=== PATIENT | female | born 1935 | race Caucasian/White ===

== ENCOUNTER 2017-04-30 21:19 | Inpatient (IN) | payer MEDICARE ==
[~2017-04-30] VITALS: Ht 160 cm; Wt 73.5 kg
[~2017-04-30 21:19] MED LIST: ALPR0.254 PO; AMIO200T2 PO; ESCITALOPRAM OX10 MG PO; FENT50AM IJ; FURO10VI IJ; HEPA500022 IJ; INSU100V SQ; IPRA3AMP NEB; LEVO75TA5 PO; MELA3TAB2 PEG; ONDA4DIS IJ; PANT40TA5 PO; POTA20TA82 PO; SIME80TA14 PO; SUCR1TAB PO; metoprolol IV
--- NOTE | 2017-04-30 21:27 | PHYS DOC ---
Past Medical History Past Medical History: Diabetes-Type II, High Cholesterol, Hypertension Past Medical History Perforated Peptic ulcer 03/29/17 Past Surgical History: Hip Replacement, Hysterectomy Additional Past Surgical Histo: Back; bladder suspension Past Surgical History lap w abdominal washout with repair of perforated ulcer and Mahad patch placement 03/29/17 Additional Information: Non smoker Social History Narrative: From [facility] Adult General Chief Complaint Chief Complaint: SHORTNESS OF BREATH HPI HPI Patient is a 81 year old female who presents with shortness of air. Patient presents from [facility] for shortness of air. She was originally seen at [facility] on March 29, 2017 for perforated peptic ulcer (lives in [facility]). She underwent emergent laparoscopy and repair. During that stay she was treated for peritonitis, septic shock, acute kidney injury, non-STEMI and respiratory failure. She was intubated on March 29 and extubate on April 05, 2017. She did develop atrial fibrillation which converted to sinus rhythm spontaneously. She is presently on oral amiodarone. She had a echocardiogram that showed an ejection fraction 55%. She is anti- coagulated. Per the daughter she just finished Meropenem yesterday for aspiration pneumonia. Staff noticed she was diaphoretic and having SOA. She was given Aspirin; nitropaste and IV lasix 80 mg at [facility] prior to arrival here. She is followed by Dr Rita Hebert at [facility]. Review of Systems Review of Systems Unable to answer due to respiratory difficulty Current Medications Current Medications Current Medications Medications (Trade) Dose Ordered Sig/Leia Start Time Stop Time Status Last Admin Dose Admin Meropenem 500 mg/ Sodium Chloride 50 ml @ 100 mls/hr Q8HRS 04/30/17 23:00 04/30/17 22:44 100 MLS/HR Morphine Sulfate 2 mg PRN Q2HR PRN 04/30/17 23:00 05/01/17 22:59 04/30/17 23:09 2 MG Ondansetron HCl (Zofran) 4 mg PRN Q8HRS PRN 04/30/17 23:00 05/01/17 22:59 Sodium Chloride 500 ml @ 500 mls/hr 1X ONCE 04/30/17 23:45 05/01/17 00:44 DC 04/30/17 23:38 500 MLS/HR Sodium Chloride (Normal Saline Flush) 10 ml QSHIFT PRN 04/30/17 21:30 Allergies Allergies Allergies Coded Allergies Type Severity Reaction Last Updated Verified Penicillins Allergy Severe Anaphylaxis 04/30/17 Yes metronidazole Allergy Intermediate 04/30/17 Yes sulfamethoxazole Allergy Intermediate 04/30/17 Yes trimethoprim Allergy Intermediate 04/30/17 Yes adhesive tape Adverse Reaction Severe skin tears 04/14/17 Yes pravastatin Adverse Reaction Intermediate severe muscle cramps 04/14/17 Yes acetaminophen Adverse Reaction Mild nausea 04/14/17 Yes hydrocodone Adverse Reaction Mild nausea 04/14/17 Yes oxycodone Adverse Reaction Mild nausea 04/14/17 Yes tramadol Adverse Reaction Mild nausea 04/14/17 Yes Physical Exam Physical Exam Constitutional: ill appearing; no diaphoresis presently HENT: Normocephalic, atraumatic, bilateral external ears normal, oropharynx moist, no oral exudates, nose normal. Eyes: PERRLA, EOMI, conjunctiva normal, no discharge. Neck: Normal range of motion, no tenderness, supple, no stridor. Cardiovascular:Heart rate regular rhythm, tachycardic, no murmur Lungs & Thorax: Bilateral breath sounds clear to auscultation Abdomen: Bowel sounds normal, soft, no tenderness, no masses, no pulsatile masses. Skin: Warm, dry, no erythema, no rash. Back: No tenderness, no CVA tenderness. Extremities: No tenderness, no cyanosis, no clubbing, ROM intact, no edema. [] Neurologic: Alert and oriented X 2, normal motor function, normal sensory function, no focal deficits noted. Current Patient Data Vital Signs Vital Signs Date Time Temp Pulse Resp B/P (MAP) Pulse Ox O2 Delivery O2 Flow Rate FiO2 05/01/17 00:02 74 20 96/55 (69) 99 BiPAP/CPAP 04/30/17 22:15 98.8 98.8 Lab Values Laboratory Tests Test 04/30/17 21:23 04/30/17 21:35 04/30/17 21:45 Urine Collection Type Unknown Urine Color Yellow Urine Clarity Clear Urine pH 7.0 Urine Specific [place] 1.010 Urine Protein Negative mg/dL (NEG-TRACE) Urine Glucose (UA) Negative mg/dL (NEG) Urine Ketones (Stick) Negative mg/dL (NEG) Urine Blood Moderate (NEG) Urine Nitrite Negative (NEG) Urine Bilirubin Negative (NEG) Urine Urobilinogen Dipstick 0.2 mg/dL (0.2 mg/dL) Urine Leukocyte Esterase Negative (NEG) Urine RBC 11-20 /HPF (0-2) Urine WBC Occ /HPF (0-4) Urine Bacteria 0 /HPF (0-FEW) Urine Hyaline Casts Moderate /HPF Urine Mucus Mod /LPF White Blood Count 15.8 x10^3/uL (4.0-11.0) H Red Blood Count 3.71 x10^6/uL (3.50-5.40) Hemoglobin 10.7 g/dL (12.0-15.5) L Hematocrit 32.9 % (36.0-47.0) L Mean Corpuscular Volume 89 fL (79-100) Mean Corpuscular Hemoglobin 29 pg (25-35) Mean Corpuscular Hemoglobin Concent 33 g/dL (31-37) Red Cell Distribution Width 17.6 % (11.5-14.5) H Platelet Count 347 x10^3/uL (140-400) Neutrophils (%) (Auto) 70 % (31-73) Lymphocytes (%) (Auto) 17 % (24-48) L Monocytes (%) (Auto) 5 % (0-9) Eosinophils (%) (Auto) 8 % (0-3) H Basophils (%) (Auto) 1 % (0-3) Neutrophils # (Auto) 11.0 x10^3uL (1.8-7.7) H Lymphocytes # (Auto) 2.6 x10^3/uL (1.0-4.8) Monocytes # (Auto) 0.7 x10^3/uL (0.0-1.1) Eosinophils # (Auto) 1.3 x10^3/uL (0.0-0.7) H Basophils # (Auto) 0.1 x10^3/uL (0.0-0.2) Prothrombin Time 16.8 SEC (11.7-14.0) H Prothrombin Time INR 1.5 (0.8-1.1) H Sodium Level 133 mmol/L (136-145) L Potassium Level 4.3 mmol/L (3.5-5.1) Chloride Level 93 mmol/L (98-107) L Carbon Dioxide Level 33 mmol/L (21-32) H Anion Gap 7 (6-14) Blood Urea Nitrogen 28 mg/dL (7-20) H Creatinine 1.0 mg/dL (0.6-1.0) Estimated GFR (Cockcroft-Gault) 53.5 Glucose Level 197 mg/dL (70-99) H Lactic Acid Level 2.6 mmol/L (0.4-2.0) H Calcium Level 8.9 mg/dL (8.5-10.1) Magnesium Level 2.1 mg/dL (1.8-2.4) Total Bilirubin 0.4 mg/dL (0.2-1.0) Direct Bilirubin 0.1 mg/dL (0.0-0.2) Aspartate Amino Transferase (AST) 32 U/L (15-37) Alanine Aminotransferase (ALT) 24 U/L (14-59) Alkaline Phosphatase 90 U/L (46-116) Creatine Kinase 44 U/L (26-192) Creatine Kinase MB (Mass) 1.6 ng/mL (0.0-3.6) Creatine Kinase MB Relative Index % (0-4) Troponin I Quantitative 0.019 ng/mL (0.000-0.055) OC-Dsv-F-Type Natriuretic Peptide 89037 pg/mL (0-449) H Total Protein 7.9 g/dL (6.4-8.2) Albumin 2.4 g/dL (3.4-5.0) L Lipase 829 U/L (73-393) H O2 Saturation 98 % (92-99) Arterial Blood pH 7.48 (7.35-7.45) H Arterial Blood pCO2 at Patient Temp 40 mmHg (35-46) Arterial Blood pO2 at Patient Temp 121 mmHg (65-108) H Arterial Blood HCO3 29 mmol/L (21-28) H Arterial Blood Base Excess 5 mmol/L (-3-3) H Oxyhemoglobin 97.0 % Methemoglobin 0.6 % (0.0-1.9) Carbon Monoxide, Quantitative 0.2 % (0.0-1.9) FiO2 100 Laboratory Tests 04/30/17 21:35 Laboratory Tests 04/30/17 21:35 EKG EKG EKG interpreted by myself at 2116 PM: sinus tachycardia rate 109 with prolonged MS interval; BBB; LAD. No STEMI. Radiology/Procedures Radiology/Procedures CXR interpreted by myself at 2200 PM: enlarged cardiac silhouette; no acute infiltrate; no pleural effusion. Course & Med Decision Making Course & Med Decision Making Reviewed her EKG transmitted (done at 2014 PM): Sinus tachycardia; rate 99; nonspecific ST changes. BBB with no ST elevation. Did not meet criteria for STEMI. Discussed with Dr hCo (Cardiology) at 2107 PM who concurred. Met patient upon arrival with repeat EKG confirming no STEMI. She clinically appeared to have CHF. Placed on BIPAP upon arrival (20/8, R 20, fiO2 100%). ABG done at 2145 PM: 7.47/40/120 (titrated oxygen). Spoke w daughter and updated family. At 2229 PM reviewed all of her records from [facility] and lab. Will restart the Meropenem (she has multiple allergies) and admit. lactic acid 2.6; BNP >11,000. Admit ICU; consult Cardiology. Called Dr Escobar (wagon drill operator for [facility] ) at 2245 PM. Patient meets severe sepsis with Lactic >2.2; needs IV fluids > 125 cc/hr per sepsis protocol. At [address] Escobar returned page and updated on patient's status. I spent approximately 30 minutes working and engaged directly in the patient care providing critical care evaluation this includes but not limited to time spent engaged in work directly related to the individual patients care. I spent time at the bedside, reviewing test results, discussing the case with staff, documenting the medical record and time spent with EMS discussing specific treatment issues when the patient presented and during his evaluation. This includes any discussion and updates with family members and/or patient. I have spoken with the patient and/or caregivers. I have explained the patient' s condition, diagnosis and treatment plan based on the information available to me at this time. I have answered the patient's and/or caregiver's questions and addressed any concerns. The patient and/or caregivers have as good an understanding of the patient's diagnosis, condition and treatment plan as can be expected at this point. The patient has been stabilized within the capability of the emergency department. The patient will be transported for further care and management or will be moved to an observation or inpatient service. I have communicated with the staff or medical practitioner taking over this patient's care. Dragon Disclaimer Dragon Disclaimer This electronic medical record was generated, in whole or in part, using a voice recognition dictation system. Departure Departure Impression: Primary Impression: CHF (congestive heart failure) Additional Impressions: Sepsis Respiratory failure Disposition: ADMITTED INPATIENT Condition: CRITICAL Referrals: RITA HEBERT MD (PCP) Problem Qualifiers Primary Impression: CHF (congestive heart failure) Congestive heart failure type: unspecified congestive heart failure type Congestive heart failure chronicity: acute on chronic Qualified Codes: I50.9 - Heart failure, unspecified Additional Impressions: Sepsis Sepsis type: sepsis due to unspecified organism Qualified Codes: A41.9 - Sepsis, unspecified organism Respiratory failure Chronicity: acute on chronic Respiratory failure complication: hypoxia Qualified Codes: J96.21 - Acute and chronic respiratory failure with hypoxia SHAGGY ARMANDO MD Apr 30, 2017 21:27
[2017-04-30] MEDS ORDERED: 0.9 % SODIUM CHLORIDE 10 ML DISP.SYRIN. IV PRN (21:30)
[2017-04-30 21:44] LABS: BASO # 0.1 x10^3/uL (0.0-0.2); BASO % 1 % (0-3); EOS % 8 % (0-3); HEMATOCRIT 32.9 % (36.0-47.0); HEMOGLOBIN 10.7 g/dL (12.0-15.5); LYMPH # 2.6 x10^3/uL (1.0-4.8); LYMPH % 17 % (24-48); MEAN CORPUSCULAR HEMOGLOBIN 29 pg (25-35); MEAN CORPUSCULAR HGB CONC 33 g/dL (31-37); MEAN CORPUSCULAR VOLUME 89 fL (79-100); MONO % 5 % (0-9); NEUT % 70 % (31-73); PLATELET COUNT 347 x10^3/uL (140-400); RED BLOOD COUNT 3.71 x10^6/uL (3.50-5.40); RED CELL DISTRIBUTION WIDTH 17.6 % (11.5-14.5); WHITE BLOOD COUNT 15.8 x10^3/uL (4.0-11.0)
[2017-04-30 21:48] LABS: BASE EXCESS COOX 5 mmol/L (-3-3); CARBON MONOXIDE 0.2 % (0.0-1.9); HCO3 COOX 29 mmol/L (21-28); METHEMOGLOBIN 0.6 % (0.0-1.9); PCO2 COOX 40 mmHg (35-46); PH COOX 7.48 (7.35-7.45); PO2 COOX 121 mmHg (65-108); SAT O2 COOX 98 % (92-99); TOTAL HEMOGLOBIN 11.8 g/dL
[2017-04-30 21:49] LABS: FIO2 COOX 100
[2017-04-30 21:53] LABS: INR 1.5 (0.8-1.1); PROTHROMBIN TIME PATIENT 16.8 SEC (11.7-14.0)
[2017-04-30 21:54] LABS: CALCIUM 8.9 mg/dL (8.5-10.1); GFR 53.5; POTASSIUM 4.3 mmol/L (3.5-5.1)
[2017-04-30 22:00] LABS: ALBUMIN 2.4 g/dL (3.4-5.0); DIRECT BILIRUBIN 0.1 mg/dL (0.0-0.2); MAGNESIUM 2.1 mg/dL (1.8-2.4); TOTAL BILIRUBIN 0.4 mg/dL (0.2-1.0); TOTAL PROTEIN 7.9 g/dL (6.4-8.2)
[2017-04-30 22:09] LABS: CKMB MASS 1.6 ng/mL (0.0-3.6); CREATINE KINASE 44 U/L (26-192)
[2017-04-30 22:20] LABS: BILIRUBIN,URINE NEGATIVE (NEG); GLUCOSE,URINE NEGATIVE (NEG); NITRITE,URINE NEGATIVE (NEG); PROTEIN,URINE NEGATIVE (NEG-TRACE); UROBILINOGEN,URINE 0.2 mg/dL (0.2 mg/dL)
[2017-04-30 22:27] LABS: BACTERIA,URINE 0 /HPF (0-FEW); WBC,URINE OCC /HPF (0-4)
[2017-04-30] MEDS: MEROPENEM 500 MG in IV NORMAL SALINE 50ML 50 ML IV SCH (22:44)
[2017-04-30] MEDS ORDERED: ONDANSETRON PF 4 MG/2 ML VIAL. IV PRN ×2 (23:00)
[2017-04-30] MEDS ORDERED: MORPHINE SULFATE 2 MG/ML DISP.SYRIN. IV PRN (23:00)
[2017-04-30] MEDS ORDERED: IV NORMAL SALINE 1000ML BAG 1,000 ML IV ONE ×2 (23:30)
[2017-04-30] MEDS ORDERED: IV NORMAL SALINE 500ML BAG 500 ML IV ONE (23:45)
[2017-05-01] VITALS (27 sets, daily range): BP systolic 69–123; BP diastolic 42–76
[2017-05-01] MEDS ORDERED: NOREPINEPHRIN PREMIX 250 ML IV PRN (01:45)
[2017-05-01] MEDS: IV NORMAL SALINE 1000ML BAG 1,000 ML IV SCH ×2 (02:00→15:00)
[2017-05-01] MEDS ORDERED: LISI10TA2 PO (04:26)
[2017-05-01] MEDS ORDERED: APIX5TAB PO (04:26)
[2017-05-01] MEDS: MEROPENEM 500 MG in IV NORMAL SALINE 50ML 50 ML IV SCH ×3 (05:15→21:47)
[2017-05-01] MEDS ORDERED: MEROPENEM 500 MG in IV NORMAL SALINE 50ML 50 ML IV SCH (06:00)
[2017-05-01 06:33] LABS: BASO # 0.1 x10^3/uL (0.0-0.2); BASO % 1 % (0-3); EOS % 5 % (0-3); HEMATOCRIT 29.1 % (36.0-47.0); HEMOGLOBIN 9.8 g/dL (12.0-15.5); LYMPH % 23 % (24-48); MEAN CORPUSCULAR HEMOGLOBIN 30 pg (25-35); MEAN CORPUSCULAR HGB CONC 34 g/dL (31-37); MEAN CORPUSCULAR VOLUME 87 fL (79-100); MONO % 8 % (0-9); NEUT % 63 % (31-73); PLATELET COUNT 278 x10^3/uL (140-400); RED BLOOD COUNT 3.33 x10^6/uL (3.50-5.40); RED CELL DISTRIBUTION WIDTH 17.1 % (11.5-14.5); WHITE BLOOD COUNT 8.4 x10^3/uL (4.0-11.0)
[2017-05-01 07:10] LABS: CREATININE 0.9 mg/dL (0.6-1.0); GFR 60.4; POTASSIUM 4.3 mmol/L (3.5-5.1)
--- NOTE | 2017-05-01 08:38 | RAD ---
Examination: Single frontal view of the chest history: History shortness of breath Comparison: None available Findings: Low lung volumes and technique accentuate heart size and pulmonary vascularity. Moderate diffuse bilateral interstitial lung markings and airspace opacities likely moderate congestive changes or diffuse patchy infiltrates. Trace bilateral pleural effusions. Impression: Findings suggestive of moderate congestive changes with probable patchy airspace opacities.
[2017-05-01 08:51] LABS: HCO3 ABG 33 mmol/L (21-28); PCO2 ABG 44 mmHg (35-46); PO2 ABG 133 mmHg (65-108); SAT O2 ABG 99 % (92-99)
[2017-05-01 08:52] LABS: FIO2 ABG 45
--- NOTE | 2017-05-01 11:03 | PDOC ---
Infectious Disease Note Subjective Subjective Dr Hebert asked me to see pt for early sepsis Pt known to us from [facility], transferred for being cold, diaphoretic, sob, hypotensive, leukocytosis, now on meropenem Says feeling better, no n/v/d/ ROS ROS GEN: Denies fevers, chills, sweats HEENT: Denies blurred vision, sore throat CV: Denies chest pain RESP: Denies shortness of air, cough GI: Denies n/v/d NEURO: Denies confusion, dizziness MSK: Denies weakness, joint pain/swelling Vital Sign Vital Signs Vital Signs Date Time Temp Pulse Resp B/P (MAP) Pulse Ox O2 Delivery O2 Flow Rate FiO2 05/01/17 10:00 73 20 81/47 (58) 90 Nasal Cannula 2.0 05/01/17 08:00 98.2 98.2 Physical Exam PHYSICAL EXAM GENERAL: NAD, Alert HEENT: PERRL, OC/OP NECK: Supple, no JVD, no LN LUNGS: Clear HEART: S1S2, no gallop, no murmur ABD: Soft, NT, no organomegaly, no rebound EXT: No edema, no cyanosis PEELER OPERATOR: Alert, oriented x 3, no focal neurologic deficit SKIN: No rash IV: ok Labs Lab Laboratory Tests Test 04/30/17 21:23 04/30/17 21:35 04/30/17 21:45 05/01/17 01:30 Urine Collection Type Unknown Urine Color Yellow Urine Clarity Clear Urine pH 7.0 Urine Specific [place] 1.010 Urine Protein Negative mg/dL (NEG-TRACE) Urine Glucose (UA) Negative mg/dL (NEG) Urine Ketones (Stick) Negative mg/dL (NEG) Urine Blood Moderate (NEG) Urine Nitrite Negative (NEG) Urine Bilirubin Negative (NEG) Urine Urobilinogen Dipstick 0.2 mg/dL (0.2 mg/dL) Urine Leukocyte Esterase Negative (NEG) Urine RBC 11-20 /HPF (0-2) Urine WBC Occ /HPF (0-4) Urine Bacteria 0 /HPF (0-FEW) Urine Hyaline Casts Moderate /HPF Urine Mucus Mod /LPF White Blood Count 15.8 x10^3/uL (4.0-11.0) Red Blood Count 3.71 x10^6/uL (3.50-5.40) Hemoglobin 10.7 g/dL (12.0-15.5) Hematocrit 32.9 % (36.0-47.0) Mean Corpuscular Volume 89 fL (79-100) Mean Corpuscular Hemoglobin 29 pg (25-35) Mean Corpuscular Hemoglobin Concent 33 g/dL (31-37) Red Cell Distribution Width 17.6 % (11.5-14.5) Platelet Count 347 x10^3/uL (140-400) Neutrophils (%) (Auto) 70 % (31-73) Lymphocytes (%) (Auto) 17 % (24-48) Monocytes (%) (Auto) 5 % (0-9) Eosinophils (%) (Auto) 8 % (0-3) Basophils (%) (Auto) 1 % (0-3) Neutrophils # (Auto) 11.0 x10^3uL (1.8-7.7) Lymphocytes # (Auto) 2.6 x10^3/uL (1.0-4.8) Monocytes # (Auto) 0.7 x10^3/uL (0.0-1.1) Eosinophils # (Auto) 1.3 x10^3/uL (0.0-0.7) Basophils # (Auto) 0.1 x10^3/uL (0.0-0.2) Prothrombin Time 16.8 SEC (11.7-14.0) Prothromb Time International Ratio 1.5 (0.8-1.1) Sodium Level 133 mmol/L (136-145) Potassium Level 4.3 mmol/L (3.5-5.1) Chloride Level 93 mmol/L (98-107) Carbon Dioxide Level 33 mmol/L (21-32) Anion Gap 7 (6-14) Blood Urea Nitrogen 28 mg/dL (7-20) Creatinine 1.0 mg/dL (0.6-1.0) Estimated GFR (Cockcroft-Gault) 53.5 Glucose Level 197 mg/dL (70-99) Lactic Acid Level 2.6 mmol/L (0.4-2.0) 1.6 mmol/L (0.4-2.0) Calcium Level 8.9 mg/dL (8.5-10.1) Magnesium Level 2.1 mg/dL (1.8-2.4) Total Bilirubin 0.4 mg/dL (0.2-1.0) Direct Bilirubin 0.1 mg/dL (0.0-0.2) Aspartate Amino Transf (AST/SGOT) 32 U/L (15-37) Alanine Aminotransferase (ALT/SGPT) 24 U/L (14-59) Alkaline Phosphatase 90 U/L (46-116) Creatine Kinase 44 U/L (26-192) Creatine Kinase MB (Mass) 1.6 ng/mL (0.0-3.6) Creatine Kinase MB Relative Index % (0-4) Troponin I Quantitative 0.019 ng/mL (0.000-0.055) UM-Xsi-V-Type Natriuretic Peptide 90119 pg/mL (0-449) Total Protein 7.9 g/dL (6.4-8.2) Albumin 2.4 g/dL (3.4-5.0) Lipase 829 U/L (73-393) O2 Saturation 98 % (92-99) Arterial Blood pH 7.48 (7.35-7.45) Arterial Blood pCO2 at Patient Temp 40 mmHg (35-46) Arterial Blood pO2 at Patient Temp 121 mmHg (65-108) Arterial Blood HCO3 29 mmol/L (21-28) Arterial Blood Base Excess 5 mmol/L (-3-3) Oxyhemoglobin 97.0 % Methemoglobin 0.6 % (0.0-1.9) Carbon Monoxide, Quantitative 0.2 % (0.0-1.9) FiO2 100 Test 05/01/17 05:10 05/01/17 05:19 05/01/17 08:30 Troponin I Quantitative 0.060 ng/mL (0.000-0.055) White Blood Count 8.4 x10^3/uL (4.0-11.0) Red Blood Count 3.33 x10^6/uL (3.50-5.40) Hemoglobin 9.8 g/dL (12.0-15.5) Hematocrit 29.1 % (36.0-47.0) Mean Corpuscular Volume 87 fL (79-100) Mean Corpuscular Hemoglobin 30 pg (25-35) Mean Corpuscular Hemoglobin Concent 34 g/dL (31-37) Red Cell Distribution Width 17.1 % (11.5-14.5) Platelet Count 278 x10^3/uL (140-400) Neutrophils (%) (Auto) 63 % (31-73) Lymphocytes (%) (Auto) 23 % (24-48) Monocytes (%) (Auto) 8 % (0-9) Eosinophils (%) (Auto) 5 % (0-3) Basophils (%) (Auto) 1 % (0-3) Neutrophils # (Auto) 5.2 x10^3uL (1.8-7.7) Lymphocytes # (Auto) 2.0 x10^3/uL (1.0-4.8) Monocytes # (Auto) 0.7 x10^3/uL (0.0-1.1) Eosinophils # (Auto) 0.4 x10^3/uL (0.0-0.7) Basophils # (Auto) 0.1 x10^3/uL (0.0-0.2) Sodium Level 137 mmol/L (136-145) Potassium Level 4.3 mmol/L (3.5-5.1) Chloride Level 97 mmol/L (98-107) Carbon Dioxide Level 34 mmol/L (21-32) Anion Gap 6 (6-14) Blood Urea Nitrogen 25 mg/dL (7-20) Creatinine 0.9 mg/dL (0.6-1.0) Estimated GFR (Cockcroft-Gault) 60.4 Glucose Level 103 mg/dL (70-99) Calcium Level 8.0 mg/dL (8.5-10.1) O2 Saturation 99 % (92-99) Arterial Blood pH 7.50 (7.35-7.45) Arterial Blood pCO2 at Patient Temp 44 mmHg (35-46) Arterial Blood pO2 at Patient Temp 133 mmHg (65-108) Arterial Blood HCO3 33 mmol/L (21-28) Arterial Blood Base Excess 9 mmol/L (-3-3) FiO2 45 Objective Assessment Early sepsis, lactic acidosis, leukocytosis CHF Aspiration cannot be ruled out Perforated ulcer s/p keli patch Troponin leak Plan Plan of Care cont meropenem for now supportive care check cultures d/w HERNANDEZ Hunter MD May 01, 2017 11:03
--- NOTE | 2017-05-01 11:50 | PDOC2 ---
CONSULT Date of Consult Date of Consult DATE: 05/01/17 TIME: 11:50 Reason for Consult Reason for Consult: Congestive heart failure Referring Physician Referring Physician: Dr. Hebert Identification/Chief Complaint Chief Complaint Shortness of breath Problems: Source Source: Chart review, Patient History of Present Illness Reason for Visit: 81-year-old female who recently underwent surgical repair of perforated peptic ulcer at [facility] and transferred to [facility] was found to be diaphoretic and short of breath and hence transferred to [facility] for further management. She denied any chest pain or palpitations. Past Medical History Past Medical History Paroxysmal atrial fibrillation Congestive heart failure Diabetes mellitus type 2 Hypertension Hyperlipidemia Hypothyroidism UTI Aspiration pneumonia Past Surgical History Past Surgical History Recent abdominal washout and laparoscopic repair of perforated peptic ulcer at [facility] Family History Family History not contributory Social History Social History Patient is a nonsmoker and a nondrinker Current Problem List Problem List Problems Medical Problems: (1) CHF (congestive heart failure) Status: Acute (2) Respiratory failure Status: Acute (3) Sepsis Status: Acute Current Medications Current Medications Current Medications Sodium Chloride (Normal Saline Flush) 10 ml QSHIFT PRN IV AFTER MEDS AND BLOOD DRAWS; Start 04/30/17 at 21:30 Meropenem 500 mg/ Sodium Chloride 50 ml @ 100 mls/hr Q8HRS IV Last administered on 05/01/17 05:15; Start 04/30/17 at 23:00 Sodium Chloride 1,000 ml @ 130 mls/hr 1X ONCE IV Last administered on 23:02; Start 04/30/17 at 23:30; Stop 05/01/17 at 07:11; Status DC Ondansetron HCl (Zofran) 4 mg PRN Q6HRS PRN IV NAUSEA/VOMITING Last administered on 04/30/17 23:00; Start 04/30/17 at 23:00; Stop 05/01/17 at 01:00; Status DC Ondansetron HCl (Zofran) 4 mg PRN Q8HRS PRN IV NAUSEA/VOMITING; Start 04/30/17 at 23:00; Stop 05/01/17 at 22:59 Morphine Sulfate 2 mg PRN Q2HR PRN IV SEVERE PAIN Last administered on 23:09; Start 04/30/17 at 23:00; Stop 05/01/17 at 22:59 Meropenem 500 mg/ Sodium Chloride 50 ml @ 100 mls/hr Q8HRS IV ; Start 05/01/17 at 06:00; Status UNV Sodium Chloride 1,000 ml @ 130 mls/hr 1X ONCE IV ; Start 04/30/17 at 23:30; Stop 05/01/17 at 07:11; Status DC Sodium Chloride 500 ml @ 500 mls/hr 1X ONCE IV Last administered on 04/30/17 23:38; Start 04/30/17 at 23:45; Stop 05/01/17 at 00:44; Status DC Norepinephrine Bitartrate 250 ml @ 0 mls/hr CONT PRN IV SEE I/O RECORD; Start 05/01/17 at 01:45 Sodium Chloride 1,000 ml @ 75 mls/hr [id number] IV Last administered on 05/01/17 02:00; Start 05/01/17 at 02:00 Active Scripts Active Reported Eliquis (Apixaban) 5 Mg Tablet 5 Mg PO BID Lisinopril 10 Mg Tablet 1 Tab PO DAILY Ondansetron Hcl 4 Mg/2 Ml Syr (Ondansetron Hcl/Pf) 4 Mg/2 Ml Disp.syrin 4 Mg IJ Q6HRS PRN Fentanyl 100 Mcg/2 Ml Ampul (Fentanyl Citrate/Pf) 50 Mcg/1 Ml Ampul 25 Mcg IJ Q2HR PRN Heparin Sod 5,000 Unit/ 0.5 Ml (Heparin Sodium,Porcine/Pf) 5,000 Unit/0.5 Ml Vial 5,000 Unit IJ Q12HR Pantoprazole Sodium 40 Mg Tablet.dr 1 Tab PO DAILY Sucralfate 1 Gm Tablet 1 Tab PO BID Simethicone 80 Mg Tab.chew 80 Mg PO TID Furosemide 10 Mg/1 Ml Vial 40 Mg IJ BID Duoneb 0.5-3(2.5) Mg/3 Ml (Albuterol/Ipratropium) 3 Ml Ampul.neb 3 Ml NEB BID Potassium Chloride 20 Meq Tablet.er 20 Meq PO TID Escitalopram Oxalate 10 Mg Tablet 1 Tab PO DAILY Alprazolam 0.25 Mg Tablet 1 Tab PO HS Humalog (Insulin Lispro) 100 Unit/1 Ml Vial 100 Unit SQ QIDACHS per [facility] protocol for doses Melatonin 3 Mg Tablet 3 Mg PEG QHS [metoprolol] 5 Mg IV Q6HRS Levothyroxine Sodium 75 Mcg Tablet 1 Tab PO DAILY Amiodarone Hcl 200 Mg Tablet 1 Tab PO BID Allergies Allergies: Coded Allergies: Penicillins (Verified Allergy, Severe, Anaphylaxis, 04/30/17) MERREM [place] metronidazole (Verified Allergy, Intermediate, 04/30/17) sulfamethoxazole (Verified Allergy, Intermediate, 04/30/17) trimethoprim (Verified Allergy, Intermediate, 04/30/17) adhesive tape (Verified Adverse Reaction, Severe, skin tears, 04/14/17) pravastatin (Verified Adverse Reaction, Intermediate, severe muscle cramps , 04/14/17) acetaminophen (Verified Adverse Reaction, Mild, nausea, 04/14/17) hydrocodone (Verified Adverse Reaction, Mild, nausea, 04/14/17) oxycodone (Verified Adverse Reaction, Mild, nausea, 04/14/17) tramadol (Verified Adverse Reaction, Mild, nausea, 04/14/17) ROS PSYCHOLOGICAL ROS: No: Hallucinations Eyes: No Loss of vision HEENT: No: Epistaxis Respiratory: YES: Shortness of breath Cardiovascular: No Chest Pain Gastrointestinal: No Vomiting Genitourinary: No Hematuria Neurological: No Seizures Skin: No Rash Physical Exam General: No acute distress HEENT: Atraumatic Lungs: Other (scattered crepitations bilaterally) Heart: Other (tachycardic and regular) Abdomen: Soft Extremities: No edema Psych/Mental Status: Mood NL Vitals VITALS Vital Signs Date Time Temp Pulse Resp B/P (MAP) Pulse Ox O2 Delivery O2 Flow Rate FiO2 05/01/17 11:00 78 20 93/56 (68) 96 Nasal Cannula 2.0 05/01/17 08:00 98.2 98.2 Labs Labs Laboratory Tests Test 04/30/17 21:23 04/30/17 21:35 04/30/17 21:45 05/01/17 01:30 Urine Collection Type Unknown Urine Color Yellow Urine Clarity Clear Urine pH 7.0 Urine Specific Leonard 1.010 Urine Protein Negative mg/dL (NEG-TRACE) Urine Glucose (UA) Negative mg/dL (NEG) Urine Ketones (Stick) Negative mg/dL (NEG) Urine Blood Moderate (NEG) Urine Nitrite Negative (NEG) Urine Bilirubin Negative (NEG) Urine Urobilinogen Dipstick 0.2 mg/dL (0.2 mg/dL) Urine Leukocyte Esterase Negative (NEG) Urine RBC 11-20 /HPF (0-2) Urine WBC Occ /HPF (0-4) Urine Bacteria 0 /HPF (0-FEW) Urine Hyaline Casts Moderate /HPF Urine Mucus Mod /LPF White Blood Count 15.8 x10^3/uL (4.0-11.0) Red Blood Count 3.71 x10^6/uL (3.50-5.40) Hemoglobin 10.7 g/dL (12.0-15.5) Hematocrit 32.9 % (36.0-47.0) Mean Corpuscular Volume 89 fL (79-100) Mean Corpuscular Hemoglobin 29 pg (25-35) Mean Corpuscular Hemoglobin Concent 33 g/dL (31-37) Red Cell Distribution Width 17.6 % (11.5-14.5) Platelet Count 347 x10^3/uL (140-400) Neutrophils (%) (Auto) 70 % (31-73) Lymphocytes (%) (Auto) 17 % (24-48) Monocytes (%) (Auto) 5 % (0-9) Eosinophils (%) (Auto) 8 % (0-3) Basophils (%) (Auto) 1 % (0-3) Neutrophils # (Auto) 11.0 x10^3uL (1.8-7.7) Lymphocytes # (Auto) 2.6 x10^3/uL (1.0-4.8) Monocytes # (Auto) 0.7 x10^3/uL (0.0-1.1) Eosinophils # (Auto) 1.3 x10^3/uL (0.0-0.7) Basophils # (Auto) 0.1 x10^3/uL (0.0-0.2) Prothrombin Time 16.8 SEC (11.7-14.0) Prothromb Time International Ratio 1.5 (0.8-1.1) Sodium Level 133 mmol/L (136-145) Potassium Level 4.3 mmol/L (3.5-5.1) Chloride Level 93 mmol/L (98-107) Carbon Dioxide Level 33 mmol/L (21-32) Anion Gap 7 (6-14) Blood Urea Nitrogen 28 mg/dL (7-20) Creatinine 1.0 mg/dL (0.6-1.0) Estimated GFR (Cockcroft-Gault) 53.5 Glucose Level 197 mg/dL (70-99) Lactic Acid Level 2.6 mmol/L (0.4-2.0) 1.6 mmol/L (0.4-2.0) Calcium Level 8.9 mg/dL (8.5-10.1) Magnesium Level 2.1 mg/dL (1.8-2.4) Total Bilirubin 0.4 mg/dL (0.2-1.0) Direct Bilirubin 0.1 mg/dL (0.0-0.2) Aspartate Amino Transf (AST/SGOT) 32 U/L (15-37) Alanine Aminotransferase (ALT/SGPT) 24 U/L (14-59) Alkaline Phosphatase 90 U/L (46-116) Creatine Kinase 44 U/L (26-192) Creatine Kinase MB (Mass) 1.6 ng/mL (0.0-3.6) Creatine Kinase MB Relative Index % (0-4) Troponin I Quantitative 0.019 ng/mL (0.000-0.055) GM-Blk-L-Type Natriuretic Peptide 39443 pg/mL (0-449) Total Protein 7.9 g/dL (6.4-8.2) Albumin 2.4 g/dL (3.4-5.0) Lipase 829 U/L (73-393) O2 Saturation 98 % (92-99) Arterial Blood pH 7.48 (7.35-7.45) Arterial Blood pCO2 at Patient Temp 40 mmHg (35-46) Arterial Blood pO2 at Patient Temp 121 mmHg (65-108) Arterial Blood HCO3 29 mmol/L (21-28) Arterial Blood Base Excess 5 mmol/L (-3-3) Oxyhemoglobin 97.0 % Methemoglobin 0.6 % (0.0-1.9) Carbon Monoxide, Quantitative 0.2 % (0.0-1.9) FiO2 100 Test 05/01/17 05:10 05/01/17 05:19 05/01/17 08:30 Troponin I Quantitative 0.060 ng/mL (0.000-0.055) White Blood Count 8.4 x10^3/uL (4.0-11.0) Red Blood Count 3.33 x10^6/uL (3.50-5.40) Hemoglobin 9.8 g/dL (12.0-15.5) Hematocrit 29.1 % (36.0-47.0) Mean Corpuscular Volume 87 fL (79-100) Mean Corpuscular Hemoglobin 30 pg (25-35) Mean Corpuscular Hemoglobin Concent 34 g/dL (31-37) Red Cell Distribution Width 17.1 % (11.5-14.5) Platelet Count 278 x10^3/uL (140-400) Neutrophils (%) (Auto) 63 % (31-73) Lymphocytes (%) (Auto) 23 % (24-48) Monocytes (%) (Auto) 8 % (0-9) Eosinophils (%) (Auto) 5 % (0-3) Basophils (%) (Auto) 1 % (0-3) Neutrophils # (Auto) 5.2 x10^3uL (1.8-7.7) Lymphocytes # (Auto) 2.0 x10^3/uL (1.0-4.8) Monocytes # (Auto) 0.7 x10^3/uL (0.0-1.1) Eosinophils # (Auto) 0.4 x10^3/uL (0.0-0.7) Basophils # (Auto) 0.1 x10^3/uL (0.0-0.2) Sodium Level 137 mmol/L (136-145) Potassium Level 4.3 mmol/L (3.5-5.1) Chloride Level 97 mmol/L (98-107) Carbon Dioxide Level 34 mmol/L (21-32) Anion Gap 6 (6-14) Blood Urea Nitrogen 25 mg/dL (7-20) Creatinine 0.9 mg/dL (0.6-1.0) Estimated GFR (Cockcroft-Gault) 60.4 Glucose Level 103 mg/dL (70-99) Calcium Level 8.0 mg/dL (8.5-10.1) O2 Saturation 99 % (92-99) Arterial Blood pH 7.50 (7.35-7.45) Arterial Blood pCO2 at Patient Temp 44 mmHg (35-46) Arterial Blood pO2 at Patient Temp 133 mmHg (65-108) Arterial Blood HCO3 33 mmol/L (21-28) Arterial Blood Base Excess 9 mmol/L (-3-3) FiO2 45 Laboratory Tests Test 04/30/17 21:23 04/30/17 21:35 04/30/17 21:45 05/01/17 01:30 Urine Collection Type Unknown Urine Color Yellow Urine Clarity Clear Urine pH 7.0 Urine Specific Leonard 1.010 Urine Protein Negative mg/dL (NEG-TRACE) Urine Glucose (UA) Negative mg/dL (NEG) Urine Ketones (Stick) Negative mg/dL (NEG) Urine Blood Moderate (NEG) Urine Nitrite Negative (NEG) Urine Bilirubin Negative (NEG) Urine Urobilinogen Dipstick 0.2 mg/dL (0.2 mg/dL) Urine Leukocyte Esterase Negative (NEG) Urine RBC 11-20 /HPF (0-2) Urine WBC Occ /HPF (0-4) Urine Bacteria 0 /HPF (0-FEW) Urine Hyaline Casts Moderate /HPF Urine Mucus Mod /LPF White Blood Count 15.8 x10^3/uL (4.0-11.0) Red Blood Count 3.71 x10^6/uL (3.50-5.40) Hemoglobin 10.7 g/dL (12.0-15.5) Hematocrit 32.9 % (36.0-47.0) Mean Corpuscular Volume 89 fL (79-100) Mean Corpuscular Hemoglobin 29 pg (25-35) Mean Corpuscular Hemoglobin Concent 33 g/dL (31-37) Red Cell Distribution Width 17.6 % (11.5-14.5) Platelet Count 347 x10^3/uL (140-400) Neutrophils (%) (Auto) 70 % (31-73) Lymphocytes (%) (Auto) 17 % (24-48) Monocytes (%) (Auto) 5 % (0-9) Eosinophils (%) (Auto) 8 % (0-3) Basophils (%) (Auto) 1 % (0-3) Neutrophils # (Auto) 11.0 x10^3uL (1.8-7.7) Lymphocytes # (Auto) 2.6 x10^3/uL (1.0-4.8) Monocytes # (Auto) 0.7 x10^3/uL (0.0-1.1) Eosinophils # (Auto) 1.3 x10^3/uL (0.0-0.7) Basophils # (Auto) 0.1 x10^3/uL (0.0-0.2) Prothrombin Time 16.8 SEC (11.7-14.0) Prothromb Time International Ratio 1.5 (0.8-1.1) Sodium Level 133 mmol/L (136-145) Potassium Level 4.3 mmol/L (3.5-5.1) Chloride Level 93 mmol/L (98-107) Carbon Dioxide Level 33 mmol/L (21-32) Anion Gap 7 (6-14) Blood Urea Nitrogen 28 mg/dL (7-20) Creatinine 1.0 mg/dL (0.6-1.0) Estimated GFR (Cockcroft-Gault) 53.5 Glucose Level 197 mg/dL (70-99) Lactic Acid Level 2.6 mmol/L (0.4-2.0) 1.6 mmol/L (0.4-2.0) Calcium Level 8.9 mg/dL (8.5-10.1) Magnesium Level 2.1 mg/dL (1.8-2.4) Total Bilirubin 0.4 mg/dL (0.2-1.0) Direct Bilirubin 0.1 mg/dL (0.0-0.2) Aspartate Amino Transf (AST/SGOT) 32 U/L (15-37) Alanine Aminotransferase (ALT/SGPT) 24 U/L (14-59) Alkaline Phosphatase 90 U/L (46-116) Creatine Kinase 44 U/L (26-192) Creatine Kinase MB (Mass) 1.6 ng/mL (0.0-3.6) Creatine Kinase MB Relative Index % (0-4) Troponin I Quantitative 0.019 ng/mL (0.000-0.055) RE-Zza-Z-Type Natriuretic Peptide 54200 pg/mL (0-449) Total Protein 7.9 g/dL (6.4-8.2) Albumin 2.4 g/dL (3.4-5.0) Lipase 829 U/L (73-393) O2 Saturation 98 % (92-99) Arterial Blood pH 7.48 (7.35-7.45) Arterial Blood pCO2 at Patient Temp 40 mmHg (35-46) Arterial Blood pO2 at Patient Temp 121 mmHg (65-108) Arterial Blood HCO3 29 mmol/L (21-28) Arterial Blood Base Excess 5 mmol/L (-3-3) Oxyhemoglobin 97.0 % Methemoglobin 0.6 % (0.0-1.9) Carbon Monoxide, Quantitative 0.2 % (0.0-1.9) FiO2 100 Test 05/01/17 05:10 05/01/17 05:19 05/01/17 08:30 Troponin I Quantitative 0.060 ng/mL (0.000-0.055) White Blood Count 8.4 x10^3/uL (4.0-11.0) Red Blood Count 3.33 x10^6/uL (3.50-5.40) Hemoglobin 9.8 g/dL (12.0-15.5) Hematocrit 29.1 % (36.0-47.0) Mean Corpuscular Volume 87 fL (79-100) Mean Corpuscular Hemoglobin 30 pg (25-35) Mean Corpuscular Hemoglobin Concent 34 g/dL (31-37) Red Cell Distribution Width 17.1 % (11.5-14.5) Platelet Count 278 x10^3/uL (140-400) Neutrophils (%) (Auto) 63 % (31-73) Lymphocytes (%) (Auto) 23 % (24-48) Monocytes (%) (Auto) 8 % (0-9) Eosinophils (%) (Auto) 5 % (0-3) Basophils (%) (Auto) 1 % (0-3) Neutrophils # (Auto) 5.2 x10^3uL (1.8-7.7) Lymphocytes # (Auto) 2.0 x10^3/uL (1.0-4.8) Monocytes # (Auto) 0.7 x10^3/uL (0.0-1.1) Eosinophils # (Auto) 0.4 x10^3/uL (0.0-0.7) Basophils # (Auto) 0.1 x10^3/uL (0.0-0.2) Sodium Level 137 mmol/L (136-145) Potassium Level 4.3 mmol/L (3.5-5.1) Chloride Level 97 mmol/L (98-107) Carbon Dioxide Level 34 mmol/L (21-32) Anion Gap 6 (6-14) Blood Urea Nitrogen 25 mg/dL (7-20) Creatinine 0.9 mg/dL (0.6-1.0) Estimated GFR (Cockcroft-Gault) 60.4 Glucose Level 103 mg/dL (70-99) Calcium Level 8.0 mg/dL (8.5-10.1) O2 Saturation 99 % (92-99) Arterial Blood pH 7.50 (7.35-7.45) Arterial Blood pCO2 at Patient Temp 44 mmHg (35-46) Arterial Blood pO2 at Patient Temp 133 mmHg (65-108) Arterial Blood HCO3 33 mmol/L (21-28) Arterial Blood Base Excess 9 mmol/L (-3-3) FiO2 45 Assessment/Plan Assessment/Plan 1. Congestive heart failure most probably due to combined acute on chronic diastolic and systolic heart failure but cannot rule out aspiration pneumonia as a cause. Recent 2-D echo at [facility] showed normal LV systolic function but echocardiogram obtained at [facility] on 04/10/2017 showed LVEF 35-40%. Continue diuresis with Lasix. 2. Slightly elevated troponin level. Patient was diagnosed with non-STEMI at [facility] recently, most of the type II. EKG showed sinus rhythm with left bundle branch block. 2-D echo at [facility] showed inferior wall motion abnormality along with diminished left ventricle function. We will consider Lexiscan nuclear stress test to rule out ischemia once active issues resolve. 3. Paroxysmal atrial fibrillation: Presently in sinus rhythm. Continue current medications including amiodarone and Eliquis. 4. Sepsis: Treat per ID team 5. Diabetes mellitus type 2: Treated per IM 6. Hypothyroidism: On levo thyroxine Thank you for your consultation MARY KAY CALDERON MD May 01, 2017 11:50
--- NOTE | 2017-05-01 12:12 | PDOC ---
Provider Note Provider Note Patient seen. History and Physical dictated. See dictation# [id number] RITA HUMMEL MD May 01, 2017 12:12
[2017-05-01] MEDS: LISINOPRIL 10 MG TABLET PO SCH (12:15)
[2017-05-01] MEDS ORDERED: fentaNYL PF VIAL 100 MCG/2 ML VIAL IV PRN (12:15)
[2017-05-01] MEDS: INSULIN ASPART 300 UNITS/3 ML INSULN.PEN SQ SCH ×2 (12:24→16:30)
[2017-05-01] MEDS: APIXABAN 5 MG TABLET. PO SCH ×2 (12:29→21:46)
[2017-05-01] MEDS: CITALOPRAM 20 MG TABLET. PO SCH (12:29)
[2017-05-01] MEDS: PANTOPRAZOLE 40 MG TABLET.DR. PO SCH (12:29)
[2017-05-01] MEDS: AMIODARONE HCL 200 MG TABLET. PO SCH ×2 (12:31→21:46)
--- NOTE | 2017-05-01 14:38 | HP ---
ADMIT DATE: 05/01/2017 HISTORY OF PRESENT ILLNESS: This 81-year-old female, who was recently transferred to [facility] from [facility] after she was treated for perforated peptic ulcer with abdominal washout and laparoscopic repair of the peptic ulcer with Mahad patch placement, had some nausea and vomiting along with being cold, diaphoretic, short of breath, and was noted to have leukocytosis. The patient also was noted to have elevated troponin and because of the respiratory failure with possible aspiration pneumonia as well as early sepsis and [id number] myocardial infarction, it was decided to admit the patient for further evaluation and management. SYSTEMS REVIEW: At present time, the patient denies any abdominal pain, nausea, vomiting, dyspnea, or chest pains. She is not a good historian, but she is more appropriate. She denies any cold, cough, congestion, chest pains, or fever. She denies any palpitations. Other systems reviewed and are negative. SYSTEMS REVIEW: As noted in the history of present illness. PAST MEDICAL HISTORY: The patient has history of atrial fibrillation with recurrent cardiac arrhythmia including PSVT as well as tachycardia. She also has congestive heart failure and has been treated with IV Lasix twice daily. She has a history of bilateral pleural effusion and has had thoracentesis. She has been treated for E. coli UTI, diabetes, sepsis, possible pneumonia. As noted earlier, she had perforated peptic ulcer, septic shock, acute respiratory failure, hypertension, dysphagia, hypothyroidism, hyperlipidemia, gastroesophageal reflux disease, recent dental caries, chronic kidney disease stage 3, E. coli UTI, hypotension, [id number] myocardial infarction, and abnormal liver function tests. PAST SURGICAL HISTORY: The patient had a diagnostic laparoscopy with abdominal washout and laparoscopic repair of the peptic ulcer with Mahad patch. FAMILY HISTORY: Reviewed and noncontributory. No information can be obtained from the patient at this time. Medications reviewed. The patient has been started on IV meropenem. She is on Eliquis for anticoagulation. SOCIAL HISTORY: No history of smoking, drug abuse or alcoholism. ALLERGIES: The patient is allergic to ADHESIVE TAPE, LORTAB, PENICILLIN, TRAMADOL, BACTRIM, FLAGYL, PERCOCET, and PRAVASTATIN. PHYSICAL EXAMINATION: GENERAL: The patient is an elderly female who is alert, forgetful, pale, and not in any acute distress. VITAL SIGNS: Temperature maximum 98.3, blood pressure had dropped to 81/47 mmHg and then was started on Levophed and Levophed has now been stopped, pulse 72 per minute, respirations 18 per minute. The patient is on oxygen by nasal cannula 2 liters per minute. EYES: Pupils reacting to light. Conjunctivae pale. Sclerae muddy. THROAT: Mild congestion. SKIN: Warm and dry. Skin is pale. LUNGS: Decreased breath sounds at bases. CARDIOVASCULAR: S1, S2 irregular. ABDOMEN: Soft, nontender, no guarding. Bowel sounds present. EXTREMITIES: No edema noted. CENTRAL NERVOUS SYSTEM: Generalized weakness. The patient is forgetful. LABORATORY DATA: WBC count was 15.8 last night, it is 8.4 today and hemoglobin 10.7 yesterday, 9.8 today. Platelet count 347,000. Sodium 133, potassium 4.3, BUN 28, creatinine 1.0. Glucose 197. BNP was 14,630, albumin 2.4, lipase 829. Today's sodium is 137, potassium 4.3, BUN 25, creatinine 0.9. Lactic acid initially was 2.6, now it has decreased to 1.6. Troponin levels were 0.019 and 0.06. IMPRESSION: 1. Early sepsis, possible aspiration pneumonia, improving. The patient has had history of nausea and vomiting followed by dyspnea. 2. Acute respiratory failure. Continue oxygen by nasal cannula. 3. Acute congestive heart failure, both diastolic and right ventricular. Previous echocardiogram showed ejection fraction of 55-60% and diastolic filling pattern was restricted, right ventricular global systolic function is mildly reduced. The patient was treated for acute congestive heart failure last weekend and she did respond to IV Lasix. Chest x-ray showed some changes, but as per Dr. Myers, the lung specialist, chest x-ray was more suggestive of congestive heart failure than aspiration pneumonia and this was done about a week ago. 4. Hypotension. 5. Recent perforated peptic ulcer with laparoscopic repair of the peptic ulcer and Mahad patch placement. 6. Possible non-ST elevation myocardial infraction. This may be also due to ventricular strain. 7. Severe malnutrition. 8. Chronic kidney disease stage 3 with recent acute kidney injury. 9. Hypotension. 9. Critical illness myopathy. 10. Diabetes mellitus type 2, controlled. 11. Hypothyroidism. 12. Hyperlipidemia. 13. Gastroesophageal reflux disease. 14. Recent cqi-WY-djjgwkorj myocardial infarction. 15. Recent atrial fibrillation with fast ventricular rate. 16. History of hypertension. 17. Diverticulosis. 18. Osteoarthritis. 19. Hearing loss. 20. Preglaucoma of both eyes. PLAN: Continue IV meropenem, discussed with Dr. Krzysztof Espinoza. Consult Infectious disease specialist for infectious disease evaluation and management and for treatment of sepsis. Consult Dr. Cho because of possible bmf-SP-vitiebtmd myocardial infarction. I will consult Dr. Douglass for respiratory failure. The patient was given IV Levophed this morning and now it has been discontinued. Prognosis of this patient is very poor. If she is stable, I have advised the staff to advance the diet to cardiac ADA diet. For details, please refer to the orders. I will hold the IV metoprolol, continue amiodarone. For details, please refer to the orders. RITA HUMMEL MD DR: FAVIOLA/margaret JOB#: [id number] / [id number]
[2017-05-01] MEDS: SIMETHICONE 80 MG TAB.CHEW PO SCH ×2 (15:00→21:46)
[2017-05-01] MEDS: IPRATRPIUM/ALBUTEROL 0.5/2.5MG 3 ML NEBU. NEB SCH ×2 (16:40→19:26)
[2017-05-01] MEDS: SUCRALFATE 1 GM TABLET. PO SCH (17:08)
--- NOTE | 2017-05-01 17:33 | PDOC ---
PULMONARY PROGRESS NOTES Vitals Vital Signs Date Time Temp Pulse Resp B/P (MAP) Pulse Ox O2 Delivery O2 Flow Rate FiO2 05/01/17 17:00 79 29 103/52 (69) 97 Nasal Cannula 3.0 05/01/17 16:00 98.1 98.1 Labs Laboratory Tests Test 04/30/17 21:23 04/30/17 21:35 04/30/17 21:45 05/01/17 01:04 Urine Collection Type Unknown Urine Color Yellow Urine Clarity Clear Urine pH 7.0 Urine Specific [place] 1.010 Urine Protein Negative mg/dL (NEG-TRACE) Urine Glucose (UA) Negative mg/dL (NEG) Urine Ketones (Stick) Negative mg/dL (NEG) Urine Blood Moderate (NEG) Urine Nitrite Negative (NEG) Urine Bilirubin Negative (NEG) Urine Urobilinogen Dipstick 0.2 mg/dL (0.2 mg/dL) Urine Leukocyte Esterase Negative (NEG) Urine RBC 11-20 /HPF (0-2) Urine WBC Occ /HPF (0-4) Urine Bacteria 0 /HPF (0-FEW) Urine Hyaline Casts Moderate /HPF Urine Mucus Mod /LPF White Blood Count 15.8 x10^3/uL (4.0-11.0) Red Blood Count 3.71 x10^6/uL (3.50-5.40) Hemoglobin 10.7 g/dL (12.0-15.5) Hematocrit 32.9 % (36.0-47.0) Mean Corpuscular Volume 89 fL (79-100) Mean Corpuscular Hemoglobin 29 pg (25-35) Mean Corpuscular Hemoglobin Concent 33 g/dL (31-37) Red Cell Distribution Width 17.6 % (11.5-14.5) Platelet Count 347 x10^3/uL (140-400) Neutrophils (%) (Auto) 70 % (31-73) Lymphocytes (%) (Auto) 17 % (24-48) Monocytes (%) (Auto) 5 % (0-9) Eosinophils (%) (Auto) 8 % (0-3) Basophils (%) (Auto) 1 % (0-3) Neutrophils # (Auto) 11.0 x10^3uL (1.8-7.7) Lymphocytes # (Auto) 2.6 x10^3/uL (1.0-4.8) Monocytes # (Auto) 0.7 x10^3/uL (0.0-1.1) Eosinophils # (Auto) 1.3 x10^3/uL (0.0-0.7) Basophils # (Auto) 0.1 x10^3/uL (0.0-0.2) Prothrombin Time 16.8 SEC (11.7-14.0) Prothromb Time International Ratio 1.5 (0.8-1.1) Sodium Level 133 mmol/L (136-145) Potassium Level 4.3 mmol/L (3.5-5.1) Chloride Level 93 mmol/L (98-107) Carbon Dioxide Level 33 mmol/L (21-32) Anion Gap 7 (6-14) Blood Urea Nitrogen 28 mg/dL (7-20) Creatinine 1.0 mg/dL (0.6-1.0) Estimated GFR (Cockcroft-Gault) 53.5 Glucose Level 197 mg/dL (70-99) Lactic Acid Level 2.6 mmol/L (0.4-2.0) Calcium Level 8.9 mg/dL (8.5-10.1) Magnesium Level 2.1 mg/dL (1.8-2.4) Total Bilirubin 0.4 mg/dL (0.2-1.0) Direct Bilirubin 0.1 mg/dL (0.0-0.2) Aspartate Amino Transf (AST/SGOT) 32 U/L (15-37) Alanine Aminotransferase (ALT/SGPT) 24 U/L (14-59) Alkaline Phosphatase 90 U/L (46-116) Creatine Kinase 44 U/L (26-192) Creatine Kinase MB (Mass) 1.6 ng/mL (0.0-3.6) Creatine Kinase MB Relative Index % (0-4) Troponin I Quantitative 0.019 ng/mL (0.000-0.055) YL-Stb-Z-Type Natriuretic Peptide 17632 pg/mL (0-449) Total Protein 7.9 g/dL (6.4-8.2) Albumin 2.4 g/dL (3.4-5.0) Lipase 829 U/L (73-393) O2 Saturation 98 % (92-99) Arterial Blood pH 7.48 (7.35-7.45) Arterial Blood pCO2 at Patient Temp 40 mmHg (35-46) Arterial Blood pO2 at Patient Temp 121 mmHg (65-108) Arterial Blood HCO3 29 mmol/L (21-28) Arterial Blood Base Excess 5 mmol/L (-3-3) Oxyhemoglobin 97.0 % Methemoglobin 0.6 % (0.0-1.9) Carbon Monoxide, Quantitative 0.2 % (0.0-1.9) FiO2 100 Nasal Screen MRSA (PCR) Negative (Negative) Test 05/01/17 01:30 05/01/17 05:10 05/01/17 05:19 05/01/17 08:30 Lactic Acid Level 1.6 mmol/L (0.4-2.0) Troponin I Quantitative 0.060 ng/mL (0.000-0.055) White Blood Count 8.4 x10^3/uL (4.0-11.0) Red Blood Count 3.33 x10^6/uL (3.50-5.40) Hemoglobin 9.8 g/dL (12.0-15.5) Hematocrit 29.1 % (36.0-47.0) Mean Corpuscular Volume 87 fL (79-100) Mean Corpuscular Hemoglobin 30 pg (25-35) Mean Corpuscular Hemoglobin Concent 34 g/dL (31-37) Red Cell Distribution Width 17.1 % (11.5-14.5) Platelet Count 278 x10^3/uL (140-400) Neutrophils (%) (Auto) 63 % (31-73) Lymphocytes (%) (Auto) 23 % (24-48) Monocytes (%) (Auto) 8 % (0-9) Eosinophils (%) (Auto) 5 % (0-3) Basophils (%) (Auto) 1 % (0-3) Neutrophils # (Auto) 5.2 x10^3uL (1.8-7.7) Lymphocytes # (Auto) 2.0 x10^3/uL (1.0-4.8) Monocytes # (Auto) 0.7 x10^3/uL (0.0-1.1) Eosinophils # (Auto) 0.4 x10^3/uL (0.0-0.7) Basophils # (Auto) 0.1 x10^3/uL (0.0-0.2) Sodium Level 137 mmol/L (136-145) Potassium Level 4.3 mmol/L (3.5-5.1) Chloride Level 97 mmol/L (98-107) Carbon Dioxide Level 34 mmol/L (21-32) Anion Gap 6 (6-14) Blood Urea Nitrogen 25 mg/dL (7-20) Creatinine 0.9 mg/dL (0.6-1.0) Estimated GFR (Cockcroft-Gault) 60.4 Glucose Level 103 mg/dL (70-99) Calcium Level 8.0 mg/dL (8.5-10.1) O2 Saturation 99 % (92-99) Arterial Blood pH 7.50 (7.35-7.45) Arterial Blood pCO2 at Patient Temp 44 mmHg (35-46) Arterial Blood pO2 at Patient Temp 133 mmHg (65-108) Arterial Blood HCO3 33 mmol/L (21-28) Arterial Blood Base Excess 9 mmol/L (-3-3) FiO2 45 Test 05/01/17 12:24 05/01/17 16:44 Glucose (Fingerstick) 66 mg/dL (70-99) 84 mg/dL (70-99) Laboratory Tests Test 04/30/17 21:23 04/30/17 21:35 04/30/17 21:45 05/01/17 01:04 Urine Collection Type Unknown Urine Color Yellow Urine Clarity Clear Urine pH 7.0 Urine Specific [place] 1.010 Urine Protein Negative mg/dL (NEG-TRACE) Urine Glucose (UA) Negative mg/dL (NEG) Urine Ketones (Stick) Negative mg/dL (NEG) Urine Blood Moderate (NEG) Urine Nitrite Negative (NEG) Urine Bilirubin Negative (NEG) Urine Urobilinogen Dipstick 0.2 mg/dL (0.2 mg/dL) Urine Leukocyte Esterase Negative (NEG) Urine RBC 11-20 /HPF (0-2) Urine WBC Occ /HPF (0-4) Urine Bacteria 0 /HPF (0-FEW) Urine Hyaline Casts Moderate /HPF Urine Mucus Mod /LPF White Blood Count 15.8 x10^3/uL (4.0-11.0) Red Blood Count 3.71 x10^6/uL (3.50-5.40) Hemoglobin 10.7 g/dL (12.0-15.5) Hematocrit 32.9 % (36.0-47.0) Mean Corpuscular Volume 89 fL (79-100) Mean Corpuscular Hemoglobin 29 pg (25-35) Mean Corpuscular Hemoglobin Concent 33 g/dL (31-37) Red Cell Distribution Width 17.6 % (11.5-14.5) Platelet Count 347 x10^3/uL (140-400) Neutrophils (%) (Auto) 70 % (31-73) Lymphocytes (%) (Auto) 17 % (24-48) Monocytes (%) (Auto) 5 % (0-9) Eosinophils (%) (Auto) 8 % (0-3) Basophils (%) (Auto) 1 % (0-3) Neutrophils # (Auto) 11.0 x10^3uL (1.8-7.7) Lymphocytes # (Auto) 2.6 x10^3/uL (1.0-4.8) Monocytes # (Auto) 0.7 x10^3/uL (0.0-1.1) Eosinophils # (Auto) 1.3 x10^3/uL (0.0-0.7) Basophils # (Auto) 0.1 x10^3/uL (0.0-0.2) Prothrombin Time 16.8 SEC (11.7-14.0) Prothromb Time International Ratio 1.5 (0.8-1.1) Sodium Level 133 mmol/L (136-145) Potassium Level 4.3 mmol/L (3.5-5.1) Chloride Level 93 mmol/L (98-107) Carbon Dioxide Level 33 mmol/L (21-32) Anion Gap 7 (6-14) Blood Urea Nitrogen 28 mg/dL (7-20) Creatinine 1.0 mg/dL (0.6-1.0) Estimated GFR (Cockcroft-Gault) 53.5 Glucose Level 197 mg/dL (70-99) Lactic Acid Level 2.6 mmol/L (0.4-2.0) Calcium Level 8.9 mg/dL (8.5-10.1) Magnesium Level 2.1 mg/dL (1.8-2.4) Total Bilirubin 0.4 mg/dL (0.2-1.0) Direct Bilirubin 0.1 mg/dL (0.0-0.2) Aspartate Amino Transf (AST/SGOT) 32 U/L (15-37) Alanine Aminotransferase (ALT/SGPT) 24 U/L (14-59) Alkaline Phosphatase 90 U/L (46-116) Creatine Kinase 44 U/L (26-192) Creatine Kinase MB (Mass) 1.6 ng/mL (0.0-3.6) Creatine Kinase MB Relative Index % (0-4) Troponin I Quantitative 0.019 ng/mL (0.000-0.055) YQ-Mqx-L-Type Natriuretic Peptide 71763 pg/mL (0-449) Total Protein 7.9 g/dL (6.4-8.2) Albumin 2.4 g/dL (3.4-5.0) Lipase 829 U/L (73-393) O2 Saturation 98 % (92-99) Arterial Blood pH 7.48 (7.35-7.45) Arterial Blood pCO2 at Patient Temp 40 mmHg (35-46) Arterial Blood pO2 at Patient Temp 121 mmHg (65-108) Arterial Blood HCO3 29 mmol/L (21-28) Arterial Blood Base Excess 5 mmol/L (-3-3) Oxyhemoglobin 97.0 % Methemoglobin 0.6 % (0.0-1.9) Carbon Monoxide, Quantitative 0.2 % (0.0-1.9) FiO2 100 Nasal Screen MRSA (PCR) Negative (Negative) Test 05/01/17 01:30 05/01/17 05:10 05/01/17 05:19 05/01/17 08:30 Lactic Acid Level 1.6 mmol/L (0.4-2.0) Troponin I Quantitative 0.060 ng/mL (0.000-0.055) White Blood Count 8.4 x10^3/uL (4.0-11.0) Red Blood Count 3.33 x10^6/uL (3.50-5.40) Hemoglobin 9.8 g/dL (12.0-15.5) Hematocrit 29.1 % (36.0-47.0) Mean Corpuscular Volume 87 fL (79-100) Mean Corpuscular Hemoglobin 30 pg (25-35) Mean Corpuscular Hemoglobin Concent 34 g/dL (31-37) Red Cell Distribution Width 17.1 % (11.5-14.5) Platelet Count 278 x10^3/uL (140-400) Neutrophils (%) (Auto) 63 % (31-73) Lymphocytes (%) (Auto) 23 % (24-48) Monocytes (%) (Auto) 8 % (0-9) Eosinophils (%) (Auto) 5 % (0-3) Basophils (%) (Auto) 1 % (0-3) Neutrophils # (Auto) 5.2 x10^3uL (1.8-7.7) Lymphocytes # (Auto) 2.0 x10^3/uL (1.0-4.8) Monocytes # (Auto) 0.7 x10^3/uL (0.0-1.1) Eosinophils # (Auto) 0.4 x10^3/uL (0.0-0.7) Basophils # (Auto) 0.1 x10^3/uL (0.0-0.2) Sodium Level 137 mmol/L (136-145) Potassium Level 4.3 mmol/L (3.5-5.1) Chloride Level 97 mmol/L (98-107) Carbon Dioxide Level 34 mmol/L (21-32) Anion Gap 6 (6-14) Blood Urea Nitrogen 25 mg/dL (7-20) Creatinine 0.9 mg/dL (0.6-1.0) Estimated GFR (Cockcroft-Gault) 60.4 Glucose Level 103 mg/dL (70-99) Calcium Level 8.0 mg/dL (8.5-10.1) O2 Saturation 99 % (92-99) Arterial Blood pH 7.50 (7.35-7.45) Arterial Blood pCO2 at Patient Temp 44 mmHg (35-46) Arterial Blood pO2 at Patient Temp 133 mmHg (65-108) Arterial Blood HCO3 33 mmol/L (21-28) Arterial Blood Base Excess 9 mmol/L (-3-3) FiO2 45 Test 05/01/17 12:24 05/01/17 16:44 Glucose (Fingerstick) 66 mg/dL (70-99) 84 mg/dL (70-99) Medications Active Scripts Medications Dose Route/Sig Max Daily Dose Days Date Category Dose Instructions Eliquis (Apixaban) 5 Mg Tablet 5 Mg PO BID 05/01/17 Reported Lisinopril 10 Mg Tablet 1 Tab PO DAILY 05/01/17 Reported Ondansetron Hcl 4 Mg/2 Ml Syr (Ondansetron Hcl/Pf) 4 Mg/2 Ml Disp.syrin 4 Mg IJ Q6HRS PRN 04/14/17 Reported Fentanyl 100 Mcg/2 Ml Ampul (Fentanyl Citrate/Pf) 50 Mcg/1 Ml Ampul 25 Mcg IJ Q2HR PRN 04/14/17 Reported Heparin Sod 5,000 Unit/ 0.5 Ml (Heparin Sodium,Porcine/Pf) 5,000 Unit/0.5 Ml Vial 5,000 Unit IJ Q12HR 04/14/17 Reported Pantoprazole Sodium 40 Mg Tablet.dr 1 Tab PO DAILY 04/14/17 Reported Sucralfate 1 Gm Tablet 1 Tab PO BID 04/14/17 Reported Simethicone 80 Mg Tab.chew 80 Mg PO TID 04/14/17 Reported Furosemide 10 Mg/1 Ml Vial 40 Mg IJ BID 04/14/17 Reported Duoneb 0.5-3(2.5) Mg/3 Ml (Albuterol/Ipratropium) 3 Ml Ampul.neb 3 Ml NEB BID 04/14/17 Reported Potassium Chloride 20 Meq Tablet.er 20 Meq PO TID 04/14/17 Reported Escitalopram Oxalate 10 Mg Tablet 1 Tab PO DAILY 04/14/17 Reported Alprazolam 0.25 Mg Tablet 1 Tab PO HS 04/14/17 Reported Humalog (Insulin Lispro) 100 Unit/1 Ml Vial 100 Unit SQ QIDACHS 04/14/17 Reported per [facility] protocol for doses Melatonin 3 Mg Tablet 3 Mg PEG QHS 04/14/17 Reported [metoprolol] 5 Mg IV Q6HRS 04/14/17 Reported Levothyroxine Sodium 75 Mcg Tablet 1 Tab PO DAILY 04/14/17 Reported Amiodarone Hcl 200 Mg Tablet 1 Tab PO BID 04/14/17 Reported Impression . A/C RESP FAILURE MULTIFACTORIAL ABNORMAL CXR POSSIBLE SEPSIS A/C DIASTOLIC/SYSTOLIC HEART FAILURE SHADY MARIE MD May 01, 2017 17:33
[2017-05-01] MEDS ORDERED: NON FORMULARY ITEM (Melatonin 3 MG) PO SCH (21:00)
[2017-05-01] MEDS ORDERED: ALPRAZolam 0.25 MG TABLET PO SCH (21:00)
[2017-05-02] VITALS (17 sets, daily range): BP systolic 81–111; BP diastolic 43–64
--- NOTE | 2017-05-02 00:24 | ACF ---
Admission Forms Criteria HEART FAILURE: COMMON COMPLICATIONS (Place 'X' for any and all applicable criteria): Ongoing inpatient care may be indicated for heart failure with 1 or more of the following (1)(2)(3)(4)(5)(6)(7)(8): [ ]I. New-onset heart failure [ ]II. Acute cardiac ischemia causing or associated with failure [ ]III. Ongoing need for care for primary condition requiring frequent therapy adjustments because of changes in cardiac function (eg, drug dosage changes for drugs that are renally metabolized) [X]IV. Complications of heart failure, including 1 or more of the following: [ ]a) Hemodynamic instability [ ]b) Pericardial effusion [ ]c) Symptomatic pleural effusion [ ]d) Hypoxemia [ ]e) Tachypnea [X]f) Dyspnea [ ]g) Syncope [ ]h) Altered mental status [ ]i) Acute renal insufficiency that is severe (reduction of more than 50% in estimated glomerular filtration rate from baseline) or progressive reduction of more than 25% in estimated glomerular filtration rate from baseline, with creatinine continuing to rise) [ ]j) Debilitating anasarca (eg tissue breakdown with infection, inability to void due to edema) (E) [ ]k) Clinically significant metabolic abnormalities due to heart failure (eg, new-onset metabolic acidosis) Extended stay may be needed until ALL of the following are present (1)(3)(18)(41 )(55) [ ]a) Hemodynamic stability [ ]b) Stable and effective diuretic regimen established (or patient on stable dialysis regimen if in chronic renal failure) [ ]c) Volume status acceptable on oral medication [ ]d) Breathing comfortably at rest [ ]e) Saturation of arterial oxygen greater than 90% or at acceptable baseline [ ]f) Pulmonary edema absent or improved [ ]g) Peripheral or sacral edema absent or improved [ ]h) Renal function stable and manageable at a lower level of care [ ]i) Complications (eg, pleural effusion) resolved or manageable at a lower level of care [ ]g) Patient or caregiver has received written discharge instructions or educational material addressing activity level, diet, discharge medications, follow-up appointment, weight monitoring, and what to do if symptoms worsen.(25)(26) The original [facility] [employer] content created by [id number] has been revised. The portions of the content which have been revised are identified through the use of italic text, and [facility] has neither reviewed nor approved the modified material.All other unmodified content is copyright [facility]. Please see references footnoted in the original [facility] edition 2015 Admission Criteria Met?: Yes THEE VERGARA May 02, 2017 00:24
[2017-05-02] MEDS: IV NORMAL SALINE 1000ML BAG 1,000 ML IV SCH (01:41)
--- NOTE | 2017-05-02 01:47 | CONS ---
DATE OF CONSULTATION: 05/01/2017 ATTENDING PHYSICIAN: Dr. Krishna Hebert. REASON FOR CONSULTATION: The patient is seen in pulmonary consultation at the request of Dr. Hebert for abnormal x-ray and acute on chronic respiratory failure requiring noninvasive ventilation with BiPAP. HISTORY OF PRESENT ILLNESS: The patient is a 81-year-old that was transferred from [facility] with questionable acute myocardial infarction. She was having some difficulty with shortness of breath. She normally wears 3 liters of oxygen since her recent hospitalization at [facility], 1928[facility]1983. She presented to , had a chest x-ray, which I personally reviewed, has bilateral pulmonary infiltrates. Last evening, the patient was having some difficulty with increasing shortness of breath. She was placed on BiPAP. She is currently off of BiPAP, is on oxygen supplementation. She has a cough, mostly nonproductive. No chest pain, no pressure. No fever, chills, nausea, vomiting, diarrhea. PAST MEDICAL HISTORY: 1. Recent hospitalization at [facility] 1928[facility]1983 in [place] for perforated peptic ulcer requiring laparoscopic repair with abdominal washout. 2. AFib. 3. Recent paroxysmal supraventricular tachycardia. 4. History of CHF. 5. Bilateral pleural effusion, status post previous thoracentesis on this particular admission. 6. E. coli UTI. 7. Sepsis. 8. Possible pneumonia. 9. UTI. 10. Diabetes. 11. Acute respiratory failure, multifactorial. 12. Hypertension, dysphagia, hypothyroidism, hyperlipidemia. PAST SURGICAL HISTORY: Recent diagnostic laparoscopic surgery for perforated peptic ulcer with Mahad patch. FAMILY HISTORY: Noncontributory. REVIEW OF SYSTEMS: As indicated above, otherwise, a 10-point system was reviewed and negative. ALLERGIES: She has multiple allergies, please see the list. SOCIAL HISTORY: She quit tobacco 35 years ago. Denies any alcohol intake. PHYSICAL EXAMINATION: VITAL SIGNS: Stable. O2 saturation is greater than 92%. HEENT: Eyes, the sclerae were nonicteric. NECK: Jugular venous distention was not elevated. No lymphadenopathy. CHEST: Full expansion. LUNGS: Slight crackles, no wheezes. CARDIOVASCULAR: Regular rate and rhythm with S1, S2, no S3. ABDOMEN: Soft, nontender. EXTREMITIES: No clubbing, cyanosis. Minimal edema. NEUROLOGIC: The patient was awake, alert, following commands. A detailed neuro exam was not performed. LABORATORY DATA: Reviewed. White count was noted. Arterial blood gas; pH of 7.50, pCO2 of 44, pO2 of 133. INR was 1.5. Electrolytes were noted. BUN is elevated. Creatinine was normal. Troponin level was elevated. BNP was elevated. UA was noted. Chest x-ray, bilateral pulmonary infiltrates compatible with pulmonary edema. IMPRESSION: 1. Acute on chronic respiratory failure, multifactorial. 2. Abnormal x-ray compatible with congestive heart failure. 3. Possible pneumonia. 4. Acute on chronic diastolic and systolic heart failure. 5. Cardiomyopathy, ejection fraction 35-40%. 6. Recent non-ST segment elevation myocardial infarction, diagnosed at [facility], 1928–1983. 7. Paroxysmal atrial fibrillation. 8. Possible sepsis . 9. Hypotension, suspect intravascularly volume depletion versus sepsis. 10. Type 2 diabetes. 11. Hypothyroidism. 12. Previous history of thoracentesis x 2. 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 14. Functional quadriplegia. 15. Severe protein malnutrition present upon admission. PLAN: 1. The patient is doing better than yesterday. We will continue p.r.n. BiPAP. 2. Continue to diurese. 3. IV antibiotics per infectious disease service. 4. Follow cardiology input. 5. Continue pressors, wean as tolerated. 6. DVT and GI prophylaxis.. Dr. Hebert, I do appreciate the privilege in sharing in the patient's care. Total cumulative critical care time of 40 minutes. SHADY MARIE MD DR: DINORA/margaret JOB#: [id number] / [id number]
[2017-05-02 05:33] LABS: BASO # 0.1 x10^3/uL (0.0-0.2); BASO % 1 % (0-3); EOS % 11 % (0-3); HEMOGLOBIN 8.9 g/dL (12.0-15.5); LYMPH # 0.9 x10^3/uL (1.0-4.8); LYMPH % 18 % (24-48); MEAN CORPUSCULAR HEMOGLOBIN 29 pg (25-35); MEAN CORPUSCULAR HGB CONC 33 g/dL (31-37); MEAN CORPUSCULAR VOLUME 88 fL (79-100); MONO % 7 % (0-9); NEUT % 62 % (31-73); PLATELET COUNT 197 x10^3/uL (140-400); RED BLOOD COUNT 3.06 x10^6/uL (3.50-5.40); RED CELL DISTRIBUTION WIDTH 17.7 % (11.5-14.5)
[2017-05-02 06:05] LABS: ALBUMIN 1.9 g/dL (3.4-5.0); ALBUMIN/GLOBULIN RATIO 0.4 (1.0-1.7); CALCIUM 7.8 mg/dL (8.5-10.1); CREATININE 0.9 mg/dL (0.6-1.0); GFR 60.4; MAGNESIUM 1.9 mg/dL (1.8-2.4); POTASSIUM 4.1 mmol/L (3.5-5.1); TOTAL BILIRUBIN 0.4 mg/dL (0.2-1.0); TOTAL PROTEIN 6.3 g/dL (6.4-8.2)
[2017-05-02] MEDS: MEROPENEM 500 MG in IV NORMAL SALINE 50ML 50 ML IV SCH ×2 (06:19→16:01)
[2017-05-02] MEDS: INSULIN ASPART 300 UNITS/3 ML INSULN.PEN SQ SCH ×2 (07:30→12:18)
[2017-05-02] MEDS: IPRATRPIUM/ALBUTEROL 0.5/2.5MG 3 ML NEBU. NEB SCH (07:37)
--- NOTE | 2017-05-02 08:01 | PDOC ---
Infectious Disease Note Subjective Subjective Says feeling better, no n/v/d/or sob ROS ROS GEN: Denies fevers, chills, sweats HEENT: Denies blurred vision, sore throat CV: Denies chest pain RESP: Denies shortness of air, cough GI: Denies n/v/d NEURO: Denies confusion, dizziness MSK: Denies weakness, joint pain/swelling Vital Sign Vital Signs Vital Signs Date Time Temp Pulse Resp B/P (MAP) Pulse Ox O2 Delivery O2 Flow Rate FiO2 05/02/17 07:37 95 Nasal Cannula 5.0 05/02/17 06:00 77 30 100/58 (72) 05/02/17 04:00 98.1 98.1 Physical Exam PHYSICAL EXAM GENERAL: NAD, Alert HEENT: PERRL, OC/OP NECK: Supple, no JVD, no LN LUNGS: Clear HEART: S1S2, no gallop, no murmur ABD: Soft, NT, no organomegaly, no rebound, LAMIN still in place EXT: No edema, no cyanosis CERT OCCUPATIONAL THERAPY ASST: Alert, oriented x 3, no focal neurologic deficit SKIN: No rash IV: ok Labs Lab Laboratory Tests Test 05/01/17 08:30 05/01/17 12:24 05/01/17 16:44 05/02/17 04:05 O2 Saturation 99 % (92-99) Arterial Blood pH 7.50 (7.35-7.45) Arterial Blood pCO2 at Patient Temp 44 mmHg (35-46) Arterial Blood pO2 at Patient Temp 133 mmHg (65-108) Arterial Blood HCO3 33 mmol/L (21-28) Arterial Blood Base Excess 9 mmol/L (-3-3) FiO2 45 Glucose (Fingerstick) 66 mg/dL (70-99) 84 mg/dL (70-99) White Blood Count 5.0 x10^3/uL (4.0-11.0) Red Blood Count 3.06 x10^6/uL (3.50-5.40) Hemoglobin 8.9 g/dL (12.0-15.5) Hematocrit 27.0 % (36.0-47.0) Mean Corpuscular Volume 88 fL (79-100) Mean Corpuscular Hemoglobin 29 pg (25-35) Mean Corpuscular Hemoglobin Concent 33 g/dL (31-37) Red Cell Distribution Width 17.7 % (11.5-14.5) Platelet Count 197 x10^3/uL (140-400) Neutrophils (%) (Auto) 62 % (31-73) Lymphocytes (%) (Auto) 18 % (24-48) Monocytes (%) (Auto) 7 % (0-9) Eosinophils (%) (Auto) 11 % (0-3) Basophils (%) (Auto) 1 % (0-3) Neutrophils # (Auto) 3.1 x10^3uL (1.8-7.7) Lymphocytes # (Auto) 0.9 x10^3/uL (1.0-4.8) Monocytes # (Auto) 0.4 x10^3/uL (0.0-1.1) Eosinophils # (Auto) 0.6 x10^3/uL (0.0-0.7) Basophils # (Auto) 0.1 x10^3/uL (0.0-0.2) Sodium Level 136 mmol/L (136-145) Potassium Level 4.1 mmol/L (3.5-5.1) Chloride Level 99 mmol/L (98-107) Carbon Dioxide Level 30 mmol/L (21-32) Anion Gap 7 (6-14) Blood Urea Nitrogen 18 mg/dL (7-20) Creatinine 0.9 mg/dL (0.6-1.0) Estimated GFR (Cockcroft-Gault) 60.4 BUN/Creatinine Ratio 20 (6-20) Glucose Level 154 mg/dL (70-99) Calcium Level 7.8 mg/dL (8.5-10.1) Magnesium Level 1.9 mg/dL (1.8-2.4) Total Bilirubin 0.4 mg/dL (0.2-1.0) Aspartate Amino Transf (AST/SGOT) 28 U/L (15-37) Alanine Aminotransferase (ALT/SGPT) 21 U/L (14-59) Alkaline Phosphatase 76 U/L (46-116) Total Protein 6.3 g/dL (6.4-8.2) Albumin 1.9 g/dL (3.4-5.0) Albumin/Globulin Ratio 0.4 (1.0-1.7) Test 05/02/17 07:41 Glucose (Fingerstick) 106 mg/dL (70-99) Micro BC neg Objective Assessment Early sepsis, lactic acidosis, leukocytosis CHF Aspiration cannot be ruled out Perforated ulcer s/p keli patch Troponin leak Plan Plan of Care cont meropenem for now supportive care check cultures d/w dr Hebert d/c HERNANDEZ RUSS MD May 02, 2017 08:01
--- NOTE | 2017-05-02 08:03 | PDOC ---
CHRIS PAGAN [employer] 05/02/17 0803: IM PROGRESS NOTES- Subjective Subjective no shortness of breath, wanting to reposition Objective Objective no distress Vitals Vital Signs Date Time Temp Pulse Resp B/P (MAP) Pulse Ox O2 Delivery O2 Flow Rate FiO2 05/02/17 06:00 77 30 100/58 (72) 94 Nasal Cannula 05/02/17 04:00 2.0 05/02/17 04:00 98.1 98.1 Physical Exam Physical Exam General appearance - alert, ill appearing, and in no distress Mental Status - alert, oriented to person, place, and time, affect appropriate to mood Head - normal Chest - clear to auscultation, no wheezes, rales or rhonchi, symmetric air entry Heart - S1 and S2 normal Abdomen - soft, tender r/t surgery , nondistended, BS + except LLQ Neurological - no acute neurological deficit noted Musculoskeletal - no muscular tenderness noted Extremities - no pedal edema Skin - warm and dry Labs Laboratory Tests Test 04/30/17 21:23 04/30/17 21:35 04/30/17 21:45 05/01/17 01:04 Urine Collection Type Unknown Urine Color Yellow Urine Clarity Clear Urine pH 7.0 Urine Specific [place] 1.010 Urine Protein Negative mg/dL (NEG-TRACE) Urine Glucose (UA) Negative mg/dL (NEG) Urine Ketones (Stick) Negative mg/dL (NEG) Urine Blood Moderate (NEG) Urine Nitrite Negative (NEG) Urine Bilirubin Negative (NEG) Urine Urobilinogen Dipstick 0.2 mg/dL (0.2 mg/dL) Urine Leukocyte Esterase Negative (NEG) Urine RBC 11-20 /HPF (0-2) Urine WBC Occ /HPF (0-4) Urine Bacteria 0 /HPF (0-FEW) Urine Hyaline Casts Moderate /HPF Urine Mucus Mod /LPF White Blood Count 15.8 x10^3/uL (4.0-11.0) Red Blood Count 3.71 x10^6/uL (3.50-5.40) Hemoglobin 10.7 g/dL (12.0-15.5) Hematocrit 32.9 % (36.0-47.0) Mean Corpuscular Volume 89 fL (79-100) Mean Corpuscular Hemoglobin 29 pg (25-35) Mean Corpuscular Hemoglobin Concent 33 g/dL (31-37) Red Cell Distribution Width 17.6 % (11.5-14.5) Platelet Count 347 x10^3/uL (140-400) Neutrophils (%) (Auto) 70 % (31-73) Lymphocytes (%) (Auto) 17 % (24-48) Monocytes (%) (Auto) 5 % (0-9) Eosinophils (%) (Auto) 8 % (0-3) Basophils (%) (Auto) 1 % (0-3) Neutrophils # (Auto) 11.0 x10^3uL (1.8-7.7) Lymphocytes # (Auto) 2.6 x10^3/uL (1.0-4.8) Monocytes # (Auto) 0.7 x10^3/uL (0.0-1.1) Eosinophils # (Auto) 1.3 x10^3/uL (0.0-0.7) Basophils # (Auto) 0.1 x10^3/uL (0.0-0.2) Prothrombin Time 16.8 SEC (11.7-14.0) Prothromb Time International Ratio 1.5 (0.8-1.1) Sodium Level 133 mmol/L (136-145) Potassium Level 4.3 mmol/L (3.5-5.1) Chloride Level 93 mmol/L (98-107) Carbon Dioxide Level 33 mmol/L (21-32) Anion Gap 7 (6-14) Blood Urea Nitrogen 28 mg/dL (7-20) Creatinine 1.0 mg/dL (0.6-1.0) Estimated GFR (Cockcroft-Gault) 53.5 Glucose Level 197 mg/dL (70-99) Lactic Acid Level 2.6 mmol/L (0.4-2.0) Calcium Level 8.9 mg/dL (8.5-10.1) Magnesium Level 2.1 mg/dL (1.8-2.4) Total Bilirubin 0.4 mg/dL (0.2-1.0) Direct Bilirubin 0.1 mg/dL (0.0-0.2) Aspartate Amino Transf (AST/SGOT) 32 U/L (15-37) Alanine Aminotransferase (ALT/SGPT) 24 U/L (14-59) Alkaline Phosphatase 90 U/L (46-116) Creatine Kinase 44 U/L (26-192) Creatine Kinase MB (Mass) 1.6 ng/mL (0.0-3.6) Creatine Kinase MB Relative Index % (0-4) Troponin I Quantitative 0.019 ng/mL (0.000-0.055) [id number] Natriuretic Peptide 82949 pg/mL (0-449) Total Protein 7.9 g/dL (6.4-8.2) Albumin 2.4 g/dL (3.4-5.0) Lipase 829 U/L (73-393) O2 Saturation 98 % (92-99) Arterial Blood pH 7.48 (7.35-7.45) Arterial Blood pCO2 at Patient Temp 40 mmHg (35-46) Arterial Blood pO2 at Patient Temp 121 mmHg (65-108) Arterial Blood HCO3 29 mmol/L (21-28) Arterial Blood Base Excess 5 mmol/L (-3-3) Oxyhemoglobin 97.0 % Methemoglobin 0.6 % (0.0-1.9) Carbon Monoxide, Quantitative 0.2 % (0.0-1.9) FiO2 100 Nasal Screen MRSA (PCR) Negative (Negative) Test 05/01/17 01:30 05/01/17 05:10 05/01/17 05:19 05/01/17 08:30 Lactic Acid Level 1.6 mmol/L (0.4-2.0) Troponin I Quantitative 0.060 ng/mL (0.000-0.055) White Blood Count 8.4 x10^3/uL (4.0-11.0) Red Blood Count 3.33 x10^6/uL (3.50-5.40) Hemoglobin 9.8 g/dL (12.0-15.5) Hematocrit 29.1 % (36.0-47.0) Mean Corpuscular Volume 87 fL (79-100) Mean Corpuscular Hemoglobin 30 pg (25-35) Mean Corpuscular Hemoglobin Concent 34 g/dL (31-37) Red Cell Distribution Width 17.1 % (11.5-14.5) Platelet Count 278 x10^3/uL (140-400) Neutrophils (%) (Auto) 63 % (31-73) Lymphocytes (%) (Auto) 23 % (24-48) Monocytes (%) (Auto) 8 % (0-9) Eosinophils (%) (Auto) 5 % (0-3) Basophils (%) (Auto) 1 % (0-3) Neutrophils # (Auto) 5.2 x10^3uL (1.8-7.7) Lymphocytes # (Auto) 2.0 x10^3/uL (1.0-4.8) Monocytes # (Auto) 0.7 x10^3/uL (0.0-1.1) Eosinophils # (Auto) 0.4 x10^3/uL (0.0-0.7) Basophils # (Auto) 0.1 x10^3/uL (0.0-0.2) Sodium Level 137 mmol/L (136-145) Potassium Level 4.3 mmol/L (3.5-5.1) Chloride Level 97 mmol/L (98-107) Carbon Dioxide Level 34 mmol/L (21-32) Anion Gap 6 (6-14) Blood Urea Nitrogen 25 mg/dL (7-20) Creatinine 0.9 mg/dL (0.6-1.0) Estimated GFR (Cockcroft-Gault) 60.4 Glucose Level 103 mg/dL (70-99) Calcium Level 8.0 mg/dL (8.5-10.1) O2 Saturation 99 % (92-99) Arterial Blood pH 7.50 (7.35-7.45) Arterial Blood pCO2 at Patient Temp 44 mmHg (35-46) Arterial Blood pO2 at Patient Temp 133 mmHg (65-108) Arterial Blood HCO3 33 mmol/L (21-28) Arterial Blood Base Excess 9 mmol/L (-3-3) FiO2 45 Test 05/01/17 12:24 05/01/17 16:44 05/02/17 04:05 Glucose (Fingerstick) 66 mg/dL (70-99) 84 mg/dL (70-99) White Blood Count 5.0 x10^3/uL (4.0-11.0) Red Blood Count 3.06 x10^6/uL (3.50-5.40) Hemoglobin 8.9 g/dL (12.0-15.5) Hematocrit 27.0 % (36.0-47.0) Mean Corpuscular Volume 88 fL (79-100) Mean Corpuscular Hemoglobin 29 pg (25-35) Mean Corpuscular Hemoglobin Concent 33 g/dL (31-37) Red Cell Distribution Width 17.7 % (11.5-14.5) Platelet Count 197 x10^3/uL (140-400) Neutrophils (%) (Auto) 62 % (31-73) Lymphocytes (%) (Auto) 18 % (24-48) Monocytes (%) (Auto) 7 % (0-9) Eosinophils (%) (Auto) 11 % (0-3) Basophils (%) (Auto) 1 % (0-3) Neutrophils # (Auto) 3.1 x10^3uL (1.8-7.7) Lymphocytes # (Auto) 0.9 x10^3/uL (1.0-4.8) Monocytes # (Auto) 0.4 x10^3/uL (0.0-1.1) Eosinophils # (Auto) 0.6 x10^3/uL (0.0-0.7) Basophils # (Auto) 0.1 x10^3/uL (0.0-0.2) Sodium Level 136 mmol/L (136-145) Potassium Level 4.1 mmol/L (3.5-5.1) Chloride Level 99 mmol/L (98-107) Carbon Dioxide Level 30 mmol/L (21-32) Anion Gap 7 (6-14) Blood Urea Nitrogen 18 mg/dL (7-20) Creatinine 0.9 mg/dL (0.6-1.0) Estimated GFR (Cockcroft-Gault) 60.4 BUN/Creatinine Ratio 20 (6-20) Glucose Level 154 mg/dL (70-99) Calcium Level 7.8 mg/dL (8.5-10.1) Magnesium Level 1.9 mg/dL (1.8-2.4) Total Bilirubin 0.4 mg/dL (0.2-1.0) Aspartate Amino Transf (AST/SGOT) 28 U/L (15-37) Alanine Aminotransferase (ALT/SGPT) 21 U/L (14-59) Alkaline Phosphatase 76 U/L (46-116) Total Protein 6.3 g/dL (6.4-8.2) Albumin 1.9 g/dL (3.4-5.0) Albumin/Globulin Ratio 0.4 (1.0-1.7) Laboratory Tests Test 05/01/17 08:30 05/01/17 12:24 05/01/17 16:44 05/02/17 04:05 O2 Saturation 99 % (92-99) Arterial Blood pH 7.50 (7.35-7.45) Arterial Blood pCO2 at Patient Temp 44 mmHg (35-46) Arterial Blood pO2 at Patient Temp 133 mmHg (65-108) Arterial Blood HCO3 33 mmol/L (21-28) Arterial Blood Base Excess 9 mmol/L (-3-3) FiO2 45 Glucose (Fingerstick) 66 mg/dL (70-99) 84 mg/dL (70-99) White Blood Count 5.0 x10^3/uL (4.0-11.0) Red Blood Count 3.06 x10^6/uL (3.50-5.40) Hemoglobin 8.9 g/dL (12.0-15.5) Hematocrit 27.0 % (36.0-47.0) Mean Corpuscular Volume 88 fL (79-100) Mean Corpuscular Hemoglobin 29 pg (25-35) Mean Corpuscular Hemoglobin Concent 33 g/dL (31-37) Red Cell Distribution Width 17.7 % (11.5-14.5) Platelet Count 197 x10^3/uL (140-400) Neutrophils (%) (Auto) 62 % (31-73) Lymphocytes (%) (Auto) 18 % (24-48) Monocytes (%) (Auto) 7 % (0-9) Eosinophils (%) (Auto) 11 % (0-3) Basophils (%) (Auto) 1 % (0-3) Neutrophils # (Auto) 3.1 x10^3uL (1.8-7.7) Lymphocytes # (Auto) 0.9 x10^3/uL (1.0-4.8) Monocytes # (Auto) 0.4 x10^3/uL (0.0-1.1) Eosinophils # (Auto) 0.6 x10^3/uL (0.0-0.7) Basophils # (Auto) 0.1 x10^3/uL (0.0-0.2) Sodium Level 136 mmol/L (136-145) Potassium Level 4.1 mmol/L (3.5-5.1) Chloride Level 99 mmol/L (98-107) Carbon Dioxide Level 30 mmol/L (21-32) Anion Gap 7 (6-14) Blood Urea Nitrogen 18 mg/dL (7-20) Creatinine 0.9 mg/dL (0.6-1.0) Estimated GFR (Cockcroft-Gault) 60.4 BUN/Creatinine Ratio 20 (6-20) Glucose Level 154 mg/dL (70-99) Calcium Level 7.8 mg/dL (8.5-10.1) Magnesium Level 1.9 mg/dL (1.8-2.4) Total Bilirubin 0.4 mg/dL (0.2-1.0) Aspartate Amino Transf (AST/SGOT) 28 U/L (15-37) Alanine Aminotransferase (ALT/SGPT) 21 U/L (14-59) Alkaline Phosphatase 76 U/L (46-116) Total Protein 6.3 g/dL (6.4-8.2) Albumin 1.9 g/dL (3.4-5.0) Albumin/Globulin Ratio 0.4 (1.0-1.7) Meds Current Medications Albuterol/ Ipratropium (Duoneb) 3 ml RTBID NEB Last administered on 05/01/17 19 :26; Start 05/01/17 at 12:30 Alprazolam (Xanax) 0.25 mg HS PO Last administered on 05/01/17 21:45; Start 05/01/17 at 21:00 Amiodarone HCl (Cordarone) 200 mg BID PO Last administered on 05/01/17 21:46; Start 05/01/17 at 12:30 Apixaban (Eliquis) 5 mg BID PO Last administered on 05/01/17 21:46; Start at 12:30 Citalopram Hydrobromide (CeleXA) 20 mg DAILY PO Last administered on 05/01/17 12:29; Start 05/01/17 at 12:30 Fentanyl Citrate (Fentanyl 2ml Vial) 25 mcg PRN Q2HRS PRN IV PAIN; Start at 12:15 Insulin Aspart (NovoLOG) 0-8 UNITS TIDBFRMEAL SQ ; Start 05/01/17 at 12:30 Levothyroxine Sodium (Synthroid) 75 mcg DAILY06 PO ; Start 05/02/17 at 09:00 Lisinopril (Prinivil) 10 mg DAILY PO ; Start 05/01/17 at 12:30 Non-Formulary Medication 3 mg QHS PO ; Start 05/01/17 at 21:00; Status UNV Pantoprazole Sodium (Protonix) 40 mg DAILYAC PO Last administered on 05/01/17 12:29; Start 05/01/17 at 12:30 Simethicone (Gas-X) 80 mg TID PO Last administered on 05/01/17 21:46; Start 05/01/17 at 14:00 Sucralfate (Carafate) 1 gm BIDAC PO Last administered on 05/01/17 17:08; Start 05/01/17 at 16:30 Assessment Assessment IMPRESSION: 1. Early sepsis, possible aspiration pneumonia. 2. Acute respiratory failure. Continue oxygen by nasal cannula. 3. Acute congestive heart failure, both diastolic and right ventricular systolic withEF 35-40% 4. Hypotension due to sepsis 5. Recent perforated peptic ulcer with laparoscopic repair of the peptic ulcer and Mahad patch placement. 6. Recent non-ST elevation myocardial infraction with abnormal EKG. 7. Severe malnutrition. 8. Chronic kidney disease stage 2 with recent acute kidney injury. 9. 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 Hypothyroidism 12. Hyperlipidemia. 13. Gastroesophageal reflux disease. 14. Preglaucoma of both eyes 15. Recent atrial fibrillation with fast ventricular rate. 16. hypertension. 17. Diverticulosis. 18. Osteoarthritis. 19. Hearing loss. PLAN early sepsis, lactic acidosis, possible aspiration ID consult Meropenem IV continued from [facility] UA-hematuria IV fluids NS75cc/hr preliminary negative lactic acid admit 2.6 05/01 1.6 Admit 15.8 WBC 5.0 A/C CHF cardiology consult combined systolic/diastolic EF 34-40% daily wt IO Lasix on hold CXR 04/30 CHF changes BNP 16808 no Lasix since admission admit Wt 162.06 Abnormal troponin inf wall abnormality recent STEMI prior hospitalization Trop 0.060 cardiology consult Lexiscan possibly when stable acute respiratory distress recent CXR poss patchy airspace opacities pulmonary consult h/o pleural effusion with thoracentesis AF eliquis amiodarone Per PU h/o Mahad patch septi shock/acute respiratory failure abnormal lipase 04/[address] abd with IV oral contrast check amlyase/lipase 05/02 CKD II Admit BUN 28 05/02 18 Cr 1.0 1.9 K 4.3 4.1 Mg 2.1 1.9 Na 133 136 DM II CKD II FSBS/SSI Gluc 66-154 possible aspiration n/v prior to pre sepsis presentation CXR abnormal nebulizer treatments speech evaluation at weakness debility PT OT DVT/GI prophylaxis Eliquis carafate For further plan of care, please refer to the orders. Plan Plan For more details regarding further plans, please refer to the orders. RITA HUMMEL MD 05/02/17 1028: IM PROGRESS NOTES- Subjective Subjective No abdominal pain,chest pain,nausea.Ate this AM. Physical Exam Physical Exam alert,oriented,not in NAD. Lungs decreased BS at bases,no rales abd- soft,non tender. extremity- no edema Assessment Assessment Doing much better. Urine output low- decrease IV fluids,IV Lasix 20 mg x1. ok to discharge to 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 Cancel CT abd as she had them previously at [facility],also had upper GI series last week and clinically doing much better. Discharge Management - 35 minutes. The patient was seen and examined by me. Chart reviewed and plan of care formulated. Discussed with, reviewed and agree with [facility]'s notes, plan of care and orders with modifications as necessary. D/w . CHRIS PAGAN APRN May 02, 2017 08:03 RITA HUMMEL MD May 02, 2017 10:28
[2017-05-02] MEDS: LISINOPRIL 10 MG TABLET PO SCH (08:13)
[2017-05-02] MEDS: PANTOPRAZOLE 40 MG TABLET.DR. PO SCH (08:21)
[2017-05-02] MEDS: APIXABAN 5 MG TABLET. PO SCH (08:21)
[2017-05-02] MEDS: AMIODARONE HCL 200 MG TABLET. PO SCH (08:24)
[2017-05-02] MEDS: SIMETHICONE 80 MG TAB.CHEW PO SCH ×2 (08:25→14:00)
[2017-05-02] MEDS: SUCRALFATE 1 GM TABLET. PO SCH (08:25)
[2017-05-02] MEDS: CITALOPRAM 20 MG TABLET. PO SCH (08:25)
[2017-05-02] MEDS ORDERED: LEVOTHYROXINE 75 MCG TABLET PO SCH (09:00)
[2017-05-02 09:10] LABS: AMYLASE 71 U/L (25-115)
[2017-05-02] MEDS ORDERED: FUROSEMIDE 20 MG/2 ML VIAL. IVP ONE ×2 (10:45→13:00)
[2017-05-02] MEDS ORDERED: ALBUMIN HUMAN 5% 250 ML IV ONE (10:45)
--- NOTE | 2017-05-02 10:58 | PDOC ---
PULMONARY PROGRESS NOTES Subjective WEAK NO SOA AT REST Vitals Vital Signs Date Time Temp Pulse Resp B/P (MAP) Pulse Ox O2 Delivery O2 Flow Rate FiO2 05/02/17 09:09 29 Nasal Cannula 3.0 05/02/17 08:24 78 98/64 05/02/17 07:37 95 05/02/17 04:00 98.1 98.1 General: Alert, No acute distress Lungs: Other (decrease bs) Cardiovascular: S1 Abdomen: Soft Neuro Exam: Alert Extremities: No Edema Skin: Warm Labs Laboratory Tests Test 04/30/17 21:23 04/30/17 21:35 04/30/17 21:45 05/01/17 01:04 Urine Collection Type Unknown Urine Color Yellow Urine Clarity Clear Urine pH 7.0 Urine Specific [place] 1.010 Urine Protein Negative mg/dL (NEG-TRACE) Urine Glucose (UA) Negative mg/dL (NEG) Urine Ketones (Stick) Negative mg/dL (NEG) Urine Blood Moderate (NEG) Urine Nitrite Negative (NEG) Urine Bilirubin Negative (NEG) Urine Urobilinogen Dipstick 0.2 mg/dL (0.2 mg/dL) Urine Leukocyte Esterase Negative (NEG) Urine RBC 11-20 /HPF (0-2) Urine WBC Occ /HPF (0-4) Urine Bacteria 0 /HPF (0-FEW) Urine Hyaline Casts Moderate /HPF Urine Mucus Mod /LPF White Blood Count 15.8 x10^3/uL (4.0-11.0) Red Blood Count 3.71 x10^6/uL (3.50-5.40) Hemoglobin 10.7 g/dL (12.0-15.5) Hematocrit 32.9 % (36.0-47.0) Mean Corpuscular Volume 89 fL (79-100) Mean Corpuscular Hemoglobin 29 pg (25-35) Mean Corpuscular Hemoglobin Concent 33 g/dL (31-37) Red Cell Distribution Width 17.6 % (11.5-14.5) Platelet Count 347 x10^3/uL (140-400) Neutrophils (%) (Auto) 70 % (31-73) Lymphocytes (%) (Auto) 17 % (24-48) Monocytes (%) (Auto) 5 % (0-9) Eosinophils (%) (Auto) 8 % (0-3) Basophils (%) (Auto) 1 % (0-3) Neutrophils # (Auto) 11.0 x10^3uL (1.8-7.7) Lymphocytes # (Auto) 2.6 x10^3/uL (1.0-4.8) Monocytes # (Auto) 0.7 x10^3/uL (0.0-1.1) Eosinophils # (Auto) 1.3 x10^3/uL (0.0-0.7) Basophils # (Auto) 0.1 x10^3/uL (0.0-0.2) Prothrombin Time 16.8 SEC (11.7-14.0) Prothromb Time International Ratio 1.5 (0.8-1.1) Sodium Level 133 mmol/L (136-145) Potassium Level 4.3 mmol/L (3.5-5.1) Chloride Level 93 mmol/L (98-107) Carbon Dioxide Level 33 mmol/L (21-32) Anion Gap 7 (6-14) Blood Urea Nitrogen 28 mg/dL (7-20) Creatinine 1.0 mg/dL (0.6-1.0) Estimated GFR (Cockcroft-Gault) 53.5 Glucose Level 197 mg/dL (70-99) Lactic Acid Level 2.6 mmol/L (0.4-2.0) Calcium Level 8.9 mg/dL (8.5-10.1) Magnesium Level 2.1 mg/dL (1.8-2.4) Total Bilirubin 0.4 mg/dL (0.2-1.0) Direct Bilirubin 0.1 mg/dL (0.0-0.2) Aspartate Amino Transf (AST/SGOT) 32 U/L (15-37) Alanine Aminotransferase (ALT/SGPT) 24 U/L (14-59) Alkaline Phosphatase 90 U/L (46-116) Creatine Kinase 44 U/L (26-192) Creatine Kinase MB (Mass) 1.6 ng/mL (0.0-3.6) Creatine Kinase MB Relative Index % (0-4) Troponin I Quantitative 0.019 ng/mL (0.000-0.055) GA-[id number]-Type Natriuretic Peptide 33214 pg/mL (0-449) Total Protein 7.9 g/dL (6.4-8.2) Albumin 2.4 g/dL (3.4-5.0) Lipase 829 U/L (73-393) O2 Saturation 98 % (92-99) Arterial Blood pH 7.48 (7.35-7.45) Arterial Blood pCO2 at Patient Temp 40 mmHg (35-46) Arterial Blood pO2 at Patient Temp 121 mmHg (65-108) Arterial Blood HCO3 29 mmol/L (21-28) Arterial Blood Base Excess 5 mmol/L (-3-3) Oxyhemoglobin 97.0 % Methemoglobin 0.6 % (0.0-1.9) Carbon Monoxide, Quantitative 0.2 % (0.0-1.9) FiO2 100 Nasal Screen MRSA (PCR) Negative (Negative) Test 05/01/17 01:30 05/01/17 05:10 05/01/17 05:19 05/01/17 08:30 Lactic Acid Level 1.6 mmol/L (0.4-2.0) Troponin I Quantitative 0.060 ng/mL (0.000-0.055) White Blood Count 8.4 x10^3/uL (4.0-11.0) Red Blood Count 3.33 x10^6/uL (3.50-5.40) Hemoglobin 9.8 g/dL (12.0-15.5) Hematocrit 29.1 % (36.0-47.0) Mean Corpuscular Volume 87 fL (79-100) Mean Corpuscular Hemoglobin 30 pg (25-35) Mean Corpuscular Hemoglobin Concent 34 g/dL (31-37) Red Cell Distribution Width 17.1 % (11.5-14.5) Platelet Count 278 x10^3/uL (140-400) Neutrophils (%) (Auto) 63 % (31-73) Lymphocytes (%) (Auto) 23 % (24-48) Monocytes (%) (Auto) 8 % (0-9) Eosinophils (%) (Auto) 5 % (0-3) Basophils (%) (Auto) 1 % (0-3) Neutrophils # (Auto) 5.2 x10^3uL (1.8-7.7) Lymphocytes # (Auto) 2.0 x10^3/uL (1.0-4.8) Monocytes # (Auto) 0.7 x10^3/uL (0.0-1.1) Eosinophils # (Auto) 0.4 x10^3/uL (0.0-0.7) Basophils # (Auto) 0.1 x10^3/uL (0.0-0.2) Sodium Level 137 mmol/L (136-145) Potassium Level 4.3 mmol/L (3.5-5.1) Chloride Level 97 mmol/L (98-107) Carbon Dioxide Level 34 mmol/L (21-32) Anion Gap 6 (6-14) Blood Urea Nitrogen 25 mg/dL (7-20) Creatinine 0.9 mg/dL (0.6-1.0) Estimated GFR (Cockcroft-Gault) 60.4 Glucose Level 103 mg/dL (70-99) Calcium Level 8.0 mg/dL (8.5-10.1) O2 Saturation 99 % (92-99) Arterial Blood pH 7.50 (7.35-7.45) Arterial Blood pCO2 at Patient Temp 44 mmHg (35-46) Arterial Blood pO2 at Patient Temp 133 mmHg (65-108) Arterial Blood HCO3 33 mmol/L (21-28) Arterial Blood Base Excess 9 mmol/L (-3-3) FiO2 45 Test 05/01/17 12:24 05/01/17 16:44 05/02/17 04:05 05/02/17 07:41 Glucose (Fingerstick) 66 mg/dL (70-99) 84 mg/dL (70-99) 106 mg/dL (70-99) White Blood Count 5.0 x10^3/uL (4.0-11.0) Red Blood Count 3.06 x10^6/uL (3.50-5.40) Hemoglobin 8.9 g/dL (12.0-15.5) Hematocrit 27.0 % (36.0-47.0) Mean Corpuscular Volume 88 fL (79-100) Mean Corpuscular Hemoglobin 29 pg (25-35) Mean Corpuscular Hemoglobin Concent 33 g/dL (31-37) Red Cell Distribution Width 17.7 % (11.5-14.5) Platelet Count 197 x10^3/uL (140-400) Neutrophils (%) (Auto) 62 % (31-73) Lymphocytes (%) (Auto) 18 % (24-48) Monocytes (%) (Auto) 7 % (0-9) Eosinophils (%) (Auto) 11 % (0-3) Basophils (%) (Auto) 1 % (0-3) Neutrophils # (Auto) 3.1 x10^3uL (1.8-7.7) Lymphocytes # (Auto) 0.9 x10^3/uL (1.0-4.8) Monocytes # (Auto) 0.4 x10^3/uL (0.0-1.1) Eosinophils # (Auto) 0.6 x10^3/uL (0.0-0.7) Basophils # (Auto) 0.1 x10^3/uL (0.0-0.2) Sodium Level 136 mmol/L (136-145) Potassium Level 4.1 mmol/L (3.5-5.1) Chloride Level 99 mmol/L (98-107) Carbon Dioxide Level 30 mmol/L (21-32) Anion Gap 7 (6-14) Blood Urea Nitrogen 18 mg/dL (7-20) Creatinine 0.9 mg/dL (0.6-1.0) Estimated GFR (Cockcroft-Gault) 60.4 BUN/Creatinine Ratio 20 (6-20) Glucose Level 154 mg/dL (70-99) Calcium Level 7.8 mg/dL (8.5-10.1) Magnesium Level 1.9 mg/dL (1.8-2.4) Total Bilirubin 0.4 mg/dL (0.2-1.0) Aspartate Amino Transf (AST/SGOT) 28 U/L (15-37) Alanine Aminotransferase (ALT/SGPT) 21 U/L (14-59) Alkaline Phosphatase 76 U/L (46-116) Total Protein 6.3 g/dL (6.4-8.2) Albumin 1.9 g/dL (3.4-5.0) Albumin/Globulin Ratio 0.4 (1.0-1.7) Amylase Level 71 U/L (25-115) Lipase 382 U/L (73-393) Laboratory Tests Test 05/01/17 12:24 05/01/17 16:44 05/02/17 04:05 05/02/17 07:41 Glucose (Fingerstick) 66 mg/dL (70-99) 84 mg/dL (70-99) 106 mg/dL (70-99) White Blood Count 5.0 x10^3/uL (4.0-11.0) Red Blood Count 3.06 x10^6/uL (3.50-5.40) Hemoglobin 8.9 g/dL (12.0-15.5) Hematocrit 27.0 % (36.0-47.0) Mean Corpuscular Volume 88 fL (79-100) Mean Corpuscular Hemoglobin 29 pg (25-35) Mean Corpuscular Hemoglobin Concent 33 g/dL (31-37) Red Cell Distribution Width 17.7 % (11.5-14.5) Platelet Count 197 x10^3/uL (140-400) Neutrophils (%) (Auto) 62 % (31-73) Lymphocytes (%) (Auto) 18 % (24-48) Monocytes (%) (Auto) 7 % (0-9) Eosinophils (%) (Auto) 11 % (0-3) Basophils (%) (Auto) 1 % (0-3) Neutrophils # (Auto) 3.1 x10^3uL (1.8-7.7) Lymphocytes # (Auto) 0.9 x10^3/uL (1.0-4.8) Monocytes # (Auto) 0.4 x10^3/uL (0.0-1.1) Eosinophils # (Auto) 0.6 x10^3/uL (0.0-0.7) Basophils # (Auto) 0.1 x10^3/uL (0.0-0.2) Sodium Level 136 mmol/L (136-145) Potassium Level 4.1 mmol/L (3.5-5.1) Chloride Level 99 mmol/L (98-107) Carbon Dioxide Level 30 mmol/L (21-32) Anion Gap 7 (6-14) Blood Urea Nitrogen 18 mg/dL (7-20) Creatinine 0.9 mg/dL (0.6-1.0) Estimated GFR (Cockcroft-Gault) 60.4 BUN/Creatinine Ratio 20 (6-20) Glucose Level 154 mg/dL (70-99) Calcium Level 7.8 mg/dL (8.5-10.1) Magnesium Level 1.9 mg/dL (1.8-2.4) Total Bilirubin 0.4 mg/dL (0.2-1.0) Aspartate Amino Transf (AST/SGOT) 28 U/L (15-37) Alanine Aminotransferase (ALT/SGPT) 21 U/L (14-59) Alkaline Phosphatase 76 U/L (46-116) Total Protein 6.3 g/dL (6.4-8.2) Albumin 1.9 g/dL (3.4-5.0) Albumin/Globulin Ratio 0.4 (1.0-1.7) Amylase Level 71 U/L (25-115) Lipase 382 U/L (73-393) Medications Active Scripts Medications Dose Route/Sig Max Daily Dose Days Date Category Dose Instructions Eliquis (Apixaban) 5 Mg Tablet 5 Mg PO BID 05/01/17 Reported Lisinopril 10 Mg Tablet 1 Tab PO DAILY 05/01/17 Reported Ondansetron Hcl 4 Mg/2 Ml Syr (Ondansetron Hcl/Pf) 4 Mg/2 Ml Disp.syrin 4 Mg IJ Q6HRS PRN 04/14/17 Reported Fentanyl 100 Mcg/2 Ml Ampul (Fentanyl Citrate/Pf) 50 Mcg/1 Ml Ampul 25 Mcg IJ Q2HR PRN 04/14/17 Reported Heparin Sod 5,000 Unit/ 0.5 Ml (Heparin Sodium,Porcine/Pf) 5,000 Unit/0.5 Ml Vial 5,000 Unit IJ Q12HR 04/14/17 Reported Pantoprazole Sodium 40 Mg Tablet.dr 1 Tab PO DAILY 04/14/17 Reported Sucralfate 1 Gm Tablet 1 Tab PO BID 04/14/17 Reported Simethicone 80 Mg Tab.chew 80 Mg PO TID 04/14/17 Reported Furosemide 10 Mg/1 Ml Vial 40 Mg IJ BID 04/14/17 Reported Duoneb 0.5-3(2.5) Mg/3 Ml (Albuterol/Ipratropium) 3 Ml Ampul.neb 3 Ml NEB BID 04/14/17 Reported Potassium Chloride 20 Meq Tablet.er 20 Meq PO TID 04/14/17 Reported Escitalopram Oxalate 10 Mg Tablet 1 Tab PO DAILY 04/14/17 Reported Alprazolam 0.25 Mg Tablet 1 Tab PO HS 04/14/17 Reported Humalog (Insulin Lispro) 100 Unit/1 Ml Vial 100 Unit SQ QIDACHS 04/14/17 Reported per [facility] protocol for doses Melatonin 3 Mg Tablet 3 Mg PEG QHS 04/14/17 Reported [metoprolol] 5 Mg IV Q6HRS 04/14/17 Reported Levothyroxine Sodium 75 Mcg Tablet 1 Tab PO DAILY 04/14/17 Reported Amiodarone Hcl 200 Mg Tablet 1 Tab PO BID 04/14/17 Reported Impression . 1. Acute on chronic respiratory failure, multifactorial. 2. Abnormal x-ray compatible with congestive heart failure. 3. Possible pneumonia. 4. Acute on chronic diastolic and systolic heart failure. 5. Cardiomyopathy, ejection fraction 35-40%. 6. Recent non-ST segment elevation myocardial infarction, diagnosed at [facility]. 7. Paroxysmal atrial fibrillation. 8. less likely sepsis 9. Hypotension, suspect intravascularly volume depletion versus sepsis. off pressor 10. Type 2 diabetes. 11. Hypothyroidism. 12. Previous history of thoracentesis x 2. 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 14. Functional quadriplegia. 15. Severe protein malnutrition present upon admission. Plan . 1. The patient is doing better. We will continue p.r.n. BiPAP. 2. Continue to diurese ,low dose. try albumin with lasix 3. IV antibiotics per infectious disease service. 4. Follow cardiology input. 5. off pressors, 6. DVT and GI prophylaxis.. DWIGHT MANZANARES MD May 02, 2017 10:57
--- NOTE | 2017-05-02 11:23 | RAD ---
Indication pleural effusions. Congestive heart failure. Difficulty breathing. A single view of the chest was obtained and is compared to a study 2 days previously. Patchy pulmonary infiltrates persist but are improved. Findings are consistent with partial resolution of infiltrates associated with congestive heart failure. There are bilateral pleural effusions with some associated volume loss at the lung bases likely reflecting passive atelectasis. A new finding in the chest is not seen. IMPRESSION: Slight interval improvement in the appearance of the chest
--- NOTE | 2017-05-02 13:31 | PDOC ---
CLARITA ALCANTAR DICER MACHINE OPERATOR 05/02/17 1331: CARDIO Progress Notes Date and Time Date of Service 05/02/17 Time of Evaluation 1300 Subjective Subjective: No Chest Pain, No shortness of breath, No Palpitations Vitals Vitals Vital Signs Date Time Temp Pulse Resp B/P (MAP) Pulse Ox O2 Delivery O2 Flow Rate FiO2 05/02/17 11:00 78 20 86/53 (64) 93 Nasal Cannula 3.0 05/02/17 08:00 97.7 97.7 Weight Weight [ ] Input and Output Intake and Output Intake and Output 05/03/17 07:00 Intake Total 450 ml Output Total 250 ml Balance 200 ml Intake Oral 450 ml Output Urine Total 250 ml Laboratory Labs Laboratory Tests Test 05/01/17 16:44 05/02/17 04:05 05/02/17 07:41 Glucose (Fingerstick) 84 mg/dL (70-99) 106 mg/dL (70-99) White Blood Count 5.0 x10^3/uL (4.0-11.0) Red Blood Count 3.06 x10^6/uL (3.50-5.40) Hemoglobin 8.9 g/dL (12.0-15.5) Hematocrit 27.0 % (36.0-47.0) Mean Corpuscular Volume 88 fL (79-100) Mean Corpuscular Hemoglobin 29 pg (25-35) Mean Corpuscular Hemoglobin Concent 33 g/dL (31-37) Red Cell Distribution Width 17.7 % (11.5-14.5) Platelet Count 197 x10^3/uL (140-400) Neutrophils (%) (Auto) 62 % (31-73) Lymphocytes (%) (Auto) 18 % (24-48) Monocytes (%) (Auto) 7 % (0-9) Eosinophils (%) (Auto) 11 % (0-3) Basophils (%) (Auto) 1 % (0-3) Neutrophils # (Auto) 3.1 x10^3uL (1.8-7.7) Lymphocytes # (Auto) 0.9 x10^3/uL (1.0-4.8) Monocytes # (Auto) 0.4 x10^3/uL (0.0-1.1) Eosinophils # (Auto) 0.6 x10^3/uL (0.0-0.7) Basophils # (Auto) 0.1 x10^3/uL (0.0-0.2) Sodium Level 136 mmol/L (136-145) Potassium Level 4.1 mmol/L (3.5-5.1) Chloride Level 99 mmol/L (98-107) Carbon Dioxide Level 30 mmol/L (21-32) Anion Gap 7 (6-14) Blood Urea Nitrogen 18 mg/dL (7-20) Creatinine 0.9 mg/dL (0.6-1.0) Estimated GFR (Cockcroft-Gault) 60.4 BUN/Creatinine Ratio 20 (6-20) Glucose Level 154 mg/dL (70-99) Calcium Level 7.8 mg/dL (8.5-10.1) Magnesium Level 1.9 mg/dL (1.8-2.4) Total Bilirubin 0.4 mg/dL (0.2-1.0) Aspartate Amino Transf (AST/SGOT) 28 U/L (15-37) Alanine Aminotransferase (ALT/SGPT) 21 U/L (14-59) Alkaline Phosphatase 76 U/L (46-116) Total Protein 6.3 g/dL (6.4-8.2) Albumin 1.9 g/dL (3.4-5.0) Albumin/Globulin Ratio 0.4 (1.0-1.7) Amylase Level 71 U/L (25-115) Lipase 382 U/L (73-393) Microbiology Micro Microbiology 04/30/17 Blood Culture - Preliminary, Resulted NO GROWTH AFTER 1 DAY Physical Exam HEENT: Neck Supple W Full Motion Chest: Symmetric LUNGS: Other (diminished bases ) Heart: other (soft systolic murmur ) Abdomen: Soft N/T Extremities: No Edema Neurology: alert, oriented, follow commands, other (drowsy ) Assessment Assessment 1. Acute on chronic combined systolic and diastolic HF; Recent echo at [facility] LVEF 55%. Repeat echo at [facility] on 04/10/2017 showed LVEF 35-40%. Better compensated with diuresis. 2. Mild troponin elevation; most probably type II, demand ischemia. EKG with LBB. Echo shows depressed LV function with inferior WMA. Stable. CP free. Will need outpatient ischemic workup- will defer to primary remote sensing analyst. May transfer back to [facility] from a CV standpoint. 3. Paroxysmal atrial fibrillation: Maintaining SR. Continue current medications including amiodarone and Eliquis. 4. Leukocytosis/ lactic acidosis/ possible sepsis: Treat as per ID team 5. Diabetes mellitus type 2: Treated per IM 6. Hypothyroidism: On replacement therapy MARY KAY CALDERON MD 05/02/172021: CARDIO Progress Notes Assessment Assessment Patient seen and examined. Agree with EHS TEACHER's assessment and plan. Acute on chronic combined systolic and diast HF better compensated OK for transfer to [facility] Follow up with primary remote sensing analyst upon DC for outpatient stress test to rule out ischemic etiology for diminished LVF CLARITA ALCANTAR APRN May 02, 2017 13:31 MARY KAY CALDERON MD May 02, 2017 20:22
--- NOTE | 2017-05-02 15:01 | DISCH ---
DISCHARGE DISCHARGE DATE: May 02, 2017 FINAL DIAGNOSIS Problems Medical Problems: (1) CHF (congestive heart failure) Status: Acute (2) Respiratory failure Status: Acute (3) Sepsis Status: Acute ADMIT TO LTAC: Yes POST DISCHARGE ORDERS ACTIVITY ORDERS: Activity as tolerated WEIGHT BEARING STATUS: Full weight bearing DIET AFTER DISCHARGE: ADA (1800 Oren ADA LFLC diet) WOUND/INCISION CARE: Change dressing (Stage IV coccyx every 3 days: aquacel AG , hydrocolloid cream and topped with foam dressing ) CHECKS AFTER DISCHARGE CHECKS AFTER DISCHARGE: Check blood sugar, ac/hs, Weigh Yourself Daily COMMENTS: VS routine FOLLOW-UP PHYSICIAN FOLLOW-UP: Admit to Dr. Hebert ADDITIONAL FOLLOW-UP: Consult Dr. Myers, Dr. Olivier Hebert, Dr. Himanshu Espinoza LAB ORDERS FOR FOLLOW-UP: CBC with diff, CMP, pre albumin in AM TREATMENT/EQUIPMENT ORDERS INFUSION EQUIPMENT NEEDED: IV Line RESPIRATORY EQUIPMENT NEEDED: Oxygen (prn to maintain Sat >90% and or shortness of breath. ), Nebulizer (QID ) CHRIS PAGAN APRN May 02, 2017 15:01
--- NOTE | 2017-05-04 11:47 | EKG ---
[facility] [address] [place] [address] Test Date: 2017-04-30 Test Time: 21:16:37 Pat Name: XIOMARA BOYD Department: Room: Gender: F Industrial Engineering Analyst: : 1935 Requested By: SHAGGY ARMANDO Order Number: [id number] Reading MD: Measurements Intervals [place] Rate: P: NV: QRS: QRSD: T: QT: QTc: Interpretive Statements
== END 2017-05-02 18:15 | DRG 871 ==
LOC: ER 22:02 → 1 WEST ICU 05-01 00:25
PROVIDERS: ADMIT Internal Medicine; ATTEND Internal Medicine
DX: A41.9 Sepsis, unspecified organism (principal); E43 Unspecified severe protein-calorie malnutrition; J96.20 Acute and chronic respiratory failure, unspecified whether with hypoxia or hypercapnia; J69.0 Pneumonitis due to inhalation of food and vomit; G72.81 Critical illness myopathy; I50.43 Acute on chronic combined systolic (congestive) and diastolic (congestive) heart failure; R53.2 Functional quadriplegia; R13.10 Dysphagia, unspecified; I24.8 Other forms of acute ischemic heart disease; I42.9 Cardiomyopathy, unspecified; I47.1 Supraventricular tachycardia; I13.0 Hypertensive heart and chronic kidney disease with heart failure and stage 1 through stage 4 chronic kidney disease, or unspecified chronic kidney disease; I48.0 Paroxysmal atrial fibrillation; E11.22 Type 2 diabetes mellitus with diabetic chronic kidney disease; E11.40 Type 2 diabetes mellitus with diabetic neuropathy, unspecified; E03.9 Hypothyroidism, unspecified; E78.00 Pure hypercholesterolemia, unspecified; E78.5 Hyperlipidemia, unspecified; H40.003 Preglaucoma, unspecified, bilateral; H91.90 Unspecified hearing loss, unspecified ear; I25.2 Old myocardial infarction; Z96.649 Presence of unspecified artificial hip joint; I44.7 Left bundle-branch block, unspecified; K21.9 Gastro-esophageal reflux disease without esophagitis; I49.9 Cardiac arrhythmia, unspecified; K02.9 Dental caries, unspecified; R79.89 Other specified abnormal findings of blood chemistry; R91.8 Other nonspecific abnormal finding of lung field; K57.90 Diverticulosis of intestine, part unspecified, without perforation or abscess without bleeding; M19.90 Unspecified osteoarthritis, unspecified site; N18.3 Chronic kidney disease, stage 3 (moderate); Z87.11 Personal history of peptic ulcer disease; Z68.28 Body mass index [BMI] 28.0-28.9, adult; Z87.891 Personal history of nicotine dependence; Z90.710 Acquired absence of both cervix and uterus; Z87.440 Personal history of urinary (tract) infections; Z88.6 Allergy status to analgesic agent; Z88.1 Allergy status to other antibiotic agents; Z88.0 Allergy status to penicillin; Z88.2 Allergy status to sulfonamides; Z88.8 Allergy status to other drugs, medicaments and biological substances; Z91.048 Other nonmedicinal substance allergy status
CPT/HCPCS: 36415; 36600; 71010; 80048; 80053; 80076; 81001; 82150; 82550; 82553; 82805; 82962; 83605; 83690; 83735; 83880; 84484; 85025; 85610; 87040; 87641; 93005; 94250; 94640; 94660; 96361; 96374; 96375; J1815; J2185; J2270; J2405; J3010; J7030; J7040; J7620; P9041; 92526; 92610; 99285-25

== ENCOUNTER 2017-05-05 12:29 | Inpatient (IN) | payer MEDICARE ==
[2017-05-05] VITALS (15 sets, daily range): BP systolic 83–118; BP diastolic 52–75
[~2017-05-05] VITALS: Ht 160 cm; Wt 77.8 kg
[~2017-05-05 12:29] MED LIST changes: +APIX5TAB PO; +LISI10TA2 PO; -MELA3TAB2 PEG; +MELA3TAB2 PO
[2017-05-05] MEDS ORDERED: fentaNYL PF VIAL 100 MCG/2 ML VIAL IV ONE (14:00)
[2017-05-05] MEDS ORDERED: HEPARIN for IV BOLUS 10,000 UNIT/10 ML VIAL. IART ONE (14:00)
[2017-05-05] MEDS ORDERED: MIDAZOLAM HCL/PF 2 MG/2 ML VIAL. IV ONE (14:00)
[2017-05-05] MEDS ORDERED: IOHEXOL 300 MG/ML 100ML VIAL. IART ONE (14:00)
[2017-05-05] MEDS ORDERED: VERAPAMIL 5 MG/2 ML VIAL. IART ONE (14:00)
[2017-05-05] MEDS ORDERED: LIDOCAINE 2% 20 ML VIAL. IJ ONE (14:00)
[2017-05-05] MEDS ORDERED: NITROGLYCERIN 200 MCG/2 ML SYRINGE FOR CATH/VASC LAB. IART ONE (14:00)
--- NOTE | 2017-05-05 15:14 | PDOC ---
Provider Note Provider Note dictated DWIGHT MANZANARES MD May 05, 2017 15:14
--- NOTE | 2017-05-05 16:11 | CONS ---
DATE OF CONSULTATION: ATTENDING PHYSICIAN: Dr. Krishna Hebert. REASON FOR CONSULTATION: Respiratory failure, congestive heart failure, multivessel coronary artery disease. HISTORY OF PRESENT ILLNESS: The patient is a 81-year-old elderly female who has multiple chronic medical problems. She was recently hospitalized and had a prolonged hospital course with multiple issues. She was treated for acute respiratory failure, acute congestive heart failures, both diastolic and systolic. She had recent perforated peptic ulcer with laparoscopic repair of the peptic ulcer and Mahad patch placement. She has severe malnutrition and E. coli urinary tract infection. In addition, she has CKD. The patient was at [facility] where she was having intermittent shortness of breath. She was brought into [facility] for elective cardiac catheterization. The patient has multivessel coronary artery disease. She is not the best candidate for coronary artery bypass grafting. Cardiology is planning for doing high risk PCI/multivessel stent placement with Impella placement. She is a bit sleepy and she has just come back from a cardiac catheterization. She is requiring 4 liters of oxygen and she does not appear to be in any obvious respiratory distress. The daughter is at the bedside, who gave much of the history. Per daughter, there was some recent intermittent shortness of breath at [facility] and the oxygen requirement has gone up. She was down to as low as 1 liter of oxygen. She smoked for about 15-20 years, but she quit 30 years ago. Her last chest x-ray was from 05/02/2017 and was consistent with congestive heart failure with bilateral pleural effusions. I have been asked to see her for further evaluation of her hypoxia and abnormal chest x-ray. PAST MEDICAL HISTORY: History of possible underlying COPD, history of cardiomyopathy with an EF of 35%-40%, history of diastolic and systolic dysfunction. History of prior thoracentesis in March. History of recent perforated peptic ulcer with laparoscopic repair of the peptic ulcer and Mahad patch. History of severe malnutrition, history of E. coli urinary tract infection, history of CKD, history of critical illness myopathy, diabetes, hypothyroidism, hyperlipidemia, gastroesophageal reflux disease, history of recent non-ST NV. History of AFib with RVR. Hypertension, diverticulosis and osteoarthritis. PAST SURGICAL HISTORY: As discussed above including cardiac catheterization. REVIEW OF SYSTEMS: Limited as unable to obtain much history from the patient, but pertinent findings were reported to me by her daughter who was at the bedside. MEDICATIONS: Upon admission, have not been updated yet. The medicines that she received in the chemistry laboratory technician were reviewed. SOCIAL HISTORY: Smoked for 15-20 years before quitting 30 years ago. PHYSICAL EXAMINATION: GENERAL: She is sleepy, but arousable. VITAL SIGNS: Blood pressure 118/73, pulse ox 94% on 4 liters. HEENT: Sclerae nonicteric. NECK: Supple. LUNGS: Diminished breath sounds. CARDIOVASCULAR: Regular rate and rhythm. ABDOMEN: Soft, nontender. EXTREMITIES: With trace pitting edema. LABORATORY DATA: Reviewed. Her white cell count 8.2, hemoglobin 9.1, platelets are 175. Her chemistries latest shows a BUN of 18 and a creatinine of 0.9. Her proBNP on the 7th was 34,000. Albumin level of 1.1. IMPRESSION: 1. 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 2. Abnormal chest x-ray consistent with congestive heart failure. 3. Possible mild chronic obstructive pulmonary disease. 4. Bilateral pleural effusions secondary to congestive heart failure. Recently, she had thoracentesis in March and we will monitor for any effusions for now. 5. Severe protein-calorie malnutrition. 6. Recent perforated peptic ulcer with laparoscopic repair of the peptic ulcer and Mahad patch placement. 7. Critical illness myopathy. 8. Hypothyroidism. 9. Hyperlipidemia. 10. Recent non-ST myocardial infarction. RECOMMENDATIONS: 1. From a pulmonary standpoint, we will monitor the response to diuresis. 2. She has multivessel coronary artery disease based on recent cardiac catheterization and not an optimum candidate for coronary artery bypass grafting. Would follow cardiology recommendations regarding placement of high risk stents and an Impella placement. 3. P.r.n. bronchodilators. 4. Follow chest x-rays. 5 . Improve nutritional support. 6. Physical therapy consult. 7. Will be available for any further recommendations and follow along with you. Discussed with Dr. Cho and discussed with RN. DWIGHT MANZANARES MD DR: SAUL/margaret JOB#: [id number] / [id number] GOOD
[2017-05-05] MEDS ORDERED: HEPARIN for IV BOLUS 10,000 UNIT/10 ML VIAL. IV PRN (17:15)
[2017-05-05] MEDS ORDERED: HEPARIN 25,000UTS/500ML PREMIX 500 ML IV PRN (17:15)
[2017-05-05] MEDS ORDERED: METO10DI2 IV (17:34)
[2017-05-05] MEDS ORDERED: FURO40TA4 PO (17:34)
[2017-05-05] MEDS ORDERED: MERO500V15 IV (17:34)
[2017-05-05] MEDS ORDERED: INSU100C SQ (17:34)
[2017-05-05] MEDS ORDERED: DEXTROSE 50% 25 GM / 50ML DISP.SYRIN. IV PRN (17:45)
[2017-05-05] MEDS: SIMETHICONE 80 MG TAB.CHEW PO SCH (18:45)
[2017-05-05] MEDS: SUCRALFATE 1 GM TABLET. PO SCH (18:45)
[2017-05-05] MEDS: MEROPENEM 500 MG in IV NORMAL SALINE 50ML 50 ML IV SCH ×2 (18:48→23:33)
[2017-05-05] MEDS: IPRATRPIUM/ALBUTEROL 0.5/2.5MG 3 ML NEBU. NEB SCH (20:00)
[2017-05-05] MEDS ORDERED: AMIODARONE HCL 200 MG TABLET. PO SCH (21:00)
[2017-05-05] MEDS ORDERED: IPRATRPIUM/ALBUTEROL 0.5/2.5MG 3 ML NEBU. NEB SCH (21:00)
[2017-05-05] MEDS ORDERED: NON FORMULARY ITEM (Melatonin 3 MG) PO SCH (21:00)
[2017-05-05] MEDS: ALPRAZolam 0.25 MG TABLET PO SCH (21:00)
[2017-05-05] MEDS ORDERED: MEROPENEM 500 MG VIAL IV SCH (22:00)
[2017-05-05] MEDS: METOCLOPRAMIDE HCL 10 MG/2 ML VIAL. IV SCH (22:19)
[2017-05-05] MEDS: INSULIN ASPART 300 UNITS/3 ML INSULN.PEN SQ SCH (22:30)
[2017-05-05] MEDS ORDERED: FUROSEMIDE 40 MG/4 ML VIAL. IVP ONE (23:15)
[2017-05-06] VITALS (24 sets, daily range): BP systolic 84–140; BP diastolic 40–68
--- NOTE | 2017-05-06 04:51 | ACF ---
Admission Forms Criteria RESPIRATORY FAILURE GRG ( Place 'X' for any and all applicable criteria): Hospital admission is needed for appropriate care of the patient because of acute respiratory failure or insufficiency as indicated by 1 or more of the following (1)(2)(3)(4)(5)(6)(7)(8 ): [X]I. Mechanical ventilation needed (acute invasive or noninvasive) [ ]II. Severe ventilation deficit as indicated by 1 or more of the following ( 9) [ ]a) Uncompensated Respiratory acidosis (pH < 7.35 and PaCO2 > 40 mmHg (5.3 kPa)) [ ]b) Airflow measurements < 25% of predicted (eg, PEFR < 100 L/min) [ ]c) FVC < 15 mL/kg of ideal body weight, or 50% decrease in vital capacity from baseline [ ]III. Noncardiac pulmonary edema not resolving with rapid emergency treatment (8) [ ]IV. Severe respiratory distress as indicated by 1 or more of the following: [ ]a) Severe tachypnea (respiratory rate greater than 30, greater than 45 for 6-month-old, greater than 60 for ) [ ]b) Severe hypoxemia (partial pressure of oxygen less than 50 mm Hg ( 6.7 kPa) on greater than 50% oxygen or partial pressure of oxygen to FIO2 ratio less than 200) [ ]c) Mental status deterioration from respiratory disease [ ]V. Airway obstruction or inadequate protection [A](10)(11) The original [employer] content created by [employer] has been revised. The portions of the content which have been revised are identified through the use of italic text, and [facility] has neither reviewed nor approved the modified material. All other unmodified content is copyright [employer]. Please see references footnoted in the original [employer] edition 2014 Admission Criteria Met?: Yes THEE VERGARA May 06, 2017 04:51
[2017-05-06] MEDS: MEROPENEM 500 MG in IV NORMAL SALINE 50ML 50 ML IV SCH ×3 (05:34→21:39)
--- NOTE | 2017-05-06 07:27 | PDOC1 ---
CHRIS PAGAN OFFICIAL GREETER 05/06/17 0727: HISTORY AND PHYSICAL Chief Complaint Chief Complaint This 81 year old female has been admitted with a chief complaint of a/ c systolic diastolic CHF. She was recently admitted to [facility] last week and treated for early sepsis with possible aspiration pneumonia. She was discharged back to [facility] on 05/02/17. She experienced worsening dyspnea and abnormalities were present on her CXR. She was directly admitted to [facility] ICU. Cardiology was consulted and a CC was performed urgently and she was found to have severe 3V disease. She is not a candidate for surgery. A high risk cardiac procedure is planned for Monday. Pulmonary was consulted and she is in acute respiratory failure with increasing oxygen requirements. As stated previously, she is admitted to the ICU. Past Medical History Cardiovascular: AFIB (PSVT,AF, ST ), CAD (recent NSTEMI ), CHF (systolic diastolic EF 35-40%), Hyperlipidemia Pulmonary: Pneumonia (recent aspiration ), Other (Bilateral pleural effusion with h/o thoracentesis ) GI: GERD, Peptic Ulcer disease (abdominal washout, laproscopic repair of peptic ulcer with Mahad patch placement) Heme/Onc: Anemia NOS (anemia CD ) Hepatobiliary: Other (abnormal LFTs ) Infectious disease: Other (Recent sepsis ) ENT: Other (recent dental caries ) Renal/: Chronic renal insuff (CKD II ), UTI (recent EColi treated ) Endocrine: Hypothyroidism Past Surgical History PSH abd washout, exp lap repair PU perforation with Mahad patch Past Family History PFH Non contributory Past Social History PSH No h/o tobacco, ETOH or illicit drug use. Review of Symptoms Review of Symptoms A 14 point ROS was completed with the following noted as positive: Other systems reviewed and negative. Medications Medications reviewed and reconciled. Allergy Allergies Coded Allergies Type Severity Reaction Last Updated Verified Penicillins Allergy Severe Anaphylaxis 04/30/17 Yes metronidazole Allergy Intermediate 04/30/17 Yes sulfamethoxazole Allergy Intermediate 04/30/17 Yes trimethoprim Allergy Intermediate 04/30/17 Yes adhesive tape Adverse Reaction Severe skin tears 04/14/17 Yes pravastatin Adverse Reaction Intermediate severe muscle cramps 04/14/17 Yes acetaminophen Adverse Reaction Mild nausea 04/14/17 Yes hydrocodone Adverse Reaction Mild nausea 04/14/17 Yes oxycodone Adverse Reaction Mild nausea 04/14/17 Yes tramadol Adverse Reaction Mild nausea 04/14/17 Yes Physical Exam Physical Exam General appearance - alert, acutely ill appearing, and in no distress Mental Status - alert, oriented to person, place, and time, affect appropriate to mood Head - normal Chest - clear to auscultation, no wheezes, rales or rhonchi Heart - S1 and S2 normal Abdomen - soft, nontender, nondistended, BS+ Neurological - No acute focal neurological deficit noted Musculoskeletal - no muscular tenderness noted Extremities - no pedal edema Skin - warm and dry VTE Prophylaxis Ordered VTE Prophylaxis Devices: Yes VTE Pharmacological Prophylaxi: Yes (Heparin gtt ) Assessment Labs Laboratory Tests Test 05/05/17 22:32 05/06/17 00:30 Glucose (Fingerstick) 172 mg/dL (70-99) Heparin Anti-Xa Act, Unfractionated > 1.10 IU/mL (0.30-0.70) Laboratory Tests Test 05/05/17 22:32 05/06/17 00:30 Glucose (Fingerstick) 172 mg/dL (70-99) Heparin Anti-Xa Act, Unfractionated > 1.10 IU/mL (0.30-0.70) Plan Plan IMPRESSION 1. Acute respiratory failure underlying CHF and possible COPD 2. Acute congestive heart failure, both diastolic and systolic with EF 35-40% 3. Severe 3V CAD 4. Chronic kidney disease stage 2. 5. Recent perforated peptic ulcer with laparoscopic repair of the peptic ulcer and Mahad patch placement. 6. Recent non-ST elevation myocardial infraction with abnormal EKG. 7. Severe malnutrition. 8. Recent Early sepsis, possible aspiration pneumonia. 9. 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 Hypothyroidism 12. Hyperlipidemia. 13. Gastroesophageal reflux disease. 14. Preglaucoma of both eyes 15. Recent atrial fibrillation with fast ventricular rate. 16. hypertension. 17. Diverticulosis. 18. Osteoarthritis. 19. Hearing loss PLAN: Acute respiratory failure pulmonary consult supplemental O2 nebulizer O2 supplement to maintain Sat >90% CHF bilateral pleural effusions-monitor 05/06 VM 40% A/C CHF Daily wt Admit wt 159# IO Lasix 40mg IV x 1 05/05 Lasix 40mg daily po CAD recent NSTEMI CC 05/05; LAD 89-90% stenosis prox-mid segment Diag 40% stenosis prox-mid segment RCA 95-99% critical stenosis mid segment 70% calcified stenosis distal segment Impella with stent pending Monday Heparin infusion DM II FSBS/SSI BS 172 recent PUD per with repair CT abd/pelvis 04/14- (Colonic sig/descending) diverticulosis, no CT evidence intra-abdominal abscess. anemia CD 05/05 Select 7.6 Lab pending DVT/GI prophylaxis heparin IV carafate/PPI For more details regarding further plans, please refer to the orders. RITA HUMMEL MD 05/06/17 1044: HISTORY AND PHYSICAL Chief Complaint Chief Complaint Patient had another episode of flash pulmonary edema at [facility] and because of that has been readmitted to [facility]. Plan Plan The patient was seen and examined by me. Chart reviewed and plan of care formulated. Discussed with, reviewed and agree with CUSTOMER ACCOUNT EXECUTIVE's notes, plan of care and orders with modifications as necessary. For more details regarding further plans, please refer to the orders. CHRIS PAGAN APRN May 06, 2017 07:27 RITA HUMMEL MD May 06, 2017 10:44
[2017-05-06] MEDS: IPRATRPIUM/ALBUTEROL 0.5/2.5MG 3 ML NEBU. NEB SCH ×4 (07:39→20:29)
--- NOTE | 2017-05-06 07:46 | PDOC ---
CARDIOLOGY PROGRESS NOTE SUBJECTIVE: No chest pain but persistent dyspnea. Required increased oxygen overnight. OBJECTIVE: Vital SIgns: Vital Signs Date Time Temp Pulse Resp B/P (MAP) Pulse Ox O2 Delivery O2 Flow Rate FiO2 05/06/17 07:40 95 Venturi Mask 15.0 05/06/17 06:03 79 20 110/61 (77) 05/06/17 04:10 97.3 97.3 I & O -1.5L Objective: Gen: A/O x 3. Mild tachypnea Normal heart tones bilateral rales No edema. Soft abdomen no neurological deficits. CURRENT MEDICATIONS: Meds reviewed. DIAGNOSTIC TESTING: Labs pending CXR with bilateral interstitial edema. ASSESSMENT: 1. Acute on chronic systolic/diastolic HF 2. Flash pulmonary edema. 3. 3V CAD 4. NSTEMI 5. NSVT - on amiodarone. Problems: PLAN: 1. Await labs this a.m, if Cr stable, then continue diuresis. 2. Hold oral anti-hypertensives, use NTG gtt prn 3. Start plavix in anticipation of PCI on monday. 4. Low dose b-blockers prn. 5. Statin allergy, hold off statin therapy for now. Continue close monitoring. LUKE TRACEY MD May 06, 2017 07:46
--- NOTE | 2017-05-06 07:50 | RAD ---
Portable chest, 05/06/2017: History: Congestive heart failure Comparison is made to a study from 05/02/2017. The heart is mildly enlarged. There are worsening perihilar opacities with loss of vascular margination. The appearance suggests pulmonary edema. Hazy basilar opacities are compatible with pleural fluid, left greater than right. There is no evidence of pneumothorax. IMPRESSION: Worsening congestive heart failure with perihilar pulmonary edema and bilateral pleural effusions.
[2017-05-06] MEDS: INSULIN ASPART 300 UNITS/3 ML INSULN.PEN SQ SCH ×4 (08:00→21:00)
[2017-05-06] MEDS ORDERED: CLOPIDOGREL BISULFATE 75 MG TABLET PO SCH (08:00)
[2017-05-06] MEDS ORDERED: CLOPIDOGREL BISULFATE 75 MG TABLET PO ONE (08:00)
[2017-05-06] MEDS ORDERED: PANTOPRAZOLE 40 MG TABLET.DR. PO ONE (08:00)
[2017-05-06] MEDS: SIMETHICONE 80 MG TAB.CHEW PO SCH ×3 (08:32→17:19)
[2017-05-06] MEDS: PANTOPRAZOLE 40 MG TABLET.DR. PO SCH (08:32)
[2017-05-06] MEDS: SUCRALFATE 1 GM TABLET. PO SCH ×2 (08:32→17:19)
[2017-05-06] MEDS: AMIODARONE HCL 200 MG TABLET. PO SCH (08:50)
[2017-05-06] MEDS: LEVOTHYROXINE 75 MCG TABLET PO SCH (08:50)
[2017-05-06] MEDS: ASPIRIN ENTERIC COATED 81 MG TABLET.DR. PO SCH (08:50)
[2017-05-06] MEDS: CITALOPRAM 20 MG TABLET. PO SCH (08:50)
[2017-05-06] MEDS: METOCLOPRAMIDE HCL 10 MG/2 ML VIAL. IV SCH ×3 (08:50→21:40)
[2017-05-06] MEDS ORDERED: LISINOPRIL 10 MG TABLET PO SCH (09:00)
[2017-05-06] MEDS ORDERED: FUROSEMIDE 40 MG TABLET. PO SCH (09:00)
[2017-05-06 09:26] LABS: ALBUMIN 2.3 g/dL (3.4-5.0); ALBUMIN/GLOBULIN RATIO 0.5 (1.0-1.7); BASO # 0.1 x10^3/uL (0.0-0.2); BASO % 1 % (0-3); CALCIUM 8.6 mg/dL (8.5-10.1); CREATININE 0.9 mg/dL (0.6-1.0); EOS % 5 % (0-3); GFR 60.4; HEMATOCRIT 28.1 % (36.0-47.0); HEMOGLOBIN 8.9 g/dL (12.0-15.5); LYMPH # 1.6 x10^3/uL (1.0-4.8); LYMPH % 24 % (24-48); MEAN CORPUSCULAR HEMOGLOBIN 29 pg (25-35); MEAN CORPUSCULAR HGB CONC 32 g/dL (31-37); MEAN CORPUSCULAR VOLUME 90 fL (79-100); MONO % 8 % (0-9); NEUT % 61 % (31-73); PLATELET COUNT 208 x10^3/uL (140-400); POTASSIUM 3.4 mmol/L (3.5-5.1); RED BLOOD COUNT 3.12 x10^6/uL (3.50-5.40); RED CELL DISTRIBUTION WIDTH 18.5 % (11.5-14.5); TOTAL BILIRUBIN 0.5 mg/dL (0.2-1.0); TOTAL PROTEIN 7.2 g/dL (6.4-8.2); WHITE BLOOD COUNT 6.7 x10^3/uL (4.0-11.0)
[2017-05-06] MEDS: FUROSEMIDE 40 MG/4 ML VIAL. IVP SCH (09:34)
--- NOTE | 2017-05-06 10:48 | PDOC ---
PULMONARY PROGRESS NOTES Subjective had soa last night received lasix Vitals Vital Signs Date Time Temp Pulse Resp B/P (MAP) Pulse Ox O2 Delivery O2 Flow Rate FiO2 05/06/17 10:00 81 18 107/67 (80) 96 Nasal Cannula 4.0 05/06/17 07:00 97.5 97.5 ROS: No Nausea, No Chest Pain, No Abdominal Pain, No Increase Cough General: Alert, No acute distress Lungs: Other (decrease bs) Cardiovascular: S1 Abdomen: Soft Extremities: Other (1+edema) Skin: Warm Labs Laboratory Tests Test 05/05/17 17:25 05/05/17 22:32 05/06/17 00:30 05/06/17 08:30 Nasal Screen MRSA (PCR) Negative (Negative) Glucose (Fingerstick) 172 mg/dL (70-99) Heparin Anti-Xa Act, Unfractionated > 1.10 IU/mL (0.30-0.70) > 1.10 IU/mL (0.30-0.70) Test 05/06/17 08:35 White Blood Count 6.7 x10^3/uL (4.0-11.0) Red Blood Count 3.12 x10^6/uL (3.50-5.40) Hemoglobin 8.9 g/dL (12.0-15.5) Hematocrit 28.1 % (36.0-47.0) Mean Corpuscular Volume 90 fL (79-100) Mean Corpuscular Hemoglobin 29 pg (25-35) Mean Corpuscular Hemoglobin Concent 32 g/dL (31-37) Red Cell Distribution Width 18.5 % (11.5-14.5) Platelet Count 208 x10^3/uL (140-400) Neutrophils (%) (Auto) 61 % (31-73) Lymphocytes (%) (Auto) 24 % (24-48) Monocytes (%) (Auto) 8 % (0-9) Eosinophils (%) (Auto) 5 % (0-3) Basophils (%) (Auto) 1 % (0-3) Neutrophils # (Auto) 4.1 x10^3uL (1.8-7.7) Lymphocytes # (Auto) 1.6 x10^3/uL (1.0-4.8) Monocytes # (Auto) 0.5 x10^3/uL (0.0-1.1) Eosinophils # (Auto) 0.4 x10^3/uL (0.0-0.7) Basophils # (Auto) 0.1 x10^3/uL (0.0-0.2) Sodium Level 138 mmol/L (136-145) Potassium Level 3.4 mmol/L (3.5-5.1) Chloride Level 97 mmol/L (98-107) Carbon Dioxide Level 38 mmol/L (21-32) Anion Gap 3 (6-14) Blood Urea Nitrogen 19 mg/dL (7-20) Creatinine 0.9 mg/dL (0.6-1.0) Estimated GFR (Cockcroft-Gault) 60.4 BUN/Creatinine Ratio 21 (6-20) Glucose Level 138 mg/dL (70-99) Calcium Level 8.6 mg/dL (8.5-10.1) Magnesium Level 1.9 mg/dL (1.8-2.4) Total Bilirubin 0.5 mg/dL (0.2-1.0) Aspartate Amino Transf (AST/SGOT) 19 U/L (15-37) Alanine Aminotransferase (ALT/SGPT) 16 U/L (14-59) Alkaline Phosphatase 81 U/L (46-116) VO-Dir-U-Type Natriuretic Peptide 57385 pg/mL (0-449) Total Protein 7.2 g/dL (6.4-8.2) Albumin 2.3 g/dL (3.4-5.0) Albumin/Globulin Ratio 0.5 (1.0-1.7) Laboratory Tests Test 05/05/17 17:25 05/05/17 22:32 05/06/17 00:30 05/06/17 08:30 Nasal Screen MRSA (PCR) Negative (Negative) Glucose (Fingerstick) 172 mg/dL (70-99) Heparin Anti-Xa Act, Unfractionated > 1.10 IU/mL (0.30-0.70) > 1.10 IU/mL (0.30-0.70) Test 05/06/17 08:35 White Blood Count 6.7 x10^3/uL (4.0-11.0) Red Blood Count 3.12 x10^6/uL (3.50-5.40) Hemoglobin 8.9 g/dL (12.0-15.5) Hematocrit 28.1 % (36.0-47.0) Mean Corpuscular Volume 90 fL (79-100) Mean Corpuscular Hemoglobin 29 pg (25-35) Mean Corpuscular Hemoglobin Concent 32 g/dL (31-37) Red Cell Distribution Width 18.5 % (11.5-14.5) Platelet Count 208 x10^3/uL (140-400) Neutrophils (%) (Auto) 61 % (31-73) Lymphocytes (%) (Auto) 24 % (24-48) Monocytes (%) (Auto) 8 % (0-9) Eosinophils (%) (Auto) 5 % (0-3) Basophils (%) (Auto) 1 % (0-3) Neutrophils # (Auto) 4.1 x10^3uL (1.8-7.7) Lymphocytes # (Auto) 1.6 x10^3/uL (1.0-4.8) Monocytes # (Auto) 0.5 x10^3/uL (0.0-1.1) Eosinophils # (Auto) 0.4 x10^3/uL (0.0-0.7) Basophils # (Auto) 0.1 x10^3/uL (0.0-0.2) Sodium Level 138 mmol/L (136-145) Potassium Level 3.4 mmol/L (3.5-5.1) Chloride Level 97 mmol/L (98-107) Carbon Dioxide Level 38 mmol/L (21-32) Anion Gap 3 (6-14) Blood Urea Nitrogen 19 mg/dL (7-20) Creatinine 0.9 mg/dL (0.6-1.0) Estimated GFR (Cockcroft-Gault) 60.4 BUN/Creatinine Ratio 21 (6-20) Glucose Level 138 mg/dL (70-99) Calcium Level 8.6 mg/dL (8.5-10.1) Magnesium Level 1.9 mg/dL (1.8-2.4) Total Bilirubin 0.5 mg/dL (0.2-1.0) Aspartate Amino Transf (AST/SGOT) 19 U/L (15-37) Alanine Aminotransferase (ALT/SGPT) 16 U/L (14-59) Alkaline Phosphatase 81 U/L (46-116) NH-Emt-G-Type Natriuretic Peptide 61728 pg/mL (0-449) Total Protein 7.2 g/dL (6.4-8.2) Albumin 2.3 g/dL (3.4-5.0) Albumin/Globulin Ratio 0.5 (1.0-1.7) Medications Active Scripts Medications Dose Route/Sig Max Daily Dose Days Date Category Meropenem 500 Mg Vial 500 Mg IV Q8HRS 05/05/17 Reported Humalog (Insulin Lispro) 100 Unit/1 Ml Cartridge 100 Unit SQ TIDACHC 05/05/17 Reported Metoclopramide Hcl 10 Mg/2 Ml Disp.syrin 10 Mg IV TID 05/05/17 Reported Furosemide 40 Mg Tablet 1 Tab PO DAILY 05/05/17 Reported Eliquis (Apixaban) 5 Mg Tablet 5 Mg PO BID 05/01/17 Reported Lisinopril 10 Mg Tablet 1 Tab PO DAILY 05/01/17 Reported Ondansetron Hcl 4 Mg/2 Ml Syr (Ondansetron Hcl/Pf) 4 Mg/2 Ml Disp.syrin 4 Mg IJ Q6HRS PRN 04/14/17 Reported Pantoprazole Sodium 40 Mg Tablet.dr 1 Tab PO DAILY 04/14/17 Reported Sucralfate 1 Gm Tablet 1 Tab PO BID 04/14/17 Reported Simethicone 80 Mg Tab.chew 80 Mg PO TID 04/14/17 Reported Duoneb 0.5-3(2.5) Mg/3 Ml (Albuterol/Ipratropium) 3 Ml Ampul.neb 3 Ml NEB BID 04/14/17 Reported Escitalopram Oxalate 10 Mg Tablet 1 Tab PO DAILY 04/14/17 Reported Alprazolam 0.25 Mg Tablet 1 Tab PO HS 04/14/17 Reported Melatonin 3 Mg Tablet 3 Mg PO QHS 04/14/17 Reported Levothyroxine Sodium 75 Mcg Tablet 1 Tab PO DAILY 04/14/17 Reported Amiodarone Hcl 200 Mg Tablet 1 Tab PO BID 04/14/17 Reported Comments CXR worsening CHF Impression . 1. 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 2. Abnormal chest x-ray consistent with congestive heart failure. 3. Possible mild chronic obstructive pulmonary disease. 4. Bilateral pleural effusions secondary to congestive heart failure. Recently, she had thoracentesis in March and we will monitor for any effusions for now. 5. Severe protein-calorie malnutrition. 6. Recent perforated peptic ulcer with laparoscopic repair of the peptic ulcer and Mahad patch placement. 7. Critical illness myopathy. 8. Hypothyroidism. 9. Hyperlipidemia. 10. Recent non-ST myocardial infarction. 11. s/p cath. MV CAD/ non operable Plan . 1. From a pulmonary standpoint, we will monitor the response to diuresis. 2. She has multivessel coronary artery disease based on recent cardiac catheterization and not an optimum candidate for coronary artery bypass grafting. Would follow cardiology recommendations regarding placement of high risk stents and an Impella placement. 3. P.r.n. bronchodilators. 4. Follow chest x-rays. 5 . Improve nutritional support. 6. Physical therapy consult. 7. Will be available for any further recommendations and follow along with you. DWIGHT MANZANARES MD May 06, 2017 10:48
[2017-05-06] MEDS ORDERED: ANTI-COAG MONITOR BY PHARMACY. MC PRN (11:00)
[2017-05-06] MEDS ORDERED: POTASSIUM CHLORIDE 20 MEQ TABLET.ER. PO SCH (11:00)
[2017-05-06 19:45] LABS: BASO # 0.1 x10^3/uL (0.0-0.2); BASO % 1 % (0-3); EOS % 4 % (0-3); HEMATOCRIT 26.3 % (36.0-47.0); HEMOGLOBIN 8.8 g/dL (12.0-15.5); LYMPH # 1.9 x10^3/uL (1.0-4.8); LYMPH % 29 % (24-48); MEAN CORPUSCULAR HEMOGLOBIN 29 pg (25-35); MEAN CORPUSCULAR HGB CONC 33 g/dL (31-37); MEAN CORPUSCULAR VOLUME 88 fL (79-100); MONO % 8 % (0-9); NEUT % 59 % (31-73); PLATELET COUNT 223 x10^3/uL (140-400); RED CELL DISTRIBUTION WIDTH 18.8 % (11.5-14.5); WHITE BLOOD COUNT 6.5 x10^3/uL (4.0-11.0)
[2017-05-06] MEDS: ALPRAZolam 0.25 MG TABLET PO SCH (21:40)
[2017-05-07] VITALS (31 sets, daily range): BP systolic 73–116; BP diastolic 36–69
[2017-05-07 04:15] LABS: HCO3 ABG 36 mmol/L (21-28); PCO2 ABG 47 mmHg (35-46); PH ABG 7.51 (7.35-7.45); PO2 ABG 142 mmHg (65-108); SAT O2 ABG 99 % (92-99)
[2017-05-07 04:19] LABS: FIO2 ABG 100
[2017-05-07 04:48] LABS: BASO % 1 % (0-3); EOS % 5 % (0-3); HEMATOCRIT 28.4 % (36.0-47.0); HEMOGLOBIN 9.1 g/dL (12.0-15.5); LYMPH % 15 % (24-48); MEAN CORPUSCULAR HEMOGLOBIN 29 pg (25-35); MEAN CORPUSCULAR HGB CONC 32 g/dL (31-37); MEAN CORPUSCULAR VOLUME 89 fL (79-100); MONO % 6 % (0-9); NEUT % 73 % (31-73); PLATELET COUNT 208 x10^3/uL (140-400); RED BLOOD COUNT 3.18 x10^6/uL (3.50-5.40); RED CELL DISTRIBUTION WIDTH 18.2 % (11.5-14.5); WHITE BLOOD COUNT 6.5 x10^3/uL (4.0-11.0)
[2017-05-07 05:09] LABS: CALCIUM 8.3 mg/dL (8.5-10.1); CREATININE 0.9 mg/dL (0.6-1.0); GFR 60.4; POTASSIUM 3.2 mmol/L (3.5-5.1)
[2017-05-07 05:15] LABS: ALBUMIN 2.2 g/dL (3.4-5.0); ALBUMIN/GLOBULIN RATIO 0.5 (1.0-1.7); MAGNESIUM 1.8 mg/dL (1.8-2.4); TOTAL BILIRUBIN 0.5 mg/dL (0.2-1.0); TOTAL PROTEIN 6.9 g/dL (6.4-8.2)
[2017-05-07] MEDS: LEVOTHYROXINE 75 MCG TABLET PO SCH (05:52)
[2017-05-07] MEDS: MEROPENEM 500 MG in IV NORMAL SALINE 50ML 50 ML IV SCH ×3 (05:52→22:03)
[2017-05-07] MEDS ORDERED: PANTOPRAZOLE 40 MG TABLET.DR. PO SCH (07:30)
[2017-05-07] MEDS: IPRATRPIUM/ALBUTEROL 0.5/2.5MG 3 ML NEBU. NEB SCH ×4 (07:54→20:42)
[2017-05-07] MEDS: INSULIN ASPART 300 UNITS/3 ML INSULN.PEN SQ SCH ×4 (08:00→21:00)
--- NOTE | 2017-05-07 08:18 | PDOC ---
CARDIOLOGY PROGRESS NOTE SUBJECTIVE: Transient hypoxia overnight, required bipap and Dopamine. Off dopamine now, on Bipap still for comfort and hypoxia. Denies any chest pain. Reports orthopnea. OBJECTIVE: Vital SIgns: Vital Signs Date Time Temp Pulse Resp B/P (MAP) Pulse Ox O2 Delivery O2 Flow Rate FiO2 05/07/17 07:54 95 BiPAP/CPAP 05/07/17 06:00 76 20 101/55 (70) 05/07/17 04:00 5.0 05/07/17 03:30 97.5 97.5 I & O -1.2 L Objective: Gen: Resting comfortably sitting up in bed.On bipap CV: RRR, no m/r/g PULM: CTAB anteriorly ABD: Soft, NT/ND EXT: No edema, cool to touch CURRENT MEDICATIONS: Amiodarone 200mg daily ASA 81 mg daily Plavix 75mg daily Lasix 40mg IVP daily DIAGNOSTIC TESTING: CXR pending - ordered Cr stable Low K noted ASSESSMENT: 1. 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 3v CAD Problems: PLAN: 1. Continue present meds and gentle diuresis 2. Repeat CXR today and determine need for continued non-invasive ventilation 3. Will ask Hem/onc for input regarding elevated UFH. Suspect likely lab error but will confirm prior to can labeler tomorrow. 4. Notify anesthesia service given need to lay flat and pt. inability to do at this time despite bi-pap, may need elective intubation, will determine in a.m. after continued diuresis. 5. Repeat cardiac enzymes. LUKE TRACEY MD May 07, 2017 08:18
--- NOTE | 2017-05-07 08:31 | RAD ---
Portable chest, 2016: History: Dyspnea Comparison is made to yesterday's study. The heart size is unchanged. Parahilar infiltrates persist, slightly improved on the right. There is a moderate amount of associated left-sided pleural fluid. There is probably a small amount of ongoing right-sided pleural fluid. No new abnormality is detected. IMPRESSION: Ongoing pulmonary edema and pleural effusions with slight interval improvement on the right since yesterday's study.
[2017-05-07] MEDS: METOCLOPRAMIDE HCL 10 MG/2 ML VIAL. IV SCH ×3 (09:00→22:03)
--- NOTE | 2017-05-07 09:06 | PDOC ---
IM PROGRESS NOTES- Subjective Subjective No pain,dyspnea. Objective Vitals Vital Signs Date Time Temp Pulse Resp B/P (MAP) Pulse Ox O2 Delivery O2 Flow Rate FiO2 05/07/17 07:54 95 BiPAP/CPAP 05/07/17 06:00 76 20 101/55 (70) 05/07/17 04:00 5.0 05/07/17 03:30 97.5 97.5 Physical Exam Physical Exam General appearance - alert,ill appearing, and in no distress and oriented to person, place, and time,on BiPap Mental Status - alert, oriented to person, place, and time, affect appropriate to mood Head - normal Chest - decreased air entry Heart - S1 and S2 normal Abdomen - soft, nontender, nondistended, no masses or organomegaly Neurological - alert and oriented Musculoskeletal - no muscular tenderness noted Extremities - no pedal edema Skin - warm and dry Labs Laboratory Tests Test 05/05/17 17:25 05/05/17 22:32 05/06/17 00:30 05/06/17 08:30 Nasal Screen MRSA (PCR) Negative (Negative) Glucose (Fingerstick) 172 mg/dL (70-99) Heparin Anti-Xa Act, Unfractionated > 1.10 IU/mL (0.30-0.70) > 1.10 IU/mL (0.30-0.70) Test 05/06/17 08:35 05/06/17 08:36 05/06/17 11:11 05/06/17 16:00 White Blood Count 6.7 x10^3/uL (4.0-11.0) Red Blood Count 3.12 x10^6/uL (3.50-5.40) Hemoglobin 8.9 g/dL (12.0-15.5) Hematocrit 28.1 % (36.0-47.0) Mean Corpuscular Volume 90 fL (79-100) Mean Corpuscular Hemoglobin 29 pg (25-35) Mean Corpuscular Hemoglobin Concent 32 g/dL (31-37) Red Cell Distribution Width 18.5 % (11.5-14.5) Platelet Count 208 x10^3/uL (140-400) Neutrophils (%) (Auto) 61 % (31-73) Lymphocytes (%) (Auto) 24 % (24-48) Monocytes (%) (Auto) 8 % (0-9) Eosinophils (%) (Auto) 5 % (0-3) Basophils (%) (Auto) 1 % (0-3) Neutrophils # (Auto) 4.1 x10^3uL (1.8-7.7) Lymphocytes # (Auto) 1.6 x10^3/uL (1.0-4.8) Monocytes # (Auto) 0.5 x10^3/uL (0.0-1.1) Eosinophils # (Auto) 0.4 x10^3/uL (0.0-0.7) Basophils # (Auto) 0.1 x10^3/uL (0.0-0.2) Sodium Level 138 mmol/L (136-145) Potassium Level 3.4 mmol/L (3.5-5.1) Chloride Level 97 mmol/L (98-107) Carbon Dioxide Level 38 mmol/L (21-32) Anion Gap 3 (6-14) Blood Urea Nitrogen 19 mg/dL (7-20) Creatinine 0.9 mg/dL (0.6-1.0) Estimated GFR (Cockcroft-Gault) 60.4 BUN/Creatinine Ratio 21 (6-20) Glucose Level 138 mg/dL (70-99) Calcium Level 8.6 mg/dL (8.5-10.1) Magnesium Level 1.9 mg/dL (1.8-2.4) Total Bilirubin 0.5 mg/dL (0.2-1.0) Aspartate Amino Transf (AST/SGOT) 19 U/L (15-37) Alanine Aminotransferase (ALT/SGPT) 16 U/L (14-59) Alkaline Phosphatase 81 U/L (46-116) YK-Aim-R-Type Natriuretic Peptide 87540 pg/mL (0-449) Total Protein 7.2 g/dL (6.4-8.2) Albumin 2.3 g/dL (3.4-5.0) Albumin/Globulin Ratio 0.5 (1.0-1.7) Glucose (Fingerstick) 138 mg/dL (70-99) 167 mg/dL (70-99) Heparin Anti-Xa Act, Unfractionated > 1.10 IU/mL (0.30-0.70) Test 05/06/17 16:59 05/06/17 19:30 05/06/17 21:42 05/07/17 04:12 Glucose (Fingerstick) 170 mg/dL (70-99) 153 mg/dL (70-99) White Blood Count 6.5 x10^3/uL (4.0-11.0) Red Blood Count 3.00 x10^6/uL (3.50-5.40) Hemoglobin 8.8 g/dL (12.0-15.5) Hematocrit 26.3 % (36.0-47.0) Mean Corpuscular Volume 88 fL (79-100) Mean Corpuscular Hemoglobin 29 pg (25-35) Mean Corpuscular Hemoglobin Concent 33 g/dL (31-37) Red Cell Distribution Width 18.8 % (11.5-14.5) Platelet Count 223 x10^3/uL (140-400) Neutrophils (%) (Auto) 59 % (31-73) Lymphocytes (%) (Auto) 29 % (24-48) Monocytes (%) (Auto) 8 % (0-9) Eosinophils (%) (Auto) 4 % (0-3) Basophils (%) (Auto) 1 % (0-3) Neutrophils # (Auto) 3.8 x10^3uL (1.8-7.7) Lymphocytes # (Auto) 1.9 x10^3/uL (1.0-4.8) Monocytes # (Auto) 0.5 x10^3/uL (0.0-1.1) Eosinophils # (Auto) 0.2 x10^3/uL (0.0-0.7) Basophils # (Auto) 0.1 x10^3/uL (0.0-0.2) Heparin Anti-Xa Act, Unfractionated > 1.10 IU/mL (0.30-0.70) O2 Saturation 99 % (92-99) Arterial Blood pH 7.51 (7.35-7.45) Arterial Blood pCO2 at Patient Temp 47 mmHg (35-46) Arterial Blood pO2 at Patient Temp 142 mmHg (65-108) Arterial Blood HCO3 36 mmol/L (21-28) Arterial Blood Base Excess 12 mmol/L (-3-3) FiO2 100 Test 05/07/17 04:15 White Blood Count 6.5 x10^3/uL (4.0-11.0) Red Blood Count 3.18 x10^6/uL (3.50-5.40) Hemoglobin 9.1 g/dL (12.0-15.5) Hematocrit 28.4 % (36.0-47.0) Mean Corpuscular Volume 89 fL (79-100) Mean Corpuscular Hemoglobin 29 pg (25-35) Mean Corpuscular Hemoglobin Concent 32 g/dL (31-37) Red Cell Distribution Width 18.2 % (11.5-14.5) Platelet Count 208 x10^3/uL (140-400) Neutrophils (%) (Auto) 73 % (31-73) Lymphocytes (%) (Auto) 15 % (24-48) Monocytes (%) (Auto) 6 % (0-9) Eosinophils (%) (Auto) 5 % (0-3) Basophils (%) (Auto) 1 % (0-3) Neutrophils # (Auto) 4.7 x10^3uL (1.8-7.7) Lymphocytes # (Auto) 1.0 x10^3/uL (1.0-4.8) Monocytes # (Auto) 0.4 x10^3/uL (0.0-1.1) Eosinophils # (Auto) 0.3 x10^3/uL (0.0-0.7) Basophils # (Auto) 0.0 x10^3/uL (0.0-0.2) Sodium Level 140 mmol/L (136-145) Potassium Level 3.2 mmol/L (3.5-5.1) Chloride Level 97 mmol/L (98-107) Carbon Dioxide Level 36 mmol/L (21-32) Anion Gap 7 (6-14) Blood Urea Nitrogen 18 mg/dL (7-20) Creatinine 0.9 mg/dL (0.6-1.0) Estimated GFR (Cockcroft-Gault) 60.4 BUN/Creatinine Ratio 20 (6-20) Glucose Level 163 mg/dL (70-99) Calcium Level 8.3 mg/dL (8.5-10.1) Magnesium Level 1.8 mg/dL (1.8-2.4) Total Bilirubin 0.5 mg/dL (0.2-1.0) Aspartate Amino Transf (AST/SGOT) 19 U/L (15-37) Alanine Aminotransferase (ALT/SGPT) 18 U/L (14-59) Alkaline Phosphatase 83 U/L (46-116) Total Protein 6.9 g/dL (6.4-8.2) Albumin 2.2 g/dL (3.4-5.0) Albumin/Globulin Ratio 0.5 (1.0-1.7) Laboratory Tests Test 05/06/17 11:11 05/06/17 16:00 05/06/17 16:59 05/06/17 19:30 Glucose (Fingerstick) 167 mg/dL (70-99) 170 mg/dL (70-99) Heparin Anti-Xa Act, Unfractionated > 1.10 IU/mL (0.30-0.70) > 1.10 IU/mL (0.30-0.70) White Blood Count 6.5 x10^3/uL (4.0-11.0) Red Blood Count 3.00 x10^6/uL (3.50-5.40) Hemoglobin 8.8 g/dL (12.0-15.5) Hematocrit 26.3 % (36.0-47.0) Mean Corpuscular Volume 88 fL (79-100) Mean Corpuscular Hemoglobin 29 pg (25-35) Mean Corpuscular Hemoglobin Concent 33 g/dL (31-37) Red Cell Distribution Width 18.8 % (11.5-14.5) Platelet Count 223 x10^3/uL (140-400) Neutrophils (%) (Auto) 59 % (31-73) Lymphocytes (%) (Auto) 29 % (24-48) Monocytes (%) (Auto) 8 % (0-9) Eosinophils (%) (Auto) 4 % (0-3) Basophils (%) (Auto) 1 % (0-3) Neutrophils # (Auto) 3.8 x10^3uL (1.8-7.7) Lymphocytes # (Auto) 1.9 x10^3/uL (1.0-4.8) Monocytes # (Auto) 0.5 x10^3/uL (0.0-1.1) Eosinophils # (Auto) 0.2 x10^3/uL (0.0-0.7) Basophils # (Auto) 0.1 x10^3/uL (0.0-0.2) Test 05/06/17 21:42 05/07/17 04:12 05/07/17 04:15 Glucose (Fingerstick) 153 mg/dL (70-99) O2 Saturation 99 % (92-99) Arterial Blood pH 7.51 (7.35-7.45) Arterial Blood pCO2 at Patient Temp 47 mmHg (35-46) Arterial Blood pO2 at Patient Temp 142 mmHg (65-108) Arterial Blood HCO3 36 mmol/L (21-28) Arterial Blood Base Excess 12 mmol/L (-3-3) FiO2 100 White Blood Count 6.5 x10^3/uL (4.0-11.0) Red Blood Count 3.18 x10^6/uL (3.50-5.40) Hemoglobin 9.1 g/dL (12.0-15.5) Hematocrit 28.4 % (36.0-47.0) Mean Corpuscular Volume 89 fL (79-100) Mean Corpuscular Hemoglobin 29 pg (25-35) Mean Corpuscular Hemoglobin Concent 32 g/dL (31-37) Red Cell Distribution Width 18.2 % (11.5-14.5) Platelet Count 208 x10^3/uL (140-400) Neutrophils (%) (Auto) 73 % (31-73) Lymphocytes (%) (Auto) 15 % (24-48) Monocytes (%) (Auto) 6 % (0-9) Eosinophils (%) (Auto) 5 % (0-3) Basophils (%) (Auto) 1 % (0-3) Neutrophils # (Auto) 4.7 x10^3uL (1.8-7.7) Lymphocytes # (Auto) 1.0 x10^3/uL (1.0-4.8) Monocytes # (Auto) 0.4 x10^3/uL (0.0-1.1) Eosinophils # (Auto) 0.3 x10^3/uL (0.0-0.7) Basophils # (Auto) 0.0 x10^3/uL (0.0-0.2) Sodium Level 140 mmol/L (136-145) Potassium Level 3.2 mmol/L (3.5-5.1) Chloride Level 97 mmol/L (98-107) Carbon Dioxide Level 36 mmol/L (21-32) Anion Gap 7 (6-14) Blood Urea Nitrogen 18 mg/dL (7-20) Creatinine 0.9 mg/dL (0.6-1.0) Estimated GFR (Cockcroft-Gault) 60.4 BUN/Creatinine Ratio 20 (6-20) Glucose Level 163 mg/dL (70-99) Calcium Level 8.3 mg/dL (8.5-10.1) Magnesium Level 1.8 mg/dL (1.8-2.4) Total Bilirubin 0.5 mg/dL (0.2-1.0) Aspartate Amino Transf (AST/SGOT) 19 U/L (15-37) Alanine Aminotransferase (ALT/SGPT) 18 U/L (14-59) Alkaline Phosphatase 83 U/L (46-116) Total Protein 6.9 g/dL (6.4-8.2) Albumin 2.2 g/dL (3.4-5.0) Albumin/Globulin Ratio 0.5 (1.0-1.7) Meds Current Medications Clopidogrel Bisulfate (Plavix) 75 mg DAILYWBKFT PO ; Start 05/07/17 at 08:00 Info (Anti-Coagulation Monitoring By Pharmacy) 1 each PRN DAILY PRN MC SEE COMMENTS Last administered on 05/06/17 10:49; Start 05/06/17 at 11:00; Stop 05/07 at 07:29; Status DC Pantoprazole Sodium (Protonix) 40 mg DAILYAC PO ; Start 05/07/17 at 07:30; Stop 05/07/17 at 07:30; Status DC Potassium Chloride (Klor-Con) 10 meq DAILYWBKFT PO Last administered on 12:32; Start 05/06/17 at 11:00; Stop 05/07/17 at 07:54; Status DC Potassium Chloride (Klor-Con) 20 meq BIDWMEALS PO ; Start 05/07/17 at 08:00 Assessment Assessment 1. Acute respiratory failure underlying CHF and possible COPD 2. Acute congestive heart failure, both diastolic and systolic with EF 35-40% 3. Severe 3V CAD 4. Chronic kidney disease stage 2. 5. Recent perforated peptic ulcer with laparoscopic repair of the peptic ulcer and Mahad patch placement. 6. Recent non-ST elevation myocardial infraction with abnormal EKG. 7. Severe malnutrition. 8. Recent Early sepsis, possible aspiration pneumonia. 9. 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 Hypothyroidism 12. Hyperlipidemia. 13. Gastroesophageal reflux disease. 14. Preglaucoma of both eyes 15. Recent atrial fibrillation with fast ventricular rate. 16. hypertension. 17. Diverticulosis. 18. Osteoarthritis. 19. Hearing loss PLAN: Acute respiratory failure pulmonary consult supplemental O2 nebulizer O2 supplement to maintain Sat >90% CHF bilateral pleural effusions-monitor 05/06 VM 40% A/C CHF Daily wt Admit wt 159# IO Lasix 40mg IV x 1 05/05 Lasix 40mg daily po CAD recent NSTEMI CC 05/05; LAD 89-90% stenosis prox-mid segment Diag 40% stenosis prox-mid segment RCA 95-99% critical stenosis mid segment 70% calcified stenosis distal segment Impella with stent pending Monday Heparin infusion DM II FSBS/SSI BS 172 recent PUD per with repair CT abd/pelvis 04/14- (Colonic sig/descending) diverticulosis, no CT evidence intra-abdominal abscess. anemia CD 05/05 Select 7.6 Lab pending DVT/GI prophylaxis heparin IV carafate/PPI Hypokalemia- K 3.2- replace. Plan Plan For more details regarding further plans, please refer to the orders. RITA HUMMEL MD May 07, 2017 09:06
[2017-05-07] MEDS: CLOPIDOGREL BISULFATE 75 MG TABLET PO SCH (10:05)
[2017-05-07] MEDS: PANTOPRAZOLE 40 MG TABLET.DR. PO SCH (10:05)
[2017-05-07] MEDS: SIMETHICONE 80 MG TAB.CHEW PO SCH ×3 (10:05→16:40)
[2017-05-07] MEDS: ASPIRIN ENTERIC COATED 81 MG TABLET.DR. PO SCH (10:06)
[2017-05-07] MEDS: SUCRALFATE 1 GM TABLET. PO SCH ×2 (10:06→13:19)
[2017-05-07] MEDS: AMIODARONE HCL 200 MG TABLET. PO SCH (10:06)
[2017-05-07] MEDS: POTASSIUM CHLORIDE 20 MEQ TABLET.ER. PO SCH ×2 (10:06→16:40)
[2017-05-07] MEDS: CITALOPRAM 20 MG TABLET. PO SCH (10:06)
[2017-05-07] MEDS: FUROSEMIDE 40 MG/4 ML VIAL. IVP SCH (10:07)
[2017-05-07 10:41] LABS: INR 1.4 (0.8-1.1)
--- NOTE | 2017-05-07 11:17 | PDOC2 ---
CONSULT Date of Consult Date of Consult DATE: 05/07/17 TIME: 11:09 Reason for Consult Reason for Consult: coagulopathy Referring Physician Referring Physician: Omar Source Source: Chart review, Patient History of Present Illness Reason for Visit: 81 yo female with mult comorbidities she was recently admitted to the hospital for pneumonia 1 week prior to this admission and was discharged on 05/02 to [facility]. She then developed worsening sob and was admitted to the ICU. She underwent a cardiac cath that showed 3 vessel disease. She was started on heparin drip, but this has been off for over 18 hours and her anti-Xa level is still persistently elevated. I was consulted to help figure out the cause. Prior to the initiation of heparin this admission, there were no baseline coags , but on 04/30 she had a pt of 16.8 and INR of 1.5. There was no ptt that was recorded. She also has a history of recent perforated ulcer status post repair. She denies any bleeding currently. I spoke with Dr. Nelson about the patient and instructed him to order pt/inr, ptt and fibrinogen. Past Medical History Cardiovascular: AFIB (PSVT,AF, ST ), CAD (recent NSTEMI ), CHF (systolic diastolic EF 35-40%), Hyperlipidemia Pulmonary: Pneumonia (recent aspiration ), Other (Bilateral pleural effusion with h/o thoracentesis ) GI: GERD, Peptic Ulcer disease (abdominal washout, laproscopic repair of peptic ulcer with Mahad patch placement) Heme/Onc: Anemia NOS (anemia CD ) Hepatobiliary: Other (abnormal LFTs ) Infectious disease: Other (Recent sepsis ) ENT: Other (recent dental caries ) Renal/: Chronic renal insuff (CKD II ), UTI (recent EColi treated ) Endocrine: Hypothyroidism Family History Family History Noncontributory Social History Social History Noncontributory Current Medications Current Medications Current Medications Nitroglycerin (Nitroglycerin) 200 mcg 1X ONCE IART Last administered on 13:59; Start 05/05/17 at 14:00; Stop 05/05/17 at 14:01; Status DC Verapamil HCl (Verapamil) 2.5 mg 1X ONCE IART Last administered on 05/05/17 13 :59; Start 05/05/17 at 14:00; Stop 05/05/17 at 14:01; Status DC Heparin Sodium (Porcine) (Heparin Sodium) 2,500 unit 1X ONCE IART Last administered on 05/05/17 13:58; Start 05/05/17 at 14:00; Stop 05/05/17 at 14:01; Status DC Heparin Sodium/ Sodium Chloride 1,000 unit 1X ONCE IART Last administered on 13:59; Start 05/05/17 at 14:00; Stop 05/05/17 at 14:01; Status DC Midazolam HCl (Versed) 2 mg 1X ONCE IV Last administered on 05/05/17 14:00; Start 05/05/17 at 14:00; Stop 05/05/17 at 14:01; Status DC Fentanyl Citrate (Fentanyl 2ml Vial) 100 mcg 1X ONCE IV Last administered on 14:00; Start 05/05/17 at 14:00; Stop 05/05/17 at 14:01; Status DC Iohexol (Omnipaque 300 Mg/ml) 100 ml 1X ONCE IART Last administered on 13:59; Start 05/05/17 at 14:00; Stop 05/05/17 at 14:01; Status DC Lidocaine HCl 20 ml 1X ONCE IJ Last administered on 05/05/17 13:59; Start 05/05 at 14:00; Stop 05/05/17 at 14:01; Status DC Albuterol/ Ipratropium (Duoneb) 3 ml RTQID NEB Last administered on 05/07/17 07:54; Start 05/05/17 at 16:00 Heparin Sodium/ Dextrose 500 ml @ 17.3 mls/hr CONT PRN IV SEE I/O RECORD Last administered on 05/05/17 18:19; Start 05/05/17 at 17:15; Stop 05/06/17 at 20:29; Status DC Heparin Sodium (Porcine) (Heparin Sodium) 1,800 unit PRN Q6HRS PRN IV FOR UFH LEVEL LESS THAN 0.2; Start 05/05/17 at 17:15; Stop 05/06/17 at 20:29; Status DC Alprazolam (Xanax) 0.25 mg HS PO Last administered on 05/06/17 21:40; Start 05/05/17 at 21:00 Amiodarone HCl (Cordarone) 200 mg BID PO ; Start 05/05/17 at 21:00; Stop 05/06/17 at 07:49; Status DC Furosemide (Lasix) 40 mg DAILY PO ; Start 05/06/17 at 09:00; Stop 05/06/17 at 09: 00; Status DC Albuterol/ Ipratropium (Duoneb) 3 ml BID NEB ; Start 05/05/17 at 21:00; Stop 05/05 at 21:00; Status DC Levothyroxine Sodium (Synthroid) 75 mcg DAILY07 PO Last administered on 05:52; Start 05/06/17 at 09:00 Lisinopril (Prinivil) 10 mg DAILY PO ; Start 05/06/17 at 09:00; Stop 05/06/17 at 09:00; Status DC Meropenem (Merrem) 500 mg Q8HRS IV ; Start 05/05/17 at 22:00; Stop 05/05/17 at 22: 00; Status DC Pantoprazole Sodium (Protonix) 40 mg DAILYAC PO Last administered on 05/07/17 10:05; Start 05/06/17 at 07:30 Simethicone (Gas-X) 80 mg TIDAC PO Last administered on 05/07/17 10:05; Start 05/05/17 at 18:00 Sucralfate (Carafate) 1 gm BIDAC PO Last administered on 05/07/17 10:06; Start 05/05/17 at 18:00 Citalopram Hydrobromide (CeleXA) 20 mg DAILY PO Last administered on 05/07/17 10:06; Start 05/06/17 at 09:00 Non-Formulary Medication 3 mg QHS PO ; Start 05/05/17 at 21:00; Stop 05/05/17 at 21:00; Status DC Metoclopramide HCl (Reglan) 10 mg TID IV Last administered on 05/06/17 21:40; Start 05/05/17 at 21:00 Ondansetron HCl (Zofran) 4 mg PRN Q6HRS PRN IV NAUSEA/VOMITING; Start 05/05/17 at 18:00 Insulin Aspart (NovoLOG) 0-5 UNITS TIDWMEALHC SQ Last administered on 05/06/17 12:35; Start 05/05/17 at 21:00 Dextrose (Dextrose 50%-Water Syringe) 12.5 gm PRN Q15MIN PRN IV SEE COMMENTS; Start 05/05/17 at 17:45 Meropenem 500 mg/ Sodium Chloride 50 ml @ 100 mls/hr Q8HRS IV Last administered on 05/07/17 05:52; Start 05/05/17 at 18:00 Furosemide (Lasix) 40 mg 1X ONCE IVP Last administered on 05/05/17 23:32; Start 05/05/17 at 23:15; Stop 05/05/17 at 23:16; Status DC Dopamine HCl/ Dextrose 250 ml @ 13.523 mls/ hr CONT PRN IV SEE I/O RECORD Last administered on 05/07/17 02:28; Start 05/05/17 at 23:30 Amiodarone HCl (Cordarone) 200 mg DAILY PO Last administered on 05/07/17 10:06 ; Start 05/06/17 at 09:00 Clopidogrel Bisulfate (Plavix) 300 mg 1X ONCE PO Last administered on 08:47; Start 05/06/17 at 08:00; Stop 05/06/17 at 08:01; Status DC Clopidogrel Bisulfate (Plavix) 75 mg DAILYWBKFT PO ; Start 05/06/17 at 08:00; Stop 05/06/17 at 08:04; Status DC Furosemide (Lasix) 40 mg DAILY IVP Last administered on 05/07/17 10:07; Start 05/06/17 at 09:00 Aspirin (Ecotrin) 81 mg DAILYWBKFT PO Last administered on 05/07/17 10:06; Start 05/06/17 at 09:00 Pantoprazole Sodium (Protonix) 40 mg DAILYAC PO ; Start 05/07/17 at 07:30; Stop 05/07/17 at 07:30; Status DC Pantoprazole Sodium (Protonix) 40 mg 1X ONCE PO ; Start 05/06/17 at 08:00; Stop 05/06/17 at 08:01; Status DC Clopidogrel Bisulfate (Plavix) 75 mg DAILYWBKFT PO Last administered on 10:05; Start 05/07/17 at 08:00 Info (Anti-Coagulation Monitoring By Pharmacy) 1 each PRN DAILY PRN MC SEE COMMENTS Last administered on 05/06/17 10:49; Start 05/06/17 at 11:00; Stop 05/07 at 07:29; Status DC Potassium Chloride (Klor-Con) 10 meq DAILYWBKFT PO Last administered on 12:32; Start 05/06/17 at 11:00; Stop 05/07/17 at 07:54; Status DC Potassium Chloride (Klor-Con) 20 meq BIDWMEALS PO Last administered on 10:06; Start 05/07/17 at 08:00 Active Scripts Active Reported Meropenem 500 Mg Vial 500 Mg IV Q8HRS Humalog (Insulin Lispro) 100 Unit/1 Ml Cartridge 100 Unit SQ TIDACHC Metoclopramide Hcl 10 Mg/2 Ml Disp.syrin 10 Mg IV TID Furosemide 40 Mg Tablet 1 Tab PO DAILY Eliquis (Apixaban) 5 Mg Tablet 5 Mg PO BID Lisinopril 10 Mg Tablet 1 Tab PO DAILY Ondansetron Hcl 4 Mg/2 Ml Syr (Ondansetron Hcl/Pf) 4 Mg/2 Ml Disp.syrin 4 Mg IJ Q6HRS PRN Pantoprazole Sodium 40 Mg Tablet.dr 1 Tab PO DAILY Sucralfate 1 Gm Tablet 1 Tab PO BID Simethicone 80 Mg Tab.chew 80 Mg PO TID Duoneb 0.5-3(2.5) Mg/3 Ml (Albuterol/Ipratropium) 3 Ml Ampul.neb 3 Ml NEB BID Escitalopram Oxalate 10 Mg Tablet 1 Tab PO DAILY Alprazolam 0.25 Mg Tablet 1 Tab PO HS Melatonin 3 Mg Tablet 3 Mg PO QHS Levothyroxine Sodium 75 Mcg Tablet 1 Tab PO DAILY Amiodarone Hcl 200 Mg Tablet 1 Tab PO BID Allergies Allergies: Coded Allergies: Penicillins (Verified Allergy, Severe, Anaphylaxis, 04/30/17) MERREM OK metronidazole (Verified Allergy, Intermediate, 04/30/17) sulfamethoxazole (Verified Allergy, Intermediate, 04/30/17) trimethoprim (Verified Allergy, Intermediate, 04/30/17) adhesive tape (Verified Adverse Reaction, Severe, skin tears, 04/14/17) pravastatin (Verified Adverse Reaction, Intermediate, severe muscle cramps , 04/14/17) acetaminophen (Verified Adverse Reaction, Mild, nausea, 04/14/17) hydrocodone (Verified Adverse Reaction, Mild, nausea, 04/14/17) oxycodone (Verified Adverse Reaction, Mild, nausea, 04/14/17) tramadol (Verified Adverse Reaction, Mild, nausea, 04/14/17) ROS General: No: Chills, Night Sweats, Fatigue, Malaise, Appetite, Other PSYCHOLOGICAL ROS: No: Anxiety, Behavioral Disorder, Concentration difficultie , Decreased libido, Depression, Disorientation, Hallucinations, Hostility, Irritablity, Memory difficulties, Mood Swings, Obsessive thoughts, Physical abuse, Sexual abuse, Sleep disturbances, Suicidal ideation, Other Eyes: No Blurry vision, No Decreased vision, No Double vision, No Dry eyes, No Excessive tearing, No Eye Pain, No Itchy Eyes, No Loss of vision, No Photophobia , No Scotomata, No Uses contacts, No Uses glasses, No Other HEENT: No: Heacaches, Visual Changes, Hearing change, Nasal congestion, Nasal discharge, Oral lesions, Sinus pain, Sore Throat, Epistaxis, Sneezing, Snoring, Tinnitus, Vertigo, Vocal changes, Other Hematological and Lymphatic: No: Bleeding Problems, Blood Clots, Blood Transfusions, Brusing, Night Sweats, Pallor, Swollen Lymph Nodes, Other ENDOCRINE: No: Breast Changes, Galactorrhea, Hair Pattern Changes, Hot Flashes , Malaise/lethargy, Mood Swings, Palpitations, Polydipsia/polyuria, Skin Changes , Temperature Intolerance, Unexpected Weight Changes, Other Respiratory: YES: Cough, Orthopnea, Shortness of breath Cardiovascular: No Chest Pain, No Palpitations Genitourinary: No Dysuria, No Frequency, No Incontinence, No Hematuria, No Retention, No Discharge, No Urgency, No Pain, No Flank Pain, No Other, No , No , No , No , No , No , No Musculoskeletal: No Gait Disturbance, No Joint Pain, No Joint Stiffness, No Joint Swelling, No Muscle Pain, No Muscular Weakness, No Pain In:, No Swelling In:, No Other Neurological: No Behavorial Changes, No Bowel/Bladder ControlChng, No Confusion , No Dizziness, No Gait Disturbance, No Headaches, No Impaired Coord/balance, No Memory Loss, No Numbness/Tingling, No Seizures, No Speech Problems, No Tremors, No Visual Changes, No Weakness, No Other Skin: No Dry Skin, No Eczema, No Hair Changes, No Lumps, No Mole Changes, No Mottling, No Nail Changes, No Pruritus, No Rash, No Skin Lesion Changes, No Other, No Acne Physical Exam General: Alert, Oriented X3, Other (poor historian) Lungs: Clear to auscultation Heart: Regular rate, Normal S1, Normal S2 Abdomen: Normal bowel sounds, Soft Vitals VITALS Vital Signs Date Time Temp Pulse Resp B/P (MAP) Pulse Ox O2 Delivery O2 Flow Rate FiO2 05/07/17 10:06 76 95/54 05/07/17 07:54 95 BiPAP/CPAP 05/07/17 06:00 20 05/07/17 04:00 5.0 05/07/17 03:30 97.5 97.5 Labs Labs Laboratory Tests Test 05/05/17 17:25 05/05/17 22:32 05/06/17 00:30 05/06/17 08:30 Nasal Screen MRSA (PCR) Negative (Negative) Glucose (Fingerstick) 172 mg/dL (70-99) Heparin Anti-Xa Act, Unfractionated > 1.10 IU/mL (0.30-0.70) > 1.10 IU/mL (0.30-0.70) Test 05/06/17 08:35 05/06/17 08:36 05/06/17 11:11 05/06/17 16:00 White Blood Count 6.7 x10^3/uL (4.0-11.0) Red Blood Count 3.12 x10^6/uL (3.50-5.40) Hemoglobin 8.9 g/dL (12.0-15.5) Hematocrit 28.1 % (36.0-47.0) Mean Corpuscular Volume 90 fL (79-100) Mean Corpuscular Hemoglobin 29 pg (25-35) Mean Corpuscular Hemoglobin Concent 32 g/dL (31-37) Red Cell Distribution Width 18.5 % (11.5-14.5) Platelet Count 208 x10^3/uL (140-400) Neutrophils (%) (Auto) 61 % (31-73) Lymphocytes (%) (Auto) 24 % (24-48) Monocytes (%) (Auto) 8 % (0-9) Eosinophils (%) (Auto) 5 % (0-3) Basophils (%) (Auto) 1 % (0-3) Neutrophils # (Auto) 4.1 x10^3uL (1.8-7.7) Lymphocytes # (Auto) 1.6 x10^3/uL (1.0-4.8) Monocytes # (Auto) 0.5 x10^3/uL (0.0-1.1) Eosinophils # (Auto) 0.4 x10^3/uL (0.0-0.7) Basophils # (Auto) 0.1 x10^3/uL (0.0-0.2) Sodium Level 138 mmol/L (136-145) Potassium Level 3.4 mmol/L (3.5-5.1) Chloride Level 97 mmol/L (98-107) Carbon Dioxide Level 38 mmol/L (21-32) Anion Gap 3 (6-14) Blood Urea Nitrogen 19 mg/dL (7-20) Creatinine 0.9 mg/dL (0.6-1.0) Estimated GFR (Cockcroft-Gault) 60.4 BUN/Creatinine Ratio 21 (6-20) Glucose Level 138 mg/dL (70-99) Calcium Level 8.6 mg/dL (8.5-10.1) Magnesium Level 1.9 mg/dL (1.8-2.4) Total Bilirubin 0.5 mg/dL (0.2-1.0) Aspartate Amino Transf (AST/SGOT) 19 U/L (15-37) Alanine Aminotransferase (ALT/SGPT) 16 U/L (14-59) Alkaline Phosphatase 81 U/L (46-116) YH-Hhq-J-Type Natriuretic Peptide 50308 pg/mL (0-449) Total Protein 7.2 g/dL (6.4-8.2) Albumin 2.3 g/dL (3.4-5.0) Albumin/Globulin Ratio 0.5 (1.0-1.7) Glucose (Fingerstick) 138 mg/dL (70-99) 167 mg/dL (70-99) Heparin Anti-Xa Act, Unfractionated > 1.10 IU/mL (0.30-0.70) Test 05/06/17 16:59 05/06/17 19:30 05/06/17 21:42 05/07/17 04:12 Glucose (Fingerstick) 170 mg/dL (70-99) 153 mg/dL (70-99) White Blood Count 6.5 x10^3/uL (4.0-11.0) Red Blood Count 3.00 x10^6/uL (3.50-5.40) Hemoglobin 8.8 g/dL (12.0-15.5) Hematocrit 26.3 % (36.0-47.0) Mean Corpuscular Volume 88 fL (79-100) Mean Corpuscular Hemoglobin 29 pg (25-35) Mean Corpuscular Hemoglobin Concent 33 g/dL (31-37) Red Cell Distribution Width 18.8 % (11.5-14.5) Platelet Count 223 x10^3/uL (140-400) Neutrophils (%) (Auto) 59 % (31-73) Lymphocytes (%) (Auto) 29 % (24-48) Monocytes (%) (Auto) 8 % (0-9) Eosinophils (%) (Auto) 4 % (0-3) Basophils (%) (Auto) 1 % (0-3) Neutrophils # (Auto) 3.8 x10^3uL (1.8-7.7) Lymphocytes # (Auto) 1.9 x10^3/uL (1.0-4.8) Monocytes # (Auto) 0.5 x10^3/uL (0.0-1.1) Eosinophils # (Auto) 0.2 x10^3/uL (0.0-0.7) Basophils # (Auto) 0.1 x10^3/uL (0.0-0.2) Heparin Anti-Xa Act, Unfractionated > 1.10 IU/mL (0.30-0.70) O2 Saturation 99 % (92-99) Arterial Blood pH 7.51 (7.35-7.45) Arterial Blood pCO2 at Patient Temp 47 mmHg (35-46) Arterial Blood pO2 at Patient Temp 142 mmHg (65-108) Arterial Blood HCO3 36 mmol/L (21-28) Arterial Blood Base Excess 12 mmol/L (-3-3) FiO2 100 Test 05/07/17 04:15 White Blood Count 6.5 x10^3/uL (4.0-11.0) Red Blood Count 3.18 x10^6/uL (3.50-5.40) Hemoglobin 9.1 g/dL (12.0-15.5) Hematocrit 28.4 % (36.0-47.0) Mean Corpuscular Volume 89 fL (79-100) Mean Corpuscular Hemoglobin 29 pg (25-35) Mean Corpuscular Hemoglobin Concent 32 g/dL (31-37) Red Cell Distribution Width 18.2 % (11.5-14.5) Platelet Count 208 x10^3/uL (140-400) Neutrophils (%) (Auto) 73 % (31-73) Lymphocytes (%) (Auto) 15 % (24-48) Monocytes (%) (Auto) 6 % (0-9) Eosinophils (%) (Auto) 5 % (0-3) Basophils (%) (Auto) 1 % (0-3) Neutrophils # (Auto) 4.7 x10^3uL (1.8-7.7) Lymphocytes # (Auto) 1.0 x10^3/uL (1.0-4.8) Monocytes # (Auto) 0.4 x10^3/uL (0.0-1.1) Eosinophils # (Auto) 0.3 x10^3/uL (0.0-0.7) Basophils # (Auto) 0.0 x10^3/uL (0.0-0.2) Prothrombin Time 16.0 SEC (11.7-14.0) Prothromb Time International Ratio 1.4 (0.8-1.1) Activated Partial Thromboplast Time 43 SEC (24-38) Fibrinogen 521 mg/dL (200-440) Sodium Level 140 mmol/L (136-145) Potassium Level 3.2 mmol/L (3.5-5.1) Chloride Level 97 mmol/L (98-107) Carbon Dioxide Level 36 mmol/L (21-32) Anion Gap 7 (6-14) Blood Urea Nitrogen 18 mg/dL (7-20) Creatinine 0.9 mg/dL (0.6-1.0) Estimated GFR (Cockcroft-Gault) 60.4 BUN/Creatinine Ratio 20 (6-20) Glucose Level 163 mg/dL (70-99) Calcium Level 8.3 mg/dL (8.5-10.1) Magnesium Level 1.8 mg/dL (1.8-2.4) Total Bilirubin 0.5 mg/dL (0.2-1.0) Aspartate Amino Transf (AST/SGOT) 19 U/L (15-37) Alanine Aminotransferase (ALT/SGPT) 18 U/L (14-59) Alkaline Phosphatase 83 U/L (46-116) Total Protein 6.9 g/dL (6.4-8.2) Albumin 2.2 g/dL (3.4-5.0) Albumin/Globulin Ratio 0.5 (1.0-1.7) Laboratory Tests Test 05/06/17 11:11 05/06/17 16:00 05/06/17 16:59 05/06/17 19:30 Glucose (Fingerstick) 167 mg/dL (70-99) 170 mg/dL (70-99) Heparin Anti-Xa Act, Unfractionated > 1.10 IU/mL (0.30-0.70) > 1.10 IU/mL (0.30-0.70) White Blood Count 6.5 x10^3/uL (4.0-11.0) Red Blood Count 3.00 x10^6/uL (3.50-5.40) Hemoglobin 8.8 g/dL (12.0-15.5) Hematocrit 26.3 % (36.0-47.0) Mean Corpuscular Volume 88 fL (79-100) Mean Corpuscular Hemoglobin 29 pg (25-35) Mean Corpuscular Hemoglobin Concent 33 g/dL (31-37) Red Cell Distribution Width 18.8 % (11.5-14.5) Platelet Count 223 x10^3/uL (140-400) Neutrophils (%) (Auto) 59 % (31-73) Lymphocytes (%) (Auto) 29 % (24-48) Monocytes (%) (Auto) 8 % (0-9) Eosinophils (%) (Auto) 4 % (0-3) Basophils (%) (Auto) 1 % (0-3) Neutrophils # (Auto) 3.8 x10^3uL (1.8-7.7) Lymphocytes # (Auto) 1.9 x10^3/uL (1.0-4.8) Monocytes # (Auto) 0.5 x10^3/uL (0.0-1.1) Eosinophils # (Auto) 0.2 x10^3/uL (0.0-0.7) Basophils # (Auto) 0.1 x10^3/uL (0.0-0.2) Test 05/06/17 21:42 05/07/17 04:12 05/07/17 04:15 Glucose (Fingerstick) 153 mg/dL (70-99) O2 Saturation 99 % (92-99) Arterial Blood pH 7.51 (7.35-7.45) Arterial Blood pCO2 at Patient Temp 47 mmHg (35-46) Arterial Blood pO2 at Patient Temp 142 mmHg (65-108) Arterial Blood HCO3 36 mmol/L (21-28) Arterial Blood Base Excess 12 mmol/L (-3-3) FiO2 100 White Blood Count 6.5 x10^3/uL (4.0-11.0) Red Blood Count 3.18 x10^6/uL (3.50-5.40) Hemoglobin 9.1 g/dL (12.0-15.5) Hematocrit 28.4 % (36.0-47.0) Mean Corpuscular Volume 89 fL (79-100) Mean Corpuscular Hemoglobin 29 pg (25-35) Mean Corpuscular Hemoglobin Concent 32 g/dL (31-37) Red Cell Distribution Width 18.2 % (11.5-14.5) Platelet Count 208 x10^3/uL (140-400) Neutrophils (%) (Auto) 73 % (31-73) Lymphocytes (%) (Auto) 15 % (24-48) Monocytes (%) (Auto) 6 % (0-9) Eosinophils (%) (Auto) 5 % (0-3) Basophils (%) (Auto) 1 % (0-3) Neutrophils # (Auto) 4.7 x10^3uL (1.8-7.7) Lymphocytes # (Auto) 1.0 x10^3/uL (1.0-4.8) Monocytes # (Auto) 0.4 x10^3/uL (0.0-1.1) Eosinophils # (Auto) 0.3 x10^3/uL (0.0-0.7) Basophils # (Auto) 0.0 x10^3/uL (0.0-0.2) Prothrombin Time 16.0 SEC (11.7-14.0) Prothromb Time International Ratio 1.4 (0.8-1.1) Activated Partial Thromboplast Time 43 SEC (24-38) Fibrinogen 521 mg/dL (200-440) Sodium Level 140 mmol/L (136-145) Potassium Level 3.2 mmol/L (3.5-5.1) Chloride Level 97 mmol/L (98-107) Carbon Dioxide Level 36 mmol/L (21-32) Anion Gap 7 (6-14) Blood Urea Nitrogen 18 mg/dL (7-20) Creatinine 0.9 mg/dL (0.6-1.0) Estimated GFR (Cockcroft-Gault) 60.4 BUN/Creatinine Ratio 20 (6-20) Glucose Level 163 mg/dL (70-99) Calcium Level 8.3 mg/dL (8.5-10.1) Magnesium Level 1.8 mg/dL (1.8-2.4) Total Bilirubin 0.5 mg/dL (0.2-1.0) Aspartate Amino Transf (AST/SGOT) 19 U/L (15-37) Alanine Aminotransferase (ALT/SGPT) 18 U/L (14-59) Alkaline Phosphatase 83 U/L (46-116) Total Protein 6.9 g/dL (6.4-8.2) Albumin 2.2 g/dL (3.4-5.0) Albumin/Globulin Ratio 0.5 (1.0-1.7) Assessment/Plan Assessment/Plan 1. Elevated anti-Xa level despite being off of heparin. Unfortunately, we do not have baseline pt and ptt levels prior to starting heparin this admission, but on 04/30 she had a slightly elevated pt/inr. She also recently had a perforated ulcer. She may have some nutritional deficiency with vit k contributing to the findings. Today, her PT/INR was slightly elevated at 16/1.4 and PTT was again slightly elevated at 43 with a normal fibrinogen. I spoke to the lab and her anti-Xa level was still elevated. The injection molding process technician believes that she has something in her plasma that is reacting with the test. We have also run a thrombin time that was normal. This would mean that she does not have any heparin in her system and her fibrinogen is working appropriately. Given the possibility of nutritional deficiency, we will give her 10mg of vitamin k to see if her PT/PTT correct. We could send off a mixing study, but that would take days to come back and given that these coags are borderline elevated, even if she had an inhibitor, it is most likely mild in nature. I will repeat a PT/ PTT in the morning to see if they correct and if they do not then would send off the mixing study. The lab at [facility] is going to reach out to support of the machine first thing in the morning to help figure out the situation as well. YASH MALONEY MD May 07, 2017 11:17
--- NOTE | 2017-05-07 11:42 | PDOC ---
PULMONARY PROGRESS NOTES Subjective on BIPAP Vitals Vital Signs Date Time Temp Pulse Resp B/P (MAP) Pulse Ox O2 Delivery O2 Flow Rate FiO2 05/07/17 10:06 76 95/54 05/07/17 08:00 Bi-pap 05/07/17 07:54 95 05/07/17 06:00 20 05/07/17 04:00 5.0 05/07/17 03:30 97.5 97.5 ROS: No Nausea, No Chest Pain, No Abdominal Pain, No Increase Cough General: No acute distress, Lethargic Lungs: Other (decrease bs) Cardiovascular: S1 Abdomen: Soft Extremities: Other (1+edema) Skin: Warm Labs Laboratory Tests Test 05/05/17 17:25 05/05/17 22:32 05/06/17 00:30 05/06/17 08:30 Nasal Screen MRSA (PCR) Negative (Negative) Glucose (Fingerstick) 172 mg/dL (70-99) Heparin Anti-Xa Act, Unfractionated > 1.10 IU/mL (0.30-0.70) > 1.10 IU/mL (0.30-0.70) Test 05/06/17 08:35 05/06/17 08:36 05/06/17 11:11 05/06/17 16:00 White Blood Count 6.7 x10^3/uL (4.0-11.0) Red Blood Count 3.12 x10^6/uL (3.50-5.40) Hemoglobin 8.9 g/dL (12.0-15.5) Hematocrit 28.1 % (36.0-47.0) Mean Corpuscular Volume 90 fL (79-100) Mean Corpuscular Hemoglobin 29 pg (25-35) Mean Corpuscular Hemoglobin Concent 32 g/dL (31-37) Red Cell Distribution Width 18.5 % (11.5-14.5) Platelet Count 208 x10^3/uL (140-400) Neutrophils (%) (Auto) 61 % (31-73) Lymphocytes (%) (Auto) 24 % (24-48) Monocytes (%) (Auto) 8 % (0-9) Eosinophils (%) (Auto) 5 % (0-3) Basophils (%) (Auto) 1 % (0-3) Neutrophils # (Auto) 4.1 x10^3uL (1.8-7.7) Lymphocytes # (Auto) 1.6 x10^3/uL (1.0-4.8) Monocytes # (Auto) 0.5 x10^3/uL (0.0-1.1) Eosinophils # (Auto) 0.4 x10^3/uL (0.0-0.7) Basophils # (Auto) 0.1 x10^3/uL (0.0-0.2) Sodium Level 138 mmol/L (136-145) Potassium Level 3.4 mmol/L (3.5-5.1) Chloride Level 97 mmol/L (98-107) Carbon Dioxide Level 38 mmol/L (21-32) Anion Gap 3 (6-14) Blood Urea Nitrogen 19 mg/dL (7-20) Creatinine 0.9 mg/dL (0.6-1.0) Estimated GFR (Cockcroft-Gault) 60.4 BUN/Creatinine Ratio 21 (6-20) Glucose Level 138 mg/dL (70-99) Calcium Level 8.6 mg/dL (8.5-10.1) Magnesium Level 1.9 mg/dL (1.8-2.4) Total Bilirubin 0.5 mg/dL (0.2-1.0) Aspartate Amino Transf (AST/SGOT) 19 U/L (15-37) Alanine Aminotransferase (ALT/SGPT) 16 U/L (14-59) Alkaline Phosphatase 81 U/L (46-116) CL-Eyl-M-Type Natriuretic Peptide 45919 pg/mL (0-449) Total Protein 7.2 g/dL (6.4-8.2) Albumin 2.3 g/dL (3.4-5.0) Albumin/Globulin Ratio 0.5 (1.0-1.7) Glucose (Fingerstick) 138 mg/dL (70-99) 167 mg/dL (70-99) Heparin Anti-Xa Act, Unfractionated > 1.10 IU/mL (0.30-0.70) Test 05/06/17 16:59 05/06/17 19:30 05/06/17 21:42 05/07/17 04:12 Glucose (Fingerstick) 170 mg/dL (70-99) 153 mg/dL (70-99) White Blood Count 6.5 x10^3/uL (4.0-11.0) Red Blood Count 3.00 x10^6/uL (3.50-5.40) Hemoglobin 8.8 g/dL (12.0-15.5) Hematocrit 26.3 % (36.0-47.0) Mean Corpuscular Volume 88 fL (79-100) Mean Corpuscular Hemoglobin 29 pg (25-35) Mean Corpuscular Hemoglobin Concent 33 g/dL (31-37) Red Cell Distribution Width 18.8 % (11.5-14.5) Platelet Count 223 x10^3/uL (140-400) Neutrophils (%) (Auto) 59 % (31-73) Lymphocytes (%) (Auto) 29 % (24-48) Monocytes (%) (Auto) 8 % (0-9) Eosinophils (%) (Auto) 4 % (0-3) Basophils (%) (Auto) 1 % (0-3) Neutrophils # (Auto) 3.8 x10^3uL (1.8-7.7) Lymphocytes # (Auto) 1.9 x10^3/uL (1.0-4.8) Monocytes # (Auto) 0.5 x10^3/uL (0.0-1.1) Eosinophils # (Auto) 0.2 x10^3/uL (0.0-0.7) Basophils # (Auto) 0.1 x10^3/uL (0.0-0.2) Heparin Anti-Xa Act, Unfractionated > 1.10 IU/mL (0.30-0.70) O2 Saturation 99 % (92-99) Arterial Blood pH 7.51 (7.35-7.45) Arterial Blood pCO2 at Patient Temp 47 mmHg (35-46) Arterial Blood pO2 at Patient Temp 142 mmHg (65-108) Arterial Blood HCO3 36 mmol/L (21-28) Arterial Blood Base Excess 12 mmol/L (-3-3) FiO2 100 Test 05/07/17 04:15 White Blood Count 6.5 x10^3/uL (4.0-11.0) Red Blood Count 3.18 x10^6/uL (3.50-5.40) Hemoglobin 9.1 g/dL (12.0-15.5) Hematocrit 28.4 % (36.0-47.0) Mean Corpuscular Volume 89 fL (79-100) Mean Corpuscular Hemoglobin 29 pg (25-35) Mean Corpuscular Hemoglobin Concent 32 g/dL (31-37) Red Cell Distribution Width 18.2 % (11.5-14.5) Platelet Count 208 x10^3/uL (140-400) Neutrophils (%) (Auto) 73 % (31-73) Lymphocytes (%) (Auto) 15 % (24-48) Monocytes (%) (Auto) 6 % (0-9) Eosinophils (%) (Auto) 5 % (0-3) Basophils (%) (Auto) 1 % (0-3) Neutrophils # (Auto) 4.7 x10^3uL (1.8-7.7) Lymphocytes # (Auto) 1.0 x10^3/uL (1.0-4.8) Monocytes # (Auto) 0.4 x10^3/uL (0.0-1.1) Eosinophils # (Auto) 0.3 x10^3/uL (0.0-0.7) Basophils # (Auto) 0.0 x10^3/uL (0.0-0.2) Prothrombin Time 16.0 SEC (11.7-14.0) Prothromb Time International Ratio 1.4 (0.8-1.1) Activated Partial Thromboplast Time 43 SEC (24-38) Fibrinogen 521 mg/dL (200-440) Sodium Level 140 mmol/L (136-145) Potassium Level 3.2 mmol/L (3.5-5.1) Chloride Level 97 mmol/L (98-107) Carbon Dioxide Level 36 mmol/L (21-32) Anion Gap 7 (6-14) Blood Urea Nitrogen 18 mg/dL (7-20) Creatinine 0.9 mg/dL (0.6-1.0) Estimated GFR (Cockcroft-Gault) 60.4 BUN/Creatinine Ratio 20 (6-20) Glucose Level 163 mg/dL (70-99) Calcium Level 8.3 mg/dL (8.5-10.1) Magnesium Level 1.8 mg/dL (1.8-2.4) Total Bilirubin 0.5 mg/dL (0.2-1.0) Aspartate Amino Transf (AST/SGOT) 19 U/L (15-37) Alanine Aminotransferase (ALT/SGPT) 18 U/L (14-59) Alkaline Phosphatase 83 U/L (46-116) Total Protein 6.9 g/dL (6.4-8.2) Albumin 2.2 g/dL (3.4-5.0) Albumin/Globulin Ratio 0.5 (1.0-1.7) Laboratory Tests Test 05/06/17 16:00 05/06/17 16:59 05/06/17 19:30 05/06/17 21:42 Heparin Anti-Xa Act, Unfractionated > 1.10 IU/mL (0.30-0.70) > 1.10 IU/mL (0.30-0.70) Glucose (Fingerstick) 170 mg/dL (70-99) 153 mg/dL (70-99) White Blood Count 6.5 x10^3/uL (4.0-11.0) Red Blood Count 3.00 x10^6/uL (3.50-5.40) Hemoglobin 8.8 g/dL (12.0-15.5) Hematocrit 26.3 % (36.0-47.0) Mean Corpuscular Volume 88 fL (79-100) Mean Corpuscular Hemoglobin 29 pg (25-35) Mean Corpuscular Hemoglobin Concent 33 g/dL (31-37) Red Cell Distribution Width 18.8 % (11.5-14.5) Platelet Count 223 x10^3/uL (140-400) Neutrophils (%) (Auto) 59 % (31-73) Lymphocytes (%) (Auto) 29 % (24-48) Monocytes (%) (Auto) 8 % (0-9) Eosinophils (%) (Auto) 4 % (0-3) Basophils (%) (Auto) 1 % (0-3) Neutrophils # (Auto) 3.8 x10^3uL (1.8-7.7) Lymphocytes # (Auto) 1.9 x10^3/uL (1.0-4.8) Monocytes # (Auto) 0.5 x10^3/uL (0.0-1.1) Eosinophils # (Auto) 0.2 x10^3/uL (0.0-0.7) Basophils # (Auto) 0.1 x10^3/uL (0.0-0.2) Test 05/07/17 04:12 05/07/17 04:15 O2 Saturation 99 % (92-99) Arterial Blood pH 7.51 (7.35-7.45) Arterial Blood pCO2 at Patient Temp 47 mmHg (35-46) Arterial Blood pO2 at Patient Temp 142 mmHg (65-108) Arterial Blood HCO3 36 mmol/L (21-28) Arterial Blood Base Excess 12 mmol/L (-3-3) FiO2 100 White Blood Count 6.5 x10^3/uL (4.0-11.0) Red Blood Count 3.18 x10^6/uL (3.50-5.40) Hemoglobin 9.1 g/dL (12.0-15.5) Hematocrit 28.4 % (36.0-47.0) Mean Corpuscular Volume 89 fL (79-100) Mean Corpuscular Hemoglobin 29 pg (25-35) Mean Corpuscular Hemoglobin Concent 32 g/dL (31-37) Red Cell Distribution Width 18.2 % (11.5-14.5) Platelet Count 208 x10^3/uL (140-400) Neutrophils (%) (Auto) 73 % (31-73) Lymphocytes (%) (Auto) 15 % (24-48) Monocytes (%) (Auto) 6 % (0-9) Eosinophils (%) (Auto) 5 % (0-3) Basophils (%) (Auto) 1 % (0-3) Neutrophils # (Auto) 4.7 x10^3uL (1.8-7.7) Lymphocytes # (Auto) 1.0 x10^3/uL (1.0-4.8) Monocytes # (Auto) 0.4 x10^3/uL (0.0-1.1) Eosinophils # (Auto) 0.3 x10^3/uL (0.0-0.7) Basophils # (Auto) 0.0 x10^3/uL (0.0-0.2) Prothrombin Time 16.0 SEC (11.7-14.0) Prothromb Time International Ratio 1.4 (0.8-1.1) Activated Partial Thromboplast Time 43 SEC (24-38) Fibrinogen 521 mg/dL (200-440) Sodium Level 140 mmol/L (136-145) Potassium Level 3.2 mmol/L (3.5-5.1) Chloride Level 97 mmol/L (98-107) Carbon Dioxide Level 36 mmol/L (21-32) Anion Gap 7 (6-14) Blood Urea Nitrogen 18 mg/dL (7-20) Creatinine 0.9 mg/dL (0.6-1.0) Estimated GFR (Cockcroft-Gault) 60.4 BUN/Creatinine Ratio 20 (6-20) Glucose Level 163 mg/dL (70-99) Calcium Level 8.3 mg/dL (8.5-10.1) Magnesium Level 1.8 mg/dL (1.8-2.4) Total Bilirubin 0.5 mg/dL (0.2-1.0) Aspartate Amino Transf (AST/SGOT) 19 U/L (15-37) Alanine Aminotransferase (ALT/SGPT) 18 U/L (14-59) Alkaline Phosphatase 83 U/L (46-116) Total Protein 6.9 g/dL (6.4-8.2) Albumin 2.2 g/dL (3.4-5.0) Albumin/Globulin Ratio 0.5 (1.0-1.7) Medications Active Scripts Medications Dose Route/Sig Max Daily Dose Days Date Category Meropenem 500 Mg Vial 500 Mg IV Q8HRS 05/05/17 Reported Humalog (Insulin Lispro) 100 Unit/1 Ml Cartridge 100 Unit SQ TIDACHC 05/05/17 Reported Metoclopramide Hcl 10 Mg/2 Ml Disp.syrin 10 Mg IV TID 05/05/17 Reported Furosemide 40 Mg Tablet 1 Tab PO DAILY 05/05/17 Reported Eliquis (Apixaban) 5 Mg Tablet 5 Mg PO BID 05/01/17 Reported Lisinopril 10 Mg Tablet 1 Tab PO DAILY 05/01/17 Reported Ondansetron Hcl 4 Mg/2 Ml Syr (Ondansetron Hcl/Pf) 4 Mg/2 Ml Disp.syrin 4 Mg IJ Q6HRS PRN 04/14/17 Reported Pantoprazole Sodium 40 Mg Tablet.dr 1 Tab PO DAILY 04/14/17 Reported Sucralfate 1 Gm Tablet 1 Tab PO BID 04/14/17 Reported Simethicone 80 Mg Tab.chew 80 Mg PO TID 04/14/17 Reported Duoneb 0.5-3(2.5) Mg/3 Ml (Albuterol/Ipratropium) 3 Ml Ampul.neb 3 Ml NEB BID 04/14/17 Reported Escitalopram Oxalate 10 Mg Tablet 1 Tab PO DAILY 04/14/17 Reported Alprazolam 0.25 Mg Tablet 1 Tab PO HS 04/14/17 Reported Melatonin 3 Mg Tablet 3 Mg PO QHS 04/14/17 Reported Levothyroxine Sodium 75 Mcg Tablet 1 Tab PO DAILY 04/14/17 Reported Amiodarone Hcl 200 Mg Tablet 1 Tab PO BID 04/14/17 Reported Comments CXR 05/07 CHF, mild improvement Impression . 1. 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 2. Abnormal chest x-ray consistent with congestive heart failure. 3. Possible mild chronic obstructive pulmonary disease. 4. Bilateral pleural effusions secondary to congestive heart failure. Recently, she had thoracentesis in March and we will monitor for any effusions for now. 5. Severe protein-calorie malnutrition. 6. Recent perforated peptic ulcer with laparoscopic repair of the peptic ulcer and Mahad patch placement. 7. Critical illness myopathy. 8. Hypothyroidism. 9. Hyperlipidemia. 10. Recent non-ST myocardial infarction. 11. s/p cath. MV CAD/ non operable Plan . 1. From a pulmonary standpoint, we will monitor the response to diuresis. 2. She has multivessel coronary artery disease based on recent cardiac catheterization and not an optimum candidate for coronary artery bypass grafting. Would follow cardiology recommendations regarding placement of high risk stents and an Impella placement. 3. P.r.n. bronchodilators. 4. Follow chest x-rays. 5 . Improve nutritional support. 6. Physical therapy consult. 7. Will be available for any further recommendations and follow along with you. 8. BIPAP prn d/w DWIGHT HARDEN MD May 07, 2017 11:42
[2017-05-07 12:23] LABS: CKMB MASS 1.2 ng/mL (0.0-3.6); CREATINE KINASE 15 U/L (26-192)
[2017-05-07] MEDS ORDERED: PHYTONADIONE (VIT K1) IV 10 MG in IV NORMAL SALINE 50ML 50 ML IV ONE (12:30)
[2017-05-07] MEDS: ALPRAZolam 0.25 MG TABLET PO SCH (22:03)
[2017-05-08] VITALS (26 sets, daily range): BP systolic 81–115; BP diastolic 47–76
[2017-05-08 04:27] LABS: BASO # 0.1 x10^3/uL (0.0-0.2); BASO % 1 % (0-3); EOS % 7 % (0-3); HEMATOCRIT 26.6 % (36.0-47.0); HEMOGLOBIN 8.5 g/dL (12.0-15.5); LYMPH # 1.6 x10^3/uL (1.0-4.8); LYMPH % 30 % (24-48); MEAN CORPUSCULAR HEMOGLOBIN 29 pg (25-35); MEAN CORPUSCULAR HGB CONC 32 g/dL (31-37); MEAN CORPUSCULAR VOLUME 90 fL (79-100); MONO % 8 % (0-9); NEUT % 54 % (31-73); PLATELET COUNT 226 x10^3/uL (140-400); RED BLOOD COUNT 2.97 x10^6/uL (3.50-5.40); RED CELL DISTRIBUTION WIDTH 18.5 % (11.5-14.5); WHITE BLOOD COUNT 5.4 x10^3/uL (4.0-11.0)
[2017-05-08 04:46] LABS: INR 1.3 (0.8-1.1); PROTHROMBIN TIME PATIENT 15.6 SEC (11.7-14.0)
[2017-05-08 05:26] LABS: CALCIUM 8.4 mg/dL (8.5-10.1); CREATININE 0.7 mg/dL (0.6-1.0); GFR 80.7; POTASSIUM 3.8 mmol/L (3.5-5.1)
[2017-05-08] MEDS: LEVOTHYROXINE 75 MCG TABLET PO SCH (06:14)
[2017-05-08] MEDS: MEROPENEM 500 MG in IV NORMAL SALINE 50ML 50 ML IV SCH ×3 (06:14→22:01)
--- NOTE | 2017-05-08 08:06 | PDOC ---
[employer] 05/08/17 0806: IM PROGRESS NOTES- Subjective Subjective Short of breath, Bipap Objective Objective in distress Vitals Vital Signs Date Time Temp Pulse Resp B/P (MAP) Pulse Ox O2 Delivery O2 Flow Rate FiO2 05/08/17 06:13 72 16 107/63 (78) 96 BiPAP/CPAP 05/08/17 04:00 97.5 97.5 05/08/17 02:00 5.0 Physical Exam Physical Exam General appearance - alert, acutely appearing, and in no distress Mental Status - alert, oriented to person, place, and time, affect appropriate to mood Head - normal Chest - decreased air entry all lobes wheezing Heart - S1 and S2 normal Abdomen - soft, nontender, nondistended, no masses or organomegaly Neurological - no acute neurological distress Musculoskeletal - no muscular tenderness noted Extremities - no pedal edema Skin - cool, diaphoretic Labs Laboratory Tests Test 05/06/17 08:30 05/06/17 08:35 05/06/17 08:36 05/06/17 11:11 Heparin Anti-Xa Act, Unfractionated > 1.10 IU/mL (0.30-0.70) White Blood Count 6.7 x10^3/uL (4.0-11.0) Red Blood Count 3.12 x10^6/uL (3.50-5.40) Hemoglobin 8.9 g/dL (12.0-15.5) Hematocrit 28.1 % (36.0-47.0) Mean Corpuscular Volume 90 fL (79-100) Mean Corpuscular Hemoglobin 29 pg (25-35) Mean Corpuscular Hemoglobin Concent 32 g/dL (31-37) Red Cell Distribution Width 18.5 % (11.5-14.5) Platelet Count 208 x10^3/uL (140-400) Neutrophils (%) (Auto) 61 % (31-73) Lymphocytes (%) (Auto) 24 % (24-48) Monocytes (%) (Auto) 8 % (0-9) Eosinophils (%) (Auto) 5 % (0-3) Basophils (%) (Auto) 1 % (0-3) Neutrophils # (Auto) 4.1 x10^3uL (1.8-7.7) Lymphocytes # (Auto) 1.6 x10^3/uL (1.0-4.8) Monocytes # (Auto) 0.5 x10^3/uL (0.0-1.1) Eosinophils # (Auto) 0.4 x10^3/uL (0.0-0.7) Basophils # (Auto) 0.1 x10^3/uL (0.0-0.2) Sodium Level 138 mmol/L (136-145) Potassium Level 3.4 mmol/L (3.5-5.1) Chloride Level 97 mmol/L (98-107) Carbon Dioxide Level 38 mmol/L (21-32) Anion Gap 3 (6-14) Blood Urea Nitrogen 19 mg/dL (7-20) Creatinine 0.9 mg/dL (0.6-1.0) Estimated GFR (Cockcroft-Gault) 60.4 BUN/Creatinine Ratio 21 (6-20) Glucose Level 138 mg/dL (70-99) Calcium Level 8.6 mg/dL (8.5-10.1) Magnesium Level 1.9 mg/dL (1.8-2.4) Total Bilirubin 0.5 mg/dL (0.2-1.0) Aspartate Amino Transf (AST/SGOT) 19 U/L (15-37) Alanine Aminotransferase (ALT/SGPT) 16 U/L (14-59) Alkaline Phosphatase 81 U/L (46-116) WT-Pcr-N-Type Natriuretic Peptide 64912 pg/mL (0-449) Total Protein 7.2 g/dL (6.4-8.2) Albumin 2.3 g/dL (3.4-5.0) Albumin/Globulin Ratio 0.5 (1.0-1.7) Glucose (Fingerstick) 138 mg/dL (70-99) 167 mg/dL (70-99) Test 05/06/17 16:00 05/06/17 16:59 05/06/17 19:30 05/06/17 21:42 Heparin Anti-Xa Act, Unfractionated > 1.10 IU/mL (0.30-0.70) > 1.10 IU/mL (0.30-0.70) Glucose (Fingerstick) 170 mg/dL (70-99) 153 mg/dL (70-99) White Blood Count 6.5 x10^3/uL (4.0-11.0) Red Blood Count 3.00 x10^6/uL (3.50-5.40) Hemoglobin 8.8 g/dL (12.0-15.5) Hematocrit 26.3 % (36.0-47.0) Mean Corpuscular Volume 88 fL (79-100) Mean Corpuscular Hemoglobin 29 pg (25-35) Mean Corpuscular Hemoglobin Concent 33 g/dL (31-37) Red Cell Distribution Width 18.8 % (11.5-14.5) Platelet Count 223 x10^3/uL (140-400) Neutrophils (%) (Auto) 59 % (31-73) Lymphocytes (%) (Auto) 29 % (24-48) Monocytes (%) (Auto) 8 % (0-9) Eosinophils (%) (Auto) 4 % (0-3) Basophils (%) (Auto) 1 % (0-3) Neutrophils # (Auto) 3.8 x10^3uL (1.8-7.7) Lymphocytes # (Auto) 1.9 x10^3/uL (1.0-4.8) Monocytes # (Auto) 0.5 x10^3/uL (0.0-1.1) Eosinophils # (Auto) 0.2 x10^3/uL (0.0-0.7) Basophils # (Auto) 0.1 x10^3/uL (0.0-0.2) Test 05/07/17 04:12 05/07/17 04:15 05/07/17 13:21 05/07/17 18:22 O2 Saturation 99 % (92-99) Arterial Blood pH 7.51 (7.35-7.45) Arterial Blood pCO2 at Patient Temp 47 mmHg (35-46) Arterial Blood pO2 at Patient Temp 142 mmHg (65-108) Arterial Blood HCO3 36 mmol/L (21-28) Arterial Blood Base Excess 12 mmol/L (-3-3) FiO2 100 White Blood Count 6.5 x10^3/uL (4.0-11.0) Red Blood Count 3.18 x10^6/uL (3.50-5.40) Hemoglobin 9.1 g/dL (12.0-15.5) Hematocrit 28.4 % (36.0-47.0) Mean Corpuscular Volume 89 fL (79-100) Mean Corpuscular Hemoglobin 29 pg (25-35) Mean Corpuscular Hemoglobin Concent 32 g/dL (31-37) Red Cell Distribution Width 18.2 % (11.5-14.5) Platelet Count 208 x10^3/uL (140-400) Neutrophils (%) (Auto) 73 % (31-73) Lymphocytes (%) (Auto) 15 % (24-48) Monocytes (%) (Auto) 6 % (0-9) Eosinophils (%) (Auto) 5 % (0-3) Basophils (%) (Auto) 1 % (0-3) Neutrophils # (Auto) 4.7 x10^3uL (1.8-7.7) Lymphocytes # (Auto) 1.0 x10^3/uL (1.0-4.8) Monocytes # (Auto) 0.4 x10^3/uL (0.0-1.1) Eosinophils # (Auto) 0.3 x10^3/uL (0.0-0.7) Basophils # (Auto) 0.0 x10^3/uL (0.0-0.2) Prothrombin Time 16.0 SEC (11.7-14.0) Prothromb Time International Ratio 1.4 (0.8-1.1) Activated Partial Thromboplast Time 43 SEC (24-38) Thrombin Time 15.3 SEC (13.9-18.4) Fibrinogen 521 mg/dL (200-440) Sodium Level 140 mmol/L (136-145) Potassium Level 3.2 mmol/L (3.5-5.1) Chloride Level 97 mmol/L (98-107) Carbon Dioxide Level 36 mmol/L (21-32) Anion Gap 7 (6-14) Blood Urea Nitrogen 18 mg/dL (7-20) Creatinine 0.9 mg/dL (0.6-1.0) Estimated GFR (Cockcroft-Gault) 60.4 BUN/Creatinine Ratio 20 (6-20) Glucose Level 163 mg/dL (70-99) Calcium Level 8.3 mg/dL (8.5-10.1) Magnesium Level 1.8 mg/dL (1.8-2.4) Total Bilirubin 0.5 mg/dL (0.2-1.0) Aspartate Amino Transf (AST/SGOT) 19 U/L (15-37) Alanine Aminotransferase (ALT/SGPT) 18 U/L (14-59) Alkaline Phosphatase 83 U/L (46-116) Creatine Kinase 15 U/L (26-192) Creatine Kinase MB (Mass) 1.2 ng/mL (0.0-3.6) Creatine Kinase MB Relative Index % (0-4) Troponin I Quantitative < 0.017 ng/mL (0.000-0.055) Total Protein 6.9 g/dL (6.4-8.2) Albumin 2.2 g/dL (3.4-5.0) Albumin/Globulin Ratio 0.5 (1.0-1.7) Glucose (Fingerstick) 190 mg/dL (70-99) 149 mg/dL (70-99) Test 05/07/17 22:06 05/08/17 03:36 Glucose (Fingerstick) 154 mg/dL (70-99) White Blood Count 5.4 x10^3/uL (4.0-11.0) Red Blood Count 2.97 x10^6/uL (3.50-5.40) Hemoglobin 8.5 g/dL (12.0-15.5) Hematocrit 26.6 % (36.0-47.0) Mean Corpuscular Volume 90 fL (79-100) Mean Corpuscular Hemoglobin 29 pg (25-35) Mean Corpuscular Hemoglobin Concent 32 g/dL (31-37) Red Cell Distribution Width 18.5 % (11.5-14.5) Platelet Count 226 x10^3/uL (140-400) Neutrophils (%) (Auto) 54 % (31-73) Lymphocytes (%) (Auto) 30 % (24-48) Monocytes (%) (Auto) 8 % (0-9) Eosinophils (%) (Auto) 7 % (0-3) Basophils (%) (Auto) 1 % (0-3) Neutrophils # (Auto) 2.9 x10^3uL (1.8-7.7) Lymphocytes # (Auto) 1.6 x10^3/uL (1.0-4.8) Monocytes # (Auto) 0.4 x10^3/uL (0.0-1.1) Eosinophils # (Auto) 0.4 x10^3/uL (0.0-0.7) Basophils # (Auto) 0.1 x10^3/uL (0.0-0.2) Prothrombin Time 15.6 SEC (11.7-14.0) Prothromb Time International Ratio 1.3 (0.8-1.1) Activated Partial Thromboplast Time 39 SEC (24-38) Fibrinogen 468 mg/dL (200-440) Sodium Level 137 mmol/L (136-145) Potassium Level 3.8 mmol/L (3.5-5.1) Chloride Level 98 mmol/L (98-107) Carbon Dioxide Level 36 mmol/L (21-32) Anion Gap 3 (6-14) Blood Urea Nitrogen 18 mg/dL (7-20) Creatinine 0.7 mg/dL (0.6-1.0) Estimated GFR (Cockcroft-Gault) 80.7 Glucose Level 116 mg/dL (70-99) Calcium Level 8.4 mg/dL (8.5-10.1) Laboratory Tests Test 05/07/17 13:21 05/07/17 18:22 05/07/17 22:06 05/08/17 03:36 Glucose (Fingerstick) 190 mg/dL (70-99) 149 mg/dL (70-99) 154 mg/dL (70-99) White Blood Count 5.4 x10^3/uL (4.0-11.0) Red Blood Count 2.97 x10^6/uL (3.50-5.40) Hemoglobin 8.5 g/dL (12.0-15.5) Hematocrit 26.6 % (36.0-47.0) Mean Corpuscular Volume 90 fL (79-100) Mean Corpuscular Hemoglobin 29 pg (25-35) Mean Corpuscular Hemoglobin Concent 32 g/dL (31-37) Red Cell Distribution Width 18.5 % (11.5-14.5) Platelet Count 226 x10^3/uL (140-400) Neutrophils (%) (Auto) 54 % (31-73) Lymphocytes (%) (Auto) 30 % (24-48) Monocytes (%) (Auto) 8 % (0-9) Eosinophils (%) (Auto) 7 % (0-3) Basophils (%) (Auto) 1 % (0-3) Neutrophils # (Auto) 2.9 x10^3uL (1.8-7.7) Lymphocytes # (Auto) 1.6 x10^3/uL (1.0-4.8) Monocytes # (Auto) 0.4 x10^3/uL (0.0-1.1) Eosinophils # (Auto) 0.4 x10^3/uL (0.0-0.7) Basophils # (Auto) 0.1 x10^3/uL (0.0-0.2) Prothrombin Time 15.6 SEC (11.7-14.0) Prothromb Time International Ratio 1.3 (0.8-1.1) Activated Partial Thromboplast Time 39 SEC (24-38) Fibrinogen 468 mg/dL (200-440) Sodium Level 137 mmol/L (136-145) Potassium Level 3.8 mmol/L (3.5-5.1) Chloride Level 98 mmol/L (98-107) Carbon Dioxide Level 36 mmol/L (21-32) Anion Gap 3 (6-14) Blood Urea Nitrogen 18 mg/dL (7-20) Creatinine 0.7 mg/dL (0.6-1.0) Estimated GFR (Cockcroft-Gault) 80.7 Glucose Level 116 mg/dL (70-99) Calcium Level 8.4 mg/dL (8.5-10.1) Meds Current Medications Clopidogrel Bisulfate (Plavix) 75 mg [id number] PO Last administered on 10:05; Start 05/07/17 at 08:00 Phytonadione 10 mg/Sodium Chloride 51 ml @ 102 mls/hr 1X ONCE IV Last administered on 05/07/17 13:19; Start 05/07/17 at 12:30; Stop 05/07/17 at 12:59 ; Status DC Potassium Chloride (Klor-Con) 20 meq BIDWMEALS PO Last administered on 16:40; Start 05/07/17 at 08:00 Assessment Assessment 1. Acute respiratory failure underlying CHF and possible COPD 2. Acute congestive heart failure, both diastolic and systolic with EF 35-40% 3. Severe 3V CAD 4. Chronic kidney disease stage 2. 5. Recent perforated peptic ulcer with laparoscopic repair of the peptic ulcer and Mahad patch placement. 6. Recent non-ST elevation myocardial infraction with abnormal EKG. 7. Severe malnutrition. 8. Recent Early sepsis, possible aspiration pneumonia. 9. 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 Hypothyroidism 12. Hyperlipidemia. 13. Gastroesophageal reflux disease. 14. Preglaucoma of both eyes 15. Recent atrial fibrillation with fast ventricular rate. 16. hypertension. 17. Diverticulosis. 18. Osteoarthritis. 19. Hearing loss PLAN: Acute respiratory failure pulmonary consult supplemental O2 nebulizer O2 supplement to maintain Sat >90% CHF bilateral pleural effusions-monitor 05/06 VM 40% 05/07 hypoxia/hypotension-BIPAP and dopamine-improved Moderate distress: clammy skin, diaphoretic. indicates short of breath on BiPap 10/02 60%. ABGs stat, CXR stat, staff advised to call Dr. Martins with results, Additional Lasix 20mg IV, May need dopamine to maintain SBP, Sats 90% A/C CHF Daily wt Admit wt 159# 05/08 166.13 IO Lasix 40mg IV x 1 05/05 Lasix 40mg daily po CXR 05/07 persistent pulmonary edema/mild improvement pleural effusions 05/08 Lasix 40mg IV daily, weight increased, BP low with MAP 60-102 Give Lasix 40mg IV x 1 this morning, additional KCL 20Meq po x 1 CAD recent NSTEMI CC 05/05; LAD 89-90% stenosis prox-mid segment Diag 40% stenosis prox-mid segment RCA 95-99% critical stenosis mid segment 70% calcified stenosis distal segment Impella with stent pending Monday, may require elective intubation inability to lay flat Heparin infusion-stopped Remains on Plavix DM II FSBS/SSI BS [id number] recent PUD per with repair CT abd/pelvis 04/14- (Colonic sig/descending) diverticulosis, no CT evidence intra-abdominal abscess. anemia CD/coagulopathy 05/05 Select 7.6 05/08 8.5 prolonged anti-Xa hematology consult Vitamin K 10mg IV x 109/10 05/08 Protime 15.6 INR 1.3 PTT 39 Fibrinogen 468 DVT/GI prophylaxis heparin IV carafate/PPI Hypokalemia- 05/06 3.4 05/08 3.8 05/06 additional 20meq given 05/07 KCL increased to 20meq bid Plan Plan For more details regarding further plans, please refer to the orders. RITA HUMMEL MD 05/08/17 0834: IM PROGRESS NOTES- Subjective Subjective Very dyspneic,diaphoretic and hypotensive.BiPap increased to Fio2 60%.IV Lasix ordered. Physical Exam Physical Exam in moderate distress,diaphoretic and tachypneic. Assessment Assessment D/w staff.Acute CHF. Hopefully,angioplasty later today. The patient was seen and examined by me. Chart reviewed and plan of care formulated. Discussed with, reviewed and agree with BUTTON RIVETER's notes, plan of care and orders with modifications as necessary. For more details regarding further plans, please refer to the orders. CHRIS PAGAN APRN May 08, 2017 08:06 RITA HUMMEL MD May 08, 2017 08:34
[2017-05-08] MEDS: METOCLOPRAMIDE HCL 10 MG/2 ML VIAL. IV SCH ×3 (08:18→20:38)
[2017-05-08] MEDS: INSULIN ASPART 300 UNITS/3 ML INSULN.PEN SQ SCH ×4 (08:19→20:38)
[2017-05-08] MEDS: FUROSEMIDE 40 MG/4 ML VIAL. IVP SCH (08:20)
--- NOTE | 2017-05-08 08:24 | RAD ---
Portable chest, 05/08/2017: History: Respiratory distress Comparison is made to a study from 2016. The heart size is unchanged. Parahilar infiltrates have worsened with obscuration of the underlying pulmonary vascularity. The infiltrates extend into the lung bases. There is persistent pleural fluid, best seen on the left. There is no evidence of pneumothorax. IMPRESSION: Worsening moderate pulmonary edema.
[2017-05-08] MEDS ORDERED: FUROSEMIDE 40 MG/4 ML VIAL. IVP ONE ×2 (08:30→10:00)
[2017-05-08] MEDS: IPRATRPIUM/ALBUTEROL 0.5/2.5MG 3 ML NEBU. NEB SCH ×4 (08:35→19:23)
--- NOTE | 2017-05-08 08:47 | PDOC ---
PULMONARY PROGRESS NOTES Subjective on BIPAP AWAKE AND ALERT FOLLOW COMMANDS Vitals Vital Signs Date Time Temp Pulse Resp B/P (MAP) Pulse Ox O2 Delivery O2 Flow Rate FiO2 05/08/17 07:48 Bi-pap 05/08/17 07:00 97.5 90 20 105/61 (76) 96 97.5 05/08/17 02:00 5.0 ROS: No Nausea, No Chest Pain, No Abdominal Pain, No Increase Cough General: No acute distress Lungs: Crackles, Other Cardiovascular: S1, S2 Abdomen: Soft, Non-tender Neuro Exam: Alert Extremities: Other (1+edema) Skin: Warm Labs Laboratory Tests Test 05/06/17 11:11 05/06/17 16:00 05/06/17 16:59 05/06/17 19:30 Glucose (Fingerstick) 167 mg/dL (70-99) 170 mg/dL (70-99) Heparin Anti-Xa Act, Unfractionated > 1.10 IU/mL (0.30-0.70) > 1.10 IU/mL (0.30-0.70) White Blood Count 6.5 x10^3/uL (4.0-11.0) Red Blood Count 3.00 x10^6/uL (3.50-5.40) Hemoglobin 8.8 g/dL (12.0-15.5) Hematocrit 26.3 % (36.0-47.0) Mean Corpuscular Volume 88 fL (79-100) Mean Corpuscular Hemoglobin 29 pg (25-35) Mean Corpuscular Hemoglobin Concent 33 g/dL (31-37) Red Cell Distribution Width 18.8 % (11.5-14.5) Platelet Count 223 x10^3/uL (140-400) Neutrophils (%) (Auto) 59 % (31-73) Lymphocytes (%) (Auto) 29 % (24-48) Monocytes (%) (Auto) 8 % (0-9) Eosinophils (%) (Auto) 4 % (0-3) Basophils (%) (Auto) 1 % (0-3) Neutrophils # (Auto) 3.8 x10^3uL (1.8-7.7) Lymphocytes # (Auto) 1.9 x10^3/uL (1.0-4.8) Monocytes # (Auto) 0.5 x10^3/uL (0.0-1.1) Eosinophils # (Auto) 0.2 x10^3/uL (0.0-0.7) Basophils # (Auto) 0.1 x10^3/uL (0.0-0.2) Test 05/06/17 21:42 05/07/17 04:12 05/07/17 04:15 05/07/17 13:21 Glucose (Fingerstick) 153 mg/dL (70-99) 190 mg/dL (70-99) O2 Saturation 99 % (92-99) Arterial Blood pH 7.51 (7.35-7.45) Arterial Blood pCO2 at Patient Temp 47 mmHg (35-46) Arterial Blood pO2 at Patient Temp 142 mmHg (65-108) Arterial Blood HCO3 36 mmol/L (21-28) Arterial Blood Base Excess 12 mmol/L (-3-3) FiO2 100 White Blood Count 6.5 x10^3/uL (4.0-11.0) Red Blood Count 3.18 x10^6/uL (3.50-5.40) Hemoglobin 9.1 g/dL (12.0-15.5) Hematocrit 28.4 % (36.0-47.0) Mean Corpuscular Volume 89 fL (79-100) Mean Corpuscular Hemoglobin 29 pg (25-35) Mean Corpuscular Hemoglobin Concent 32 g/dL (31-37) Red Cell Distribution Width 18.2 % (11.5-14.5) Platelet Count 208 x10^3/uL (140-400) Neutrophils (%) (Auto) 73 % (31-73) Lymphocytes (%) (Auto) 15 % (24-48) Monocytes (%) (Auto) 6 % (0-9) Eosinophils (%) (Auto) 5 % (0-3) Basophils (%) (Auto) 1 % (0-3) Neutrophils # (Auto) 4.7 x10^3uL (1.8-7.7) Lymphocytes # (Auto) 1.0 x10^3/uL (1.0-4.8) Monocytes # (Auto) 0.4 x10^3/uL (0.0-1.1) Eosinophils # (Auto) 0.3 x10^3/uL (0.0-0.7) Basophils # (Auto) 0.0 x10^3/uL (0.0-0.2) Prothrombin Time 16.0 SEC (11.7-14.0) Prothromb Time International Ratio 1.4 (0.8-1.1) Activated Partial Thromboplast Time 43 SEC (24-38) Thrombin Time 15.3 SEC (13.9-18.4) Fibrinogen 521 mg/dL (200-440) Sodium Level 140 mmol/L (136-145) Potassium Level 3.2 mmol/L (3.5-5.1) Chloride Level 97 mmol/L (98-107) Carbon Dioxide Level 36 mmol/L (21-32) Anion Gap 7 (6-14) Blood Urea Nitrogen 18 mg/dL (7-20) Creatinine 0.9 mg/dL (0.6-1.0) Estimated GFR (Cockcroft-Gault) 60.4 BUN/Creatinine Ratio 20 (6-20) Glucose Level 163 mg/dL (70-99) Calcium Level 8.3 mg/dL (8.5-10.1) Magnesium Level 1.8 mg/dL (1.8-2.4) Total Bilirubin 0.5 mg/dL (0.2-1.0) Aspartate Amino Transf (AST/SGOT) 19 U/L (15-37) Alanine Aminotransferase (ALT/SGPT) 18 U/L (14-59) Alkaline Phosphatase 83 U/L (46-116) Creatine Kinase 15 U/L (26-192) Creatine Kinase MB (Mass) 1.2 ng/mL (0.0-3.6) Creatine Kinase MB Relative Index % (0-4) Troponin I Quantitative < 0.017 ng/mL (0.000-0.055) Total Protein 6.9 g/dL (6.4-8.2) Albumin 2.2 g/dL (3.4-5.0) Albumin/Globulin Ratio 0.5 (1.0-1.7) Test 05/07/17 18:22 05/07/17 22:06 05/08/17 03:36 05/08/17 08:17 Glucose (Fingerstick) 149 mg/dL (70-99) 154 mg/dL (70-99) 259 mg/dL (70-99) White Blood Count 5.4 x10^3/uL (4.0-11.0) Red Blood Count 2.97 x10^6/uL (3.50-5.40) Hemoglobin 8.5 g/dL (12.0-15.5) Hematocrit 26.6 % (36.0-47.0) Mean Corpuscular Volume 90 fL (79-100) Mean Corpuscular Hemoglobin 29 pg (25-35) Mean Corpuscular Hemoglobin Concent 32 g/dL (31-37) Red Cell Distribution Width 18.5 % (11.5-14.5) Platelet Count 226 x10^3/uL (140-400) Neutrophils (%) (Auto) 54 % (31-73) Lymphocytes (%) (Auto) 30 % (24-48) Monocytes (%) (Auto) 8 % (0-9) Eosinophils (%) (Auto) 7 % (0-3) Basophils (%) (Auto) 1 % (0-3) Neutrophils # (Auto) 2.9 x10^3uL (1.8-7.7) Lymphocytes # (Auto) 1.6 x10^3/uL (1.0-4.8) Monocytes # (Auto) 0.4 x10^3/uL (0.0-1.1) Eosinophils # (Auto) 0.4 x10^3/uL (0.0-0.7) Basophils # (Auto) 0.1 x10^3/uL (0.0-0.2) Prothrombin Time 15.6 SEC (11.7-14.0) Prothromb Time International Ratio 1.3 (0.8-1.1) Activated Partial Thromboplast Time 39 SEC (24-38) Fibrinogen 468 mg/dL (200-440) Sodium Level 137 mmol/L (136-145) Potassium Level 3.8 mmol/L (3.5-5.1) Chloride Level 98 mmol/L (98-107) Carbon Dioxide Level 36 mmol/L (21-32) Anion Gap 3 (6-14) Blood Urea Nitrogen 18 mg/dL (7-20) Creatinine 0.7 mg/dL (0.6-1.0) Estimated GFR (Cockcroft-Gault) 80.7 Glucose Level 116 mg/dL (70-99) Calcium Level 8.4 mg/dL (8.5-10.1) Laboratory Tests Test 05/07/17 13:21 05/07/17 18:22 05/07/17 22:06 05/08/17 03:36 Glucose (Fingerstick) 190 mg/dL (70-99) 149 mg/dL (70-99) 154 mg/dL (70-99) White Blood Count 5.4 x10^3/uL (4.0-11.0) Red Blood Count 2.97 x10^6/uL (3.50-5.40) Hemoglobin 8.5 g/dL (12.0-15.5) Hematocrit 26.6 % (36.0-47.0) Mean Corpuscular Volume 90 fL (79-100) Mean Corpuscular Hemoglobin 29 pg (25-35) Mean Corpuscular Hemoglobin Concent 32 g/dL (31-37) Red Cell Distribution Width 18.5 % (11.5-14.5) Platelet Count 226 x10^3/uL (140-400) Neutrophils (%) (Auto) 54 % (31-73) Lymphocytes (%) (Auto) 30 % (24-48) Monocytes (%) (Auto) 8 % (0-9) Eosinophils (%) (Auto) 7 % (0-3) Basophils (%) (Auto) 1 % (0-3) Neutrophils # (Auto) 2.9 x10^3uL (1.8-7.7) Lymphocytes # (Auto) 1.6 x10^3/uL (1.0-4.8) Monocytes # (Auto) 0.4 x10^3/uL (0.0-1.1) Eosinophils # (Auto) 0.4 x10^3/uL (0.0-0.7) Basophils # (Auto) 0.1 x10^3/uL (0.0-0.2) Prothrombin Time 15.6 SEC (11.7-14.0) Prothromb Time International Ratio 1.3 (0.8-1.1) Activated Partial Thromboplast Time 39 SEC (24-38) Fibrinogen 468 mg/dL (200-440) Sodium Level 137 mmol/L (136-145) Potassium Level 3.8 mmol/L (3.5-5.1) Chloride Level 98 mmol/L (98-107) Carbon Dioxide Level 36 mmol/L (21-32) Anion Gap 3 (6-14) Blood Urea Nitrogen 18 mg/dL (7-20) Creatinine 0.7 mg/dL (0.6-1.0) Estimated GFR (Cockcroft-Gault) 80.7 Glucose Level 116 mg/dL (70-99) Calcium Level 8.4 mg/dL (8.5-10.1) Test 05/08/17 08:17 Glucose (Fingerstick) 259 mg/dL (70-99) Medications Active Scripts Medications Dose Route/Sig Max Daily Dose Days Date Category Meropenem 500 Mg Vial 500 Mg IV Q8HRS 05/05/17 Reported Humalog (Insulin Lispro) 100 Unit/1 Ml Cartridge 100 Unit SQ TIDACHC 05/05/17 Reported Metoclopramide Hcl 10 Mg/2 Ml Disp.syrin 10 Mg IV TID 05/05/17 Reported Furosemide 40 Mg Tablet 1 Tab PO DAILY 05/05/17 Reported Eliquis (Apixaban) 5 Mg Tablet 5 Mg PO BID 05/01/17 Reported Lisinopril 10 Mg Tablet 1 Tab PO DAILY 05/01/17 Reported Ondansetron Hcl 4 Mg/2 Ml Syr (Ondansetron Hcl/Pf) 4 Mg/2 Ml Disp.syrin 4 Mg IJ Q6HRS PRN 04/14/17 Reported Pantoprazole Sodium 40 Mg Tablet.dr 1 Tab PO DAILY 04/14/17 Reported Sucralfate 1 Gm Tablet 1 Tab PO BID 04/14/17 Reported Simethicone 80 Mg Tab.chew 80 Mg PO TID 04/14/17 Reported Duoneb 0.5-3(2.5) Mg/3 Ml (Albuterol/Ipratropium) 3 Ml Ampul.neb 3 Ml NEB BID 04/14/17 Reported Escitalopram Oxalate 10 Mg Tablet 1 Tab PO DAILY 04/14/17 Reported Alprazolam 0.25 Mg Tablet 1 Tab PO HS 04/14/17 Reported Melatonin 3 Mg Tablet 3 Mg PO QHS 04/14/17 Reported Levothyroxine Sodium 75 Mcg Tablet 1 Tab PO DAILY 04/14/17 Reported Amiodarone Hcl 200 Mg Tablet 1 Tab PO BID 04/14/17 Reported Comments REVIEWED NO CHANGE MAYBE WORSE Impression . 1. 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 2. Abnormal chest x-ray consistent with congestive heart failure. 3. Possible mild chronic obstructive pulmonary disease. 4. Bilateral pleural effusions secondary to congestive heart failure. 5. Severe protein-calorie malnutrition. 6. Recent perforated peptic ulcer with laparoscopic repair of the peptic ulcer and Mahad patch placement. 7. Critical illness myopathy. 8. Hypothyroidism. 9. Hyperlipidemia. 10. Recent non-ST myocardial infarction. 11. CAD Plan . cath today with PCI 1. From a pulmonary standpoint, we will monitor the response to diuresis. 2. She has multivessel coronary artery disease based on recent cardiac catheterization and not an optimum candidate for coronary artery bypass 3. P.r.n. bronchodilators. 4. Follow chest x-rays. 5 . Improve nutritional support. 6. Physical therapy consult. 7. Dedra and SHADY MOREIRA MD May 08, 2017 08:47
[2017-05-08 08:57] LABS: HCO3 ABG 30 mmol/L (21-28); PCO2 ABG 45 mmHg (35-46); PH ABG 7.44 (7.35-7.45); PO2 ABG 64 mmHg (65-108); SAT O2 ABG 90 % (92-99)
[2017-05-08 09:01] LABS: FIO2 ABG 60
[2017-05-08] MEDS: ASPIRIN ENTERIC COATED 81 MG TABLET.DR. PO SCH (09:17)
[2017-05-08] MEDS: PANTOPRAZOLE 40 MG TABLET.DR. PO SCH (09:17)
[2017-05-08] MEDS: SIMETHICONE 80 MG TAB.CHEW PO SCH ×3 (09:18→16:23)
[2017-05-08] MEDS: CITALOPRAM 20 MG TABLET. PO SCH (09:18)
[2017-05-08] MEDS: SUCRALFATE 1 GM TABLET. PO SCH ×2 (09:18→16:22)
[2017-05-08] MEDS: AMIODARONE HCL 200 MG TABLET. PO SCH (09:18)
[2017-05-08] MEDS: POTASSIUM CHLORIDE 20 MEQ TABLET.ER. PO SCH ×2 (09:18→16:23)
[2017-05-08] MEDS: CLOPIDOGREL BISULFATE 75 MG TABLET PO SCH (09:19)
[2017-05-08] MEDS ORDERED: IODIXANOL 320 MG/ML 100 ML VIAL. ONE ×2 (11:39→13:47)
[2017-05-08] MEDS ORDERED: LIDOCAINE 2% 20 ML VIAL. ONE ×2 (11:39→12:19)
[2017-05-08] MEDS ORDERED: MIDAZOLAM HCL/PF 2 MG/2 ML VIAL. ONE (12:07)
[2017-05-08] MEDS ORDERED: fentaNYL PF VIAL 100 MCG/2 ML VIAL ONE (12:07)
[2017-05-08] MEDS ORDERED: HEPARIN for IV BOLUS 10,000 UNIT/10 ML VIAL. ONE (12:20)
--- NOTE | 2017-05-08 12:25 | PDOC ---
PROGRESS NOTES Subjective Subjective c/c - f/u of coagulopathy Objective Objective Vital Signs Date Time Temp Pulse Resp B/P (MAP) Pulse Ox O2 Delivery O2 Flow Rate FiO2 05/08/17 11:00 89 26 93/53 (66) 100 BiPAP/CPAP 05/08/17 07:00 97.5 97.5 05/08/17 02:00 5.0 Intake and Output 05/09/17 07:00 Intake Total 30 ml Output Total 384 ml Balance -354 ml Intake Oral 30 ml Output Urine Total 383 ml Stool Total 1 ml Physical Exam General: Alert, Oriented X3 Psych/Mental Status: Mental status NL Assessment Assessment Assessment/Plan 1. Coagulopathy - Elevated anti-Xa level despite being off of heparin. Unfortunately, we do not have baseline pt and ptt levels prior to starting heparin this admission, but on 04/30 she had a slightly elevated pt/inr. She also recently had a perforated ulcer. She may have some nutritional deficiency with vit k contributing to the findings. biomedical repair technician believes that she has something in her plasma that is reacting with the test. We have also run a thrombin time that was normal and PTT only 39. This would mean that she does not have any heparin in her system and her fibrinogen is working appropriately. Given the possibility of nutritional deficiency, she received 10mg of vitamin k. No need for mixing study as PTT is better. I d/w Jie Hebert I d/w JOSE I d/w family Comment Review of Relevant I have reviewed the following items airam (where applicable) has been applied. Labs Laboratory Tests Test 05/06/17 16:00 05/06/17 16:59 05/06/17 19:30 05/06/17 21:42 Heparin Anti-Xa Act, Unfractionated > 1.10 IU/mL (0.30-0.70) > 1.10 IU/mL (0.30-0.70) Glucose (Fingerstick) 170 mg/dL (70-99) 153 mg/dL (70-99) White Blood Count 6.5 x10^3/uL (4.0-11.0) Red Blood Count 3.00 x10^6/uL (3.50-5.40) Hemoglobin 8.8 g/dL (12.0-15.5) Hematocrit 26.3 % (36.0-47.0) Mean Corpuscular Volume 88 fL (79-100) Mean Corpuscular Hemoglobin 29 pg (25-35) Mean Corpuscular Hemoglobin Concent 33 g/dL (31-37) Red Cell Distribution Width 18.8 % (11.5-14.5) Platelet Count 223 x10^3/uL (140-400) Neutrophils (%) (Auto) 59 % (31-73) Lymphocytes (%) (Auto) 29 % (24-48) Monocytes (%) (Auto) 8 % (0-9) Eosinophils (%) (Auto) 4 % (0-3) Basophils (%) (Auto) 1 % (0-3) Neutrophils # (Auto) 3.8 x10^3uL (1.8-7.7) Lymphocytes # (Auto) 1.9 x10^3/uL (1.0-4.8) Monocytes # (Auto) 0.5 x10^3/uL (0.0-1.1) Eosinophils # (Auto) 0.2 x10^3/uL (0.0-0.7) Basophils # (Auto) 0.1 x10^3/uL (0.0-0.2) Test 05/07/17 04:12 05/07/17 04:15 05/07/17 13:21 05/07/17 18:22 O2 Saturation 99 % (92-99) Arterial Blood pH 7.51 (7.35-7.45) Arterial Blood pCO2 at Patient Temp 47 mmHg (35-46) Arterial Blood pO2 at Patient Temp 142 mmHg (65-108) Arterial Blood HCO3 36 mmol/L (21-28) Arterial Blood Base Excess 12 mmol/L (-3-3) FiO2 100 White Blood Count 6.5 x10^3/uL (4.0-11.0) Red Blood Count 3.18 x10^6/uL (3.50-5.40) Hemoglobin 9.1 g/dL (12.0-15.5) Hematocrit 28.4 % (36.0-47.0) Mean Corpuscular Volume 89 fL (79-100) Mean Corpuscular Hemoglobin 29 pg (25-35) Mean Corpuscular Hemoglobin Concent 32 g/dL (31-37) Red Cell Distribution Width 18.2 % (11.5-14.5) Platelet Count 208 x10^3/uL (140-400) Neutrophils (%) (Auto) 73 % (31-73) Lymphocytes (%) (Auto) 15 % (24-48) Monocytes (%) (Auto) 6 % (0-9) Eosinophils (%) (Auto) 5 % (0-3) Basophils (%) (Auto) 1 % (0-3) Neutrophils # (Auto) 4.7 x10^3uL (1.8-7.7) Lymphocytes # (Auto) 1.0 x10^3/uL (1.0-4.8) Monocytes # (Auto) 0.4 x10^3/uL (0.0-1.1) Eosinophils # (Auto) 0.3 x10^3/uL (0.0-0.7) Basophils # (Auto) 0.0 x10^3/uL (0.0-0.2) Prothrombin Time 16.0 SEC (11.7-14.0) Prothromb Time International Ratio 1.4 (0.8-1.1) Activated Partial Thromboplast Time 43 SEC (24-38) Thrombin Time 15.3 SEC (13.9-18.4) Fibrinogen 521 mg/dL (200-440) Sodium Level 140 mmol/L (136-145) Potassium Level 3.2 mmol/L (3.5-5.1) Chloride Level 97 mmol/L (98-107) Carbon Dioxide Level 36 mmol/L (21-32) Anion Gap 7 (6-14) Blood Urea Nitrogen 18 mg/dL (7-20) Creatinine 0.9 mg/dL (0.6-1.0) Estimated GFR (Cockcroft-Gault) 60.4 BUN/Creatinine Ratio 20 (6-20) Glucose Level 163 mg/dL (70-99) Calcium Level 8.3 mg/dL (8.5-10.1) Magnesium Level 1.8 mg/dL (1.8-2.4) Total Bilirubin 0.5 mg/dL (0.2-1.0) Aspartate Amino Transf (AST/SGOT) 19 U/L (15-37) Alanine Aminotransferase (ALT/SGPT) 18 U/L (14-59) Alkaline Phosphatase 83 U/L (46-116) Creatine Kinase 15 U/L (26-192) Creatine Kinase MB (Mass) 1.2 ng/mL (0.0-3.6) Creatine Kinase MB Relative Index % (0-4) Troponin I Quantitative < 0.017 ng/mL (0.000-0.055) Total Protein 6.9 g/dL (6.4-8.2) Albumin 2.2 g/dL (3.4-5.0) Albumin/Globulin Ratio 0.5 (1.0-1.7) Glucose (Fingerstick) 190 mg/dL (70-99) 149 mg/dL (70-99) Test 05/07/17 22:06 05/08/17 03:36 05/08/17 08:17 05/08/17 08:30 Glucose (Fingerstick) 154 mg/dL (70-99) 259 mg/dL (70-99) White Blood Count 5.4 x10^3/uL (4.0-11.0) Red Blood Count 2.97 x10^6/uL (3.50-5.40) Hemoglobin 8.5 g/dL (12.0-15.5) Hematocrit 26.6 % (36.0-47.0) Mean Corpuscular Volume 90 fL (79-100) Mean Corpuscular Hemoglobin 29 pg (25-35) Mean Corpuscular Hemoglobin Concent 32 g/dL (31-37) Red Cell Distribution Width 18.5 % (11.5-14.5) Platelet Count 226 x10^3/uL (140-400) Neutrophils (%) (Auto) 54 % (31-73) Lymphocytes (%) (Auto) 30 % (24-48) Monocytes (%) (Auto) 8 % (0-9) Eosinophils (%) (Auto) 7 % (0-3) Basophils (%) (Auto) 1 % (0-3) Neutrophils # (Auto) 2.9 x10^3uL (1.8-7.7) Lymphocytes # (Auto) 1.6 x10^3/uL (1.0-4.8) Monocytes # (Auto) 0.4 x10^3/uL (0.0-1.1) Eosinophils # (Auto) 0.4 x10^3/uL (0.0-0.7) Basophils # (Auto) 0.1 x10^3/uL (0.0-0.2) Prothrombin Time 15.6 SEC (11.7-14.0) Prothromb Time International Ratio 1.3 (0.8-1.1) Activated Partial Thromboplast Time 39 SEC (24-38) Fibrinogen 468 mg/dL (200-440) Sodium Level 137 mmol/L (136-145) Potassium Level 3.8 mmol/L (3.5-5.1) Chloride Level 98 mmol/L (98-107) Carbon Dioxide Level 36 mmol/L (21-32) Anion Gap 3 (6-14) Blood Urea Nitrogen 18 mg/dL (7-20) Creatinine 0.7 mg/dL (0.6-1.0) Estimated GFR (Cockcroft-Gault) 80.7 Glucose Level 116 mg/dL (70-99) Calcium Level 8.4 mg/dL (8.5-10.1) O2 Saturation 90 % (92-99) Arterial Blood pH 7.44 (7.35-7.45) Arterial Blood pCO2 at Patient Temp 45 mmHg (35-46) Arterial Blood pO2 at Patient Temp 64 mmHg (65-108) Arterial Blood HCO3 30 mmol/L (21-28) Arterial Blood Base Excess 5 mmol/L (-3-3) FiO2 60 Laboratory Tests Test 05/07/17 13:21 05/07/17 18:22 05/07/17 22:06 05/08/17 03:36 Glucose (Fingerstick) 190 mg/dL (70-99) 149 mg/dL (70-99) 154 mg/dL (70-99) White Blood Count 5.4 x10^3/uL (4.0-11.0) Red Blood Count 2.97 x10^6/uL (3.50-5.40) Hemoglobin 8.5 g/dL (12.0-15.5) Hematocrit 26.6 % (36.0-47.0) Mean Corpuscular Volume 90 fL (79-100) Mean Corpuscular Hemoglobin 29 pg (25-35) Mean Corpuscular Hemoglobin Concent 32 g/dL (31-37) Red Cell Distribution Width 18.5 % (11.5-14.5) Platelet Count 226 x10^3/uL (140-400) Neutrophils (%) (Auto) 54 % (31-73) Lymphocytes (%) (Auto) 30 % (24-48) Monocytes (%) (Auto) 8 % (0-9) Eosinophils (%) (Auto) 7 % (0-3) Basophils (%) (Auto) 1 % (0-3) Neutrophils # (Auto) 2.9 x10^3uL (1.8-7.7) Lymphocytes # (Auto) 1.6 x10^3/uL (1.0-4.8) Monocytes # (Auto) 0.4 x10^3/uL (0.0-1.1) Eosinophils # (Auto) 0.4 x10^3/uL (0.0-0.7) Basophils # (Auto) 0.1 x10^3/uL (0.0-0.2) Prothrombin Time 15.6 SEC (11.7-14.0) Prothromb Time International Ratio 1.3 (0.8-1.1) Activated Partial Thromboplast Time 39 SEC (24-38) Fibrinogen 468 mg/dL (200-440) Sodium Level 137 mmol/L (136-145) Potassium Level 3.8 mmol/L (3.5-5.1) Chloride Level 98 mmol/L (98-107) Carbon Dioxide Level 36 mmol/L (21-32) Anion Gap 3 (6-14) Blood Urea Nitrogen 18 mg/dL (7-20) Creatinine 0.7 mg/dL (0.6-1.0) Estimated GFR (Cockcroft-Gault) 80.7 Glucose Level 116 mg/dL (70-99) Calcium Level 8.4 mg/dL (8.5-10.1) Test 05/08/17 08:17 05/08/17 08:30 Glucose (Fingerstick) 259 mg/dL (70-99) O2 Saturation 90 % (92-99) Arterial Blood pH 7.44 (7.35-7.45) Arterial Blood pCO2 at Patient Temp 45 mmHg (35-46) Arterial Blood pO2 at Patient Temp 64 mmHg (65-108) Arterial Blood HCO3 30 mmol/L (21-28) Arterial Blood Base Excess 5 mmol/L (-3-3) FiO2 60 Medications Current Medications Nitroglycerin (Nitroglycerin) 200 mcg 1X ONCE IART Last administered on t 13:59; Start 05/05/17 at 14:00; Stop 05/05/17 at 14:01; Status DC Verapamil HCl (Verapamil) 2.5 mg 1X ONCE IART Last administered on 05/05/17 13 :59; Start 05/05/17 at 14:00; Stop 05/05/17 at 14:01; Status DC Heparin Sodium (Porcine) (Heparin Sodium) 2,500 unit 1X ONCE IART Last administered on 05/05/17 13:58; Start 05/05/17 at 14:00; Stop 05/05/17 at 14:01; Status DC Heparin Sodium/ Sodium Chloride 1,000 unit 1X ONCE IART Last administered on 13:59; Start 05/05/17 at 14:00; Stop 05/05/17 at 14:01; Status DC Midazolam HCl (Versed) 2 mg 1X ONCE IV Last administered on 05/05/17 14:00; Start 05/05/17 at 14:00; Stop 05/05/17 at 14:01; Status DC Fentanyl Citrate (Fentanyl 2ml Vial) 100 mcg 1X ONCE IV Last administered on 14:00; Start 05/05/17 at 14:00; Stop 05/05/17 at 14:01; Status DC Iohexol (Omnipaque 300 Mg/ml) 100 ml 1X ONCE IART Last administered on 13:59; Start 05/05/17 at 14:00; Stop 05/05/17 at 14:01; Status DC Lidocaine HCl 20 ml 1X ONCE IJ Last administered on 05/05/17 13:59; Start 05/05 at 14:00; Stop 05/05/17 at 14:01; Status DC Albuterol/ Ipratropium (Duoneb) 3 ml RTQID NEB Last administered on 05/08/17 08:35; Start 05/05/17 at 16:00 Heparin Sodium/ Dextrose 500 ml @ 17.3 mls/hr CONT PRN IV SEE I/O RECORD Last administered on 05/05/17 18:19; Start 05/05/17 at 17:15; Stop 05/06/17 at 20:29; Status DC Heparin Sodium (Porcine) (Heparin Sodium) 1,800 unit PRN Q6HRS PRN IV FOR UFH LEVEL LESS THAN 0.2; Start 05/05/17 at 17:15; Stop 05/06/17 at 20:29; Status DC Alprazolam (Xanax) 0.25 mg HS PO Last administered on 05/07/17 22:03; Start at 21:00 Amiodarone HCl (Cordarone) 200 mg BID PO ; Start 05/05/17 at 21:00; Stop 05/06/17 at 07:49; Status DC Furosemide (Lasix) 40 mg DAILY PO ; Start 05/06/17 at 09:00; Stop 05/06/17 at 09: 00; Status DC Albuterol/ Ipratropium (Duoneb) 3 ml BID NEB ; Start 05/05/17 at 21:00; Stop 05/05 at 21:00; Status DC Levothyroxine Sodium (Synthroid) 75 mcg DAILY07 PO Last administered on 06:14; Start 05/06/17 at 09:00 Lisinopril (Prinivil) 10 mg DAILY PO ; Start 05/06/17 at 09:00; Stop 05/06/17 at 09:00; Status DC Meropenem (Merrem) 500 mg Q8HRS IV ; Start 05/05/17 at 22:00; Stop 05/05/17 at 22: 00; Status DC Pantoprazole Sodium (Protonix) 40 mg DAILYAC PO Last administered on 05/08/17 09:17; Start 05/06/17 at 07:30 Simethicone (Gas-X) 80 mg TIDAC PO Last administered on 05/08/17 09:18; Start 05/05/17 at 18:00 Sucralfate (Carafate) 1 gm BIDAC PO Last administered on 05/08/17 09:18; Start 05/05/17 at 18:00 Citalopram Hydrobromide (CeleXA) 20 mg DAILY PO Last administered on 05/08/17 09:18; Start 05/06/17 at 09:00 Non-Formulary Medication 3 mg QHS PO ; Start 05/05/17 at 21:00; Stop 05/05/17 at 21:00; Status DC Metoclopramide HCl (Reglan) 10 mg TID IV Last administered on 05/08/17 08:18; Start 05/05/17 at 21:00 Ondansetron HCl (Zofran) 4 mg PRN Q6HRS PRN IV NAUSEA/VOMITING; Start 05/05/17 at 18:00 Insulin Aspart (NovoLOG) 0-5 UNITS TIDWMEALHC SQ Last administered on 08:19; Start 05/05/17 at 21:00 Dextrose (Dextrose 50%-Water Syringe) 12.5 gm PRN Q15MIN PRN IV SEE COMMENTS; Start 05/05/17 at 17:45 Meropenem 500 mg/ Sodium Chloride 50 ml @ 100 mls/hr Q8HRS IV Last administered on 05/08/17 06:14; Start 05/05/17 at 18:00 Furosemide (Lasix) 40 mg 1X ONCE IVP Last administered on 05/05/17 23:32; Start 05/05/17 at 23:15; Stop 05/05/17 at 23:16; Status DC Dopamine HCl/ Dextrose 250 ml @ 13.523 mls/ hr CONT PRN IV SEE I/O RECORD Last administered on 05/07/17 02:28; Start 05/05/17 at 23:30 Amiodarone HCl (Cordarone) 200 mg DAILY PO Last administered on 05/08/17 09:18 ; Start 05/06/17 at 09:00 Clopidogrel Bisulfate (Plavix) 300 mg 1X ONCE PO Last administered on 08:47; Start 05/06/17 at 08:00; Stop 05/06/17 at 08:01; Status DC Clopidogrel Bisulfate (Plavix) 75 mg DAILYWBKFT PO ; Start 05/06/17 at 08:00; Stop 05/06/17 at 08:04; Status DC Furosemide (Lasix) 40 mg DAILY IVP Last administered on 05/07/17 10:07; Start 05/06/17 at 09:00 Aspirin (Ecotrin) 81 mg DAILYWBKFT PO Last administered on 05/08/17 09:17; Start 05/06/17 at 09:00 Pantoprazole Sodium (Protonix) 40 mg DAILYAC PO ; Start 05/07/17 at 07:30; Stop 05/07/17 at 07:30; Status DC Pantoprazole Sodium (Protonix) 40 mg 1X ONCE PO ; Start 05/06/17 at 08:00; Stop 05/06/17 at 08:01; Status DC Clopidogrel Bisulfate (Plavix) 75 mg DAILYWBKFT PO Last administered on 09:19; Start 05/07/17 at 08:00 Info (Anti-Coagulation Monitoring By Pharmacy) 1 each PRN DAILY PRN MC SEE COMMENTS Last administered on 05/06/17 10:49; Start 05/06/17 at 11:00; Stop 05/07 at 07:29; Status DC Potassium Chloride (Klor-Con) 10 meq DAILYWBKFT PO Last administered on 12:32; Start 05/06/17 at 11:00; Stop 05/07/17 at 07:54; Status DC Potassium Chloride (Klor-Con) 20 meq BIDWMEALS PO Last administered on 09:18; Start 05/07/17 at 08:00 Phytonadione 10 mg/Sodium Chloride 51 ml @ 102 mls/hr 1X ONCE IV Last administered on 05/07/17 13:19; Start 05/07/17 at 12:30; Stop 05/07/17 at 12:59 ; Status DC Furosemide (Lasix) 40 mg 1X ONCE IVP Last administered on 05/08/17 08:17; Start 05/08/17 at 08:30; Stop 05/08/17 at 08:31; Status DC Furosemide (Lasix) 40 mg 1X ONCE IVP Last administered on 05/08/17 10:03; Start 05/08/17 at 10:00; Stop 05/08/17 at 10:01; Status DC Heparin Sodium/ Sodium Chloride 1,000 ml @ As Directed STK-MED ONCE .ROUTE ; Start 05/08/17 at 11:38; Stop 05/08/17 at 11:39; Status DC Lidocaine HCl 20 ml STK-MED ONCE .ROUTE ; Start 05/08/17 at 11:39; Stop at 11:40; Status DC Iodixanol (Visipaque 320) 100 ml STK-MED ONCE .ROUTE ; Start 05/08/17 at 11:39; Stop 05/08/17 at 11:40; Status DC Heparin Sodium/ Sodium Chloride 500 ml @ As Directed STK-MED ONCE .ROUTE ; Start 05/08/17 at 11:42; Stop 05/08/17 at 11:43; Status DC Fentanyl Citrate (Fentanyl 2ml Vial) 100 mcg STK-MED ONCE .ROUTE ; Start at 12:07; Stop 05/08/17 at 12:08; Status DC Midazolam HCl (Versed) 2 mg STK-MED ONCE .ROUTE ; Start 05/08/17 at 12:07; Stop 05/08/17 at 12:08; Status DC Lidocaine HCl 20 ml STK-MED ONCE .ROUTE ; Start 05/08/17 at 12:19; Stop at 12:20; Status DC Heparin Sodium (Porcine) (Heparin Sodium) 10,000 unit STK-MED ONCE .ROUTE ; Start 05/08/17 at 12:20; Stop 05/08/17 at 12:21; Status DC Active Scripts Active Reported Meropenem 500 Mg Vial 500 Mg IV Q8HRS Humalog (Insulin Lispro) 100 Unit/1 Ml Cartridge 100 Unit SQ TIDACHC Metoclopramide Hcl 10 Mg/2 Ml Disp.syrin 10 Mg IV TID Furosemide 40 Mg Tablet 1 Tab PO DAILY Eliquis (Apixaban) 5 Mg Tablet 5 Mg PO BID Lisinopril 10 Mg Tablet 1 Tab PO DAILY Ondansetron Hcl 4 Mg/2 Ml Syr (Ondansetron Hcl/Pf) 4 Mg/2 Ml Disp.syrin 4 Mg IJ Q6HRS PRN Pantoprazole Sodium 40 Mg Tablet.dr 1 Tab PO DAILY Sucralfate 1 Gm Tablet 1 Tab PO BID Simethicone 80 Mg Tab.chew 80 Mg PO TID Duoneb 0.5-3(2.5) Mg/3 Ml (Albuterol/Ipratropium) 3 Ml Ampul.neb 3 Ml NEB BID Escitalopram Oxalate 10 Mg Tablet 1 Tab PO DAILY Alprazolam 0.25 Mg Tablet 1 Tab PO HS Melatonin 3 Mg Tablet 3 Mg PO QHS Levothyroxine Sodium 75 Mcg Tablet 1 Tab PO DAILY Amiodarone Hcl 200 Mg Tablet 1 Tab PO BID Vitals/I & O Vital Sign - Last 24 Hours 05/07/17 05/07/17 05/07/17 05/07/17 12:25 13:00 13:15 14:00 Pulse 84 84 Resp 18 18 B/P (MAP) 104/58 (73) 81/47 (58) Pulse Ox 100 98 100 98 O2 Delivery BiPAP/CPAP BiPAP/CPAP BiPAP/CPAP BiPAP/CPAP 05/07/17 05/07/17 05/07/17 05/07/17 15:00 16:00 16:00 16:11 Temp 97.7 97.7 Pulse 74 84 Resp 18 18 B/P (MAP) 87/48 (61) 111/64 (80) Pulse Ox 98 98 98 O2 Delivery BiPAP/CPAP BiPAP/CPAP Bi-pap BiPAP/CPAP 05/07/17 05/07/17 05/07/17 05/07/17 17:00 18:00 19:00 19:58 Pulse 74 82 80 Resp 18 18 16 B/P (MAP) 87/48 (61) 109/62 (78) 86/49 (61) Pulse Ox 98 98 100 O2 Delivery BiPAP/CPAP BiPAP/CPAP Nasal Cannula Nasal Cannula O2 Flow Rate 5.0 5.0 05/07/17 05/07/17 05/07/17 05/07/17 20:00 20:43 21:00 22:00 Pulse 78 76 74 Resp 15 18 18 B/P (MAP) 97/58 (71) 94/55 (68) 108/61 (77) Pulse Ox 100 98 100 100 O2 Delivery Nasal Cannula Nasal Cannula Nasal Cannula Nasal Cannula O2 Flow Rate 5.0 5.0 5.0 5.0 05/07/17 05/08/17 05/08/17 05/08/17 23:00 00:00 00:05 01:00 Temp 97.5 97.5 Pulse 74 78 74 Resp 18 18 16 B/P (MAP) 89/51 (64) 108/64 (79) 83/48 (60) Pulse Ox 100 100 100 O2 Delivery Nasal Cannula Nasal Cannula Nasal Cannula Nasal Cannula O2 Flow Rate 5.0 5.0 5.0 5.0 05/08/17 05/08/17 05/08/17 05/08/17 02:00 03:00 04:00 04:00 Temp 97.5 97.5 Pulse 70 90 74 Resp 18 18 16 B/P (MAP) 87/47 (60) 102/70 (81) 86/48 (61) Pulse Ox 100 93 99 O2 Delivery Nasal Cannula BiPAP/CPAP Bi-pap BiPAP/CPAP O2 Flow Rate 5.0 05/08/17 05/08/17 05/08/17 05/08/17 04:16 05:00 06:13 07:00 Temp 97.5 97.5 Pulse 72 72 90 Resp 16 16 20 B/P (MAP) 92/52 (65) 107/63 (78) 105/61 (76) Pulse Ox 98 100 96 96 O2 Delivery BiPAP/CPAP BiPAP/CPAP BiPAP/CPAP BiPAP/CPAP 05/08/17 05/08/17 05/08/17 05/08/17 07:48 08:00 08:36 09:02 Pulse 114 103 Resp 34 34 B/P (MAP) 111/75 (87) 111/75 (87) Pulse Ox 90 95 92 O2 Delivery Bi-pap BiPAP/CPAP BiPAP/CPAP BiPAP/CPAP 05/08/17 05/08/17 05/08/17 09:18 10:00 11:00 Pulse 103 101 89 Resp 27 26 B/P (MAP) 111/75 112/63 (79) 93/53 (66) Pulse Ox 95 100 O2 Delivery BiPAP/CPAP BiPAP/CPAP Intake and Output 05/08/17 05/08/17 05/09/17 15:00 23:00 07:00 Intake Total 30 ml Output Total 384 ml Balance -354 ml JAQUELIN BIRMINGHAM MD May 08, 2017 12:25
[2017-05-08] MEDS ORDERED: BIVALIRUDIN 250 MG VIAL. IV ONE ×3 (12:38→14:15)
[2017-05-08] MEDS ORDERED: ATROPINE 0.5 MG/5 ML DISP.SYRIN. ONE (13:43)
[2017-05-08] MEDS ORDERED: fentaNYL PF VIAL 100 MCG/2 ML VIAL IV ONE (14:15)
[2017-05-08] MEDS ORDERED: LIDOCAINE 2% 20 ML VIAL. IJ ONE (14:15)
[2017-05-08] MEDS ORDERED: MIDAZOLAM HCL/PF 2 MG/2 ML VIAL. IV ONE (14:15)
[2017-05-08] MEDS ORDERED: NITROGLYCERIN 200 MCG/2 ML SYRINGE FOR CATH/VASC LAB. IART ONE (14:15)
[2017-05-08] MEDS ORDERED: IODIXANOL 320 MG/ML 100 ML VIAL. IART ONE (14:15)
[2017-05-08] MEDS ORDERED: DEXTROSE 20% IV ONE (14:30)
[2017-05-08] MEDS ORDERED: WATER IV ONE (14:30)
[2017-05-08] MEDS ORDERED: ACETAMINOPHEN 325 MG TABLET. PO PRN (16:15)
[2017-05-08] MEDS ORDERED: NITROGLYCERIN SUBLINGUAL 0.4 MG BOTTLE OF 25. SL PRN (16:15)
--- NOTE | 2017-05-08 16:41 | CARD ---
APPROVED REPORT Procedure(s) performed: 1. Left heart catheterization, selective coronary angiography 2. Successful complex PCI/stents placement to the right coronary artery and also the left anterior d escending artery 3. Successful stent graft placement to the left main coronary artery 4. Assistance with Cardiac Output using Impella Ventricular Assist pump, continuous 217 Minutes of Moderate Sedation INDICATION The indication(s) include : 81-year-old female who presented with acute on chronic systolic heart tiffany lure and acute non-ST elevation myocardial infarction was found to have severe three-vessel coronary artery disease (cath 05/05/17) and ischemic cardiomyopathy with LVEF 35%. She was deemed a poor cassidy te for coronary artery bypass surgery by CT surgical team. Hence she presented for high risk PCI/sten ts placement with hemodynamic support from Impella ventricular assist device.. PROCEDURE NARRATIVE Affect pain the risks, benefits and alternative options, informed consent was obtained from patient. Patient was brought to the cardiac Supervisor Finish End and both her groins were prepped and draped in the usual fashion. 20 mL of 2% lidocaine was infiltrated into the skin and subcutaneous tissues of the left nasir in for local anesthesia. Arterial access was obtained in the left common femoral artery and a 5 Frenc h sheath was inserted. The arteriotomy site was prepared for later closure by two Perclose suture cameron sure devices in a 'Preclose' fashion. Subsequently, the arteriotomy site was dilated sequentially and a 13 Sudanese sheath was inserted. A 6 Sudanese multipurpose catheter was advanced into the left ventric le under fluoroscopy guidance and LVEDP was measured. This was found to be elevated at 21 consistent with her presentation of acute on chronic systolic heart failure. This catheter was then exchanged over a 0.014 inch guidewire to Abiomed Impella 2.5 ventricular assist device. This was advanced under fluoroscopy guidance and the tip was positioned in the left ventricle. The device was turned on for optimal hemodynamic support. 6 Sudanese JR4 guide catheter was used to engage the right coronary artery and selective angiography eric sullivan performed. The previous he described 95-99% stenosis of the mid segment of right coronary artery eric sullivan actually found to be a chronic total occlusion with bridging collaterals. After several initial uns uccessful attempts at crossing this lesion with 0.014 inch [employer] prowater followed by Kilo PT and F ilder XT guidewires, this was crossed with 0.014 inch Miracle bros 12 guidewire with support from Cor sair microcatheter. Due to heavy calcification, we had to use Guideliner inner catheter for addition al backup support. The lesion was predilated with a 2.5 x 15 mm trek balloon. The distal segment of the right coronary artery that had 70% stenosis was treated with a 2.5 x 18 mm MultiLink mini vision stent. The midsegment segment stenosis was treated with overlapping 3.0 x 28 and 3.0 x 23 mm MultiLin k vision stents. Follow-up angiography showed resolution of the stenosis to 0% with MICHELLE-3 distal jose e w. Subsequently, the left coronary artery was engaged with a 6 Sudanese XB 3.5 guide catheter. Selective angiography confirmed the previously described long 80-90% stenosis involving the proximal to mid seg ments of the left anterior descending artery and chronic total occlusion involving the proximal segme nt of the left circumflex artery. The left anterior descending artery stenosis was crossed with a 0.0 14 inch Xi3 guidewire. With the help of backup support from Guideliner inner catheter, a 2 .5 x 15 mm trek balloon was advanced and the lesion was predilated. This was then successfully treate d with overlapping 2.5 x 28 and 3.0 x 28 mm MultiLink vision stents. Follow-up angiography showed res olution of the stenosis to 0% with MICHELLE-3 distal flow. The chronic total occlusion involving the left circumflex artery was then attempted crossing using Ana Laura chadwick PT followed by Miracle bros 12 guidewire that appeared to be successful. AFter predilating this with 1.5 x 8 mm trek balloon, angiography showed contrast extravasation. This did not improve after prolonged dilation with a 3.0 x 15 mm trek balloon in the left main coronary artery position across the takeoff of the left circumflex artery. Hence a decision was made to stent the left main coronary artery with a stent graft. A 4.0 x 16 mm Graftmaster was then positioned in the left main coronary ar danielle across the takeoff of the chronically occluded left circumflex artery and was dilated at 15 aster. This was then postdilated with a 4.0 x 15 mm NC trek noncompliant balloon. Follow-up angiography leander wed complete sealing of the extravasation. Since patient remained hemodynamically stable, we decided to wean her off Impella device. This was slowly turned down, removed from the ventricle under fluoros copy guidance, turned off and removed completely. Hemostasis in the left groin was achieved by comple ting the Precose suture technique. Hemostasis in the right groin was achieved using Angio-Seal. Patie nt tolerated the procedure well. Conclusion Successful complex PCI/stents placement to the right coronary artery, left anterior descending artery and also the left main coronary artery with hemodynamic support from Impella ventricular assist truong ce in a patient with severe three-vessel coronary artery disease and ischemic cardiomyopathy deemed a poor surgical candidate. Recommendations 1. Aspirin 325 mg daily 2. Plavix 75 mg daiy for atleast 2-4 weeks and preferably one year 3. Cardiovascular risk factor modification
[2017-05-08] MEDS: ALPRAZolam 0.25 MG TABLET PO SCH (20:38)
[2017-05-09] VITALS (15 sets, daily range): BP systolic 79–133; BP diastolic 32–70
[2017-05-09 05:11] LABS: BASO # 0.1 x10^3/uL (0.0-0.2); BASO % 1 % (0-3); EOS % 1 % (0-3); HEMATOCRIT 23.3 % (36.0-47.0); HEMOGLOBIN 7.7 g/dL (12.0-15.5); LYMPH # 1.9 x10^3/uL (1.0-4.8); LYMPH % 17 % (24-48); MEAN CORPUSCULAR HEMOGLOBIN 29 pg (25-35); MEAN CORPUSCULAR HGB CONC 33 g/dL (31-37); MEAN CORPUSCULAR VOLUME 87 fL (79-100); MONO % 8 % (0-9); NEUT % 74 % (31-73); PLATELET COUNT 303 x10^3/uL (140-400); RED BLOOD COUNT 2.67 x10^6/uL (3.50-5.40); RED CELL DISTRIBUTION WIDTH 18.3 % (11.5-14.5); WHITE BLOOD COUNT 10.7 x10^3/uL (4.0-11.0)
[2017-05-09 05:37] LABS: CALCIUM 8.4 mg/dL (8.5-10.1); GFR 53.5; POTASSIUM 4.8 mmol/L (3.5-5.1)
[2017-05-09] MEDS: MEROPENEM 500 MG in IV NORMAL SALINE 50ML 50 ML IV SCH ×3 (05:49→21:42)
[2017-05-09] MEDS: LEVOTHYROXINE 75 MCG TABLET PO SCH (05:56)
--- NOTE | 2017-05-09 06:25 | PDOC ---
CHRIS PAGAN [employer] 05/09/17 0625: IM PROGRESS NOTES- Subjective Subjective awake, no distress Objective Objective alert, no distress Vitals Vital Signs Date Time Temp Pulse Resp B/P (MAP) Pulse Ox O2 Delivery O2 Flow Rate FiO2 05/09/17 05:00 97.6 90 30 103/58 (73) 95 Nasal Cannula 6.0 97.6 Physical Exam Physical Exam Physical Exam General appearance - alert, ill appearing, and in no distress Mental Status - alert, oriented to person, place, and time, affect appropriate to mood Head - normal Chest -improved aeration all lobes, wheezing subsided Heart - S1 and S2 normal Abdomen - soft, nontender, nondistended, BS+ Neurological - no acute neurological distress Musculoskeletal - no muscular tenderness noted Extremities - no pedal edema Skin - cool, diaphoretic Labs Laboratory Tests Test 05/07/17 13:21 05/07/17 18:22 05/07/17 22:06 05/08/17 03:36 Glucose (Fingerstick) 190 mg/dL (70-99) 149 mg/dL (70-99) 154 mg/dL (70-99) White Blood Count 5.4 x10^3/uL (4.0-11.0) Red Blood Count 2.97 x10^6/uL (3.50-5.40) Hemoglobin 8.5 g/dL (12.0-15.5) Hematocrit 26.6 % (36.0-47.0) Mean Corpuscular Volume 90 fL (79-100) Mean Corpuscular Hemoglobin 29 pg (25-35) Mean Corpuscular Hemoglobin Concent 32 g/dL (31-37) Red Cell Distribution Width 18.5 % (11.5-14.5) Platelet Count 226 x10^3/uL (140-400) Neutrophils (%) (Auto) 54 % (31-73) Lymphocytes (%) (Auto) 30 % (24-48) Monocytes (%) (Auto) 8 % (0-9) Eosinophils (%) (Auto) 7 % (0-3) Basophils (%) (Auto) 1 % (0-3) Neutrophils # (Auto) 2.9 x10^3uL (1.8-7.7) Lymphocytes # (Auto) 1.6 x10^3/uL (1.0-4.8) Monocytes # (Auto) 0.4 x10^3/uL (0.0-1.1) Eosinophils # (Auto) 0.4 x10^3/uL (0.0-0.7) Basophils # (Auto) 0.1 x10^3/uL (0.0-0.2) Prothrombin Time 15.6 SEC (11.7-14.0) Prothromb Time International Ratio 1.3 (0.8-1.1) Activated Partial Thromboplast Time 39 SEC (24-38) Fibrinogen 468 mg/dL (200-440) Sodium Level 137 mmol/L (136-145) Potassium Level 3.8 mmol/L (3.5-5.1) Chloride Level 98 mmol/L (98-107) Carbon Dioxide Level 36 mmol/L (21-32) Anion Gap 3 (6-14) Blood Urea Nitrogen 18 mg/dL (7-20) Creatinine 0.7 mg/dL (0.6-1.0) Estimated GFR (Cockcroft-Gault) 80.7 Glucose Level 116 mg/dL (70-99) Calcium Level 8.4 mg/dL (8.5-10.1) Test 05/08/17 08:17 05/08/17 08:30 05/08/17 16:12 05/08/17 20:35 Glucose (Fingerstick) 259 mg/dL (70-99) 162 mg/dL (70-99) 206 mg/dL (70-99) O2 Saturation 90 % (92-99) Arterial Blood pH 7.44 (7.35-7.45) Arterial Blood pCO2 at Patient Temp 45 mmHg (35-46) Arterial Blood pO2 at Patient Temp 64 mmHg (65-108) Arterial Blood HCO3 30 mmol/L (21-28) Arterial Blood Base Excess 5 mmol/L (-3-3) FiO2 60 Test 05/09/17 04:45 White Blood Count 10.7 x10^3/uL (4.0-11.0) Red Blood Count 2.67 x10^6/uL (3.50-5.40) Hemoglobin 7.7 g/dL (12.0-15.5) Hematocrit 23.3 % (36.0-47.0) Mean Corpuscular Volume 87 fL (79-100) Mean Corpuscular Hemoglobin 29 pg (25-35) Mean Corpuscular Hemoglobin Concent 33 g/dL (31-37) Red Cell Distribution Width 18.3 % (11.5-14.5) Platelet Count 303 x10^3/uL (140-400) Neutrophils (%) (Auto) 74 % (31-73) Lymphocytes (%) (Auto) 17 % (24-48) Monocytes (%) (Auto) 8 % (0-9) Eosinophils (%) (Auto) 1 % (0-3) Basophils (%) (Auto) 1 % (0-3) Neutrophils # (Auto) 7.9 x10^3uL (1.8-7.7) Lymphocytes # (Auto) 1.9 x10^3/uL (1.0-4.8) Monocytes # (Auto) 0.8 x10^3/uL (0.0-1.1) Eosinophils # (Auto) 0.1 x10^3/uL (0.0-0.7) Basophils # (Auto) 0.1 x10^3/uL (0.0-0.2) Sodium Level 137 mmol/L (136-145) Potassium Level 4.8 mmol/L (3.5-5.1) Chloride Level 98 mmol/L (98-107) Carbon Dioxide Level 36 mmol/L (21-32) Anion Gap 3 (6-14) Blood Urea Nitrogen 22 mg/dL (7-20) Creatinine 1.0 mg/dL (0.6-1.0) Estimated GFR (Cockcroft-Gault) 53.5 Glucose Level 156 mg/dL (70-99) Calcium Level 8.4 mg/dL (8.5-10.1) Laboratory Tests Test 05/08/17 08:17 05/08/17 08:30 05/08/17 16:12 05/08/17 20:35 Glucose (Fingerstick) 259 mg/dL (70-99) 162 mg/dL (70-99) 206 mg/dL (70-99) O2 Saturation 90 % (92-99) Arterial Blood pH 7.44 (7.35-7.45) Arterial Blood pCO2 at Patient Temp 45 mmHg (35-46) Arterial Blood pO2 at Patient Temp 64 mmHg (65-108) Arterial Blood HCO3 30 mmol/L (21-28) Arterial Blood Base Excess 5 mmol/L (-3-3) FiO2 60 Test 05/09/17 04:45 White Blood Count 10.7 x10^3/uL (4.0-11.0) Red Blood Count 2.67 x10^6/uL (3.50-5.40) Hemoglobin 7.7 g/dL (12.0-15.5) Hematocrit 23.3 % (36.0-47.0) Mean Corpuscular Volume 87 fL (79-100) Mean Corpuscular Hemoglobin 29 pg (25-35) Mean Corpuscular Hemoglobin Concent 33 g/dL (31-37) Red Cell Distribution Width 18.3 % (11.5-14.5) Platelet Count 303 x10^3/uL (140-400) Neutrophils (%) (Auto) 74 % (31-73) Lymphocytes (%) (Auto) 17 % (24-48) Monocytes (%) (Auto) 8 % (0-9) Eosinophils (%) (Auto) 1 % (0-3) Basophils (%) (Auto) 1 % (0-3) Neutrophils # (Auto) 7.9 x10^3uL (1.8-7.7) Lymphocytes # (Auto) 1.9 x10^3/uL (1.0-4.8) Monocytes # (Auto) 0.8 x10^3/uL (0.0-1.1) Eosinophils # (Auto) 0.1 x10^3/uL (0.0-0.7) Basophils # (Auto) 0.1 x10^3/uL (0.0-0.2) Sodium Level 137 mmol/L (136-145) Potassium Level 4.8 mmol/L (3.5-5.1) Chloride Level 98 mmol/L (98-107) Carbon Dioxide Level 36 mmol/L (21-32) Anion Gap 3 (6-14) Blood Urea Nitrogen 22 mg/dL (7-20) Creatinine 1.0 mg/dL (0.6-1.0) Estimated GFR (Cockcroft-Gault) 53.5 Glucose Level 156 mg/dL (70-99) Calcium Level 8.4 mg/dL (8.5-10.1) Meds Current Medications Acetaminophen (Tylenol) 650 mg PRN Q6HRS PRN PO MILD PAIN / TEMP; Start at 16:15 Atropine Sulfate 0.5 mg STK-MED ONCE .ROUTE ; Start 05/08/17 at 13:43; Stop 07/14 at 13:44; Status DC Bivalirudin (Angiomax) 250 mg STK-MED ONCE IV ; Start 05/08/17 at 12:38; Stop at 12:39; Status DC Bivalirudin (Angiomax) 250 mg STK-MED ONCE IV ; Start 05/08/17 at 13:42; Stop at 13:43; Status DC Bivalirudin (Angiomax) 500 mg 1X ONCE IV Last administered on 05/08/17 15:27 ; Start 05/08/17 at 14:15; Stop 05/08/17 at 14:24; Status DC Dextrose 500 ml @ 20 mls/hr 1X ONCE IV Last administered on 05/08/17 12:30; Start 05/08/17 at 14:30; Stop 05/09/17 at 15:29 Dopamine HCl/ Dextrose 250 ml @ 14.118 mls/ hr CONT PRN IV SEE I/O RECORD; Start 05/08/17 at 15:30 Fentanyl Citrate (Fentanyl 2ml Vial) 100 mcg 1X ONCE IV Last administered on 15:28; Start 05/08/17 at 14:15; Stop 05/08/17 at 14:24; Status DC Fentanyl Citrate (Fentanyl 2ml Vial) 100 mcg STK-MED ONCE .ROUTE ; Start at 12:07; Stop 05/08/17 at 12:08; Status DC Furosemide (Lasix) 40 mg 1X ONCE IVP Last administered on 05/08/17 08:17; Start 05/08/17 at 08:30; Stop 05/08/17 at 08:31; Status DC Furosemide (Lasix) 40 mg 1X ONCE IVP Last administered on 05/08/17 10:03; Start 05/08/17 at 10:00; Stop 05/08/17 at 10:01; Status DC Heparin Sodium (Porcine) (Heparin Sodium) 10,000 unit STK-MED ONCE .ROUTE ; Start 05/08/17 at 12:20; Stop 05/08/17 at 12:21; Status DC Heparin Sodium/ Sodium Chloride 500 ml @ As Directed STK-MED ONCE .ROUTE ; Start 05/08/17 at 11:42; Stop 05/08/17 at 11:43; Status DC Heparin Sodium/ Sodium Chloride 1,000 ml @ As Directed STK-MED ONCE .ROUTE ; Start 05/08/17 at 11:38; Stop 05/08/17 at 11:39; Status DC Heparin Sodium/ Sodium Chloride 1,000 unit 1X ONCE IART Last administered on 15:24; Start 05/08/17 at 14:15; Stop 05/08/17 at 14:24; Status DC Iodixanol (Visipaque 320) 100 ml 1X ONCE IART Last administered on 05/08/17 15:26; Start 05/08/17 at 14:15; Stop 05/08/17 at 14:24; Status DC Iodixanol (Visipaque 320) 100 ml STK-MED ONCE .ROUTE ; Start 05/08/17 at 11:39; Stop 05/08/17 at 11:40; Status DC Iodixanol (Visipaque 320) 100 ml STK-MED ONCE .ROUTE ; Start 05/08/17 at 13:47; Stop 05/08/17 at 13:48; Status DC Lidocaine HCl 20 ml STK-MED ONCE .ROUTE ; Start 05/08/17 at 11:39; Stop at 11:40; Status DC Lidocaine HCl 20 ml STK-MED ONCE .ROUTE ; Start 05/08/17 at 12:19; Stop at 12:20; Status DC Lidocaine HCl 38 ml 1X ONCE IJ Last administered on 05/08/17 15:24; Start 07/14 at 14:15; Stop 05/08/17 at 14:24; Status DC Midazolam HCl (Versed) 2 mg 1X ONCE IV Last administered on 05/08/17 15:28; Start 05/08/17 at 14:15; Stop 05/08/17 at 14:24; Status DC Midazolam HCl (Versed) 2 mg STK-MED ONCE .ROUTE ; Start 05/08/17 at 12:07; Stop 05/08/17 at 12:08; Status DC Nitroglycerin (Nitroglycerin) 200 mcg 1X ONCE IART Last administered on t 15:26; Start 05/08/17 at 14:15; Stop 05/08/17 at 14:24; Status DC Nitroglycerin (Nitrostat) 0.4 mg PRN Q5MIN PRN SL CHEST PAIN; Start 05/08/17 at 16:15 Assessment Assessment Assessment 1. Acute respiratory failure underlying CHF and possible COPD 2. Acute congestive heart failure, both diastolic and systolic with EF 35-40% 3. Severe 3V CAD 4. Chronic kidney disease stage 2. 5. Recent perforated peptic ulcer with laparoscopic repair of the peptic ulcer and Mahad patch placement. 6. Recent non-ST elevation myocardial infraction with abnormal EKG. 7. Severe malnutrition. 8. Recent Early sepsis, possible aspiration pneumonia. 9. 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 Hypothyroidism 12. Hyperlipidemia. 13. Gastroesophageal reflux disease. 14. Preglaucoma of both eyes 15. Recent atrial fibrillation with fast ventricular rate. 16. hypertension. 17. Diverticulosis. 18. Osteoarthritis. 19. Hearing loss PLAN: Acute respiratory failure pulmonary consult supplemental O2 nebulizer O2 supplement to maintain Sat >90% CHF bilateral pleural effusions-monitor 05/06 VM 40% 05/07 hypoxia/hypotension-BIPAP and dopamine-improved Moderate distress: clammy skin, diaphoretic. indicates short of breath on BiPap 10/02 60%. ABGs stat, CXR stat, staff advised to call Dr. Martins with results, Additional Lasix 20mg IV, May need dopamine to maintain SBP, Sats 90% 05/09 improving A/C CHF Daily wt Admit wt 159# 05/08 166.13 05/09 161.44 IO Lasix 40mg IV x 1 05/05 Lasix 40mg daily po CXR 05/07 persistent pulmonary edema/mild improvement pleural effusions 05/08 Lasix 40mg IV daily, weight increased, BP low with MAP 60-102 Give Lasix 40mg IV x 2this morning=80mg total , additional KCL 20Meq po x 1 CAD recent NSTEMI CC 05/05; LAD 89-90% stenosis prox-mid segment Diag 40% stenosis prox-mid segment RCA 95-99% critical stenosis mid segment 70% calcified stenosis distal segment Impella with stent pending Monday, may require elective intubation inability to lay flat Heparin infusion-stopped Remains on Plavix CC Stent RCA, LAD stent graft LM 05/08/12 DM II FSBS/SSI BS [id number] recent PUD per with repair CT abd/pelvis 04/14- (Colonic sig/descending) diverticulosis, no CT evidence intra-abdominal abscess. anemia CD/coagulopathy 05/05 Select 7.6 05/09 7.7 prolonged anti-Xa hematology consult Vitamin K 10mg IV x 109/10 05/08 Protime 15.6 INR 1.3 PTT 39 Fibrinogen 468 DVT/GI prophylaxis heparin IV carafate/PPI Hypokalemia- 05/06 3.4 05/09 4.8 05/06 additional 20meq given 05/07 KCL increased to 20meq bid For more details regarding further plans, please refer to the orders. Plan Plan For more details regarding further plans, please refer to the orders. RITA HUMMEL MD 05/09/17 1133: IM PROGRESS NOTES- Assessment Assessment The patient was seen and examined by me. Chart reviewed and plan of care formulated. Discussed with, reviewed and agree with [employer] CR[employer] OPERATOR's notes, plan of care and orders with modifications as necessary. For more details regarding further plans, please refer to the orders. D/w patient and family. Slowly improving. Transfer to [facility] tomorrow if stable. Monitor renal function. CHRIS PAGAN APRN May 09, 2017 06:25 RITA HUMMEL MD May 09, 2017 11:33
--- NOTE | 2017-05-09 07:54 | RAD ---
Portable chest, 05/09/2017: History: Pulmonary edema Comparison is made yesterday study. The heart is enlarged. There are moderate ongoing parahilar infiltrates with increasing loss of definition of the underlying pulmonary vascularity. The findings are compatible with pulmonary edema. Bilateral pleural effusions are present, left greater than right. These have increased since yesterday's study. IMPRESSION: Ongoing congestive heart failure with worsening pulmonary edema and pleural effusions, left greater than right.
[2017-05-09] MEDS: METOCLOPRAMIDE HCL 10 MG/2 ML VIAL. IV SCH ×3 (07:57→21:42)
[2017-05-09] MEDS: AMIODARONE HCL 200 MG TABLET. PO SCH (07:57)
[2017-05-09] MEDS: CLOPIDOGREL BISULFATE 75 MG TABLET PO SCH (07:58)
[2017-05-09] MEDS: SIMETHICONE 80 MG TAB.CHEW PO SCH ×3 (07:58→16:42)
[2017-05-09] MEDS: FUROSEMIDE 40 MG/4 ML VIAL. IVP SCH (07:58)
[2017-05-09] MEDS: POTASSIUM CHLORIDE 20 MEQ TABLET.ER. PO SCH ×2 (07:58→16:43)
[2017-05-09] MEDS: SUCRALFATE 1 GM TABLET. PO SCH ×2 (07:58→16:40)
[2017-05-09] MEDS: ASPIRIN ENTERIC COATED 81 MG TABLET.DR. PO SCH (07:58)
[2017-05-09] MEDS: PANTOPRAZOLE 40 MG TABLET.DR. PO SCH (07:58)
[2017-05-09] MEDS: CITALOPRAM 20 MG TABLET. PO SCH (07:58)
[2017-05-09] MEDS: INSULIN ASPART 300 UNITS/3 ML INSULN.PEN SQ SCH ×4 (08:00→21:00)
[2017-05-09] MEDS: IPRATRPIUM/ALBUTEROL 0.5/2.5MG 3 ML NEBU. NEB SCH ×4 (08:10→19:19)
--- NOTE | 2017-05-09 08:44 | CARD ---
APPROVED REPORT EXAM: LIMITED Two-dimensional echocardiogram. Other Information Quality : Good INDICATION R/O Tamponade PERICARDIAL EFFUSION There is moderate left pleural effusion. There is a trivial pericardial effusion. <Conclusion> Moderate left ventricular systolic dysfunction. The ejection fraction is estimated at 35-40% There is a trivial pericardial effusion.
--- NOTE | 2017-05-09 09:01 | PDOC ---
PROGRESS NOTES Subjective Subjective c/c - f/u of Coagulopathy ROS - no CP Objective Objective Vital Signs Date Time Temp Pulse Resp B/P (MAP) Pulse Ox O2 Delivery O2 Flow Rate FiO2 05/09/17 08:10 95 Nasal Cannula 5.0 05/09/17 08:00 97.8 96 28 133/70 (91) 97.8 Intake and Output 05/10/17 07:00 Intake Total 240 ml Output Total 15 ml Balance 225 ml Intake Oral 240 ml Output Urine Total 15 ml Physical Exam Heart: Normal S1, Normal S2 General: Alert Lungs: Normal air movement Assessment Assessment Assessment/Plan 1. Coagulopathy - Elevated anti-Xa level despite being off of heparin. Unfortunately, we do not have baseline pt and ptt levels prior to starting heparin this admission, but on 04/30 she had a slightly elevated pt/inr. She also recently had a perforated ulcer. She may have some nutritional deficiency with vit k contributing to the findings. data technician believes that she has something in her plasma that is reacting with the test. We have also run a thrombin time that was normal and PTT only 39. This would mean that she does not have any heparin in her system and her fibrinogen is working appropriately. Given the possibility of nutritional deficiency, she received 10mg of vitamin k. No need for mixing study as PTT is better. No evidence of bleeding. 2. Acute respiratory failure underlying CHF and possible COPD Comment Review of Relevant I have reviewed the following items airam (where applicable) has been applied. Labs Laboratory Tests Test 05/07/17 13:21 05/07/17 18:22 05/07/17 22:06 05/08/17 03:36 Glucose (Fingerstick) 190 mg/dL (70-99) 149 mg/dL (70-99) 154 mg/dL (70-99) White Blood Count 5.4 x10^3/uL (4.0-11.0) Red Blood Count 2.97 x10^6/uL (3.50-5.40) Hemoglobin 8.5 g/dL (12.0-15.5) Hematocrit 26.6 % (36.0-47.0) Mean Corpuscular Volume 90 fL (79-100) Mean Corpuscular Hemoglobin 29 pg (25-35) Mean Corpuscular Hemoglobin Concent 32 g/dL (31-37) Red Cell Distribution Width 18.5 % (11.5-14.5) Platelet Count 226 x10^3/uL (140-400) Neutrophils (%) (Auto) 54 % (31-73) Lymphocytes (%) (Auto) 30 % (24-48) Monocytes (%) (Auto) 8 % (0-9) Eosinophils (%) (Auto) 7 % (0-3) Basophils (%) (Auto) 1 % (0-3) Neutrophils # (Auto) 2.9 x10^3uL (1.8-7.7) Lymphocytes # (Auto) 1.6 x10^3/uL (1.0-4.8) Monocytes # (Auto) 0.4 x10^3/uL (0.0-1.1) Eosinophils # (Auto) 0.4 x10^3/uL (0.0-0.7) Basophils # (Auto) 0.1 x10^3/uL (0.0-0.2) Prothrombin Time 15.6 SEC (11.7-14.0) Prothromb Time International Ratio 1.3 (0.8-1.1) Activated Partial Thromboplast Time 39 SEC (24-38) Fibrinogen 468 mg/dL (200-440) Sodium Level 137 mmol/L (136-145) Potassium Level 3.8 mmol/L (3.5-5.1) Chloride Level 98 mmol/L (98-107) Carbon Dioxide Level 36 mmol/L (21-32) Anion Gap 3 (6-14) Blood Urea Nitrogen 18 mg/dL (7-20) Creatinine 0.7 mg/dL (0.6-1.0) Estimated GFR (Cockcroft-Gault) 80.7 Glucose Level 116 mg/dL (70-99) Calcium Level 8.4 mg/dL (8.5-10.1) Test 05/08/17 08:17 05/08/17 08:30 05/08/17 16:12 05/08/17 20:35 Glucose (Fingerstick) 259 mg/dL (70-99) 162 mg/dL (70-99) 206 mg/dL (70-99) O2 Saturation 90 % (92-99) Arterial Blood pH 7.44 (7.35-7.45) Arterial Blood pCO2 at Patient Temp 45 mmHg (35-46) Arterial Blood pO2 at Patient Temp 64 mmHg (65-108) Arterial Blood HCO3 30 mmol/L (21-28) Arterial Blood Base Excess 5 mmol/L (-3-3) FiO2 60 Test 05/09/17 04:45 White Blood Count 10.7 x10^3/uL (4.0-11.0) Red Blood Count 2.67 x10^6/uL (3.50-5.40) Hemoglobin 7.7 g/dL (12.0-15.5) Hematocrit 23.3 % (36.0-47.0) Mean Corpuscular Volume 87 fL (79-100) Mean Corpuscular Hemoglobin 29 pg (25-35) Mean Corpuscular Hemoglobin Concent 33 g/dL (31-37) Red Cell Distribution Width 18.3 % (11.5-14.5) Platelet Count 303 x10^3/uL (140-400) Neutrophils (%) (Auto) 74 % (31-73) Lymphocytes (%) (Auto) 17 % (24-48) Monocytes (%) (Auto) 8 % (0-9) Eosinophils (%) (Auto) 1 % (0-3) Basophils (%) (Auto) 1 % (0-3) Neutrophils # (Auto) 7.9 x10^3uL (1.8-7.7) Lymphocytes # (Auto) 1.9 x10^3/uL (1.0-4.8) Monocytes # (Auto) 0.8 x10^3/uL (0.0-1.1) Eosinophils # (Auto) 0.1 x10^3/uL (0.0-0.7) Basophils # (Auto) 0.1 x10^3/uL (0.0-0.2) Sodium Level 137 mmol/L (136-145) Potassium Level 4.8 mmol/L (3.5-5.1) Chloride Level 98 mmol/L (98-107) Carbon Dioxide Level 36 mmol/L (21-32) Anion Gap 3 (6-14) Blood Urea Nitrogen 22 mg/dL (7-20) Creatinine 1.0 mg/dL (0.6-1.0) Estimated GFR (Cockcroft-Gault) 53.5 Glucose Level 156 mg/dL (70-99) Calcium Level 8.4 mg/dL (8.5-10.1) Laboratory Tests Test 05/08/17 16:12 05/08/17 20:35 05/09/17 04:45 Glucose (Fingerstick) 162 mg/dL (70-99) 206 mg/dL (70-99) White Blood Count 10.7 x10^3/uL (4.0-11.0) Red Blood Count 2.67 x10^6/uL (3.50-5.40) Hemoglobin 7.7 g/dL (12.0-15.5) Hematocrit 23.3 % (36.0-47.0) Mean Corpuscular Volume 87 fL (79-100) Mean Corpuscular Hemoglobin 29 pg (25-35) Mean Corpuscular Hemoglobin Concent 33 g/dL (31-37) Red Cell Distribution Width 18.3 % (11.5-14.5) Platelet Count 303 x10^3/uL (140-400) Neutrophils (%) (Auto) 74 % (31-73) Lymphocytes (%) (Auto) 17 % (24-48) Monocytes (%) (Auto) 8 % (0-9) Eosinophils (%) (Auto) 1 % (0-3) Basophils (%) (Auto) 1 % (0-3) Neutrophils # (Auto) 7.9 x10^3uL (1.8-7.7) Lymphocytes # (Auto) 1.9 x10^3/uL (1.0-4.8) Monocytes # (Auto) 0.8 x10^3/uL (0.0-1.1) Eosinophils # (Auto) 0.1 x10^3/uL (0.0-0.7) Basophils # (Auto) 0.1 x10^3/uL (0.0-0.2) Sodium Level 137 mmol/L (136-145) Potassium Level 4.8 mmol/L (3.5-5.1) Chloride Level 98 mmol/L (98-107) Carbon Dioxide Level 36 mmol/L (21-32) Anion Gap 3 (6-14) Blood Urea Nitrogen 22 mg/dL (7-20) Creatinine 1.0 mg/dL (0.6-1.0) Estimated GFR (Cockcroft-Gault) 53.5 Glucose Level 156 mg/dL (70-99) Calcium Level 8.4 mg/dL (8.5-10.1) Medications Current Medications Nitroglycerin (Nitroglycerin) 200 mcg 1X ONCE IART Last administered on 13:59; Start 05/05/17 at 14:00; Stop 05/05/17 at 14:01; Status DC Verapamil HCl (Verapamil) 2.5 mg 1X ONCE IART Last administered on 05/05/17 13 :59; Start 05/05/17 at 14:00; Stop 05/05/17 at 14:01; Status DC Heparin Sodium (Porcine) (Heparin Sodium) 2,500 unit 1X ONCE IART Last administered on 05/05/17 13:58; Start 05/05/17 at 14:00; Stop 05/05/17 at 14:01; Status DC Heparin Sodium/ Sodium Chloride 1,000 unit 1X ONCE IART Last administered on 13:59; Start 05/05/17 at 14:00; Stop 05/05/17 at 14:01; Status DC Midazolam HCl (Versed) 2 mg 1X ONCE IV Last administered on 05/05/17 14:00; Start 05/05/17 at 14:00; Stop 05/05/17 at 14:01; Status DC Fentanyl Citrate (Fentanyl 2ml Vial) 100 mcg 1X ONCE IV Last administered on 14:00; Start 05/05/17 at 14:00; Stop 05/05/17 at 14:01; Status DC Iohexol (Omnipaque 300 Mg/ml) 100 ml 1X ONCE IART Last administered on 13:59; Start 05/05/17 at 14:00; Stop 05/05/17 at 14:01; Status DC Lidocaine HCl 20 ml 1X ONCE IJ Last administered on 05/05/17 13:59; Start 05/05 at 14:00; Stop 05/05/17 at 14:01; Status DC Albuterol/ Ipratropium (Duoneb) 3 ml RTQID NEB Last administered on 05/09/17 08:10; Start 05/05/17 at 16:00 Heparin Sodium/ Dextrose 500 ml @ 17.3 mls/hr CONT PRN IV SEE I/O RECORD Last administered on 9/8/17at 18:19; Start 05/05/17 at 17:15; Stop 05/06/17 at 20:29; Status DC Heparin Sodium (Porcine) (Heparin Sodium) 1,800 unit PRN Q6HRS PRN IV FOR UFH LEVEL LESS THAN 0.2; Start 05/05/17 at 17:15; Stop 05/06/17 at 20:29; Status DC Alprazolam (Xanax) 0.25 mg HS PO Last administered on 05/08/17 20:38; Start at 21:00 Amiodarone HCl (Cordarone) 200 mg BID PO ; Start 05/05/17 at 21:00; Stop 05/06/17 at 07:49; Status DC Furosemide (Lasix) 40 mg DAILY PO ; Start 05/06/17 at 09:00; Stop 05/06/17 at 09: 00; Status DC Albuterol/ Ipratropium (Duoneb) 3 ml BID NEB ; Start 05/05/17 at 21:00; Stop 05/05 at 21:00; Status DC Levothyroxine Sodium (Synthroid) 75 mcg DAILY07 PO Last administered on 05:56; Start 05/06/17 at 09:00 Lisinopril (Prinivil) 10 mg DAILY PO ; Start 05/06/17 at 09:00; Stop 05/06/17 at 09:00; Status DC Meropenem (Merrem) 500 mg Q8HRS IV ; Start 05/05/17 at 22:00; Stop 05/05/17 at 22: 00; Status DC Pantoprazole Sodium (Protonix) 40 mg DAILYAC PO Last administered on 05/09/17 07:58; Start 05/06/17 at 07:30 Simethicone (Gas-X) 80 mg TIDAC PO Last administered on 05/09/17 07:58; Start 05/05/17 at 18:00 Sucralfate (Carafate) 1 gm BIDAC PO Last administered on 05/09/17 07:58; Start 05/05/17 at 18:00 Citalopram Hydrobromide (CeleXA) 20 mg DAILY PO Last administered on 05/09/17 07:58; Start 05/06/17 at 09:00 Non-Formulary Medication 3 mg QHS PO ; Start 05/05/17 at 21:00; Stop 05/05/17 at 21:00; Status DC Metoclopramide HCl (Reglan) 10 mg TID IV Last administered on 05/09/17 07:57; Start 05/05/17 at 21:00 Ondansetron HCl (Zofran) 4 mg PRN Q6HRS PRN IV NAUSEA/VOMITING; Start 05/05/17 at 18:00 Insulin Aspart (NovoLOG) 0-5 UNITS TIDWMEALHC SQ Last administered on 08:00; Start 05/05/17 at 21:00 Dextrose (Dextrose 50%-Water Syringe) 12.5 gm PRN Q15MIN PRN IV SEE COMMENTS; Start 05/05/17 at 17:45 Meropenem 500 mg/ Sodium Chloride 50 ml @ 100 mls/hr Q8HRS IV Last administered on 05/09/17 05:49; Start 05/05/17 at 18:00 Furosemide (Lasix) 40 mg 1X ONCE IVP Last administered on 05/05/17 23:32; Start 05/05/17 at 23:15; Stop 05/05/17 at 23:16; Status DC Dopamine HCl/ Dextrose 250 ml @ 13.523 mls/ hr CONT PRN IV SEE I/O RECORD Last administered on 05/08/17 14:56; Start 05/05/17 at 23:30; Stop 05/08/17 at 15:31; Status DC Amiodarone HCl (Cordarone) 200 mg DAILY PO Last administered on 05/09/17 07:57 ; Start 05/06/17 at 09:00 Clopidogrel Bisulfate (Plavix) 300 mg 1X ONCE PO Last administered on 08:47; Start 05/06/17 at 08:00; Stop 05/06/17 at 08:01; Status DC Clopidogrel Bisulfate (Plavix) 75 mg DAILYWBKFT PO ; Start 05/06/17 at 08:00; Stop 05/06/17 at 08:04; Status DC Furosemide (Lasix) 40 mg DAILY IVP Last administered on 05/09/17 07:58; Start 05/06/17 at 09:00 Aspirin (Ecotrin) 81 mg DAILYWBKFT PO Last administered on 05/09/17 07:58; Start 05/06/17 at 09:00 Pantoprazole Sodium (Protonix) 40 mg DAILYAC PO ; Start 05/07/17 at 07:30; Stop 05/07/17 at 07:30; Status DC Pantoprazole Sodium (Protonix) 40 mg 1X ONCE PO ; Start 05/06/17 at 08:00; Stop 05/06/17 at 08:01; Status DC Clopidogrel Bisulfate (Plavix) 75 mg DAILYWBKFT PO Last administered on 07:58; Start 05/07/17 at 08:00 Info (Anti-Coagulation Monitoring By Pharmacy) 1 each PRN DAILY PRN MC SEE COMMENTS Last administered on 05/06/17 10:49; Start 05/06/17 at 11:00; Stop 05/07 at 07:29; Status DC Potassium Chloride (Klor-Con) 10 meq DAILYWBKFT PO Last administered on 12:32; Start 05/06/17 at 11:00; Stop 05/07/17 at 07:54; Status DC Potassium Chloride (Klor-Con) 20 meq BIDWMEALS PO Last administered on 07:58; Start 05/07/17 at 08:00 Phytonadione 10 mg/Sodium Chloride 51 ml @ 102 mls/hr 1X ONCE IV Last administered on 05/07/17 13:19; Start 05/07/17 at 12:30; Stop 05/07/17 at 12:59 ; Status DC Furosemide (Lasix) 40 mg 1X ONCE IVP Last administered on 05/08/17 08:17; Start 05/08/17 at 08:30; Stop 05/08/17 at 08:31; Status DC Furosemide (Lasix) 40 mg 1X ONCE IVP Last administered on 05/08/17 10:03; Start 05/08/17 at 10:00; Stop 05/08/17 at 10:01; Status DC Heparin Sodium/ Sodium Chloride 1,000 ml @ As Directed STK-MED ONCE .ROUTE ; Start 05/08/17 at 11:38; Stop 05/08/17 at 11:39; Status DC Lidocaine HCl 20 ml STK-MED ONCE .ROUTE ; Start 05/08/17 at 11:39; Stop at 11:40; Status DC Iodixanol (Visipaque 320) 100 ml STK-MED ONCE .ROUTE ; Start 05/08/17 at 11:39; Stop 05/08/17 at 11:40; Status DC Heparin Sodium/ Sodium Chloride 500 ml @ As Directed STK-MED ONCE .ROUTE ; Start 05/08/17 at 11:42; Stop 05/08/17 at 11:43; Status DC Fentanyl Citrate (Fentanyl 2ml Vial) 100 mcg STK-MED ONCE .ROUTE ; Start at 12:07; Stop 05/08/17 at 12:08; Status DC Midazolam HCl (Versed) 2 mg STK-MED ONCE .ROUTE ; Start 05/08/17 at 12:07; Stop 05/08/17 at 12:08; Status DC Lidocaine HCl 20 ml STK-MED ONCE .ROUTE ; Start 05/08/17 at 12:19; Stop at 12:20; Status DC Heparin Sodium (Porcine) (Heparin Sodium) 10,000 unit STK-MED ONCE .ROUTE ; Start 05/08/17 at 12:20; Stop 05/08/17 at 12:21; Status DC Bivalirudin (Angiomax) 250 mg STK-MED ONCE IV ; Start 05/08/17 at 12:38; Stop at 12:39; Status DC Bivalirudin (Angiomax) 250 mg STK-MED ONCE IV ; Start 05/08/17 at 13:42; Stop at 13:43; Status DC Atropine Sulfate 0.5 mg STK-MED ONCE .ROUTE ; Start 05/08/17 at 13:43; Stop 07/14 at 13:44; Status DC Iodixanol (Visipaque 320) 100 ml STK-MED ONCE .ROUTE ; Start 05/08/17 at 13:47; Stop 05/08/17 at 13:48; Status DC Nitroglycerin (Nitroglycerin) 200 mcg 1X ONCE IART Last administered on t 15:26; Start 05/08/17 at 14:15; Stop 05/08/17 at 14:24; Status DC Heparin Sodium/ Sodium Chloride 1,000 unit 1X ONCE IART Last administered on 15:24; Start 05/08/17 at 14:15; Stop 05/08/17 at 14:24; Status DC Midazolam HCl (Versed) 2 mg 1X ONCE IV Last administered on 05/08/17 15:28; Start 05/08/17 at 14:15; Stop 05/08/17 at 14:24; Status DC Fentanyl Citrate (Fentanyl 2ml Vial) 100 mcg 1X ONCE IV Last administered on 15:28; Start 05/08/17 at 14:15; Stop 05/08/17 at 14:24; Status DC Iodixanol (Visipaque 320) 100 ml 1X ONCE IART Last administered on 05/08/17 15:26; Start 05/08/17 at 14:15; Stop 05/08/17 at 14:24; Status DC Bivalirudin (Angiomax) 500 mg 1X ONCE IV Last administered on 05/08/17 15:27 ; Start 05/08/17 at 14:15; Stop 05/08/17 at 14:24; Status DC Lidocaine HCl 38 ml 1X ONCE IJ Last administered on 05/08/17 15:24; Start 07/14 at 14:15; Stop 05/08/17 at 14:24; Status DC Dextrose 500 ml @ 20 mls/hr 1X ONCE IV Last administered on 05/08/17 12:30; Start 05/08/17 at 14:30; Stop 05/09/17 at 15:29 Dopamine HCl/ Dextrose 250 ml @ 14.118 mls/ hr CONT PRN IV SEE I/O RECORD; Start 05/08/17 at 15:30 Acetaminophen (Tylenol) 650 mg PRN Q6HRS PRN PO MILD PAIN / TEMP; Start at 16:15 Nitroglycerin (Nitrostat) 0.4 mg PRN Q5MIN PRN SL CHEST PAIN; Start 05/08/17 at 16:15 Active Scripts Active Reported Meropenem 500 Mg Vial 500 Mg IV Q8HRS Humalog (Insulin Lispro) 100 Unit/1 Ml Cartridge 100 Unit SQ TIDACHC Metoclopramide Hcl 10 Mg/2 Ml Disp.syrin 10 Mg IV TID Furosemide 40 Mg Tablet 1 Tab PO DAILY Eliquis (Apixaban) 5 Mg Tablet 5 Mg PO BID Lisinopril 10 Mg Tablet 1 Tab PO DAILY Ondansetron Hcl 4 Mg/2 Ml Syr (Ondansetron Hcl/Pf) 4 Mg/2 Ml Disp.syrin 4 Mg IJ Q6HRS PRN Pantoprazole Sodium 40 Mg Tablet.dr 1 Tab PO DAILY Sucralfate 1 Gm Tablet 1 Tab PO BID Simethicone 80 Mg Tab.chew 80 Mg PO TID Duoneb 0.5-3(2.5) Mg/3 Ml (Albuterol/Ipratropium) 3 Ml Ampul.neb 3 Ml NEB BID Escitalopram Oxalate 10 Mg Tablet 1 Tab PO DAILY Alprazolam 0.25 Mg Tablet 1 Tab PO HS Melatonin 3 Mg Tablet 3 Mg PO QHS Levothyroxine Sodium 75 Mcg Tablet 1 Tab PO DAILY Amiodarone Hcl 200 Mg Tablet 1 Tab PO BID Vitals/I & O Vital Sign - Last 24 Hours 05/08/17 05/08/17 05/08/17 05/08/17 09:02 09:18 10:00 10:30 Pulse 103 103 101 Resp 34 27 B/P (MAP) 111/75 (87) 111/75 112/63 (79) Pulse Ox 92 95 94 O2 Delivery BiPAP/CPAP BiPAP/CPAP BiPAP/CPAP 05/08/17 05/08/17 05/08/17 05/08/17 11:00 11:45 11:45 15:28 Pulse 89 85 Resp 26 24 18 B/P (MAP) 93/53 (66) 96/54 (68) Pulse Ox 100 100 100 O2 Delivery BiPAP/CPAP BiPAP/CPAP Bi-pap BiPAP/CPAP 05/08/17 05/08/17 05/08/17 05/08/17 15:55 15:55 15:59 16:00 Pulse 103 Resp 18 18 16 Pulse Ox 100 100 100 O2 Delivery BiPAP/CPAP BiPAP/CPAP NonRebreather Mask Bi-pap O2 Flow Rate 15.0 05/08/17 05/08/17 05/08/17 05/08/17 16:00 16:07 16:15 16:30 Temp 97.5 97.5 Pulse 84 80 79 Resp 18 18 18 B/P (MAP) 96/60 (72) 88/60 (69) 81/55 (64) Pulse Ox 100 100 100 100 O2 Delivery BiPAP/CPAP BiPAP/CPAP BiPAP/CPAP BiPAP/CPAP 05/08/17 05/08/17 05/08/17 05/08/17 17:00 17:30 18:00 18:30 Pulse 78 80 79 81 Resp 18 18 18 18 B/P (MAP) 90/58 (69) 89/64 (72) 84/61 (69) 98/55 (69) Pulse Ox 97 97 94 96 O2 Delivery Venturi Mask Nasal Cannula Nasal Cannula Nasal Cannula O2 Flow Rate 5.0 4.0 4.0 05/08/17 05/08/17 05/08/17 05/08/17 19:00 19:23 19:49 20:00 Temp 97.4 97.4 Pulse 83 Resp 20 B/P (MAP) 98/58 (71) Pulse Ox 95 96 O2 Delivery Nasal Cannula Nasal Cannula Nasal Cannula O2 Flow Rate 4.0 4.0 4.0 4.0 05/08/17 05/08/17 05/08/17 05/08/17 20:00 21:00 22:00 23:00 Pulse 80 80 79 80 Resp 19 18 20 19 B/P (MAP) 92/54 (67) 85/56 (66) 108/66 (80) 101/67 (78) Pulse Ox 95 100 100 100 O2 Delivery Nasal Cannula BiPAP/CPAP BiPAP/CPAP BiPAP/CPAP O2 Flow Rate 4.0 05/08/17 05/08/17 05/09/17 05/09/17 23:12 23:45 00:00 01:00 Temp 97.8 97.8 Pulse 83 80 Resp 20 20 B/P (MAP) 85/62 (70) 79/46 (57) Pulse Ox 100 100 100 O2 Delivery BiPAP/CPAP Bi-pap BiPAP/CPAP BiPAP/CPAP 05/09/17 05/09/17 05/09/17 05/09/17 02:00 03:00 03:49 04:00 Pulse 79 84 Resp 21 22 B/P (MAP) 90/44 (59) 84/51 (62) Pulse Ox 100 100 O2 Delivery BiPAP/CPAP BiPAP/CPAP Nasal Cannula O2 Flow Rate 6.0 6.0 05/09/17 05/09/17 05/09/17 05/09/17 04:00 05:00 06:00 07:00 Temp 97.6 97.6 Pulse 83 90 94 91 Resp 23 30 20 28 B/P (MAP) 97/57 (70) 103/58 (73) 99/58 (72) 108/68 (81) Pulse Ox 97 95 95 100 O2 Delivery Nasal Cannula Nasal Cannula Nasal Cannula Nasal Cannula O2 Flow Rate 6.0 6.0 6.0 05/09/17 05/09/17 05/09/17 05/09/17 07:57 08:00 08:00 08:00 Temp 97.8 97.8 Pulse 105 96 Resp 28 B/P (MAP) 108/68 133/70 (91) Pulse Ox 98 O2 Delivery Nasal Cannula Nasal Cannula O2 Flow Rate 6.0 5.0 5.0 05/09/17 08:10 Pulse Ox 95 O2 Delivery Nasal Cannula O2 Flow Rate 5.0 Intake and Output 05/09/17 05/09/17 05/10/17 15:00 23:00 07:00 Intake Total 240 ml Output Total 15 ml Balance 225 ml JAQUELIN BIRMINGHAM MD May 09, 2017 09:01
--- NOTE | 2017-05-09 10:09 | PDOC ---
PULMONARY PROGRESS NOTES Subjective PT OFF BIPAP DOING BETTER LESS SOA Vitals Vital Signs Date Time Temp Pulse Resp B/P (MAP) Pulse Ox O2 Delivery O2 Flow Rate FiO2 05/09/17 09:00 92 28 104/32 (56) 100 Nasal Cannula 5.0 05/09/17 08:00 97.8 97.8 ROS: No Nausea, No Chest Pain, No Abdominal Pain, No Increase Cough General: No acute distress Lungs: Crackles, Other Cardiovascular: S1, S2 Abdomen: Soft, Non-tender Neuro Exam: Alert Extremities: Other (1+edema) Skin: Warm Labs Laboratory Tests Test 05/07/17 13:21 05/07/17 18:22 05/07/17 22:06 05/08/17 03:36 Glucose (Fingerstick) 190 mg/dL (70-99) 149 mg/dL (70-99) 154 mg/dL (70-99) White Blood Count 5.4 x10^3/uL (4.0-11.0) Red Blood Count 2.97 x10^6/uL (3.50-5.40) Hemoglobin 8.5 g/dL (12.0-15.5) Hematocrit 26.6 % (36.0-47.0) Mean Corpuscular Volume 90 fL (79-100) Mean Corpuscular Hemoglobin 29 pg (25-35) Mean Corpuscular Hemoglobin Concent 32 g/dL (31-37) Red Cell Distribution Width 18.5 % (11.5-14.5) Platelet Count 226 x10^3/uL (140-400) Neutrophils (%) (Auto) 54 % (31-73) Lymphocytes (%) (Auto) 30 % (24-48) Monocytes (%) (Auto) 8 % (0-9) Eosinophils (%) (Auto) 7 % (0-3) Basophils (%) (Auto) 1 % (0-3) Neutrophils # (Auto) 2.9 x10^3uL (1.8-7.7) Lymphocytes # (Auto) 1.6 x10^3/uL (1.0-4.8) Monocytes # (Auto) 0.4 x10^3/uL (0.0-1.1) Eosinophils # (Auto) 0.4 x10^3/uL (0.0-0.7) Basophils # (Auto) 0.1 x10^3/uL (0.0-0.2) Prothrombin Time 15.6 SEC (11.7-14.0) Prothromb Time International Ratio 1.3 (0.8-1.1) Activated Partial Thromboplast Time 39 SEC (24-38) Fibrinogen 468 mg/dL (200-440) Sodium Level 137 mmol/L (136-145) Potassium Level 3.8 mmol/L (3.5-5.1) Chloride Level 98 mmol/L (98-107) Carbon Dioxide Level 36 mmol/L (21-32) Anion Gap 3 (6-14) Blood Urea Nitrogen 18 mg/dL (7-20) Creatinine 0.7 mg/dL (0.6-1.0) Estimated GFR (Cockcroft-Gault) 80.7 Glucose Level 116 mg/dL (70-99) Calcium Level 8.4 mg/dL (8.5-10.1) Test 05/08/17 08:17 05/08/17 08:30 05/08/17 16:12 05/08/17 20:35 Glucose (Fingerstick) 259 mg/dL (70-99) 162 mg/dL (70-99) 206 mg/dL (70-99) O2 Saturation 90 % (92-99) Arterial Blood pH 7.44 (7.35-7.45) Arterial Blood pCO2 at Patient Temp 45 mmHg (35-46) Arterial Blood pO2 at Patient Temp 64 mmHg (65-108) Arterial Blood HCO3 30 mmol/L (21-28) Arterial Blood Base Excess 5 mmol/L (-3-3) FiO2 60 Test 05/09/17 04:45 White Blood Count 10.7 x10^3/uL (4.0-11.0) Red Blood Count 2.67 x10^6/uL (3.50-5.40) Hemoglobin 7.7 g/dL (12.0-15.5) Hematocrit 23.3 % (36.0-47.0) Mean Corpuscular Volume 87 fL (79-100) Mean Corpuscular Hemoglobin 29 pg (25-35) Mean Corpuscular Hemoglobin Concent 33 g/dL (31-37) Red Cell Distribution Width 18.3 % (11.5-14.5) Platelet Count 303 x10^3/uL (140-400) Neutrophils (%) (Auto) 74 % (31-73) Lymphocytes (%) (Auto) 17 % (24-48) Monocytes (%) (Auto) 8 % (0-9) Eosinophils (%) (Auto) 1 % (0-3) Basophils (%) (Auto) 1 % (0-3) Neutrophils # (Auto) 7.9 x10^3uL (1.8-7.7) Lymphocytes # (Auto) 1.9 x10^3/uL (1.0-4.8) Monocytes # (Auto) 0.8 x10^3/uL (0.0-1.1) Eosinophils # (Auto) 0.1 x10^3/uL (0.0-0.7) Basophils # (Auto) 0.1 x10^3/uL (0.0-0.2) Sodium Level 137 mmol/L (136-145) Potassium Level 4.8 mmol/L (3.5-5.1) Chloride Level 98 mmol/L (98-107) Carbon Dioxide Level 36 mmol/L (21-32) Anion Gap 3 (6-14) Blood Urea Nitrogen 22 mg/dL (7-20) Creatinine 1.0 mg/dL (0.6-1.0) Estimated GFR (Cockcroft-Gault) 53.5 Glucose Level 156 mg/dL (70-99) Calcium Level 8.4 mg/dL (8.5-10.1) Laboratory Tests Test 05/08/17 16:12 05/08/17 20:35 05/09/17 04:45 Glucose (Fingerstick) 162 mg/dL (70-99) 206 mg/dL (70-99) White Blood Count 10.7 x10^3/uL (4.0-11.0) Red Blood Count 2.67 x10^6/uL (3.50-5.40) Hemoglobin 7.7 g/dL (12.0-15.5) Hematocrit 23.3 % (36.0-47.0) Mean Corpuscular Volume 87 fL (79-100) Mean Corpuscular Hemoglobin 29 pg (25-35) Mean Corpuscular Hemoglobin Concent 33 g/dL (31-37) Red Cell Distribution Width 18.3 % (11.5-14.5) Platelet Count 303 x10^3/uL (140-400) Neutrophils (%) (Auto) 74 % (31-73) Lymphocytes (%) (Auto) 17 % (24-48) Monocytes (%) (Auto) 8 % (0-9) Eosinophils (%) (Auto) 1 % (0-3) Basophils (%) (Auto) 1 % (0-3) Neutrophils # (Auto) 7.9 x10^3uL (1.8-7.7) Lymphocytes # (Auto) 1.9 x10^3/uL (1.0-4.8) Monocytes # (Auto) 0.8 x10^3/uL (0.0-1.1) Eosinophils # (Auto) 0.1 x10^3/uL (0.0-0.7) Basophils # (Auto) 0.1 x10^3/uL (0.0-0.2) Sodium Level 137 mmol/L (136-145) Potassium Level 4.8 mmol/L (3.5-5.1) Chloride Level 98 mmol/L (98-107) Carbon Dioxide Level 36 mmol/L (21-32) Anion Gap 3 (6-14) Blood Urea Nitrogen 22 mg/dL (7-20) Creatinine 1.0 mg/dL (0.6-1.0) Estimated GFR (Cockcroft-Gault) 53.5 Glucose Level 156 mg/dL (70-99) Calcium Level 8.4 mg/dL (8.5-10.1) Medications Active Scripts Medications Dose Route/Sig Max Daily Dose Days Date Category Meropenem 500 Mg Vial 500 Mg IV Q8HRS 05/05/17 Reported Humalog (Insulin Lispro) 100 Unit/1 Ml Cartridge 100 Unit SQ TIDACHC 05/05/17 Reported Metoclopramide Hcl 10 Mg/2 Ml Disp.syrin 10 Mg IV TID 05/05/17 Reported Furosemide 40 Mg Tablet 1 Tab PO DAILY 05/05/17 Reported Eliquis (Apixaban) 5 Mg Tablet 5 Mg PO BID 05/01/17 Reported Lisinopril 10 Mg Tablet 1 Tab PO DAILY 05/01/17 Reported Ondansetron Hcl 4 Mg/2 Ml Syr (Ondansetron Hcl/Pf) 4 Mg/2 Ml Disp.syrin 4 Mg IJ Q6HRS PRN 8/18/17 Reported Pantoprazole Sodium 40 Mg Tablet.dr 1 Tab PO DAILY 04/14/17 Reported Sucralfate 1 Gm Tablet 1 Tab PO BID 04/14/17 Reported Simethicone 80 Mg Tab.chew 80 Mg PO TID 04/14/17 Reported Duoneb 0.5-3(2.5) Mg/3 Ml (Albuterol/Ipratropium) 3 Ml Ampul.neb 3 Ml NEB BID 04/14/17 Reported Escitalopram Oxalate 10 Mg Tablet 1 Tab PO DAILY 04/14/17 Reported Alprazolam 0.25 Mg Tablet 1 Tab PO HS 04/14/17 Reported Melatonin 3 Mg Tablet 3 Mg PO QHS 04/14/17 Reported Levothyroxine Sodium 75 Mcg Tablet 1 Tab PO DAILY 04/14/17 Reported Amiodarone Hcl 200 Mg Tablet 1 Tab PO BID 04/14/17 Reported Comments REVIEWED NO CHANGE MAYBE WORSE Impression . 1. 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 2. Abnormal chest x-ray consistent with congestive heart failure. 3. Possible mild chronic obstructive pulmonary disease. 4. Bilateral pleural effusions secondary to congestive heart failure. 5. Severe protein-calorie malnutrition. 6. Recent perforated peptic ulcer with laparoscopic repair of the peptic ulcer and Mahad patch placement. 7. Critical illness myopathy. 8. Hypothyroidism. 9. Hyperlipidemia. 10. Recent non-ST myocardial infarction. 11. CAD Procedure(s) performed: 1. Left heart catheterization, selective coronary angiography 2. Successful complex PCI/stents placement to the right coronary artery and also the left anterior descending artery 3. Successful stent graft placement to the left main coronary artery 4. Assistance with Cardiac Output using Impella Ventricular Assist pump, continuous 217 Minutes of Moderate Sedation Plan . CONTINUE SUPPORT PRN BIPAP 1. Diurese 2. S/P PCI 3. P.r.n. bronchodilators. 4. Follow chest x-rays. 5 . Improve nutritional support. 6. Physical therapy consult. 7. Lasherson and SHADY MOREIRA MD May 09, 2017 10:09
[2017-05-09] MEDS ORDERED: FUROSEMIDE 20 MG/2 ML VIAL. IVP ONE ×2 (13:00→22:45)
[2017-05-09] MEDS ORDERED: ALBUMIN HUMAN 25% 100 ML IV ONE (13:00)
--- NOTE | 2017-05-09 13:16 | PDOC ---
PILAR MANCIA ELECTRIC OPERATOR 05/09/17 1316: CARDIO Progress Notes Date and Time Date of Service 05/09/2017 Time of Evaluation 1220 Subjective Subjective: No Chest Pain, No shortness of breath, No Palpitations, Other ( denies discomfort) Vitals Vitals Vital Signs Date Time Temp Pulse Resp B/P (MAP) Pulse Ox O2 Delivery O2 Flow Rate FiO2 05/09/17 12:00 4.0 05/09/17 11:00 89 26 82/39 (53) 99 Nasal Cannula 05/09/17 10:00 97.8 97.8 Weight Weight [ ] Input and Output Intake and Output Intake and Output 05/10/17 07:00 Intake Total 340 ml Output Total 355 ml Balance -15 ml Intake Oral 340 ml Output Urine Total 355 ml Laboratory Labs Laboratory Tests Test 05/08/17 16:12 05/08/17 20:35 05/09/17 04:45 05/09/17 12:23 Glucose (Fingerstick) 162 mg/dL (70-99) 206 mg/dL (70-99) 168 mg/dL (70-99) White Blood Count 10.7 x10^3/uL (4.0-11.0) Red Blood Count 2.67 x10^6/uL (3.50-5.40) Hemoglobin 7.7 g/dL (12.0-15.5) Hematocrit 23.3 % (36.0-47.0) Mean Corpuscular Volume 87 fL (79-100) Mean Corpuscular Hemoglobin 29 pg (25-35) Mean Corpuscular Hemoglobin Concent 33 g/dL (31-37) Red Cell Distribution Width 18.3 % (11.5-14.5) Platelet Count 303 x10^3/uL (140-400) Neutrophils (%) (Auto) 74 % (31-73) Lymphocytes (%) (Auto) 17 % (24-48) Monocytes (%) (Auto) 8 % (0-9) Eosinophils (%) (Auto) 1 % (0-3) Basophils (%) (Auto) 1 % (0-3) Neutrophils # (Auto) 7.9 x10^3uL (1.8-7.7) Lymphocytes # (Auto) 1.9 x10^3/uL (1.0-4.8) Monocytes # (Auto) 0.8 x10^3/uL (0.0-1.1) Eosinophils # (Auto) 0.1 x10^3/uL (0.0-0.7) Basophils # (Auto) 0.1 x10^3/uL (0.0-0.2) Sodium Level 137 mmol/L (136-145) Potassium Level 4.8 mmol/L (3.5-5.1) Chloride Level 98 mmol/L (98-107) Carbon Dioxide Level 36 mmol/L (21-32) Anion Gap 3 (6-14) Blood Urea Nitrogen 22 mg/dL (7-20) Creatinine 1.0 mg/dL (0.6-1.0) Estimated GFR (Cockcroft-Gault) 53.5 Glucose Level 156 mg/dL (70-99) Calcium Level 8.4 mg/dL (8.5-10.1) Physical Exam HEENT: Neck Supple W Full Motion Chest: Symmetric LUNGS: Other (diffuse crackles; tachypnea) Heart: S1S2, RRR (SR with PACs/PVCs) Abdomen: Soft N/T Extremities: No Edema, No Calf Tenderness Neurology: alert, follow commands Other Exams right groin arteriotomy site intact, left groin arteriotomy site intact with serosanguineous drain moderate. Pressure dressing applied. Neurovascular status to bilateral LE intact. Assessment Assessment 1. Refractory systolic CHF: with contributing severe CAD. 2. 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 Deemed poor surgical candidate. S/P complex PCI/BMS to LAD/RCA with Impella assist 3. ICM: EF 35-40%. NYHA 2-3 4. Recent perforated gastric ulcer with laparoscopic repair 5. Anemia: Hgb 7.7 6. PAFIB: maintain SR. 7. CKD2 Recommendations 1. Continue with secondary prevention. DAPT with 81 mg and plavix. 2. Ideally would place on NOAC but with notable PUD/anemia will maintain ASA for stroke prevention Future preference would be to eventually place pt on plavix and eliquis once GI reevaluates pt as an outpt and okays it 3. Continue amiodarone. Give extra low dose lasix today, also zaroxylyn and albumin IV. Check Mg and will replace as warranted 4. If UOP remains not considerable then will consider dobutamine. 5. Myalgia with pravastatin use, Lipid panel today. Livalo is an option as well as praluent, will reeval need once lipids are noted. 6. Will start on ACEi and BB once BP is consistently adequate. 7. Will follow up at [facility] prior to her DC from over there and will establish outpt cardiology followup depending on future placement of pt. MARY KAY CALDERON MD 05/09/17 1425: CARDIO Progress Notes Assessment Assessment Patient seen and examined. Agree with RN MATERNAL CHILD's assessment and plan s/p PCI/stents to RCA, LAD and LMCA with Impella hemodynamic support, doing better Continue diuresis for acute on chronic systolic heart failure - we will try albumin with Lasix due to hypoalbuminemia and marginal blood pressure Continue dual antiplatelet therapy Possible [facility] to [facility] PILAR MANCIA APRN May 09, 2017 13:16 MARY KAY CALDERON MD May 09, 2017 14:25
[2017-05-09 13:32] LABS: CHOLESTEROL/HDL RATIO 3.8
[2017-05-09] MEDS: ALPRAZolam 0.25 MG TABLET PO PRN ×2 (15:06→22:04)
[2017-05-09] MEDS ORDERED: metOLazone 2.5 MG TABLET PO ONE (16:15)
[2017-05-09] MEDS: ONDANSETRON PF 4 MG/2 ML VIAL. IV PRN (19:43)
[2017-05-09] MEDS ORDERED: ACETAMINOPHEN 650 MG/20.3 ML SOLUTION. PO PRN (19:45)
[2017-05-09] MEDS: IV NORMAL SALINE 1000ML BAG 1,000 ML IV SCH (22:37)
[2017-05-10] VITALS (41 sets, daily range): BP systolic 63–132; BP diastolic 39–76
[2017-05-10 05:02] LABS: BASO % 1 % (0-3); EOS % 0 % (0-3); LYMPH # 1.8 x10^3/uL (1.0-4.8); LYMPH % 20 % (24-48); MEAN CORPUSCULAR HEMOGLOBIN 30 pg (25-35); MEAN CORPUSCULAR HGB CONC 33 g/dL (31-37); MEAN CORPUSCULAR VOLUME 89 fL (79-100); MONO % 10 % (0-9); NEUT % 70 % (31-73); PLATELET COUNT 251 x10^3/uL (140-400); RED BLOOD COUNT 2.05 x10^6/uL (3.50-5.40); WHITE BLOOD COUNT 9.3 x10^3/uL (4.0-11.0)
[2017-05-10 05:05] LABS: HEMOGLOBIN 6.1 g/dL (12.0-15.5)
[2017-05-10 05:06] LABS: HEMATOCRIT 18.2 % (36.0-47.0)
[2017-05-10] MEDS ORDERED: FUROSEMIDE 20 MG/2 ML VIAL. IV PRN ×2 (05:15→05:30)
[2017-05-10 05:21] LABS: CALCIUM 8.3 mg/dL (8.5-10.1); CREATININE 1.6 mg/dL (0.6-1.0); GFR 31.1
[2017-05-10] MEDS: MEROPENEM 500 MG in IV NORMAL SALINE 50ML 50 ML IV SCH ×3 (06:16→23:03)
[2017-05-10] MEDS: LEVOTHYROXINE 75 MCG TABLET PO SCH (07:00)
[2017-05-10] MEDS: IPRATRPIUM/ALBUTEROL 0.5/2.5MG 3 ML NEBU. NEB SCH ×4 (07:14→19:32)
[2017-05-10] MEDS ORDERED: NOREPINEPHRIN PREMIX 250 ML IV PRN (07:15)
[2017-05-10] MEDS ORDERED: NOREPINEPHRIN PREMIX 250 ML IV ONE (07:17)
[2017-05-10] MEDS: SIMETHICONE 80 MG TAB.CHEW PO SCH ×3 (07:30→16:30)
[2017-05-10] MEDS: SUCRALFATE 1 GM TABLET. PO SCH ×2 (07:30→16:30)
[2017-05-10] MEDS: PANTOPRAZOLE 40 MG TABLET.DR. PO SCH (07:30)
[2017-05-10] MEDS: ASPIRIN ENTERIC COATED 81 MG TABLET.DR. PO SCH (08:00)
[2017-05-10] MEDS: CLOPIDOGREL BISULFATE 75 MG TABLET PO SCH ×2 (08:00→17:16)
[2017-05-10] MEDS: ONDANSETRON PF 4 MG/2 ML VIAL. IV PRN ×2 (08:10→08:11)
--- NOTE | 2017-05-10 08:29 | PDOC ---
CHRIS PAGAN KEY OPERATOR 05/10/17 0829: IM PROGRESS NOTES- Subjective Subjective awake, no distress Objective Objective alert, no distress Vitals Vital Signs Date Time Temp Pulse Resp B/P (MAP) Pulse Ox O2 Delivery O2 Flow Rate FiO2 05/10/17 07:14 99 Nasal Cannula 4.0 05/10/17 04:00 98.1 94 29 92/54 (67) 98.1 Physical Exam Physical Exam Physical Exam General appearance - alert, ill appearing, and in no distress Mental Status - alert, oriented to person, place, and time, affect appropriate to mood Head - normal Chest -improved aeration all lobes, wheezing subsided Heart - S1 and S2 normal Abdomen - soft, nontender, nondistended, BS+ Neurological - no acute neurological distress Musculoskeletal - no muscular tenderness noted Extremities - no pedal edema Skin - cool, diaphoretic Labs Laboratory Tests Test 05/08/17 08:17 05/08/17 08:30 05/08/17 16:12 05/08/17 20:35 Glucose (Fingerstick) 259 mg/dL (70-99) 162 mg/dL (70-99) 206 mg/dL (70-99) O2 Saturation 90 % (92-99) Arterial Blood pH 7.44 (7.35-7.45) Arterial Blood pCO2 at Patient Temp 45 mmHg (35-46) Arterial Blood pO2 at Patient Temp 64 mmHg (65-108) Arterial Blood HCO3 30 mmol/L (21-28) Arterial Blood Base Excess 5 mmol/L (-3-3) FiO2 60 Test 05/09/17 04:45 05/09/17 07:56 05/09/17 12:23 05/09/17 17:27 White Blood Count 10.7 x10^3/uL (4.0-11.0) Red Blood Count 2.67 x10^6/uL (3.50-5.40) Hemoglobin 7.7 g/dL (12.0-15.5) Hematocrit 23.3 % (36.0-47.0) Mean Corpuscular Volume 87 fL (79-100) Mean Corpuscular Hemoglobin 29 pg (25-35) Mean Corpuscular Hemoglobin Concent 33 g/dL (31-37) Red Cell Distribution Width 18.3 % (11.5-14.5) Platelet Count 303 x10^3/uL (140-400) Neutrophils (%) (Auto) 74 % (31-73) Lymphocytes (%) (Auto) 17 % (24-48) Monocytes (%) (Auto) 8 % (0-9) Eosinophils (%) (Auto) 1 % (0-3) Basophils (%) (Auto) 1 % (0-3) Neutrophils # (Auto) 7.9 x10^3uL (1.8-7.7) Lymphocytes # (Auto) 1.9 x10^3/uL (1.0-4.8) Monocytes # (Auto) 0.8 x10^3/uL (0.0-1.1) Eosinophils # (Auto) 0.1 x10^3/uL (0.0-0.7) Basophils # (Auto) 0.1 x10^3/uL (0.0-0.2) Sodium Level 137 mmol/L (136-145) Potassium Level 4.8 mmol/L (3.5-5.1) Chloride Level 98 mmol/L (98-107) Carbon Dioxide Level 36 mmol/L (21-32) Anion Gap 3 (6-14) Blood Urea Nitrogen 22 mg/dL (7-20) Creatinine 1.0 mg/dL (0.6-1.0) Estimated GFR (Cockcroft-Gault) 53.5 Glucose Level 156 mg/dL (70-99) Calcium Level 8.4 mg/dL (8.5-10.1) Magnesium Level 2.0 mg/dL (1.8-2.4) Triglycerides Level 266 mg/dL (0-150) Cholesterol Level 169 mg/dL (0-200) LDL Cholesterol, Calculated 71 mg/dL (0-100) VLDL Cholesterol, Calculated 53 mg/dL (0-40) Non-HDL Cholesterol Calculated 124 mg/dL (0-129) HDL Cholesterol 45 mg/dL (40-60) Cholesterol/HDL Ratio 3.8 Glucose (Fingerstick) 190 mg/dL (70-99) 168 mg/dL (70-99) 229 mg/dL (70-99) Test 05/09/17 21:47 05/10/17 04:40 Glucose (Fingerstick) 243 mg/dL (70-99) White Blood Count 9.3 x10^3/uL (4.0-11.0) Red Blood Count 2.05 x10^6/uL (3.50-5.40) Hemoglobin 6.1 g/dL (12.0-15.5) Hematocrit 18.2 % (36.0-47.0) Mean Corpuscular Volume 89 fL (79-100) Mean Corpuscular Hemoglobin 30 pg (25-35) Mean Corpuscular Hemoglobin Concent 33 g/dL (31-37) Red Cell Distribution Width 19.0 % (11.5-14.5) Platelet Count 251 x10^3/uL (140-400) Neutrophils (%) (Auto) 70 % (31-73) Lymphocytes (%) (Auto) 20 % (24-48) Monocytes (%) (Auto) 10 % (0-9) Eosinophils (%) (Auto) 0 % (0-3) Basophils (%) (Auto) 1 % (0-3) Neutrophils # (Auto) 6.6 x10^3uL (1.8-7.7) Lymphocytes # (Auto) 1.8 x10^3/uL (1.0-4.8) Monocytes # (Auto) 0.9 x10^3/uL (0.0-1.1) Eosinophils # (Auto) 0.0 x10^3/uL (0.0-0.7) Basophils # (Auto) 0.0 x10^3/uL (0.0-0.2) Sodium Level 138 mmol/L (136-145) Potassium Level 5.0 mmol/L (3.5-5.1) Chloride Level 99 mmol/L (98-107) Carbon Dioxide Level 32 mmol/L (21-32) Anion Gap 7 (6-14) Blood Urea Nitrogen 30 mg/dL (7-20) Creatinine 1.6 mg/dL (0.6-1.0) Estimated GFR (Cockcroft-Gault) 31.1 Glucose Level 207 mg/dL (70-99) Calcium Level 8.3 mg/dL (8.5-10.1) Laboratory Tests Test 05/09/17 12:23 05/09/17 17:27 05/09/17 21:47 05/10/17 04:40 Glucose (Fingerstick) 168 mg/dL (70-99) 229 mg/dL (70-99) 243 mg/dL (70-99) White Blood Count 9.3 x10^3/uL (4.0-11.0) Red Blood Count 2.05 x10^6/uL (3.50-5.40) Hemoglobin 6.1 g/dL (12.0-15.5) Hematocrit 18.2 % (36.0-47.0) Mean Corpuscular Volume 89 fL (79-100) Mean Corpuscular Hemoglobin 30 pg (25-35) Mean Corpuscular Hemoglobin Concent 33 g/dL (31-37) Red Cell Distribution Width 19.0 % (11.5-14.5) Platelet Count 251 x10^3/uL (140-400) Neutrophils (%) (Auto) 70 % (31-73) Lymphocytes (%) (Auto) 20 % (24-48) Monocytes (%) (Auto) 10 % (0-9) Eosinophils (%) (Auto) 0 % (0-3) Basophils (%) (Auto) 1 % (0-3) Neutrophils # (Auto) 6.6 x10^3uL (1.8-7.7) Lymphocytes # (Auto) 1.8 x10^3/uL (1.0-4.8) Monocytes # (Auto) 0.9 x10^3/uL (0.0-1.1) Eosinophils # (Auto) 0.0 x10^3/uL (0.0-0.7) Basophils # (Auto) 0.0 x10^3/uL (0.0-0.2) Sodium Level 138 mmol/L (136-145) Potassium Level 5.0 mmol/L (3.5-5.1) Chloride Level 99 mmol/L (98-107) Carbon Dioxide Level 32 mmol/L (21-32) Anion Gap 7 (6-14) Blood Urea Nitrogen 30 mg/dL (7-20) Creatinine 1.6 mg/dL (0.6-1.0) Estimated GFR (Cockcroft-Gault) 31.1 Glucose Level 207 mg/dL (70-99) Calcium Level 8.3 mg/dL (8.5-10.1) Meds Current Medications Acetaminophen (Tylenol) 650 mg PRN Q6HRS PRN PO MILD PAIN / TEMP Last administered on 05/09/17 19:42; Start 05/09/17 at 19:45 Albumin Human 100 ml @ 100 mls/hr 1X ONCE IV Last administered on 05/09/17 13:27; Start 05/09/17 at 13:00; Stop 05/09/17 at 13:59; Status DC Alprazolam (Xanax) 0.25 mg PRN TID PRN PO ANXIETY / AGITATION Last administered on 05/09/17 22:04; Start 05/09/17 at 15:00 Dobutamine HCl/ Dextrose 250 ml @ 0 mls/hr 1X ONCE IV Last administered on 16:41; Start 05/09/17 at 16:30; Stop 05/09/17 at 16:31; Status DC Furosemide (Lasix) 20 mg 1X ONCE IVP Last administered on 05/09/17 13:27; Start 05/09/17 at 13:00; Stop 05/09/17 at 13:04; Status DC Furosemide (Lasix) 20 mg 1X ONCE IVP Last administered on 05/09/17 22:46; Start 05/09/17 at 22:45; Stop 05/09/17 at 22:46; Status DC Furosemide (Lasix) 20 mg 1X PRN PRN IV Blood transfusion; Start 05/10/17 at 05: 15; Stop 05/10/17 at 05:30; Status DC Furosemide (Lasix) 40 mg 1X PRN PRN IV Blood transfusion; Start 05/10/17 at 05: 30 Metolazone (Zaroxolyn) 2.5 mg 1X ONCE PO Last administered on 05/09/17 16:42 ; Start 05/09/17 at 16:15; Stop 05/09/17 at 16:16; Status DC Metolazone (Zaroxolyn) 2.5 mg DAILY PO ; Start 05/10/17 at 09:00 Norepinephrine Bitartrate 250 ml @ As Directed STK-MED ONCE IV ; Start at 07:17; Stop 05/10/17 at 07:18; Status DC Sodium Chloride 1,000 ml @ 100 mls/hr Q10H IV Last administered on 05/09/17 22:37; Start 05/09/17 at 22:30 Assessment Assessment Assessment 1. Acute respiratory failure underlying CHF and possible COPD 2. Acute congestive heart failure, both diastolic and systolic with EF 35-40% 3. Severe 3V CAD 4. Chronic kidney disease stage 2. 5. Recent perforated peptic ulcer with laparoscopic repair of the peptic ulcer and Mahad patch placement. 6. Recent non-ST elevation myocardial infraction with abnormal EKG. 7. Severe malnutrition. 8. Recent Early sepsis, possible aspiration pneumonia. 9. 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 Hypothyroidism 12. Hyperlipidemia. 13. Gastroesophageal reflux disease. 14. Preglaucoma of both eyes 15. Recent atrial fibrillation with fast ventricular rate. 16. hypertension. 17. Diverticulosis. 18. Osteoarthritis. 19. Hearing loss PLAN: Acute respiratory failure pulmonary consult supplemental O2 nebulizer O2 supplement to maintain Sat >90% CHF bilateral pleural effusions-monitor 05/06 VM 40% 05/07 hypoxia/hypotension-BIPAP and dopamine-improved Moderate distress: clammy skin, diaphoretic. indicates short of breath on BiPap 10/02 60%. ABGs stat, CXR stat, staff advised to call Dr. Martins with results, Additional Lasix 20mg IV, May need dopamine to maintain SBP, Sats 90% 05/09 improving 05/09-pt reports does not feel much improvement in SOA A/C CHF Daily wt Admit wt 159# 05/08 166.13 05/09 161.44 05/10 165.44 IO Lasix 40mg IV x 1 05/05 Lasix 40mg daily po CXR 05/07 persistent pulmonary edema/mild improvement pleural effusions 05/08 Lasix 40mg IV daily, weight increased, BP low with MAP 60-102 05/08 Give Lasix 40mg IV x 2this morning=80mg total , additional KCL 20Meq po x 1 05/09 CXR continued CHF/pulmonary edema-recheck CXR today 05/09 late afternoon: Zaroxlyn 2.5mg po, Lasix 20mg IV, Albumin x1, Dobutamine. Night Lasix 20mg IV x1 05/10 early AM Lasix 20mg IV x1, IV NS bolus for hypotension, and levophed for hypotension Hgb 6.1 05/10 Lasix 40mg IV pending between [facility] 05/10 scheduled Lasix 40mg IV, zaroxlyn 2.5mg both at 9am CAD recent NSTEMI CC 05/05; LAD 89-90% stenosis prox-mid segment Diag 40% stenosis prox-mid segment RCA 95-99% critical stenosis mid segment 70% calcified stenosis distal segment Impella with stent pending Monday, may require elective intubation inability to lay flat Heparin infusion-stopped Remains on Plavix CC Stent RCA, LAD stent graft LM 05/08/12 bleeding from access site for CC L groin DM II FSBS/SSI BS [id number] 05/10 adjust SSI to mod intensity recent PUD per with repair CT abd/pelvis 04/14- (Colonic sig/descending) diverticulosis, no CT evidence intra-abdominal abscess. anemia CD/coagulopathy 05/05 [facility] 7.6 05/09 6.1 prolonged anti-Xa hematology consult Vitamin K 10mg IV x 109/10 05/08 Protime 15.6 INR 1.3 PTT 39 Fibrinogen 468 PRC x 2 ordered DVT/GI prophylaxis heparin IV carafate/PPI Hypokalemia- 05/06 3.4 05/09 4.8 05/10 5.0 05/06 additional 20meq given 05/07 KCL increased to 20meq bid 05/10 DC KCL and re eval in morning Dysphagia on dysphagia II honey thickened liquids nausea this AM aspiration risk severe malnutrition limited po intake depression affect flat hypotension volume depletion-Hgb critically low. replace with 2 unit PRC levophed initiated decreased UOP due to critically low Hgb CKD II with ARF VMN Admit BUN 19 05/10 30 Cr 0.9 1.6 K 5.0 consult renal potassium 20 bid stopped 05/10 Prognosis guarded. For more details regarding further plans, please refer to the orders. Plan Plan For more details regarding further plans, please refer to the orders. RITA HUMMEL MD 05/10/17 1016: IM PROGRESS NOTES- Assessment Assessment Acute blood loss anemia.some blood loss from left groin. Hypotension,hypovolemia.IV fluids,PRBcs,Levophed,Dobutamine. D/w patient and daughter. The patient was seen and examined by me. Chart reviewed and plan of care formulated. Discussed with, reviewed and agree with ELEVATOR CONSTRUCTOR [employer]DRAUL[employer]'s notes, plan of care and orders with modifications as necessary. For more details regarding further plans, please refer to the orders. CHRIS PAGAN APRN May 10, 2017 08:29 RITA HUMMEL MD May 10, 2017 10:16
[2017-05-10] MEDS: CITALOPRAM 20 MG TABLET. PO SCH (09:00)
[2017-05-10] MEDS: METOCLOPRAMIDE HCL 10 MG/2 ML VIAL. IV SCH ×3 (09:00→23:03)
[2017-05-10] MEDS: metOLazone 2.5 MG TABLET PO SCH (09:00)
--- NOTE | 2017-05-10 09:08 | RAD ---
Portable chest, 05/10/2017: History: Congestive heart failure Comparison is made to a study from 05/09/2017. The heart is enlarged. There are ongoing parahilar infiltrates and pleural effusions, left greater than right. The parahilar vessels have become slightly better defined over the last 2 days. No new abnormality is seen. IMPRESSION: Ongoing congestive heart failure with slight interval improvement in the pulmonary edema.
--- NOTE | 2017-05-10 11:01 | PDOC ---
PROGRESS NOTES Subjective Subjective c/c - f/u of coagulopathy Objective Objective Vital Signs Date Time Temp Pulse Resp B/P (MAP) Pulse Ox O2 Delivery O2 Flow Rate FiO2 05/10/17 09:20 98.2 94 24 83/46 98.2 05/10/17 07:14 99 Nasal Cannula 4.0 Physical Exam General: Alert, Oriented X3 Neuro: Normal speech Assessment Assessment Assessment/Plan 1. Coagulopathy - Elevated anti-Xa level despite being off of heparin. We do not have baseline pt and ptt levels prior to starting heparin this admission, but on 04/30 she had a slightly elevated pt/inr. She also recently had a perforated ulcer. She may have some nutritional deficiency with vit k contributing to the findings. 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 We have also run a thrombin time that was normal and PTT only 39. This would mean that she does not have any heparin in her system and her fibrinogen is working appropriately. Given the possibility of nutritional deficiency, she received 10mg of vitamin k. No need for mixing study as PTT is better. Mild bleeding from left groin cath procedure site, improving per RN. 2. Acute respiratory failure underlying CHF and possible COPD 3. Anemia - transfusion per critical care team/PCP. Comment Review of Relevant I have reviewed the following items airam (where applicable) has been applied. Labs Laboratory Tests Test 05/08/17 16:12 05/08/17 20:35 05/09/17 04:45 05/09/17 07:56 Glucose (Fingerstick) 162 mg/dL (70-99) 206 mg/dL (70-99) 190 mg/dL (70-99) White Blood Count 10.7 x10^3/uL (4.0-11.0) Red Blood Count 2.67 x10^6/uL (3.50-5.40) Hemoglobin 7.7 g/dL (12.0-15.5) Hematocrit 23.3 % (36.0-47.0) Mean Corpuscular Volume 87 fL (79-100) Mean Corpuscular Hemoglobin 29 pg (25-35) Mean Corpuscular Hemoglobin Concent 33 g/dL (31-37) Red Cell Distribution Width 18.3 % (11.5-14.5) Platelet Count 303 x10^3/uL (140-400) Neutrophils (%) (Auto) 74 % (31-73) Lymphocytes (%) (Auto) 17 % (24-48) Monocytes (%) (Auto) 8 % (0-9) Eosinophils (%) (Auto) 1 % (0-3) Basophils (%) (Auto) 1 % (0-3) Neutrophils # (Auto) 7.9 x10^3uL (1.8-7.7) Lymphocytes # (Auto) 1.9 x10^3/uL (1.0-4.8) Monocytes # (Auto) 0.8 x10^3/uL (0.0-1.1) Eosinophils # (Auto) 0.1 x10^3/uL (0.0-0.7) Basophils # (Auto) 0.1 x10^3/uL (0.0-0.2) Sodium Level 137 mmol/L (136-145) Potassium Level 4.8 mmol/L (3.5-5.1) Chloride Level 98 mmol/L (98-107) Carbon Dioxide Level 36 mmol/L (21-32) Anion Gap 3 (6-14) Blood Urea Nitrogen 22 mg/dL (7-20) Creatinine 1.0 mg/dL (0.6-1.0) Estimated GFR (Cockcroft-Gault) 53.5 Glucose Level 156 mg/dL (70-99) Calcium Level 8.4 mg/dL (8.5-10.1) Magnesium Level 2.0 mg/dL (1.8-2.4) Triglycerides Level 266 mg/dL (0-150) Cholesterol Level 169 mg/dL (0-200) LDL Cholesterol, Calculated 71 mg/dL (0-100) VLDL Cholesterol, Calculated 53 mg/dL (0-40) Non-HDL Cholesterol Calculated 124 mg/dL (0-129) HDL Cholesterol 45 mg/dL (40-60) Cholesterol/HDL Ratio 3.8 Test 05/09/17 12:23 05/09/17 17:27 05/09/17 21:47 05/10/17 04:40 Glucose (Fingerstick) 168 mg/dL (70-99) 229 mg/dL (70-99) 243 mg/dL (70-99) White Blood Count 9.3 x10^3/uL (4.0-11.0) Red Blood Count 2.05 x10^6/uL (3.50-5.40) Hemoglobin 6.1 g/dL (12.0-15.5) Hematocrit 18.2 % (36.0-47.0) Mean Corpuscular Volume 89 fL (79-100) Mean Corpuscular Hemoglobin 30 pg (25-35) Mean Corpuscular Hemoglobin Concent 33 g/dL (31-37) Red Cell Distribution Width 19.0 % (11.5-14.5) Platelet Count 251 x10^3/uL (140-400) Neutrophils (%) (Auto) 70 % (31-73) Lymphocytes (%) (Auto) 20 % (24-48) Monocytes (%) (Auto) 10 % (0-9) Eosinophils (%) (Auto) 0 % (0-3) Basophils (%) (Auto) 1 % (0-3) Neutrophils # (Auto) 6.6 x10^3uL (1.8-7.7) Lymphocytes # (Auto) 1.8 x10^3/uL (1.0-4.8) Monocytes # (Auto) 0.9 x10^3/uL (0.0-1.1) Eosinophils # (Auto) 0.0 x10^3/uL (0.0-0.7) Basophils # (Auto) 0.0 x10^3/uL (0.0-0.2) Sodium Level 138 mmol/L (136-145) Potassium Level 5.0 mmol/L (3.5-5.1) Chloride Level 99 mmol/L (98-107) Carbon Dioxide Level 32 mmol/L (21-32) Anion Gap 7 (6-14) Blood Urea Nitrogen 30 mg/dL (7-20) Creatinine 1.6 mg/dL (0.6-1.0) Estimated GFR (Cockcroft-Gault) 31.1 Glucose Level 207 mg/dL (70-99) Calcium Level 8.3 mg/dL (8.5-10.1) Test 05/10/17 08:14 Glucose (Fingerstick) 214 mg/dL (70-99) Laboratory Tests Test 05/09/17 12:23 05/09/17 17:27 05/09/17 21:47 05/10/17 04:40 Glucose (Fingerstick) 168 mg/dL (70-99) 229 mg/dL (70-99) 243 mg/dL (70-99) White Blood Count 9.3 x10^3/uL (4.0-11.0) Red Blood Count 2.05 x10^6/uL (3.50-5.40) Hemoglobin 6.1 g/dL (12.0-15.5) Hematocrit 18.2 % (36.0-47.0) Mean Corpuscular Volume 89 fL (79-100) Mean Corpuscular Hemoglobin 30 pg (25-35) Mean Corpuscular Hemoglobin Concent 33 g/dL (31-37) Red Cell Distribution Width 19.0 % (11.5-14.5) Platelet Count 251 x10^3/uL (140-400) Neutrophils (%) (Auto) 70 % (31-73) Lymphocytes (%) (Auto) 20 % (24-48) Monocytes (%) (Auto) 10 % (0-9) Eosinophils (%) (Auto) 0 % (0-3) Basophils (%) (Auto) 1 % (0-3) Neutrophils # (Auto) 6.6 x10^3uL (1.8-7.7) Lymphocytes # (Auto) 1.8 x10^3/uL (1.0-4.8) Monocytes # (Auto) 0.9 x10^3/uL (0.0-1.1) Eosinophils # (Auto) 0.0 x10^3/uL (0.0-0.7) Basophils # (Auto) 0.0 x10^3/uL (0.0-0.2) Sodium Level 138 mmol/L (136-145) Potassium Level 5.0 mmol/L (3.5-5.1) Chloride Level 99 mmol/L (98-107) Carbon Dioxide Level 32 mmol/L (21-32) Anion Gap 7 (6-14) Blood Urea Nitrogen 30 mg/dL (7-20) Creatinine 1.6 mg/dL (0.6-1.0) Estimated GFR (Cockcroft-Gault) 31.1 Glucose Level 207 mg/dL (70-99) Calcium Level 8.3 mg/dL (8.5-10.1) Test 05/10/17 08:14 Glucose (Fingerstick) 214 mg/dL (70-99) Medications Current Medications Nitroglycerin (Nitroglycerin) 200 mcg 1X ONCE IART Last administered on 13:59; Start 05/05/17 at 14:00; Stop 05/05/17 at 14:01; Status DC Verapamil HCl (Verapamil) 2.5 mg 1X ONCE IART Last administered on 05/05/17 13 :59; Start 05/05/17 at 14:00; Stop 05/05/17 at 14:01; Status DC Heparin Sodium (Porcine) (Heparin Sodium) 2,500 unit 1X ONCE IART Last administered on 05/05/17 13:58; Start 05/05/17 at 14:00; Stop 05/05/17 at 14:01; Status DC Heparin Sodium/ Sodium Chloride 1,000 unit 1X ONCE IART Last administered on 13:59; Start 05/05/17 at 14:00; Stop 05/05/17 at 14:01; Status DC Midazolam HCl (Versed) 2 mg 1X ONCE IV Last administered on 05/05/17 14:00; Start 05/05/17 at 14:00; Stop 05/05/17 at 14:01; Status DC Fentanyl Citrate (Fentanyl 2ml Vial) 100 mcg 1X ONCE IV Last administered on 14:00; Start 05/05/17 at 14:00; Stop 05/05/17 at 14:01; Status DC Iohexol (Omnipaque 300 Mg/ml) 100 ml 1X ONCE IART Last administered on 13:59; Start 05/05/17 at 14:00; Stop 05/05/17 at 14:01; Status DC Lidocaine HCl 20 ml 1X ONCE IJ Last administered on 05/05/17 13:59; Start 05/05 at 14:00; Stop 05/05/17 at 14:01; Status DC Albuterol/ Ipratropium (Duoneb) 3 ml RTQID NEB Last administered on 05/10/17 07:14; Start 05/05/17 at 16:00 Heparin Sodium/ Dextrose 500 ml @ 17.3 mls/hr CONT PRN IV SEE I/O RECORD Last administered on 05/05/17 18:19; Start 05/05/17 at 17:15; Stop 05/06/17 at 20:29; Status DC Heparin Sodium (Porcine) (Heparin Sodium) 1,800 unit PRN Q6HRS PRN IV FOR UFH LEVEL LESS THAN 0.2; Start 05/05/17 at 17:15; Stop 05/06/17 at 20:29; Status DC Alprazolam (Xanax) 0.25 mg HS PO Last administered on 05/08/17 20:38; Start at 21:00; Stop 05/09/17 at 15:00; Status DC Amiodarone HCl (Cordarone) 200 mg BID PO ; Start 05/05/17 at 21:00; Stop 05/06/17 at 07:49; Status DC Furosemide (Lasix) 40 mg DAILY PO ; Start 05/06/17 at 09:00; Stop 05/06/17 at 09: 00; Status DC Albuterol/ Ipratropium (Duoneb) 3 ml BID NEB ; Start 05/05/17 at 21:00; Stop 05/05 at 21:00; Status DC Levothyroxine Sodium (Synthroid) 75 mcg DAILY07 PO Last administered on 05:56; Start 05/06/17 at 09:00 Lisinopril (Prinivil) 10 mg DAILY PO ; Start 05/06/17 at 09:00; Stop 05/06/17 at 09:00; Status DC Meropenem (Merrem) 500 mg Q8HRS IV ; Start 05/05/17 at 22:00; Stop 05/05/17 at 22: 00; Status DC Pantoprazole Sodium (Protonix) 40 mg DAILYAC PO Last administered on 05/09/17 07:58; Start 05/06/17 at 07:30 Simethicone (Gas-X) 80 mg TIDAC PO Last administered on 05/09/17 16:42; Start 05/05/17 at 18:00 Sucralfate (Carafate) 1 gm BIDAC PO Last administered on 05/09/17 16:40; Start 05/05/17 at 18:00 Citalopram Hydrobromide (CeleXA) 20 mg DAILY PO Last administered on 05/09/17 07:58; Start 05/06/17 at 09:00 Non-Formulary Medication 3 mg QHS PO ; Start 05/05/17 at 21:00; Stop 05/05/17 at 21:00; Status DC Metoclopramide HCl (Reglan) 10 mg TID IV Last administered on 05/09/17 21:42; Start 05/05/17 at 21:00 Ondansetron HCl (Zofran) 4 mg PRN Q6HRS PRN IV NAUSEA/VOMITING Last administered on 05/10/17 08:11; Start 05/05/17 at 18:00; Stop 05/10/17 at 08:36 ; Status DC Insulin Aspart (NovoLOG) 0-5 UNITS TIDWMEALHC SQ Last administered on 17:35; Start 05/05/17 at 21:00; Stop 05/10/17 at 08:51; Status DC Dextrose (Dextrose 50%-Water Syringe) 12.5 gm PRN Q15MIN PRN IV SEE COMMENTS; Start 05/05/17 at 17:45 Meropenem 500 mg/ Sodium Chloride 50 ml @ 100 mls/hr Q8HRS IV Last administered on 05/10/17 06:16; Start 05/05/17 at 18:00 Furosemide (Lasix) 40 mg 1X ONCE IVP Last administered on 05/05/17 23:32; Start 05/05/17 at 23:15; Stop 05/05/17 at 23:16; Status DC Dopamine HCl/ Dextrose 250 ml @ 13.523 mls/ hr CONT PRN IV SEE I/O RECORD Last administered on 05/08/17 14:56; Start 05/05/17 at 23:30; Stop 05/08/17 at 15:31; Status DC Amiodarone HCl (Cordarone) 200 mg DAILY PO Last administered on 05/09/17 07:57 ; Start 05/06/17 at 09:00 Clopidogrel Bisulfate (Plavix) 300 mg 1X ONCE PO Last administered on 08:47; Start 05/06/17 at 08:00; Stop 05/06/17 at 08:01; Status DC Clopidogrel Bisulfate (Plavix) 75 mg DAILYWBKFT PO ; Start 05/06/17 at 08:00; Stop 05/06/17 at 08:04; Status DC Furosemide (Lasix) 40 mg DAILY IVP Last administered on 05/09/17 07:58; Start 05/06/17 at 09:00 Aspirin (Ecotrin) 81 mg DAILYWBKFT PO Last administered on 05/09/17 07:58; Start 05/06/17 at 09:00 Pantoprazole Sodium (Protonix) 40 mg DAILYAC PO ; Start 05/07/17 at 07:30; Stop 05/07/17 at 07:30; Status DC Pantoprazole Sodium (Protonix) 40 mg 1X ONCE PO ; Start 05/06/17 at 08:00; Stop 05/06/17 at 08:01; Status DC Clopidogrel Bisulfate (Plavix) 75 mg DAILYWBKFT PO Last administered on 07:58; Start 05/07/17 at 08:00 Info (Anti-Coagulation Monitoring By Pharmacy) 1 each PRN DAILY PRN MC SEE COMMENTS Last administered on 05/06/17 10:49; Start 05/06/17 at 11:00; Stop 05/07 at 07:29; Status DC Potassium Chloride (Klor-Con) 10 meq DAILYWBKFT PO Last administered on 12:32; Start 05/06/17 at 11:00; Stop 05/07/17 at 07:54; Status DC Potassium Chloride (Klor-Con) 20 meq BIDWMEALS PO Last administered on 16:43; Start 05/07/17 at 08:00; Stop 05/10/17 at 08:33; Status DC Phytonadione 10 mg/Sodium Chloride 51 ml @ 102 mls/hr 1X ONCE IV Last administered on 05/07/17 13:19; Start 05/07/17 at 12:30; Stop 05/07/17 at 12:59 ; Status DC Furosemide (Lasix) 40 mg 1X ONCE IVP Last administered on 05/08/17 08:17; Start 05/08/17 at 08:30; Stop 05/08/17 at 08:31; Status DC Furosemide (Lasix) 40 mg 1X ONCE IVP Last administered on 05/08/17 10:03; Start 05/08/17 at 10:00; Stop 05/08/17 at 10:01; Status DC Heparin Sodium/ Sodium Chloride 1,000 ml @ As Directed STK-MED ONCE .ROUTE ; Start 05/08/17 at 11:38; Stop 05/08/17 at 11:39; Status DC Lidocaine HCl 20 ml STK-MED ONCE .ROUTE ; Start 05/08/17 at 11:39; Stop at 11:40; Status DC Iodixanol (Visipaque 320) 100 ml STK-MED ONCE .ROUTE ; Start 05/08/17 at 11:39; Stop 05/08/17 at 11:40; Status DC Heparin Sodium/ Sodium Chloride 500 ml @ As Directed STK-MED ONCE .ROUTE ; Start 05/08/17 at 11:42; Stop 05/08/17 at 11:43; Status DC Fentanyl Citrate (Fentanyl 2ml Vial) 100 mcg STK-MED ONCE .ROUTE ; Start at 12:07; Stop 05/08/17 at 12:08; Status DC Midazolam HCl (Versed) 2 mg STK-MED ONCE .ROUTE ; Start 05/08/17 at 12:07; Stop 05/08/17 at 12:08; Status DC Lidocaine HCl 20 ml STK-MED ONCE .ROUTE ; Start 05/08/17 at 12:19; Stop at 12:20; Status DC Heparin Sodium (Porcine) (Heparin Sodium) 10,000 unit STK-MED ONCE .ROUTE ; Start 05/08/17 at 12:20; Stop 05/08/17 at 12:21; Status DC Bivalirudin (Angiomax) 250 mg STK-MED ONCE IV ; Start 05/08/17 at 12:38; Stop at 12:39; Status DC Bivalirudin (Angiomax) 250 mg STK-MED ONCE IV ; Start 05/08/17 at 13:42; Stop at 13:43; Status DC Atropine Sulfate 0.5 mg STK-MED ONCE .ROUTE ; Start 05/08/17 at 13:43; Stop 07/14 at 13:44; Status DC Iodixanol (Visipaque 320) 100 ml STK-MED ONCE .ROUTE ; Start 05/08/17 at 13:47; Stop 05/08/17 at 13:48; Status DC Nitroglycerin (Nitroglycerin) 200 mcg 1X ONCE IART Last administered on 15:26; Start 05/08/17 at 14:15; Stop 05/08/17 at 14:24; Status DC Heparin Sodium/ Sodium Chloride 1,000 unit 1X ONCE IART Last administered on 15:24; Start 05/08/17 at 14:15; Stop 05/08/17 at 14:24; Status DC Midazolam HCl (Versed) 2 mg 1X ONCE IV Last administered on 05/08/17 15:28; Start 05/08/17 at 14:15; Stop 05/08/17 at 14:24; Status DC Fentanyl Citrate (Fentanyl 2ml Vial) 100 mcg 1X ONCE IV Last administered on 15:28; Start 05/08/17 at 14:15; Stop 05/08/17 at 14:24; Status DC Iodixanol (Visipaque 320) 100 ml 1X ONCE IART Last administered on 05/08/17 15:26; Start 05/08/17 at 14:15; Stop 05/08/17 at 14:24; Status DC Bivalirudin (Angiomax) 500 mg 1X ONCE IV Last administered on 05/08/17 15:27 ; Start 05/08/17 at 14:15; Stop 05/08/17 at 14:24; Status DC Lidocaine HCl 38 ml 1X ONCE IJ Last administered on 05/08/17 15:24; Start 07/14 at 14:15; Stop 05/08/17 at 14:24; Status DC Dextrose 500 ml @ 20 mls/hr 1X ONCE IV Last administered on 05/08/17 12:30; Start 05/08/17 at 14:30; Stop 05/09/17 at 15:29; Status DC Dopamine HCl/ Dextrose 250 ml @ 14.118 mls/ hr CONT PRN IV SEE I/O RECORD; Start 05/08/17 at 15:30 Acetaminophen (Tylenol) 650 mg PRN Q6HRS PRN PO MILD PAIN / TEMP; Start at 16:15; Stop 05/09/17 at 19:33; Status DC Nitroglycerin (Nitrostat) 0.4 mg PRN Q5MIN PRN SL CHEST PAIN; Start 05/08/17 at 16:15 Albumin Human 100 ml @ 100 mls/hr 1X ONCE IV Last administered on 05/09/17 13:27; Start 05/09/17 at 13:00; Stop 05/09/17 at 13:59; Status DC Furosemide (Lasix) 20 mg 1X ONCE IVP Last administered on 05/09/17 13:27; Start 05/09/17 at 13:00; Stop 05/09/17 at 13:04; Status DC Metolazone (Zaroxolyn) 2.5 mg DAILY PO ; Start 05/10/17 at 09:00 Alprazolam (Xanax) 0.25 mg PRN TID PRN PO ANXIETY / AGITATION Last administered on 05/09/17 22:04; Start 05/09/17 at 15:00 Metolazone (Zaroxolyn) 2.5 mg 1X ONCE PO Last administered on 05/09/17 16:42 ; Start 05/09/17 at 16:15; Stop 05/09/17 at 16:16; Status DC Dobutamine HCl/ Dextrose 250 ml @ 0 mls/hr 1X ONCE IV Last administered on 16:41; Start 05/09/17 at 16:30; Stop 05/09/17 at 16:31; Status DC Acetaminophen (Tylenol) 650 mg PRN Q6HRS PRN PO MILD PAIN / TEMP Last administered on 05/09/17 19:42; Start 05/09/17 at 19:45 Sodium Chloride 1,000 ml @ 100 mls/hr Q10H IV Last administered on 05/09/17 22:37; Start 05/09/17 at 22:30 Furosemide (Lasix) 20 mg 1X ONCE IVP Last administered on 05/09/17 22:46; Start 05/09/17 at 22:45; Stop 05/09/17 at 22:46; Status DC Furosemide (Lasix) 20 mg 1X PRN PRN IV Blood transfusion; Start 05/10/17 at 05: 15; Stop 05/10/17 at 05:30; Status DC Furosemide (Lasix) 40 mg 1X PRN PRN IV Blood transfusion; Start 05/10/17 at 05: 30 Norepinephrine Bitartrate 250 ml @ As Directed STK-MED ONCE IV ; Start at 07:17; Stop 05/10/17 at 07:18; Status DC Ondansetron HCl (Zofran) 4 mg PRN Q6HRS PRN IV NAUSEA/VOMITING; Start 05/10/17 at 08:30 Insulin Aspart (NovoLOG) BIDBFRMEAL SQ ; Start 05/10/17 at 16:30 Active Scripts Active Reported Meropenem 500 Mg Vial 500 Mg IV Q8HRS Humalog (Insulin Lispro) 100 Unit/1 Ml Cartridge 100 Unit SQ TIDACHC Metoclopramide Hcl 10 Mg/2 Ml Disp.syrin 10 Mg IV TID Furosemide 40 Mg Tablet 1 Tab PO DAILY Eliquis (Apixaban) 5 Mg Tablet 5 Mg PO BID Lisinopril 10 Mg Tablet 1 Tab PO DAILY Ondansetron Hcl 4 Mg/2 Ml Syr (Ondansetron Hcl/Pf) 4 Mg/2 Ml Disp.syrin 4 Mg IJ Q6HRS PRN Pantoprazole Sodium 40 Mg Tablet.dr 1 Tab PO DAILY Sucralfate 1 Gm Tablet 1 Tab PO BID Simethicone 80 Mg Tab.chew 80 Mg PO TID Duoneb 0.5-3(2.5) Mg/3 Ml (Albuterol/Ipratropium) 3 Ml Ampul.neb 3 Ml NEB BID Escitalopram Oxalate 10 Mg Tablet 1 Tab PO DAILY Alprazolam 0.25 Mg Tablet 1 Tab PO HS Melatonin 3 Mg Tablet 3 Mg PO QHS Levothyroxine Sodium 75 Mcg Tablet 1 Tab PO DAILY Amiodarone Hcl 200 Mg Tablet 1 Tab PO BID Vitals/I & O Vital Sign - Last 24 Hours 05/09/17 05/09/17 05/09/17 05/09/17 11:00 12:00 12:37 15:00 Temp 98.7 98.7 Pulse 89 106 Resp 26 30 B/P (MAP) 82/39 (53) 101/53 (69) Pulse Ox 99 94 91 O2 Delivery Nasal Cannula Nasal Cannula Nasal Cannula O2 Flow Rate 4.0 4.0 5.0 5.0 05/09/17 05/09/17 05/09/17 05/09/17 16:00 16:37 19:00 19:22 Pulse 89 Resp 26 B/P (MAP) 82/39 (53) Pulse Ox 92 99 95 O2 Delivery Nasal Cannula Nasal Cannula Nasal Cannula O2 Flow Rate 5.0 5.0 4.0 8.0 05/09/17 05/09/17 05/09/17 05/10/17 20:00 20:00 20:00 00:00 Temp 100.8 100.8 Pulse 89 Resp 26 B/P (MAP) 82/39 (53) Pulse Ox 99 O2 Delivery Nasal Cannula Nasal Cannula O2 Flow Rate 4.0 5.0 4.0 4.0 05/10/17 05/10/17 05/10/17 05/10/17 00:00 04:00 04:00 07:14 Temp 98.1 98.1 98.1 98.1 Pulse 89 94 Resp 26 29 B/P (MAP) 82/39 (53) 92/54 (67) Pulse Ox 99 99 99 O2 Delivery Nasal Cannula Nasal Cannula Nasal Cannula O2 Flow Rate 4.0 4.0 4.0 4.0 05/10/17 09:20 Temp 98.2 98.2 Pulse 94 Resp 24 B/P (MAP) 83/46 JAQUELIN BIRMINGHAM MD May 10, 2017 11:01
--- NOTE | 2017-05-10 11:17 | PDOC2 ---
CONSULT Date of Consult Date of Consult DATE: 05/10/17 TIME: 11:12 Reason for Consult Reason for Consult: JUAN Referring Physician Referring Physician: SHAHEED Identification/Chief Complaint Chief Complaint SOB Problems: Source Source: Chart review History of Present Illness Reason for Visit: THIS IS A 81 YR OLD ADMITTED WITH SOB AND CHEST PAIN. PT UNDERWENT HEART CATH ON MONDAY. ALSO HAS HAD CHF AND PLEURAL EFFUSIONS. HAS BEEN ON IV LASIX. USUALLY HAS NORMAL CR BUT WITH STAGE 2 CKD. HER CR IS UP TO 1.6 NOW. UO OK. HGB IS 6.1. NO NSAID. NO HX OF ANY KIDNEY OR BLADDER SURGERIES HEMATURIA OR FREQUENCY NOTED Past Medical History Cardiovascular: AFIB (PSVT,AF, ST ), CAD (recent NSTEMI ), CHF (systolic diastolic EF 35-40%), Hyperlipidemia Pulmonary: Pneumonia (recent aspiration ), Other (Bilateral pleural effusion with h/o thoracentesis ) GI: GERD, Peptic Ulcer disease (abdominal washout, laproscopic repair of peptic ulcer with Mahad patch placement) Heme/Onc: Anemia NOS (anemia CD ) Hepatobiliary: Other (abnormal LFTs ) Infectious disease: Other (Recent sepsis ) ENT: Other (recent dental caries ) Renal/: Chronic renal insuff (CKD II ), UTI (recent EColi treated ) Endocrine: Hypothyroidism Current Medications Current Medications Current Medications Nitroglycerin (Nitroglycerin) 200 mcg 1X ONCE IART Last administered on 13:59; Start 05/05/17 at 14:00; Stop 05/05/17 at 14:01; Status DC Verapamil HCl (Verapamil) 2.5 mg 1X ONCE IART Last administered on 05/05/17 13 :59; Start 05/05/17 at 14:00; Stop 05/05/17 at 14:01; Status DC Heparin Sodium (Porcine) (Heparin Sodium) 2,500 unit 1X ONCE IART Last administered on 05/05/17 13:58; Start 05/05/17 at 14:00; Stop 05/05/17 at 14:01; Status DC Heparin Sodium/ Sodium Chloride 1,000 unit 1X ONCE IART Last administered on 13:59; Start 05/05/17 at 14:00; Stop 05/05/17 at 14:01; Status DC Midazolam HCl (Versed) 2 mg 1X ONCE IV Last administered on 05/05/17 14:00; Start 05/05/17 at 14:00; Stop 05/05/17 at 14:01; Status DC Fentanyl Citrate (Fentanyl 2ml Vial) 100 mcg 1X ONCE IV Last administered on 14:00; Start 05/05/17 at 14:00; Stop 05/05/17 at 14:01; Status DC Iohexol (Omnipaque 300 Mg/ml) 100 ml 1X ONCE IART Last administered on 13:59; Start 05/05/17 at 14:00; Stop 05/05/17 at 14:01; Status DC Lidocaine HCl 20 ml 1X ONCE IJ Last administered on 05/05/17 13:59; Start 05/05 at 14:00; Stop 05/05/17 at 14:01; Status DC Albuterol/ Ipratropium (Duoneb) 3 ml RTQID NEB Last administered on 05/10/17 11:09; Start 05/05/17 at 16:00 Heparin Sodium/ Dextrose 500 ml @ 17.3 mls/hr CONT PRN IV SEE I/O RECORD Last administered on 05/05/17 18:19; Start 05/05/17 at 17:15; Stop 05/06/17 at 20:29; Status DC Heparin Sodium (Porcine) (Heparin Sodium) 1,800 unit PRN Q6HRS PRN IV FOR UFH LEVEL LESS THAN 0.2; Start 05/05/17 at 17:15; Stop 05/06/17 at 20:29; Status DC Alprazolam (Xanax) 0.25 mg HS PO Last administered on 05/08/17 20:38; Start at 21:00; Stop 05/09/17 at 15:00; Status DC Amiodarone HCl (Cordarone) 200 mg BID PO ; Start 05/05/17 at 21:00; Stop 05/06/17 at 07:49; Status DC Furosemide (Lasix) 40 mg DAILY PO ; Start 05/06/17 at 09:00; Stop 05/06/17 at 09: 00; Status DC Albuterol/ Ipratropium (Duoneb) 3 ml BID NEB ; Start 05/05/17 at 21:00; Stop 05/05 at 21:00; Status DC Levothyroxine Sodium (Synthroid) 75 mcg DAILY07 PO Last administered on 05:56; Start 05/06/17 at 09:00 Lisinopril (Prinivil) 10 mg DAILY PO ; Start 05/06/17 at 09:00; Stop 05/06/17 at 09:00; Status DC Meropenem (Merrem) 500 mg Q8HRS IV ; Start 05/05/17 at 22:00; Stop 05/05/17 at 22: 00; Status DC Pantoprazole Sodium (Protonix) 40 mg DAILYAC PO Last administered on 05/09/17 07:58; Start 05/06/17 at 07:30 Simethicone (Gas-X) 80 mg TIDAC PO Last administered on 05/09/17 16:42; Start 05/05/17 at 18:00 Sucralfate (Carafate) 1 gm BIDAC PO Last administered on 05/09/17 16:40; Start 05/05/17 at 18:00 Citalopram Hydrobromide (CeleXA) 20 mg DAILY PO Last administered on 05/09/17 07:58; Start 05/06/17 at 09:00 Non-Formulary Medication 3 mg QHS PO ; Start 05/05/17 at 21:00; Stop 05/05/17 at 21:00; Status DC Metoclopramide HCl (Reglan) 10 mg TID IV Last administered on 05/09/17 21:42; Start 05/05/17 at 21:00 Ondansetron HCl (Zofran) 4 mg PRN Q6HRS PRN IV NAUSEA/VOMITING Last administered on 05/10/17 08:11; Start 05/05/17 at 18:00; Stop 05/10/17 at 08:36 ; Status DC Insulin Aspart (NovoLOG) 0-5 UNITS TIDWMEALHC SQ Last administered on 17:35; Start 05/05/17 at 21:00; Stop 05/10/17 at 08:51; Status DC Dextrose (Dextrose 50%-Water Syringe) 12.5 gm PRN Q15MIN PRN IV SEE COMMENTS; Start 05/05/17 at 17:45 Meropenem 500 mg/ Sodium Chloride 50 ml @ 100 mls/hr Q8HRS IV Last administered on 05/10/17 06:16; Start 05/05/17 at 18:00 Furosemide (Lasix) 40 mg 1X ONCE IVP Last administered on 05/05/17 23:32; Start 05/05/17 at 23:15; Stop 05/05/17 at 23:16; Status DC Dopamine HCl/ Dextrose 250 ml @ 13.523 mls/ hr CONT PRN IV SEE I/O RECORD Last administered on 05/08/17 14:56; Start 05/05/17 at 23:30; Stop 05/08/17 at 15:31; Status DC Amiodarone HCl (Cordarone) 200 mg DAILY PO Last administered on 05/09/17 07:57 ; Start 05/06/17 at 09:00 Clopidogrel Bisulfate (Plavix) 300 mg 1X ONCE PO Last administered on 08:47; Start 05/06/17 at 08:00; Stop 05/06/17 at 08:01; Status DC Clopidogrel Bisulfate (Plavix) 75 mg DAILYWBKFT PO ; Start 05/06/17 at 08:00; Stop 05/06/17 at 08:04; Status DC Furosemide (Lasix) 40 mg DAILY IVP Last administered on 05/09/17 07:58; Start 05/06/17 at 09:00 Aspirin (Ecotrin) 81 mg DAILYWBKFT PO Last administered on 05/09/17 07:58; Start 05/06/17 at 09:00 Pantoprazole Sodium (Protonix) 40 mg DAILYAC PO ; Start 05/07/17 at 07:30; Stop 05/07/17 at 07:30; Status DC Pantoprazole Sodium (Protonix) 40 mg 1X ONCE PO ; Start 05/06/17 at 08:00; Stop 05/06/17 at 08:01; Status DC Clopidogrel Bisulfate (Plavix) 75 mg DAILYWBKFT PO Last administered on 07:58; Start 05/07/17 at 08:00 Info (Anti-Coagulation Monitoring By Pharmacy) 1 each PRN DAILY PRN MC SEE COMMENTS Last administered on 05/06/17 10:49; Start 05/06/17 at 11:00; Stop 05/07 at 07:29; Status DC Potassium Chloride (Klor-Con) 10 meq DAILYWBKFT PO Last administered on 12:32; Start 05/06/17 at 11:00; Stop 05/07/17 at 07:54; Status DC Potassium Chloride (Klor-Con) 20 meq BIDWMEALS PO Last administered on 16:43; Start 05/07/17 at 08:00; Stop 05/10/17 at 08:33; Status DC Phytonadione 10 mg/Sodium Chloride 51 ml @ 102 mls/hr 1X ONCE IV Last administered on 05/07/17 13:19; Start 05/07/17 at 12:30; Stop 05/07/17 at 12:59 ; Status DC Furosemide (Lasix) 40 mg 1X ONCE IVP Last administered on 05/08/17 08:17; Start 05/08/17 at 08:30; Stop 05/08/17 at 08:31; Status DC Furosemide (Lasix) 40 mg 1X ONCE IVP Last administered on 05/08/17 10:03; Start 05/08/17 at 10:00; Stop 05/08/17 at 10:01; Status DC Heparin Sodium/ Sodium Chloride 1,000 ml @ As Directed STK-MED ONCE .ROUTE ; Start 05/08/17 at 11:38; Stop 05/08/17 at 11:39; Status DC Lidocaine HCl 20 ml STK-MED ONCE .ROUTE ; Start 05/08/17 at 11:39; Stop at 11:40; Status DC Iodixanol (Visipaque 320) 100 ml STK-MED ONCE .ROUTE ; Start 05/08/17 at 11:39; Stop 05/08/17 at 11:40; Status DC Heparin Sodium/ Sodium Chloride 500 ml @ As Directed STK-MED ONCE .ROUTE ; Start 05/08/17 at 11:42; Stop 05/08/17 at 11:43; Status DC Fentanyl Citrate (Fentanyl 2ml Vial) 100 mcg STK-MED ONCE .ROUTE ; Start at 12:07; Stop 05/08/17 at 12:08; Status DC Midazolam HCl (Versed) 2 mg STK-MED ONCE .ROUTE ; Start 05/08/17 at 12:07; Stop 05/08/17 at 12:08; Status DC Lidocaine HCl 20 ml STK-MED ONCE .ROUTE ; Start 05/08/17 at 12:19; Stop at 12:20; Status DC Heparin Sodium (Porcine) (Heparin Sodium) 10,000 unit STK-MED ONCE .ROUTE ; Start 05/08/17 at 12:20; Stop 05/08/17 at 12:21; Status DC Bivalirudin (Angiomax) 250 mg STK-MED ONCE IV ; Start 05/08/17 at 12:38; Stop at 12:39; Status DC Bivalirudin (Angiomax) 250 mg STK-MED ONCE IV ; Start 05/08/17 at 13:42; Stop at 13:43; Status DC Atropine Sulfate 0.5 mg STK-MED ONCE .ROUTE ; Start 05/08/17 at 13:43; Stop 07/14 at 13:44; Status DC Iodixanol (Visipaque 320) 100 ml STK-MED ONCE .ROUTE ; Start 05/08/17 at 13:47; Stop 05/08/17 at 13:48; Status DC Nitroglycerin (Nitroglycerin) 200 mcg 1X ONCE IART Last administered on 15:26; Start 05/08/17 at 14:15; Stop 05/08/17 at 14:24; Status DC Heparin Sodium/ Sodium Chloride 1,000 unit 1X ONCE IART Last administered on 15:24; Start 05/08/17 at 14:15; Stop 05/08/17 at 14:24; Status DC Midazolam HCl (Versed) 2 mg 1X ONCE IV Last administered on 05/08/17 15:28; Start 05/08/17 at 14:15; Stop 05/08/17 at 14:24; Status DC Fentanyl Citrate (Fentanyl 2ml Vial) 100 mcg 1X ONCE IV Last administered on 15:28; Start 05/08/17 at 14:15; Stop 05/08/17 at 14:24; Status DC Iodixanol (Visipaque 320) 100 ml 1X ONCE IART Last administered on 05/08/17 15:26; Start 05/08/17 at 14:15; Stop 05/08/17 at 14:24; Status DC Bivalirudin (Angiomax) 500 mg 1X ONCE IV Last administered on 05/08/17 15:27 ; Start 05/08/17 at 14:15; Stop 05/08/17 at 14:24; Status DC Lidocaine HCl 38 ml 1X ONCE IJ Last administered on 05/08/17 15:24; Start 07/14 at 14:15; Stop 05/08/17 at 14:24; Status DC Dextrose 500 ml @ 20 mls/hr 1X ONCE IV Last administered on 05/08/17 12:30; Start 05/08/17 at 14:30; Stop 05/09/17 at 15:29; Status DC Dopamine HCl/ Dextrose 250 ml @ 14.118 mls/ hr CONT PRN IV SEE I/O RECORD; Start 05/08/17 at 15:30 Acetaminophen (Tylenol) 650 mg PRN Q6HRS PRN PO MILD PAIN / TEMP; Start at 16:15; Stop 05/09/17 at 19:33; Status DC Nitroglycerin (Nitrostat) 0.4 mg PRN Q5MIN PRN SL CHEST PAIN; Start 05/08/17 at 16:15 Albumin Human 100 ml @ 100 mls/hr 1X ONCE IV Last administered on 05/09/17 13:27; Start 05/09/17 at 13:00; Stop 05/09/17 at 13:59; Status DC Furosemide (Lasix) 20 mg 1X ONCE IVP Last administered on 05/09/17 13:27; Start 05/09/17 at 13:00; Stop 05/09/17 at 13:04; Status DC Metolazone (Zaroxolyn) 2.5 mg DAILY PO ; Start 05/10/17 at 09:00 Alprazolam (Xanax) 0.25 mg PRN TID PRN PO ANXIETY / AGITATION Last administered on 05/09/17 22:04; Start 05/09/17 at 15:00 Metolazone (Zaroxolyn) 2.5 mg 1X ONCE PO Last administered on 05/09/17 16:42 ; Start 05/09/17 at 16:15; Stop 05/09/17 at 16:16; Status DC Dobutamine HCl/ Dextrose 250 ml @ 0 mls/hr 1X ONCE IV Last administered on 16:41; Start 05/09/17 at 16:30; Stop 05/09/17 at 16:31; Status DC Acetaminophen (Tylenol) 650 mg PRN Q6HRS PRN PO MILD PAIN / TEMP Last administered on 05/09/17 19:42; Start 05/09/17 at 19:45 Sodium Chloride 1,000 ml @ 100 mls/hr Q10H IV Last administered on 05/09/17 22:37; Start 05/09/17 at 22:30 Furosemide (Lasix) 20 mg 1X ONCE IVP Last administered on 05/09/17 22:46; Start 05/09/17 at 22:45; Stop 05/09/17 at 22:46; Status DC Furosemide (Lasix) 20 mg 1X PRN PRN IV Blood transfusion; Start 05/10/17 at 05: 15; Stop 05/10/17 at 05:30; Status DC Furosemide (Lasix) 40 mg 1X PRN PRN IV Blood transfusion; Start 05/10/17 at 05: 30 Norepinephrine Bitartrate 250 ml @ As Directed STK-MED ONCE IV ; Start at 07:17; Stop 05/10/17 at 07:18; Status DC Ondansetron HCl (Zofran) 4 mg PRN Q6HRS PRN IV NAUSEA/VOMITING; Start 05/10/17 at 08:30 Insulin Aspart (NovoLOG) BIDBFRMEAL SQ ; Start 05/10/17 at 16:30 Active Scripts Active Reported Meropenem 500 Mg Vial 500 Mg IV Q8HRS Humalog (Insulin Lispro) 100 Unit/1 Ml Cartridge 100 Unit SQ TIDACHC Metoclopramide Hcl 10 Mg/2 Ml Disp.syrin 10 Mg IV TID Furosemide 40 Mg Tablet 1 Tab PO DAILY Eliquis (Apixaban) 5 Mg Tablet 5 Mg PO BID Lisinopril 10 Mg Tablet 1 Tab PO DAILY Ondansetron Hcl 4 Mg/2 Ml Syr (Ondansetron Hcl/Pf) 4 Mg/2 Ml Disp.syrin 4 Mg IJ Q6HRS PRN Pantoprazole Sodium 40 Mg Tablet.dr 1 Tab PO DAILY Sucralfate 1 Gm Tablet 1 Tab PO BID Simethicone 80 Mg Tab.chew 80 Mg PO TID Duoneb 0.5-3(2.5) Mg/3 Ml (Albuterol/Ipratropium) 3 Ml Ampul.neb 3 Ml NEB BID Escitalopram Oxalate 10 Mg Tablet 1 Tab PO DAILY Alprazolam 0.25 Mg Tablet 1 Tab PO HS Melatonin 3 Mg Tablet 3 Mg PO QHS Levothyroxine Sodium 75 Mcg Tablet 1 Tab PO DAILY Amiodarone Hcl 200 Mg Tablet 1 Tab PO BID Allergies Allergies: Coded Allergies: Penicillins (Verified Allergy, Severe, Anaphylaxis, 04/30/17) MERREM OK metronidazole (Verified Allergy, Intermediate, 04/30/17) sulfamethoxazole (Verified Allergy, Intermediate, 04/30/17) trimethoprim (Verified Allergy, Intermediate, 04/30/17) adhesive tape (Verified Adverse Reaction, Severe, skin tears, 04/14/17) pravastatin (Verified Adverse Reaction, Intermediate, severe muscle cramps , 04/14/17) hydrocodone (Verified Adverse Reaction, Mild, nausea, 04/14/17) oxycodone (Verified Adverse Reaction, Mild, nausea, 04/14/17) tramadol (Verified Adverse Reaction, Mild, nausea, 04/14/17) ROS Review of System UNABLE TO OBTAIN Physical Exam General: Cooperative, No acute distress HEENT: Atraumatic, PERRLA, Mucous membr. moist/pink Lungs: Other (DECREASED AT BASES BILATERALLY) Heart: Regular rate Abdomen: Normal bowel sounds, Soft, No tenderness Extremities: No clubbing Skin: No breakdown Neuro: Other (CONFUSED BUT NO ASYMMETRY) MUSCULOSKELETAL: Other (DIFFUSE ATROPHY) Vitals VITALS Vital Signs Date Time Temp Pulse Resp B/P (MAP) Pulse Ox O2 Delivery O2 Flow Rate FiO2 05/10/17 09:20 98.2 94 24 83/46 98.2 05/10/17 07:14 99 Nasal Cannula 4.0 Labs Labs Laboratory Tests Test 05/08/17 16:12 05/08/17 20:35 05/09/17 04:45 05/09/17 07:56 Glucose (Fingerstick) 162 mg/dL (70-99) 206 mg/dL (70-99) 190 mg/dL (70-99) White Blood Count 10.7 x10^3/uL (4.0-11.0) Red Blood Count 2.67 x10^6/uL (3.50-5.40) Hemoglobin 7.7 g/dL (12.0-15.5) Hematocrit 23.3 % (36.0-47.0) Mean Corpuscular Volume 87 fL (79-100) Mean Corpuscular Hemoglobin 29 pg (25-35) Mean Corpuscular Hemoglobin Concent 33 g/dL (31-37) Red Cell Distribution Width 18.3 % (11.5-14.5) Platelet Count 303 x10^3/uL (140-400) Neutrophils (%) (Auto) 74 % (31-73) Lymphocytes (%) (Auto) 17 % (24-48) Monocytes (%) (Auto) 8 % (0-9) Eosinophils (%) (Auto) 1 % (0-3) Basophils (%) (Auto) 1 % (0-3) Neutrophils # (Auto) 7.9 x10^3uL (1.8-7.7) Lymphocytes # (Auto) 1.9 x10^3/uL (1.0-4.8) Monocytes # (Auto) 0.8 x10^3/uL (0.0-1.1) Eosinophils # (Auto) 0.1 x10^3/uL (0.0-0.7) Basophils # (Auto) 0.1 x10^3/uL (0.0-0.2) Sodium Level 137 mmol/L (136-145) Potassium Level 4.8 mmol/L (3.5-5.1) Chloride Level 98 mmol/L (98-107) Carbon Dioxide Level 36 mmol/L (21-32) Anion Gap 3 (6-14) Blood Urea Nitrogen 22 mg/dL (7-20) Creatinine 1.0 mg/dL (0.6-1.0) Estimated GFR (Cockcroft-Gault) 53.5 Glucose Level 156 mg/dL (70-99) Calcium Level 8.4 mg/dL (8.5-10.1) Magnesium Level 2.0 mg/dL (1.8-2.4) Triglycerides Level 266 mg/dL (0-150) Cholesterol Level 169 mg/dL (0-200) LDL Cholesterol, Calculated 71 mg/dL (0-100) VLDL Cholesterol, Calculated 53 mg/dL (0-40) Non-HDL Cholesterol Calculated 124 mg/dL (0-129) HDL Cholesterol 45 mg/dL (40-60) Cholesterol/HDL Ratio 3.8 Test 05/09/17 12:23 05/09/17 17:27 05/09/17 21:47 05/10/17 04:40 Glucose (Fingerstick) 168 mg/dL (70-99) 229 mg/dL (70-99) 243 mg/dL (70-99) White Blood Count 9.3 x10^3/uL (4.0-11.0) Red Blood Count 2.05 x10^6/uL (3.50-5.40) Hemoglobin 6.1 g/dL (12.0-15.5) Hematocrit 18.2 % (36.0-47.0) Mean Corpuscular Volume 89 fL (79-100) Mean Corpuscular Hemoglobin 30 pg (25-35) Mean Corpuscular Hemoglobin Concent 33 g/dL (31-37) Red Cell Distribution Width 19.0 % (11.5-14.5) Platelet Count 251 x10^3/uL (140-400) Neutrophils (%) (Auto) 70 % (31-73) Lymphocytes (%) (Auto) 20 % (24-48) Monocytes (%) (Auto) 10 % (0-9) Eosinophils (%) (Auto) 0 % (0-3) Basophils (%) (Auto) 1 % (0-3) Neutrophils # (Auto) 6.6 x10^3uL (1.8-7.7) Lymphocytes # (Auto) 1.8 x10^3/uL (1.0-4.8) Monocytes # (Auto) 0.9 x10^3/uL (0.0-1.1) Eosinophils # (Auto) 0.0 x10^3/uL (0.0-0.7) Basophils # (Auto) 0.0 x10^3/uL (0.0-0.2) Sodium Level 138 mmol/L (136-145) Potassium Level 5.0 mmol/L (3.5-5.1) Chloride Level 99 mmol/L (98-107) Carbon Dioxide Level 32 mmol/L (21-32) Anion Gap 7 (6-14) Blood Urea Nitrogen 30 mg/dL (7-20) Creatinine 1.6 mg/dL (0.6-1.0) Estimated GFR (Cockcroft-Gault) 31.1 Glucose Level 207 mg/dL (70-99) Calcium Level 8.3 mg/dL (8.5-10.1) Test 05/10/17 08:14 Glucose (Fingerstick) 214 mg/dL (70-99) Laboratory Tests Test 05/09/17 12:23 05/09/17 17:27 05/09/17 21:47 05/10/17 04:40 Glucose (Fingerstick) 168 mg/dL (70-99) 229 mg/dL (70-99) 243 mg/dL (70-99) White Blood Count 9.3 x10^3/uL (4.0-11.0) Red Blood Count 2.05 x10^6/uL (3.50-5.40) Hemoglobin 6.1 g/dL (12.0-15.5) Hematocrit 18.2 % (36.0-47.0) Mean Corpuscular Volume 89 fL (79-100) Mean Corpuscular Hemoglobin 30 pg (25-35) Mean Corpuscular Hemoglobin Concent 33 g/dL (31-37) Red Cell Distribution Width 19.0 % (11.5-14.5) Platelet Count 251 x10^3/uL (140-400) Neutrophils (%) (Auto) 70 % (31-73) Lymphocytes (%) (Auto) 20 % (24-48) Monocytes (%) (Auto) 10 % (0-9) Eosinophils (%) (Auto) 0 % (0-3) Basophils (%) (Auto) 1 % (0-3) Neutrophils # (Auto) 6.6 x10^3uL (1.8-7.7) Lymphocytes # (Auto) 1.8 x10^3/uL (1.0-4.8) Monocytes # (Auto) 0.9 x10^3/uL (0.0-1.1) Eosinophils # (Auto) 0.0 x10^3/uL (0.0-0.7) Basophils # (Auto) 0.0 x10^3/uL (0.0-0.2) Sodium Level 138 mmol/L (136-145) Potassium Level 5.0 mmol/L (3.5-5.1) Chloride Level 99 mmol/L (98-107) Carbon Dioxide Level 32 mmol/L (21-32) Anion Gap 7 (6-14) Blood Urea Nitrogen 30 mg/dL (7-20) Creatinine 1.6 mg/dL (0.6-1.0) Estimated GFR (Cockcroft-Gault) 31.1 Glucose Level 207 mg/dL (70-99) Calcium Level 8.3 mg/dL (8.5-10.1) Test 05/10/17 08:14 Glucose (Fingerstick) 214 mg/dL (70-99) Assessment/Plan Assessment/Plan IMP JUAN-WITH CR OF 1.6-MOST LIKELY CONTRAST RELATED CKD STAGE 2 WITH NL CR CHF-IMPROVED PLEURAL EFFUSION PROB ANGINA CAD-NOT SURGICAL CANDIDATE ANEMIA PLAN PRBC IVF'S HOLD LASIX FOR NOW PT HAS HAD CAN IN THE PAST AND HAS RECOVERED FROM HER JUAN IN THE PAST LABS IN AM UPDATED FAMILY VANE WHITT MD May 10, 2017 11:17
[2017-05-10] MEDS: IV NORMAL SALINE 1000ML BAG 1,000 ML IV SCH ×2 (12:39→23:03)
[2017-05-10 14:07] LABS: BASO % 0 % (0-3); EOS % 0 % (0-3); HEMATOCRIT 24.4 % (36.0-47.0); LYMPH # 1.5 x10^3/uL (1.0-4.8); LYMPH % 13 % (24-48); MEAN CORPUSCULAR HEMOGLOBIN 29 pg (25-35); MEAN CORPUSCULAR HGB CONC 33 g/dL (31-37); MEAN CORPUSCULAR VOLUME 89 fL (79-100); MONO % 7 % (0-9); NEUT % 80 % (31-73); PLATELET COUNT 296 x10^3/uL (140-400); RED BLOOD COUNT 2.74 x10^6/uL (3.50-5.40); RED CELL DISTRIBUTION WIDTH 18.1 % (11.5-14.5); WHITE BLOOD COUNT 11.5 x10^3/uL (4.0-11.0)
[2017-05-10 14:14] LABS: CREATININE 1.6 mg/dL (0.6-1.0); GFR 31.1; POTASSIUM 4.7 mmol/L (3.5-5.1)
--- NOTE | 2017-05-10 15:20 | PDOC ---
PULMONARY PROGRESS NOTES Subjective PT OFF BIPAP UNDERGOING TRANSFUSION DOING BETTER LESS SOA Vitals Vital Signs Date Time Temp Pulse Resp B/P (MAP) Pulse Ox O2 Delivery O2 Flow Rate FiO2 05/10/17 14:10 98.2 98 28 117/71 98.2 05/10/17 11:21 95 BiPAP/CPAP 05/10/17 11:09 4.0 ROS: No Nausea, No Chest Pain, No Abdominal Pain, No Increase Cough General: No acute distress Lungs: Crackles, Other Cardiovascular: S1, S2 Abdomen: Soft, Non-tender Neuro Exam: Alert Extremities: Other (1+edema) Skin: Warm Labs Laboratory Tests Test 05/08/17 16:12 05/08/17 20:35 05/09/17 04:45 05/09/17 07:56 Glucose (Fingerstick) 162 mg/dL (70-99) 206 mg/dL (70-99) 190 mg/dL (70-99) White Blood Count 10.7 x10^3/uL (4.0-11.0) Red Blood Count 2.67 x10^6/uL (3.50-5.40) Hemoglobin 7.7 g/dL (12.0-15.5) Hematocrit 23.3 % (36.0-47.0) Mean Corpuscular Volume 87 fL (79-100) Mean Corpuscular Hemoglobin 29 pg (25-35) Mean Corpuscular Hemoglobin Concent 33 g/dL (31-37) Red Cell Distribution Width 18.3 % (11.5-14.5) Platelet Count 303 x10^3/uL (140-400) Neutrophils (%) (Auto) 74 % (31-73) Lymphocytes (%) (Auto) 17 % (24-48) Monocytes (%) (Auto) 8 % (0-9) Eosinophils (%) (Auto) 1 % (0-3) Basophils (%) (Auto) 1 % (0-3) Neutrophils # (Auto) 7.9 x10^3uL (1.8-7.7) Lymphocytes # (Auto) 1.9 x10^3/uL (1.0-4.8) Monocytes # (Auto) 0.8 x10^3/uL (0.0-1.1) Eosinophils # (Auto) 0.1 x10^3/uL (0.0-0.7) Basophils # (Auto) 0.1 x10^3/uL (0.0-0.2) Sodium Level 137 mmol/L (136-145) Potassium Level 4.8 mmol/L (3.5-5.1) Chloride Level 98 mmol/L (98-107) Carbon Dioxide Level 36 mmol/L (21-32) Anion Gap 3 (6-14) Blood Urea Nitrogen 22 mg/dL (7-20) Creatinine 1.0 mg/dL (0.6-1.0) Estimated GFR (Cockcroft-Gault) 53.5 Glucose Level 156 mg/dL (70-99) Calcium Level 8.4 mg/dL (8.5-10.1) Magnesium Level 2.0 mg/dL (1.8-2.4) Triglycerides Level 266 mg/dL (0-150) Cholesterol Level 169 mg/dL (0-200) LDL Cholesterol, Calculated 71 mg/dL (0-100) VLDL Cholesterol, Calculated 53 mg/dL (0-40) Non-HDL Cholesterol Calculated 124 mg/dL (0-129) HDL Cholesterol 45 mg/dL (40-60) Cholesterol/HDL Ratio 3.8 Test 05/09/17 12:23 05/09/17 17:27 05/09/17 21:47 05/10/17 04:40 Glucose (Fingerstick) 168 mg/dL (70-99) 229 mg/dL (70-99) 243 mg/dL (70-99) White Blood Count 9.3 x10^3/uL (4.0-11.0) Red Blood Count 2.05 x10^6/uL (3.50-5.40) Hemoglobin 6.1 g/dL (12.0-15.5) Hematocrit 18.2 % (36.0-47.0) Mean Corpuscular Volume 89 fL (79-100) Mean Corpuscular Hemoglobin 30 pg (25-35) Mean Corpuscular Hemoglobin Concent 33 g/dL (31-37) Red Cell Distribution Width 19.0 % (11.5-14.5) Platelet Count 251 x10^3/uL (140-400) Neutrophils (%) (Auto) 70 % (31-73) Lymphocytes (%) (Auto) 20 % (24-48) Monocytes (%) (Auto) 10 % (0-9) Eosinophils (%) (Auto) 0 % (0-3) Basophils (%) (Auto) 1 % (0-3) Neutrophils # (Auto) 6.6 x10^3uL (1.8-7.7) Lymphocytes # (Auto) 1.8 x10^3/uL (1.0-4.8) Monocytes # (Auto) 0.9 x10^3/uL (0.0-1.1) Eosinophils # (Auto) 0.0 x10^3/uL (0.0-0.7) Basophils # (Auto) 0.0 x10^3/uL (0.0-0.2) Sodium Level 138 mmol/L (136-145) Potassium Level 5.0 mmol/L (3.5-5.1) Chloride Level 99 mmol/L (98-107) Carbon Dioxide Level 32 mmol/L (21-32) Anion Gap 7 (6-14) Blood Urea Nitrogen 30 mg/dL (7-20) Creatinine 1.6 mg/dL (0.6-1.0) Estimated GFR (Cockcroft-Gault) 31.1 Glucose Level 207 mg/dL (70-99) Calcium Level 8.3 mg/dL (8.5-10.1) Test 05/10/17 08:14 05/10/17 12:28 05/10/17 13:50 Glucose (Fingerstick) 214 mg/dL (70-99) 206 mg/dL (70-99) White Blood Count 11.5 x10^3/uL (4.0-11.0) Red Blood Count 2.74 x10^6/uL (3.50-5.40) Hemoglobin 8.0 g/dL (12.0-15.5) Hematocrit 24.4 % (36.0-47.0) Mean Corpuscular Volume 89 fL (79-100) Mean Corpuscular Hemoglobin 29 pg (25-35) Mean Corpuscular Hemoglobin Concent 33 g/dL (31-37) Red Cell Distribution Width 18.1 % (11.5-14.5) Platelet Count 296 x10^3/uL (140-400) Neutrophils (%) (Auto) 80 % (31-73) Lymphocytes (%) (Auto) 13 % (24-48) Monocytes (%) (Auto) 7 % (0-9) Eosinophils (%) (Auto) 0 % (0-3) Basophils (%) (Auto) 0 % (0-3) Neutrophils # (Auto) 9.2 x10^3uL (1.8-7.7) Lymphocytes # (Auto) 1.5 x10^3/uL (1.0-4.8) Monocytes # (Auto) 0.7 x10^3/uL (0.0-1.1) Eosinophils # (Auto) 0.0 x10^3/uL (0.0-0.7) Basophils # (Auto) 0.0 x10^3/uL (0.0-0.2) Sodium Level 137 mmol/L (136-145) Potassium Level 4.7 mmol/L (3.5-5.1) Chloride Level 99 mmol/L (98-107) Carbon Dioxide Level 29 mmol/L (21-32) Anion Gap 9 (6-14) Blood Urea Nitrogen 33 mg/dL (7-20) Creatinine 1.6 mg/dL (0.6-1.0) Estimated GFR (Cockcroft-Gault) 31.1 Glucose Level 256 mg/dL (70-99) Calcium Level 8.0 mg/dL (8.5-10.1) Laboratory Tests Test 05/09/17 17:27 05/09/17 21:47 05/10/17 04:40 05/10/17 08:14 Glucose (Fingerstick) 229 mg/dL (70-99) 243 mg/dL (70-99) 214 mg/dL (70-99) White Blood Count 9.3 x10^3/uL (4.0-11.0) Red Blood Count 2.05 x10^6/uL (3.50-5.40) Hemoglobin 6.1 g/dL (12.0-15.5) Hematocrit 18.2 % (36.0-47.0) Mean Corpuscular Volume 89 fL (79-100) Mean Corpuscular Hemoglobin 30 pg (25-35) Mean Corpuscular Hemoglobin Concent 33 g/dL (31-37) Red Cell Distribution Width 19.0 % (11.5-14.5) Platelet Count 251 x10^3/uL (140-400) Neutrophils (%) (Auto) 70 % (31-73) Lymphocytes (%) (Auto) 20 % (24-48) Monocytes (%) (Auto) 10 % (0-9) Eosinophils (%) (Auto) 0 % (0-3) Basophils (%) (Auto) 1 % (0-3) Neutrophils # (Auto) 6.6 x10^3uL (1.8-7.7) Lymphocytes # (Auto) 1.8 x10^3/uL (1.0-4.8) Monocytes # (Auto) 0.9 x10^3/uL (0.0-1.1) Eosinophils # (Auto) 0.0 x10^3/uL (0.0-0.7) Basophils # (Auto) 0.0 x10^3/uL (0.0-0.2) Sodium Level 138 mmol/L (136-145) Potassium Level 5.0 mmol/L (3.5-5.1) Chloride Level 99 mmol/L (98-107) Carbon Dioxide Level 32 mmol/L (21-32) Anion Gap 7 (6-14) Blood Urea Nitrogen 30 mg/dL (7-20) Creatinine 1.6 mg/dL (0.6-1.0) Estimated GFR (Cockcroft-Gault) 31.1 Glucose Level 207 mg/dL (70-99) Calcium Level 8.3 mg/dL (8.5-10.1) Test 05/10/17 12:28 05/10/17 13:50 Glucose (Fingerstick) 206 mg/dL (70-99) White Blood Count 11.5 x10^3/uL (4.0-11.0) Red Blood Count 2.74 x10^6/uL (3.50-5.40) Hemoglobin 8.0 g/dL (12.0-15.5) Hematocrit 24.4 % (36.0-47.0) Mean Corpuscular Volume 89 fL (79-100) Mean Corpuscular Hemoglobin 29 pg (25-35) Mean Corpuscular Hemoglobin Concent 33 g/dL (31-37) Red Cell Distribution Width 18.1 % (11.5-14.5) Platelet Count 296 x10^3/uL (140-400) Neutrophils (%) (Auto) 80 % (31-73) Lymphocytes (%) (Auto) 13 % (24-48) Monocytes (%) (Auto) 7 % (0-9) Eosinophils (%) (Auto) 0 % (0-3) Basophils (%) (Auto) 0 % (0-3) Neutrophils # (Auto) 9.2 x10^3uL (1.8-7.7) Lymphocytes # (Auto) 1.5 x10^3/uL (1.0-4.8) Monocytes # (Auto) 0.7 x10^3/uL (0.0-1.1) Eosinophils # (Auto) 0.0 x10^3/uL (0.0-0.7) Basophils # (Auto) 0.0 x10^3/uL (0.0-0.2) Sodium Level 137 mmol/L (136-145) Potassium Level 4.7 mmol/L (3.5-5.1) Chloride Level 99 mmol/L (98-107) Carbon Dioxide Level 29 mmol/L (21-32) Anion Gap 9 (6-14) Blood Urea Nitrogen 33 mg/dL (7-20) Creatinine 1.6 mg/dL (0.6-1.0) Estimated GFR (Cockcroft-Gault) 31.1 Glucose Level 256 mg/dL (70-99) Calcium Level 8.0 mg/dL (8.5-10.1) Medications Active Scripts Medications Dose Route/Sig Max Daily Dose Days Date Category Meropenem 500 Mg Vial 500 Mg IV Q8HRS 05/05/17 Reported Humalog (Insulin Lispro) 100 Unit/1 Ml Cartridge 100 Unit SQ TIDACHC 05/05/17 Reported Metoclopramide Hcl 10 Mg/2 Ml Disp.syrin 10 Mg IV TID 05/05/17 Reported Furosemide 40 Mg Tablet 1 Tab PO DAILY 05/05/17 Reported Eliquis (Apixaban) 5 Mg Tablet 5 Mg PO BID 05/01/17 Reported Lisinopril 10 Mg Tablet 1 Tab PO DAILY 05/01/17 Reported Ondansetron Hcl 4 Mg/2 Ml Syr (Ondansetron Hcl/Pf) 4 Mg/2 Ml Disp.syrin 4 Mg IJ Q6HRS PRN 04/14/17 Reported Pantoprazole Sodium 40 Mg Tablet.dr 1 Tab PO DAILY 04/14/17 Reported Sucralfate 1 Gm Tablet 1 Tab PO BID 04/14/17 Reported Simethicone 80 Mg Tab.chew 80 Mg PO TID 04/14/17 Reported Duoneb 0.5-3(2.5) Mg/3 Ml (Albuterol/Ipratropium) 3 Ml Ampul.neb 3 Ml NEB BID 04/14/17 Reported Escitalopram Oxalate 10 Mg Tablet 1 Tab PO DAILY 04/14/17 Reported Alprazolam 0.25 Mg Tablet 1 Tab PO HS 04/14/17 Reported Melatonin 3 Mg Tablet 3 Mg PO QHS 04/14/17 Reported Levothyroxine Sodium 75 Mcg Tablet 1 Tab PO DAILY 04/14/17 Reported Amiodarone Hcl 200 Mg Tablet 1 Tab PO BID 04/14/17 Reported Comments REVIEWED CXR IMPROVING Impression . 1. 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 2. Abnormal chest x-ray consistent with congestive heart failure. 3. Possible mild chronic obstructive pulmonary disease. 4. Bilateral pleural effusions secondary to congestive heart failure. 5. Severe protein-calorie malnutrition. 6. Recent perforated peptic ulcer with laparoscopic repair of the peptic ulcer and Mahad patch placement. 7. Critical illness myopathy. 8. Hypothyroidism. 9. Hyperlipidemia. 10. Recent non-ST myocardial infarction. 11. CAD 12. Acute blood loss anemia Procedure(s) performed: 1. Left heart catheterization, selective coronary angiography 2. Successful complex PCI/stents placement to the right coronary artery and also the left anterior descending artery 3. Successful stent graft placement to the left main coronary artery 4. Assistance with Cardiac Output using Impella Ventricular Assist pump, continuous 217 Minutes of Moderate Sedation Plan . TRANSFUSE DIURESE PRN BIPAP SPOKE WITH DAUGHTER AT BEDSIDE 1. Diurese 2. S/P PCI 3. P.r.n. bronchodilators. 4. Follow chest x-rays. 5 . Improve nutritional support. 6. Physical therapy consult. 7. Lasix and BIPAP SHADY MARIE MD May 10, 2017 15:20
--- NOTE | 2017-05-10 16:27 | PDOC ---
PROGRESS NOTES Subjective Subjective Denied any chest pain Objective Objective Vital Signs Date Time Temp Pulse Resp B/P (MAP) Pulse Ox O2 Delivery O2 Flow Rate FiO2 05/10/17 16:16 Nasal Cannula 3.0 05/10/17 14:10 98.2 98 28 117/71 98.2 05/10/17 11:21 95 Intake and Output 05/11/17 07:00 Intake Total 50 ml Balance 50 ml Blood Product IV Normal Saline Flush 50 ml Physical Exam Abdomen: Normal bowel sounds, Soft, No tenderness Heart: Regular rate Extremities: No clubbing General: Cooperative, No acute distress HEENT: Atraumatic, PERRLA, Mucous membr. moist/pink Lungs: Other (DECREASED AT BASES BILATERALLY) MUSCULOSKELETAL: Other (DIFFUSE ATROPHY) Neuro: Other (CONFUSED BUT NO ASYMMETRY) Psych/Mental Status: Mental status NL Skin: No breakdown Assessment Assessment 1. Acute on chronic systolic heart failure: Improving based on chest x-ray findings and decreased requirement of oxygen per nasal cannula. Diuretics on hold per nephrology recommendations for prerenal picture. Levothroid being weaned off. Continue dobutamine for now. 2. Acute non-STEMI with three-vessel coronary artery disease S/P complex PCI/ BMS to LAD/RCA with hemodynamic support from Impella left ventricular assist device. Patient presently chest pain-free. Continue dual antiplatelet therapy. 3. Anemia: Being transfused 4. Recent perforated gastric ulcer with laparoscopic repair 5. Critical illness myopathy 6. PAFIB: maintaining SR. 7. CKD2 Comment Review of Relevant I have reviewed the following items airam (where applicable) has been applied. Labs Laboratory Tests Test 05/09/17 17:27 05/09/17 21:47 05/10/17 04:40 05/10/17 08:14 Glucose (Fingerstick) 229 mg/dL (70-99) 243 mg/dL (70-99) 214 mg/dL (70-99) White Blood Count 9.3 x10^3/uL (4.0-11.0) Red Blood Count 2.05 x10^6/uL (3.50-5.40) Hemoglobin 6.1 g/dL (12.0-15.5) Hematocrit 18.2 % (36.0-47.0) Mean Corpuscular Volume 89 fL (79-100) Mean Corpuscular Hemoglobin 30 pg (25-35) Mean Corpuscular Hemoglobin Concent 33 g/dL (31-37) Red Cell Distribution Width 19.0 % (11.5-14.5) Platelet Count 251 x10^3/uL (140-400) Neutrophils (%) (Auto) 70 % (31-73) Lymphocytes (%) (Auto) 20 % (24-48) Monocytes (%) (Auto) 10 % (0-9) Eosinophils (%) (Auto) 0 % (0-3) Basophils (%) (Auto) 1 % (0-3) Neutrophils # (Auto) 6.6 x10^3uL (1.8-7.7) Lymphocytes # (Auto) 1.8 x10^3/uL (1.0-4.8) Monocytes # (Auto) 0.9 x10^3/uL (0.0-1.1) Eosinophils # (Auto) 0.0 x10^3/uL (0.0-0.7) Basophils # (Auto) 0.0 x10^3/uL (0.0-0.2) Sodium Level 138 mmol/L (136-145) Potassium Level 5.0 mmol/L (3.5-5.1) Chloride Level 99 mmol/L (98-107) Carbon Dioxide Level 32 mmol/L (21-32) Anion Gap 7 (6-14) Blood Urea Nitrogen 30 mg/dL (7-20) Creatinine 1.6 mg/dL (0.6-1.0) Estimated GFR (Cockcroft-Gault) 31.1 Glucose Level 207 mg/dL (70-99) Calcium Level 8.3 mg/dL (8.5-10.1) Test 05/10/17 12:28 05/10/17 13:50 Glucose (Fingerstick) 206 mg/dL (70-99) White Blood Count 11.5 x10^3/uL (4.0-11.0) Red Blood Count 2.74 x10^6/uL (3.50-5.40) Hemoglobin 8.0 g/dL (12.0-15.5) Hematocrit 24.4 % (36.0-47.0) Mean Corpuscular Volume 89 fL (79-100) Mean Corpuscular Hemoglobin 29 pg (25-35) Mean Corpuscular Hemoglobin Concent 33 g/dL (31-37) Red Cell Distribution Width 18.1 % (11.5-14.5) Platelet Count 296 x10^3/uL (140-400) Neutrophils (%) (Auto) 80 % (31-73) Lymphocytes (%) (Auto) 13 % (24-48) Monocytes (%) (Auto) 7 % (0-9) Eosinophils (%) (Auto) 0 % (0-3) Basophils (%) (Auto) 0 % (0-3) Neutrophils # (Auto) 9.2 x10^3uL (1.8-7.7) Lymphocytes # (Auto) 1.5 x10^3/uL (1.0-4.8) Monocytes # (Auto) 0.7 x10^3/uL (0.0-1.1) Eosinophils # (Auto) 0.0 x10^3/uL (0.0-0.7) Basophils # (Auto) 0.0 x10^3/uL (0.0-0.2) Sodium Level 137 mmol/L (136-145) Potassium Level 4.7 mmol/L (3.5-5.1) Chloride Level 99 mmol/L (98-107) Carbon Dioxide Level 29 mmol/L (21-32) Anion Gap 9 (6-14) Blood Urea Nitrogen 33 mg/dL (7-20) Creatinine 1.6 mg/dL (0.6-1.0) Estimated GFR (Cockcroft-Gault) 31.1 Glucose Level 256 mg/dL (70-99) Calcium Level 8.0 mg/dL (8.5-10.1) Medications Current Medications Acetaminophen (Tylenol) 650 mg PRN Q6HRS PRN PO MILD PAIN / TEMP Last administered on 05/09/17 19:42; Start 05/09/17 at 19:45 Dobutamine HCl/ Dextrose 250 ml @ 0 mls/hr 1X ONCE IV Last administered on 16:41; Start 05/09/17 at 16:30; Stop 05/09/17 at 16:31; Status DC Furosemide (Lasix) 20 mg 1X ONCE IVP Last administered on 05/09/17 22:46; Start 05/09/17 at 22:45; Stop 05/09/17 at 22:46; Status DC Furosemide (Lasix) 20 mg 1X PRN PRN IV Blood transfusion; Start 05/10/17 at 05: 15; Stop 05/10/17 at 05:30; Status DC Furosemide (Lasix) 40 mg 1X PRN PRN IV Blood transfusion Last administered on 13:59; Start 05/10/17 at 05:30 Insulin Aspart (NovoLOG) BIDBFRMEAL SQ ; Start 05/10/17 at 16:30 Metolazone (Zaroxolyn) 2.5 mg DAILY PO ; Start 05/10/17 at 09:00 Norepinephrine Bitartrate 250 ml @ As Directed STK-MED ONCE IV ; Start at 07:17; Stop 05/10/17 at 07:18; Status DC Ondansetron HCl (Zofran) 4 mg PRN Q6HRS PRN IV NAUSEA/VOMITING Last administered on 05/10/17 08:10; Start 05/10/17 at 08:30 Sodium Chloride 1,000 ml @ 75 mls/hr [id number] IV Last administered on 12:39; Start 05/09/17 at 22:30 Vitals/I & O Vital Sign - Last 24 Hours 05/09/17 05/09/17 05/09/17 05/09/17 16:37 19:00 19:22 20:00 Temp 100.8 100.8 Pulse 89 89 Resp 26 26 B/P (MAP) 82/39 (53) 82/39 (53) Pulse Ox 92 99 95 99 O2 Delivery Nasal Cannula Nasal Cannula Nasal Cannula Nasal Cannula O2 Flow Rate 5.0 4.0 8.0 4.0 05/09/17 05/09/17 05/10/17 05/10/17 20:00 20:00 00:00 00:00 Temp 98.1 98.1 Pulse 89 Resp 26 B/P (MAP) 82/39 (53) Pulse Ox 99 O2 Delivery Nasal Cannula Nasal Cannula O2 Flow Rate 5.0 4.0 4.0 4.0 05/10/17 05/10/17 05/10/17 05/10/17 04:00 04:00 07:14 09:20 Temp 98.1 98.2 98.1 98.2 Pulse 94 94 Resp 29 24 B/P (MAP) 92/54 (67) 83/46 Pulse Ox 99 99 O2 Delivery Nasal Cannula Nasal Cannula O2 Flow Rate 4.0 4.0 4.0 05/10/17 05/10/17 05/10/17 05/10/17 11:09 11:21 14:10 16:16 Temp 98.2 98.2 Pulse 98 Resp 28 B/P (MAP) 117/71 Pulse Ox 95 O2 Delivery Nasal Cannula BiPAP/CPAP Nasal Cannula O2 Flow Rate 4.0 3.0 Intake and Output 05/10/17 05/10/17 05/11/17 15:00 23:00 07:00 Intake Total 50 ml Balance 50 ml MARY KAY CALDERON MD May 10, 2017 16:27
[2017-05-10] MEDS ORDERED: INSULIN ASPART 300 UNITS/3 ML INSULN.PEN SQ SCH (16:30)
[2017-05-10] MEDS: AMIODARONE HCL 200 MG TABLET. PO SCH (17:17)
[2017-05-11] VITALS (8 sets, daily range): BP systolic 95–127; BP diastolic 63–72
[2017-05-11] MEDS: MEROPENEM 500 MG in IV NORMAL SALINE 50ML 50 ML IV SCH ×2 (05:19→14:27)
[2017-05-11 05:47] LABS: BASO % 0 % (0-3); EOS % 0 % (0-3); HEMATOCRIT 27.9 % (36.0-47.0); HEMOGLOBIN 9.3 g/dL (12.0-15.5); LYMPH # 1.8 x10^3/uL (1.0-4.8); LYMPH % 15 % (24-48); MEAN CORPUSCULAR HEMOGLOBIN 29 pg (25-35); MEAN CORPUSCULAR HGB CONC 34 g/dL (31-37); MEAN CORPUSCULAR VOLUME 86 fL (79-100); MONO % 7 % (0-9); NEUT % 78 % (31-73); PLATELET COUNT 280 x10^3/uL (140-400); RED BLOOD COUNT 3.26 x10^6/uL (3.50-5.40); RED CELL DISTRIBUTION WIDTH 17.5 % (11.5-14.5)
[2017-05-11 06:10] LABS: ALBUMIN 2.6 g/dL (3.4-5.0); ALBUMIN/GLOBULIN RATIO 0.6 (1.0-1.7); CALCIUM 8.1 mg/dL (8.5-10.1); CREATININE 1.4 mg/dL (0.6-1.0); GFR 36.3; MAGNESIUM 2.1 mg/dL (1.8-2.4); POTASSIUM 3.9 mmol/L (3.5-5.1); TOTAL BILIRUBIN 0.7 mg/dL (0.2-1.0)
[2017-05-11] MEDS: LEVOTHYROXINE 75 MCG TABLET PO SCH (06:47)
[2017-05-11] MEDS: SIMETHICONE 80 MG TAB.CHEW PO SCH ×2 (07:30→11:30)
[2017-05-11] MEDS: IPRATRPIUM/ALBUTEROL 0.5/2.5MG 3 ML NEBU. NEB SCH ×2 (07:31→11:27)
--- NOTE | 2017-05-11 07:31 | PDOC3 ---
CHRIS PAGAN AGRISCIENCE INSTRUCTOR 05/11/17 0731: IM DISCHARGE & PROGRESS NOTES Date of Admission Date of Admission Date of Admission: May 05, 2017 at 12:29 Date of Discharge Date of Discharge 05/11/17 Primary Diagnosis Primary Diagnosis FINAL DIAGNOSIS 1. Acute respiratory failure underlying CHF and possible COPD 2. Acute congestive heart failure, both diastolic and systolic with EF 35-40% 3. Acute non-STEMI with three-vessel coronary artery disease S/P complex PCI/ BMS to LAD/RCA with hemodynamic support from Impella left ventricular assist device. 4. ARF VMN ATN Chronic kidney disease stage 2. 5. Recent perforated peptic ulcer with laparoscopic repair of the peptic ulcer and Mahad patch placement. 6. Recent non-ST elevation myocardial infraction with abnormal EKG. 7. Severe malnutrition. 8. Recent Early sepsis, possible aspiration pneumonia. 9. 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 Hypothyroidism 12. Hyperlipidemia. 13. Gastroesophageal reflux disease. 14. Pre glaucoma of both eyes 15. Recent atrial fibrillation with AVR. 16. hypertension. 17. Diverticulosis. 18. Osteoarthritis. 19. Hearing loss 20. acute blood loss anemia with small bleed from CC puncture site L groin 21. severe PCL malnutrition 22. transaminitis Consults Consults Ernesto Monahan MD Procedures Procedures APPROVED REPORT EXAM: LIMITED Two-dimensional echocardiogram. Other Information Quality : Good INDICATION R/O Tamponade PERICARDIAL EFFUSION There is moderate left pleural effusion. There is a trivial pericardial effusion. <Conclusion> Moderate left ventricular systolic dysfunction. The ejection fraction is estimated at 35-40% There is a trivial pericardial effusion. DICTATED and SIGNED BY: MARY KAY CALDERON MD DATE: 05/09/17 0844 APPROVED REPORT Procedure(s) performed: 1. Left heart catheterization, selective coronary angiography 2. Successful complex PCI/stents placement to the right coronary artery and also the left anterior descending artery 3. Successful stent graft placement to the left main coronary artery 4. Assistance with Cardiac Output using Impella Ventricular Assist pump, continuous 217 Minutes of Moderate Sedation INDICATION The indication(s) include : 81-year-old female who presented with acute on chronic systolic heart failure and acute non-ST elevation myocardial infarction was found to have severe three-vessel coronary artery disease (cath 05/05/17) and ischemic cardiomyopathy with LVEF 35%. She was deemed a poor candidate for coronary artery bypass surgery by CT surgical team. Hence she presented for high risk PCI/stents placement with hemodynamic support from Impella ventricular assist device.. PROCEDURE NARRATIVE Affect pain the risks, benefits and alternative options, informed consent was obtained from patient. Patient was brought to the cardiac Waiter/Waitress Head and both her groins were prepped and draped in the usual fashion. 20 mL of 2% lidocaine was infiltrated into the skin and subcutaneous tissues of the left groin for local anesthesia. Arterial access was obtained in the left common femoral artery and a 5 Thai sheath was inserted. The arteriotomy site was prepared for later closure by two Perclose suture closure devices in a 'Preclose' fashion. Subsequently, the arteriotomy site was dilated sequentially and a 13 Thai sheath was inserted. A 6 Thai multipurpose catheter was advanced into the left ventricle under fluoroscopy guidance and LVEDP was measured. This was found to be elevated at 21 consistent with her presentation of acute on chronic systolic heart failure. This catheter was then exchanged over a 0.014 inch guidewire to Abiomed Impella 2.5 ventricular assist device. This was advanced under fluoroscopy guidance and the tip was positioned in the left ventricle. The device was turned on for optimal hemodynamic support. 6 Thai JR4 guide catheter was used to engage the right coronary artery and selective angiography was performed. The previous he described 95-99% stenosis of the mid segment of right coronary artery was actually found to be a chronic total occlusion with bridging collaterals. After several initial unsuccessful attempts at crossing this lesion with 0.014 inch Asahi prowater followed by Choice PT and Filder XT guidewires, this was crossed with 0.014 inch MirAIS bros 12 guidewire with support from Corsair microcatheter. Due to heavy calcification, we had to use Guideliner inner catheter for additional backup support. The lesion was predilated with a 2.5 x 15 mm trek balloon. The distal segment of the right coronary artery that had 70% stenosis was treated with a 2.5 x 18 mm MultiLink mini vision stent. The midsegment segment stenosis was treated with overlapping 3.0 x 28 and 3.0 x 23 mm MultiLink vision stents. Follow-up angiography showed resolution of the stenosis to 0% with MICHELLE-3 distal flow. Subsequently, the left coronary artery was engaged with a 6 Thai XB 3.5 guide catheter. Selective angiography confirmed the previously described long 80-90% stenosis involving the proximal to mid segments of the left anterior descending artery and chronic total occlusion involving the proximal segment of the left circumflex artery. The left anterior descending artery stenosis was crossed with a 0.014 inch Jetabroad guidewire. With the help of backup support from Guideliner inner catheter, a 2.5 x 15 mm trek balloon was advanced and the lesion was predilated. This was then successfully treated with overlapping 2.5 x 28 and 3.0 x 28 mm MultiLink vision stents. Follow-up angiography showed resolution of the stenosis to 0% with MICHELLE-3 distal flow. The chronic total occlusion involving the left circumflex artery was then attempted crossing using Choice PT followed by MirAIS bros 12 guidewire that appeared to be successful. AFter predilating this with 1.5 x 8 mm trek balloon , angiography showed contrast extravasation. This did not improve after prolonged dilation with a 3.0 x 15 mm trek balloon in the left main coronary artery position across the takeoff of the left circumflex artery. Hence a decision was made to stent the left main coronary artery with a stent graft. A 4.0 x 16 mm Graftmaster was then positioned in the left main coronary artery across the takeoff of the chronically occluded left circumflex artery and was dilated at 15 aster. This was then postdilated with a 4.0 x 15 mm NC trek noncompliant balloon. Follow-up angiography showed complete sealing of the extravasation. Since patient remained hemodynamically stable, we decided to wean her off Impella device. This was slowly turned down, removed from the ventricle under fluoroscopy guidance, turned off and removed completely. Hemostasis in the left groin was achieved by completing the Precose suture technique. Hemostasis in the right groin was achieved using Angio-Seal. Patient tolerated the procedure well. Conclusion Successful complex PCI/stents placement to the right coronary artery, left anterior descending artery and also the left main coronary artery with hemodynamic support from Impella ventricular assist device in a patient with severe three-vessel coronary artery disease and ischemic cardiomyopathy deemed a poor surgical candidate. Recommendations 1. Aspirin 325 mg daily 2. Plavix 75 mg daiy for atleast 2-4 weeks and preferably one year 3. Cardiovascular risk factor modification DICTATED and SIGNED BY: MARY KAY CALDERON MD DATE: 05/08/17 1640 Labs Labs Laboratory Tests Test 05/08/17 08:17 05/08/17 08:30 05/08/17 16:12 05/08/17 20:35 Glucose (Fingerstick) 259 mg/dL (70-99) 162 mg/dL (70-99) 206 mg/dL (70-99) O2 Saturation 90 % (92-99) Arterial Blood pH 7.44 (7.35-7.45) Arterial Blood pCO2 at Patient Temp 45 mmHg (35-46) Arterial Blood pO2 at Patient Temp 64 mmHg (65-108) Arterial Blood HCO3 30 mmol/L (21-28) Arterial Blood Base Excess 5 mmol/L (-3-3) FiO2 60 Test 05/09/17 04:45 05/09/17 07:56 05/09/17 12:23 05/09/17 17:27 White Blood Count 10.7 x10^3/uL (4.0-11.0) Red Blood Count 2.67 x10^6/uL (3.50-5.40) Hemoglobin 7.7 g/dL (12.0-15.5) Hematocrit 23.3 % (36.0-47.0) Mean Corpuscular Volume 87 fL (79-100) Mean Corpuscular Hemoglobin 29 pg (25-35) Mean Corpuscular Hemoglobin Concent 33 g/dL (31-37) Red Cell Distribution Width 18.3 % (11.5-14.5) Platelet Count 303 x10^3/uL (140-400) Neutrophils (%) (Auto) 74 % (31-73) Lymphocytes (%) (Auto) 17 % (24-48) Monocytes (%) (Auto) 8 % (0-9) Eosinophils (%) (Auto) 1 % (0-3) Basophils (%) (Auto) 1 % (0-3) Neutrophils # (Auto) 7.9 x10^3uL (1.8-7.7) Lymphocytes # (Auto) 1.9 x10^3/uL (1.0-4.8) Monocytes # (Auto) 0.8 x10^3/uL (0.0-1.1) Eosinophils # (Auto) 0.1 x10^3/uL (0.0-0.7) Basophils # (Auto) 0.1 x10^3/uL (0.0-0.2) Sodium Level 137 mmol/L (136-145) Potassium Level 4.8 mmol/L (3.5-5.1) Chloride Level 98 mmol/L (98-107) Carbon Dioxide Level 36 mmol/L (21-32) Anion Gap 3 (6-14) Blood Urea Nitrogen 22 mg/dL (7-20) Creatinine 1.0 mg/dL (0.6-1.0) Estimated GFR (Cockcroft-Gault) 53.5 Glucose Level 156 mg/dL (70-99) Calcium Level 8.4 mg/dL (8.5-10.1) Magnesium Level 2.0 mg/dL (1.8-2.4) Triglycerides Level 266 mg/dL (0-150) Cholesterol Level 169 mg/dL (0-200) LDL Cholesterol, Calculated 71 mg/dL (0-100) VLDL Cholesterol, Calculated 53 mg/dL (0-40) Non-HDL Cholesterol Calculated 124 mg/dL (0-129) HDL Cholesterol 45 mg/dL (40-60) Cholesterol/HDL Ratio 3.8 Glucose (Fingerstick) 190 mg/dL (70-99) 168 mg/dL (70-99) 229 mg/dL (70-99) Test 05/09/17 21:47 05/10/17 04:40 05/10/17 08:14 05/10/17 12:28 Glucose (Fingerstick) 243 mg/dL (70-99) 214 mg/dL (70-99) 206 mg/dL (70-99) White Blood Count 9.3 x10^3/uL (4.0-11.0) Red Blood Count 2.05 x10^6/uL (3.50-5.40) Hemoglobin 6.1 g/dL (12.0-15.5) Hematocrit 18.2 % (36.0-47.0) Mean Corpuscular Volume 89 fL (79-100) Mean Corpuscular Hemoglobin 30 pg (25-35) Mean Corpuscular Hemoglobin Concent 33 g/dL (31-37) Red Cell Distribution Width 19.0 % (11.5-14.5) Platelet Count 251 x10^3/uL (140-400) Neutrophils (%) (Auto) 70 % (31-73) Lymphocytes (%) (Auto) 20 % (24-48) Monocytes (%) (Auto) 10 % (0-9) Eosinophils (%) (Auto) 0 % (0-3) Basophils (%) (Auto) 1 % (0-3) Neutrophils # (Auto) 6.6 x10^3uL (1.8-7.7) Lymphocytes # (Auto) 1.8 x10^3/uL (1.0-4.8) Monocytes # (Auto) 0.9 x10^3/uL (0.0-1.1) Eosinophils # (Auto) 0.0 x10^3/uL (0.0-0.7) Basophils # (Auto) 0.0 x10^3/uL (0.0-0.2) Sodium Level 138 mmol/L (136-145) Potassium Level 5.0 mmol/L (3.5-5.1) Chloride Level 99 mmol/L (98-107) Carbon Dioxide Level 32 mmol/L (21-32) Anion Gap 7 (6-14) Blood Urea Nitrogen 30 mg/dL (7-20) Creatinine 1.6 mg/dL (0.6-1.0) Estimated GFR (Cockcroft-Gault) 31.1 Glucose Level 207 mg/dL (70-99) Calcium Level 8.3 mg/dL (8.5-10.1) Test 05/10/17 13:50 05/10/17 17:32 05/11/17 05:06 White Blood Count 11.5 x10^3/uL (4.0-11.0) 12.0 x10^3/uL (4.0-11.0) Red Blood Count 2.74 x10^6/uL (3.50-5.40) 3.26 x10^6/uL (3.50-5.40) Hemoglobin 8.0 g/dL (12.0-15.5) 9.3 g/dL (12.0-15.5) Hematocrit 24.4 % (36.0-47.0) 27.9 % (36.0-47.0) Mean Corpuscular Volume 89 fL (79-100) 86 fL (79-100) Mean Corpuscular Hemoglobin 29 pg (25-35) 29 pg (25-35) Mean Corpuscular Hemoglobin Concent 33 g/dL (31-37) 34 g/dL (31-37) Red Cell Distribution Width 18.1 % (11.5-14.5) 17.5 % (11.5-14.5) Platelet Count 296 x10^3/uL (140-400) 280 x10^3/uL (140-400) Neutrophils (%) (Auto) 80 % (31-73) 78 % (31-73) Lymphocytes (%) (Auto) 13 % (24-48) 15 % (24-48) Monocytes (%) (Auto) 7 % (0-9) 7 % (0-9) Eosinophils (%) (Auto) 0 % (0-3) 0 % (0-3) Basophils (%) (Auto) 0 % (0-3) 0 % (0-3) Neutrophils # (Auto) 9.2 x10^3uL (1.8-7.7) 9.4 x10^3uL (1.8-7.7) Lymphocytes # (Auto) 1.5 x10^3/uL (1.0-4.8) 1.8 x10^3/uL (1.0-4.8) Monocytes # (Auto) 0.7 x10^3/uL (0.0-1.1) 0.8 x10^3/uL (0.0-1.1) Eosinophils # (Auto) 0.0 x10^3/uL (0.0-0.7) 0.0 x10^3/uL (0.0-0.7) Basophils # (Auto) 0.0 x10^3/uL (0.0-0.2) 0.0 x10^3/uL (0.0-0.2) Sodium Level 137 mmol/L (136-145) 137 mmol/L (136-145) Potassium Level 4.7 mmol/L (3.5-5.1) 3.9 mmol/L (3.5-5.1) Chloride Level 99 mmol/L (98-107) 100 mmol/L (98-107) Carbon Dioxide Level 29 mmol/L (21-32) 29 mmol/L (21-32) Anion Gap 9 (6-14) 8 (6-14) Blood Urea Nitrogen 33 mg/dL (7-20) 34 mg/dL (7-20) Creatinine 1.6 mg/dL (0.6-1.0) 1.4 mg/dL (0.6-1.0) Estimated GFR (Cockcroft-Gault) 31.1 36.3 Glucose Level 256 mg/dL (70-99) 195 mg/dL (70-99) Calcium Level 8.0 mg/dL (8.5-10.1) 8.1 mg/dL (8.5-10.1) Glucose (Fingerstick) 234 mg/dL (70-99) BUN/Creatinine Ratio 24 (6-20) Magnesium Level 2.1 mg/dL (1.8-2.4) Total Bilirubin 0.7 mg/dL (0.2-1.0) Aspartate Amino Transf (AST/SGOT) 116 U/L (15-37) Alanine Aminotransferase (ALT/SGPT) 139 U/L (14-59) Alkaline Phosphatase 73 U/L (46-116) Total Protein 7.0 g/dL (6.4-8.2) Albumin 2.6 g/dL (3.4-5.0) Albumin/Globulin Ratio 0.6 (1.0-1.7) Medications Medications Medications reviewed and reconciled for discharge. Brief hospital course Brief hospital course This 81 year old female who presented with A/C CHF was admitted. The following is a summary of her treatment: Acute respiratory failure pulmonary consult supplemental O2 nebulizer O2 supplement to maintain Sat >90% CHF bilateral pleural effusions-monitor 05/06 VM 40% 05/07 hypoxia/hypotension-BIPAP and dopamine-improved Moderate distress: clammy skin, diaphoretic. indicates short of breath on BiPap 10/02 60%. ABGs stat, CXR stat, staff advised to call Dr. Martins with results, Additional Lasix 20mg IV, May need dopamine to maintain SBP, Sats 90% 05/09 improving 05/09-pt reports does not feel much improvement in SOA 05/11 staff reports less SOA with movement A/C CHF Daily wt Admit wt 159# 05/08 166.13 05/09 161.44 05/10 165.44 171.44 IO Lasix 40mg IV x 1 05/05 Lasix 40mg daily po CXR 05/07 persistent pulmonary edema/mild improvement pleural effusions 05/08 Lasix 40mg IV daily, weight increased, BP low with MAP 60-102 05/08 Give Lasix 40mg IV x 2this morning=80mg total , additional KCL 20Meq po x 1 05/09 CXR continued CHF/pulmonary edema-recheck CXR today 05/09 late afternoon: Zaroxlyn 2.5mg po, Lasix 20mg IV, Albumin x1, Dobutamine. Night Lasix 20mg IV x1 05/10 early AM Lasix 20mg IV x1, IV NS bolus for hypotension, and levophed for hypotension Hgb 6.1 05/10 Lasix 40mg IV pending between PRC 05/10 scheduled Lasix 40mg IV, zaroxlyn 2.5mg both at 9am 05/11 per renal-diuretics on hold, IVF NS 75cc/hr CAD recent NSTEMI CC 05/05; LAD 89-90% stenosis prox-mid segment Diag 40% stenosis prox-mid segment RCA 95-99% critical stenosis mid segment 70% calcified stenosis distal segment Impella with stent pending Monday, may require elective intubation inability to lay flat Heparin infusion-stopped Remains on Plavix CC Stent RCA, LAD stent graft LM 05/08/12 bleeding from access site for CC L groin bleeding groin improved DM II FSBS/SSI BS 195-256 05/10 adjust SSI to mod intensity 05/10 recent PUD per with repair CT abd/pelvis 04/14- (Colonic sig/descending) diverticulosis, no CT evidence intra-abdominal abscess. nausea-speech therapy concerned of aspiration-diet change to honey thickened liquids, full liquids, poor oral intake Yumiko does not want GT anemia CD/coagulopathy 05/05 Select 7.6 05/09 6.1 05/11 9.3 (post 2 unit PRC) prolonged anti-Xa hematology consult Vitamin K 10mg IV x 109/10 05/08 Protime 15.6 INR 1.3 PTT 39 Fibrinogen 468 PRC x 2 given 05/10 DVT/GI prophylaxis heparin IV carafate/PPI Hypokalemia- 05/06 3.4 05/09 4.8 05/10 5.0 05/06 additional 20meq given 05/07 KCL increased to 20meq bid 05/10 DC KCL and re eval in morning Dysphagia on dysphagia II honey thickened liquids nausea this AM aspiration risk speech therapy -diet down graded to full liquid and continue honey thickened liquid. Dietary evaluated for nutritional supplements severe malnutrition limited po intake depression affect flat hypotension volume depletion-Hgb critically low. replace with 2 unit PRC levophed initiated decreased UOP due to critically low Hgb Improved 05/11 with IVF, off levophed CKD II with ARF VMN Admit BUN 05/11 34 Cr 0.9 1.4 K 3.9 consult renal potassium 20 bid stopped 05/10 IVF NS 75cc/hr diuretics on hold nausea/transaminitis GI consult Admit AST 05/11 116 ALT 16 139 AP 81 73 add amylase/lipase to am lab 05/11 leukocytosis Meropenem since admit (continued from [facility]) ?reactive, monitor. Prognosis guarded. For more details regarding the past history, family history, social history, surgical history and other details, please refer to History and Physical. Will plan DC [facility]. Please see discharge orders. Subjective sleepy, awakens to name Objective sleepy, no distress Staff reports brighter affect, talking some. Slight Increase animation. Vitals Vital Signs Date Time Temp Pulse Resp B/P (MAP) Pulse Ox O2 Delivery O2 Flow Rate FiO2 05/11/17 06:00 94 24 118/71 (87) 95 Nasal Cannula 3.0 05/11/17 04:00 98.0 98.0 Physical Exam Physical Exam General appearance - sleepy, ill appearing, and in no distress Mental Status - sleepy Head - normal Chest -improved aeration all lobes, wheezing subsided Heart - S1 and S2 normal Abdomen - soft, nontender, nondistended, BS+ Neurological - no acute neurological distress Musculoskeletal - no muscular tenderness noted Extremities - no pedal edema Skin - cool, diaphoretic Medications Medications reviewed. Allergy Allergies Coded Allergies Type Severity Reaction Last Updated Verified Penicillins Allergy Severe Anaphylaxis 04/30/17 Yes metronidazole Allergy Intermediate 04/30/17 Yes sulfamethoxazole Allergy Intermediate 04/30/17 Yes trimethoprim Allergy Intermediate 04/30/17 Yes adhesive tape Adverse Reaction Severe skin tears 04/14/17 Yes pravastatin Adverse Reaction Intermediate severe muscle cramps 04/14/17 Yes hydrocodone Adverse Reaction Mild nausea 04/14/17 Yes oxycodone Adverse Reaction Mild nausea 04/14/17 Yes tramadol Adverse Reaction Mild nausea 04/14/17 Yes Follow up Admit to Dr. Rita Hebert Disposition: pediatric oncology nurse acute care hosp Comments Discharge Management - 35 minutes. For other details please refer to discharge instructions RITA HEBERT MD 05/11/17 0953: IM DISCHARGE & PROGRESS NOTES Brief hospital course Brief hospital course Doing better. Taper off Dobutamine. The patient was seen and examined by me. Chart reviewed and plan of care formulated. Discussed with, reviewed and agree with SHIPPING SPECIALIST's notes, plan of care and orders with modifications as necessary. For more details regarding further plans, please refer to the orders. CHRIS PAGAN APRN May 11, 2017 07:31 RITA HEBERT MD May 11, 2017 09:53
--- NOTE | 2017-05-11 07:36 | DISCH ---
DISCHARGE CONDITION ON DISCHARGE: Stable ADMIT TO LTAC: Yes POST DISCHARGE ORDERS ACTIVITY ORDERS: Activity as tolerated WEIGHT BEARING STATUS: Full weight bearing DIET AFTER DISCHARGE: Full liquid, honey thickened liquids, nutritional supplements WOUND/INCISION CARE: Change dressing OTHER WOUND INSTRUCTIONS: Dessing change L groin as needed CHECKS AFTER DISCHARGE CHECKS AFTER DISCHARGE: Check blood sugar, ac/hs, Weigh Yourself Daily COMMENTS: VS per routine FOLLOW-UP PHYSICIAN FOLLOW-UP: Admit to Dr. Hebert ADDITIONAL FOLLOW-UP: Consult: Dr. Myers, Dr. Moise, Dr. Olivier Hebert, Dr. Cho, Dr. Sun LAB ORDERS FOR FOLLOW-UP: CBC with diff, CMP, pre albumin in AM TREATMENT/EQUIPMENT ORDERS INFUSION EQUIPMENT NEEDED: IV Line (PIV ) RESPIRATORY EQUIPMENT NEEDED: Oxygen (3L NC, titrate ), Nebulizer (QID ) CHRIS PAGAN APRN May 11, 2017 07:36
[2017-05-11] MEDS ORDERED: INSU100I17 SQ ×2 (07:41→07:44)
[2017-05-11] MEDS ORDERED: ALPR0.254 PO (07:41)
[2017-05-11] MEDS ORDERED: DEXT50DI3 IV (07:41)
[2017-05-11] MEDS ORDERED: ACET650S19 PO (07:41)
[2017-05-11 08:23] LABS: AMYLASE 42 U/L (25-115)
[2017-05-11] MEDS: metOLazone 2.5 MG TABLET PO SCH ×2 (09:00→14:19)
--- NOTE | 2017-05-11 09:02 | PDOC ---
PROGRESS NOTES Subjective Subjective c/c - f/u of Coagulopathy Objective Objective Vital Signs Date Time Temp Pulse Resp B/P (MAP) Pulse Ox O2 Delivery O2 Flow Rate FiO2 05/11/17 07:32 95 Nasal Cannula 4.0 05/11/17 06:00 94 24 118/71 (87) 05/11/17 04:00 98.0 98.0 Physical Exam General: No acute distress Neck: No JVD Assessment Assessment Assessment/Plan 1. Coagulopathy - Elevated anti-Xa level despite being off of heparin. We do not have baseline pt and ptt levels prior to starting heparin this admission, but on 04/30 she had a slightly elevated pt/inr. She also recently had a perforated ulcer. She may have some nutritional deficiency with vit k contributing to the findings. molding technician believes that she has something in her plasma that is reacting with the test. We have also run a thrombin time that was normal and PTT only 39. This would mean that she does not have any heparin in her system and her fibrinogen is working appropriately. Given the possibility of nutritional deficiency, she received 10mg of vitamin k. No need for mixing study as PTT is better. 2. Acute respiratory failure underlying CHF and possible COPD 3. Anemia -s/p transfusion - Hb now 9.3. Comment Review of Relevant I have reviewed the following items airam (where applicable) has been applied. Labs Laboratory Tests Test 05/09/17 12:23 05/09/17 17:27 05/09/17 21:47 05/10/17 04:40 Glucose (Fingerstick) 168 mg/dL (70-99) 229 mg/dL (70-99) 243 mg/dL (70-99) White Blood Count 9.3 x10^3/uL (4.0-11.0) Red Blood Count 2.05 x10^6/uL (3.50-5.40) Hemoglobin 6.1 g/dL (12.0-15.5) Hematocrit 18.2 % (36.0-47.0) Mean Corpuscular Volume 89 fL (79-100) Mean Corpuscular Hemoglobin 30 pg (25-35) Mean Corpuscular Hemoglobin Concent 33 g/dL (31-37) Red Cell Distribution Width 19.0 % (11.5-14.5) Platelet Count 251 x10^3/uL (140-400) Neutrophils (%) (Auto) 70 % (31-73) Lymphocytes (%) (Auto) 20 % (24-48) Monocytes (%) (Auto) 10 % (0-9) Eosinophils (%) (Auto) 0 % (0-3) Basophils (%) (Auto) 1 % (0-3) Neutrophils # (Auto) 6.6 x10^3uL (1.8-7.7) Lymphocytes # (Auto) 1.8 x10^3/uL (1.0-4.8) Monocytes # (Auto) 0.9 x10^3/uL (0.0-1.1) Eosinophils # (Auto) 0.0 x10^3/uL (0.0-0.7) Basophils # (Auto) 0.0 x10^3/uL (0.0-0.2) Sodium Level 138 mmol/L (136-145) Potassium Level 5.0 mmol/L (3.5-5.1) Chloride Level 99 mmol/L (98-107) Carbon Dioxide Level 32 mmol/L (21-32) Anion Gap 7 (6-14) Blood Urea Nitrogen 30 mg/dL (7-20) Creatinine 1.6 mg/dL (0.6-1.0) Estimated GFR (Cockcroft-Gault) 31.1 Glucose Level 207 mg/dL (70-99) Calcium Level 8.3 mg/dL (8.5-10.1) Test 05/10/17 08:14 05/10/17 12:28 05/10/17 13:50 05/10/17 17:32 Glucose (Fingerstick) 214 mg/dL (70-99) 206 mg/dL (70-99) 234 mg/dL (70-99) White Blood Count 11.5 x10^3/uL (4.0-11.0) Red Blood Count 2.74 x10^6/uL (3.50-5.40) Hemoglobin 8.0 g/dL (12.0-15.5) Hematocrit 24.4 % (36.0-47.0) Mean Corpuscular Volume 89 fL (79-100) Mean Corpuscular Hemoglobin 29 pg (25-35) Mean Corpuscular Hemoglobin Concent 33 g/dL (31-37) Red Cell Distribution Width 18.1 % (11.5-14.5) Platelet Count 296 x10^3/uL (140-400) Neutrophils (%) (Auto) 80 % (31-73) Lymphocytes (%) (Auto) 13 % (24-48) Monocytes (%) (Auto) 7 % (0-9) Eosinophils (%) (Auto) 0 % (0-3) Basophils (%) (Auto) 0 % (0-3) Neutrophils # (Auto) 9.2 x10^3uL (1.8-7.7) Lymphocytes # (Auto) 1.5 x10^3/uL (1.0-4.8) Monocytes # (Auto) 0.7 x10^3/uL (0.0-1.1) Eosinophils # (Auto) 0.0 x10^3/uL (0.0-0.7) Basophils # (Auto) 0.0 x10^3/uL (0.0-0.2) Sodium Level 137 mmol/L (136-145) Potassium Level 4.7 mmol/L (3.5-5.1) Chloride Level 99 mmol/L (98-107) Carbon Dioxide Level 29 mmol/L (21-32) Anion Gap 9 (6-14) Blood Urea Nitrogen 33 mg/dL (7-20) Creatinine 1.6 mg/dL (0.6-1.0) Estimated GFR (Cockcroft-Gault) 31.1 Glucose Level 256 mg/dL (70-99) Calcium Level 8.0 mg/dL (8.5-10.1) Test 05/11/17 05:06 White Blood Count 12.0 x10^3/uL (4.0-11.0) Red Blood Count 3.26 x10^6/uL (3.50-5.40) Hemoglobin 9.3 g/dL (12.0-15.5) Hematocrit 27.9 % (36.0-47.0) Mean Corpuscular Volume 86 fL (79-100) Mean Corpuscular Hemoglobin 29 pg (25-35) Mean Corpuscular Hemoglobin Concent 34 g/dL (31-37) Red Cell Distribution Width 17.5 % (11.5-14.5) Platelet Count 280 x10^3/uL (140-400) Neutrophils (%) (Auto) 78 % (31-73) Lymphocytes (%) (Auto) 15 % (24-48) Monocytes (%) (Auto) 7 % (0-9) Eosinophils (%) (Auto) 0 % (0-3) Basophils (%) (Auto) 0 % (0-3) Neutrophils # (Auto) 9.4 x10^3uL (1.8-7.7) Lymphocytes # (Auto) 1.8 x10^3/uL (1.0-4.8) Monocytes # (Auto) 0.8 x10^3/uL (0.0-1.1) Eosinophils # (Auto) 0.0 x10^3/uL (0.0-0.7) Basophils # (Auto) 0.0 x10^3/uL (0.0-0.2) Sodium Level 137 mmol/L (136-145) Potassium Level 3.9 mmol/L (3.5-5.1) Chloride Level 100 mmol/L (98-107) Carbon Dioxide Level 29 mmol/L (21-32) Anion Gap 8 (6-14) Blood Urea Nitrogen 34 mg/dL (7-20) Creatinine 1.4 mg/dL (0.6-1.0) Estimated GFR (Cockcroft-Gault) 36.3 BUN/Creatinine Ratio 24 (6-20) Glucose Level 195 mg/dL (70-99) Calcium Level 8.1 mg/dL (8.5-10.1) Magnesium Level 2.1 mg/dL (1.8-2.4) Total Bilirubin 0.7 mg/dL (0.2-1.0) Aspartate Amino Transf (AST/SGOT) 116 U/L (15-37) Alanine Aminotransferase (ALT/SGPT) 139 U/L (14-59) Alkaline Phosphatase 73 U/L (46-116) Total Protein 7.0 g/dL (6.4-8.2) Albumin 2.6 g/dL (3.4-5.0) Albumin/Globulin Ratio 0.6 (1.0-1.7) Amylase Level 42 U/L (25-115) Lipase 163 U/L (73-393) Laboratory Tests Test 05/10/17 12:28 05/10/17 13:50 05/10/17 17:32 05/11/17 05:06 Glucose (Fingerstick) 206 mg/dL (70-99) 234 mg/dL (70-99) White Blood Count 11.5 x10^3/uL (4.0-11.0) 12.0 x10^3/uL (4.0-11.0) Red Blood Count 2.74 x10^6/uL (3.50-5.40) 3.26 x10^6/uL (3.50-5.40) Hemoglobin 8.0 g/dL (12.0-15.5) 9.3 g/dL (12.0-15.5) Hematocrit 24.4 % (36.0-47.0) 27.9 % (36.0-47.0) Mean Corpuscular Volume 89 fL (79-100) 86 fL (79-100) Mean Corpuscular Hemoglobin 29 pg (25-35) 29 pg (25-35) Mean Corpuscular Hemoglobin Concent 33 g/dL (31-37) 34 g/dL (31-37) Red Cell Distribution Width 18.1 % (11.5-14.5) 17.5 % (11.5-14.5) Platelet Count 296 x10^3/uL (140-400) 280 x10^3/uL (140-400) Neutrophils (%) (Auto) 80 % (31-73) 78 % (31-73) Lymphocytes (%) (Auto) 13 % (24-48) 15 % (24-48) Monocytes (%) (Auto) 7 % (0-9) 7 % (0-9) Eosinophils (%) (Auto) 0 % (0-3) 0 % (0-3) Basophils (%) (Auto) 0 % (0-3) 0 % (0-3) Neutrophils # (Auto) 9.2 x10^3uL (1.8-7.7) 9.4 x10^3uL (1.8-7.7) Lymphocytes # (Auto) 1.5 x10^3/uL (1.0-4.8) 1.8 x10^3/uL (1.0-4.8) Monocytes # (Auto) 0.7 x10^3/uL (0.0-1.1) 0.8 x10^3/uL (0.0-1.1) Eosinophils # (Auto) 0.0 x10^3/uL (0.0-0.7) 0.0 x10^3/uL (0.0-0.7) Basophils # (Auto) 0.0 x10^3/uL (0.0-0.2) 0.0 x10^3/uL (0.0-0.2) Sodium Level 137 mmol/L (136-145) 137 mmol/L (136-145) Potassium Level 4.7 mmol/L (3.5-5.1) 3.9 mmol/L (3.5-5.1) Chloride Level 99 mmol/L (98-107) 100 mmol/L (98-107) Carbon Dioxide Level 29 mmol/L (21-32) 29 mmol/L (21-32) Anion Gap 9 (6-14) 8 (6-14) Blood Urea Nitrogen 33 mg/dL (7-20) 34 mg/dL (7-20) Creatinine 1.6 mg/dL (0.6-1.0) 1.4 mg/dL (0.6-1.0) Estimated GFR (Cockcroft-Gault) 31.1 36.3 Glucose Level 256 mg/dL (70-99) 195 mg/dL (70-99) Calcium Level 8.0 mg/dL (8.5-10.1) 8.1 mg/dL (8.5-10.1) BUN/Creatinine Ratio 24 (6-20) Magnesium Level 2.1 mg/dL (1.8-2.4) Total Bilirubin 0.7 mg/dL (0.2-1.0) Aspartate Amino Transf (AST/SGOT) 116 U/L (15-37) Alanine Aminotransferase (ALT/SGPT) 139 U/L (14-59) Alkaline Phosphatase 73 U/L (46-116) Total Protein 7.0 g/dL (6.4-8.2) Albumin 2.6 g/dL (3.4-5.0) Albumin/Globulin Ratio 0.6 (1.0-1.7) Amylase Level 42 U/L (25-115) Lipase 163 U/L (73-393) Medications Current Medications Nitroglycerin (Nitroglycerin) 200 mcg 1X ONCE IART Last administered on 13:59; Start 05/05/17 at 14:00; Stop 05/05/17 at 14:01; Status DC Verapamil HCl (Verapamil) 2.5 mg 1X ONCE IART Last administered on 05/05/17 13 :59; Start 05/05/17 at 14:00; Stop 05/05/17 at 14:01; Status DC Heparin Sodium (Porcine) (Heparin Sodium) 2,500 unit 1X ONCE IART Last administered on 05/05/17 13:58; Start 05/05/17 at 14:00; Stop 05/05/17 at 14:01; Status DC Heparin Sodium/ Sodium Chloride 1,000 unit 1X ONCE IART Last administered on 13:59; Start 05/05/17 at 14:00; Stop 05/05/17 at 14:01; Status DC Midazolam HCl (Versed) 2 mg 1X ONCE IV Last administered on 05/05/17 14:00; Start 05/05/17 at 14:00; Stop 05/05/17 at 14:01; Status DC Fentanyl Citrate (Fentanyl 2ml Vial) 100 mcg 1X ONCE IV Last administered on 14:00; Start 05/05/17 at 14:00; Stop 05/05/17 at 14:01; Status DC Iohexol (Omnipaque 300 Mg/ml) 100 ml 1X ONCE IART Last administered on 13:59; Start 05/05/17 at 14:00; Stop 05/05/17 at 14:01; Status DC Lidocaine HCl 20 ml 1X ONCE IJ Last administered on 05/05/17 13:59; Start 05/05 at 14:00; Stop 05/05/17 at 14:01; Status DC Albuterol/ Ipratropium (Duoneb) 3 ml RTQID NEB Last administered on 05/11/17 07:31; Start 05/05/17 at 16:00 Heparin Sodium/ Dextrose 500 ml @ 17.3 mls/hr CONT PRN IV SEE I/O RECORD Last administered on 05/05/17 18:19; Start 05/05/17 at 17:15; Stop 05/06/17 at 20:29; Status DC Heparin Sodium (Porcine) (Heparin Sodium) 1,800 unit PRN Q6HRS PRN IV FOR UFH LEVEL LESS THAN 0.2; Start 05/05/17 at 17:15; Stop 05/06/17 at 20:29; Status DC Alprazolam (Xanax) 0.25 mg HS PO Last administered on 05/08/17 20:38; Start at 21:00; Stop 05/09/17 at 15:00; Status DC Amiodarone HCl (Cordarone) 200 mg BID PO ; Start 05/05/17 at 21:00; Stop 05/06/17 at 07:49; Status DC Furosemide (Lasix) 40 mg DAILY PO ; Start 05/06/17 at 09:00; Stop 05/06/17 at 09: 00; Status DC Albuterol/ Ipratropium (Duoneb) 3 ml BID NEB ; Start 05/05/17 at 21:00; Stop 05/05 at 21:00; Status DC Levothyroxine Sodium (Synthroid) 75 mcg DAILY07 PO Last administered on 06:47; Start 05/06/17 at 09:00 Lisinopril (Prinivil) 10 mg DAILY PO ; Start 05/06/17 at 09:00; Stop 05/06/17 at 09:00; Status DC Meropenem (Merrem) 500 mg Q8HRS IV ; Start 05/05/17 at 22:00; Stop 05/05/17 at 22: 00; Status DC Pantoprazole Sodium (Protonix) 40 mg DAILYAC PO Last administered on 05/09/17 07:58; Start 05/06/17 at 07:30 Simethicone (Gas-X) 80 mg TIDAC PO Last administered on 05/09/17 16:42; Start 05/05/17 at 18:00 Sucralfate (Carafate) 1 gm BIDAC PO Last administered on 05/09/17 16:40; Start 05/05/17 at 18:00 Citalopram Hydrobromide (CeleXA) 20 mg DAILY PO Last administered on 05/09/17 07:58; Start 05/06/17 at 09:00 Non-Formulary Medication 3 mg QHS PO ; Start 05/05/17 at 21:00; Stop 05/05/17 at 21:00; Status DC Metoclopramide HCl (Reglan) 10 mg TID IV Last administered on 05/10/17 23:03; Start 05/05/17 at 21:00 Ondansetron HCl (Zofran) 4 mg PRN Q6HRS PRN IV NAUSEA/VOMITING Last administered on 05/10/17 08:11; Start 05/05/17 at 18:00; Stop 05/10/17 at 08:36 ; Status DC Insulin Aspart (NovoLOG) 0-5 UNITS TIDWMEALHC SQ Last administered on 17:35; Start 05/05/17 at 21:00; Stop 05/10/17 at 08:51; Status DC Dextrose (Dextrose 50%-Water Syringe) 12.5 gm PRN Q15MIN PRN IV SEE COMMENTS; Start 05/05/17 at 17:45 Meropenem 500 mg/ Sodium Chloride 50 ml @ 100 mls/hr Q8HRS IV Last administered on 05/11/17 05:19; Start 05/05/17 at 18:00 Furosemide (Lasix) 40 mg 1X ONCE IVP Last administered on 05/05/17 23:32; Start 05/05/17 at 23:15; Stop 05/05/17 at 23:16; Status DC Dopamine HCl/ Dextrose 250 ml @ 13.523 mls/ hr CONT PRN IV SEE I/O RECORD Last administered on 05/08/17 14:56; Start 05/05/17 at 23:30; Stop 05/08/17 at 15:31; Status DC Amiodarone HCl (Cordarone) 200 mg DAILY PO Last administered on 05/10/17 17:17 ; Start 05/06/17 at 09:00 Clopidogrel Bisulfate (Plavix) 300 mg 1X ONCE PO Last administered on 08:47; Start 05/06/17 at 08:00; Stop 05/06/17 at 08:01; Status DC Clopidogrel Bisulfate (Plavix) 75 mg DAILYWBKFT PO ; Start 05/06/17 at 08:00; Stop 05/06/17 at 08:04; Status DC Furosemide (Lasix) 40 mg DAILY IVP Last administered on 05/09/17 07:58; Start 05/06/17 at 09:00; Stop 05/10/17 at 11:19; Status DC Aspirin (Ecotrin) 81 mg DAILYWBKFT PO Last administered on 05/09/17 07:58; Start 05/06/17 at 09:00 Pantoprazole Sodium (Protonix) 40 mg DAILYAC PO ; Start 05/07/17 at 07:30; Stop 05/07/17 at 07:30; Status DC Pantoprazole Sodium (Protonix) 40 mg 1X ONCE PO ; Start 05/06/17 at 08:00; Stop 05/06/17 at 08:01; Status DC Clopidogrel Bisulfate (Plavix) 75 mg DAILYWBKFT PO Last administered on 17:16; Start 05/07/17 at 08:00 Info (Anti-Coagulation Monitoring By Pharmacy) 1 each PRN DAILY PRN MC SEE COMMENTS Last administered on 05/06/17 10:49; Start 05/06/17 at 11:00; Stop 05/07 at 07:29; Status DC Potassium Chloride (Klor-Con) 10 meq DAILYWBKFT PO Last administered on 12:32; Start 05/06/17 at 11:00; Stop 05/07/17 at 07:54; Status DC Potassium Chloride (Klor-Con) 20 meq BIDWMEALS PO Last administered on 16:43; Start 05/07/17 at 08:00; Stop 05/10/17 at 08:33; Status DC Phytonadione 10 mg/Sodium Chloride 51 ml @ 102 mls/hr 1X ONCE IV Last administered on 05/07/17 13:19; Start 05/07/17 at 12:30; Stop 05/07/17 at 12:59 ; Status DC Furosemide (Lasix) 40 mg 1X ONCE IVP Last administered on 05/08/17 08:17; Start 05/08/17 at 08:30; Stop 05/08/17 at 08:31; Status DC Furosemide (Lasix) 40 mg 1X ONCE IVP Last administered on 05/08/17 10:03; Start 05/08/17 at 10:00; Stop 05/08/17 at 10:01; Status DC Heparin Sodium/ Sodium Chloride 1,000 ml @ As Directed STK-MED ONCE .ROUTE ; Start 05/08/17 at 11:38; Stop 05/08/17 at 11:39; Status DC Lidocaine HCl 20 ml STK-MED ONCE .ROUTE ; Start 05/08/17 at 11:39; Stop at 11:40; Status DC Iodixanol (Visipaque 320) 100 ml STK-MED ONCE .ROUTE ; Start 05/08/17 at 11:39; Stop 05/08/17 at 11:40; Status DC Heparin Sodium/ Sodium Chloride 500 ml @ As Directed STK-MED ONCE .ROUTE ; Start 05/08/17 at 11:42; Stop 05/08/17 at 11:43; Status DC Fentanyl Citrate (Fentanyl 2ml Vial) 100 mcg STK-MED ONCE .ROUTE ; Start at 12:07; Stop 05/08/17 at 12:08; Status DC Midazolam HCl (Versed) 2 mg STK-MED ONCE .ROUTE ; Start 05/08/17 at 12:07; Stop 05/08/17 at 12:08; Status DC Lidocaine HCl 20 ml STK-MED ONCE .ROUTE ; Start 05/08/17 at 12:19; Stop at 12:20; Status DC Heparin Sodium (Porcine) (Heparin Sodium) 10,000 unit STK-MED ONCE .ROUTE ; Start 05/08/17 at 12:20; Stop 05/08/17 at 12:21; Status DC Bivalirudin (Angiomax) 250 mg STK-MED ONCE IV ; Start 05/08/17 at 12:38; Stop at 12:39; Status DC Bivalirudin (Angiomax) 250 mg STK-MED ONCE IV ; Start 05/08/17 at 13:42; Stop at 13:43; Status DC Atropine Sulfate 0.5 mg STK-MED ONCE .ROUTE ; Start 05/08/17 at 13:43; Stop 07/14 at 13:44; Status DC Iodixanol (Visipaque 320) 100 ml STK-MED ONCE .ROUTE ; Start 05/08/17 at 13:47; Stop 05/08/17 at 13:48; Status DC Nitroglycerin (Nitroglycerin) 200 mcg 1X ONCE IART Last administered on t 15:26; Start 05/08/17 at 14:15; Stop 05/08/17 at 14:24; Status DC Heparin Sodium/ Sodium Chloride 1,000 unit 1X ONCE IART Last administered on 15:24; Start 05/08/17 at 14:15; Stop 05/08/17 at 14:24; Status DC Midazolam HCl (Versed) 2 mg 1X ONCE IV Last administered on 05/08/17 15:28; Start 05/08/17 at 14:15; Stop 05/08/17 at 14:24; Status DC Fentanyl Citrate (Fentanyl 2ml Vial) 100 mcg 1X ONCE IV Last administered on 15:28; Start 05/08/17 at 14:15; Stop 05/08/17 at 14:24; Status DC Iodixanol (Visipaque 320) 100 ml 1X ONCE IART Last administered on 05/08/17 15:26; Start 05/08/17 at 14:15; Stop 05/08/17 at 14:24; Status DC Bivalirudin (Angiomax) 500 mg 1X ONCE IV Last administered on 05/08/17 15:27 ; Start 05/08/17 at 14:15; Stop 05/08/17 at 14:24; Status DC Lidocaine HCl 38 ml 1X ONCE IJ Last administered on 05/08/17 15:24; Start 07/14 at 14:15; Stop 05/08/17 at 14:24; Status DC Dextrose 500 ml @ 20 mls/hr 1X ONCE IV Last administered on 05/08/17 12:30; Start 05/08/17 at 14:30; Stop 05/09/17 at 15:29; Status DC Dopamine HCl/ Dextrose 250 ml @ 14.118 mls/ hr CONT PRN IV SEE I/O RECORD; Start 05/08/17 at 15:30 Acetaminophen (Tylenol) 650 mg PRN Q6HRS PRN PO MILD PAIN / TEMP; Start at 16:15; Stop 05/09/17 at 19:33; Status DC Nitroglycerin (Nitrostat) 0.4 mg PRN Q5MIN PRN SL CHEST PAIN; Start 05/08/17 at 16:15 Albumin Human 100 ml @ 100 mls/hr 1X ONCE IV Last administered on 05/09/17 13:27; Start 05/09/17 at 13:00; Stop 05/09/17 at 13:59; Status DC Furosemide (Lasix) 20 mg 1X ONCE IVP Last administered on 05/09/17 13:27; Start 05/09/17 at 13:00; Stop 05/09/17 at 13:04; Status DC Metolazone (Zaroxolyn) 2.5 mg DAILY PO ; Start 05/10/17 at 09:00 Alprazolam (Xanax) 0.25 mg PRN TID PRN PO ANXIETY / AGITATION Last administered on 05/09/17 22:04; Start 05/09/17 at 15:00 Metolazone (Zaroxolyn) 2.5 mg 1X ONCE PO Last administered on 05/09/17 16:42 ; Start 05/09/17 at 16:15; Stop 05/09/17 at 16:16; Status DC Dobutamine HCl/ Dextrose 250 ml @ 0 mls/hr 1X ONCE IV Last administered on 16:41; Start 05/09/17 at 16:30; Stop 05/09/17 at 16:31; Status DC Acetaminophen (Tylenol) 650 mg PRN Q6HRS PRN PO MILD PAIN / TEMP Last administered on 05/09/17 19:42; Start 05/09/17 at 19:45 Sodium Chloride 1,000 ml @ 75 mls/hr [id number] IV Last administered on 23:03; Start 05/09/17 at 22:30 Furosemide (Lasix) 20 mg 1X ONCE IVP Last administered on 05/09/17 22:46; Start 05/09/17 at 22:45; Stop 05/09/17 at 22:46; Status DC Furosemide (Lasix) 20 mg 1X PRN PRN IV Blood transfusion; Start 05/10/17 at 05: 15; Stop 05/10/17 at 05:30; Status DC Furosemide (Lasix) 40 mg 1X PRN PRN IV Blood transfusion Last administered on 13:59; Start 05/10/17 at 05:30 Norepinephrine Bitartrate 250 ml @ As Directed STK-MED ONCE IV ; Start at 07:17; Stop 05/10/17 at 07:18; Status DC Ondansetron HCl (Zofran) 4 mg PRN Q6HRS PRN IV NAUSEA/VOMITING Last administered on 05/10/17 08:10; Start 05/10/17 at 08:30 Insulin Aspart (NovoLOG) BIDBFRMEAL SQ ; Start 05/10/17 at 16:30; Stop at 07:53; Status DC Norepinephrine Bitartrate 250 ml @ 0 mls/hr CONT PRN IV SEE I/O RECORD Last administered on 05/10/17 07:15; Start 05/10/17 at 07:15 Insulin Aspart (NovoLOG) TIDAC SQ ; Start 05/11/17 at 11:30 Active Scripts Active Novolog Flexpen (Insulin Aspart) 100 Unit/1 Ml Insuln.pen 0-10 Units SQ TIDAC BS <150=0 BS 151-200=2unit, 201-250=3, 251-300=4 unit, 301-350=5 unit 351-400=6 unit >401 call Dextrose 50%-Water Syringe (Dextrose 50 % In Water) 50 Ml Disp.syrin 12.5 Gm IV PRN Q15MIN PRN Acetaminophen 650 Mg/20.3 Ml Solution 650 Mg PO PRN Q6HRS PRN Alprazolam 0.25 Mg Tablet 0.25 Mg PO PRN TID PRN Reported Meropenem 500 Mg Vial 500 Mg IV Q8HRS Metoclopramide Hcl 10 Mg/2 Ml Disp.syrin 10 Mg IV TID Lisinopril 10 Mg Tablet 1 Tab PO DAILY Ondansetron Hcl 4 Mg/2 Ml Syr (Ondansetron Hcl/Pf) 4 Mg/2 Ml Disp.syrin 4 Mg IJ Q6HRS PRN Pantoprazole Sodium 40 Mg Tablet.dr 1 Tab PO DAILY Sucralfate 1 Gm Tablet 1 Tab PO BID Simethicone 80 Mg Tab.chew 80 Mg PO TID Duoneb 0.5-3(2.5) Mg/3 Ml (Albuterol/Ipratropium) 3 Ml Ampul.neb 3 Ml NEB BID Escitalopram Oxalate 10 Mg Tablet 1 Tab PO DAILY Levothyroxine Sodium 75 Mcg Tablet 1 Tab PO DAILY Amiodarone Hcl 200 Mg Tablet 1 Tab PO BID Vitals/I & O Vital Sign - Last 24 Hours 05/10/17 05/10/17 05/10/17 05/10/17 09:15 09:20 09:30 09:45 Temp 98.2 98.2 Pulse 92 94 92 98 Resp 28 B/P (MAP) 83/46 (58) 83/46 107/60 (76) 105/59 (74) Pulse Ox 93 94 92 O2 Delivery Nasal Cannula Nasal Cannula Nasal Cannula O2 Flow Rate 4.0 4.0 4.0 05/10/17 05/10/17 05/10/17 05/10/17 10:00 10:15 10:30 10:45 Pulse 94 92 98 92 Resp 32 26 B/P (MAP) 97/53 (68) 99/55 (70) 91/56 (68) 93/56 (68) Pulse Ox 92 92 91 92 O2 Delivery Nasal Cannula Nasal Cannula Nasal Cannula Nasal Cannula O2 Flow Rate 4.0 4.0 4.0 4.0 05/10/17 05/10/17 05/10/17 05/10/17 11:00 11:09 11:15 11:21 Pulse 92 96 Resp 32 B/P (MAP) 101/55 (70) 97/56 (70) Pulse Ox 92 95 95 O2 Delivery BiPAP/CPAP Nasal Cannula BiPAP/CPAP BiPAP/CPAP O2 Flow Rate 4.0 05/10/17 05/10/17 05/10/17 05/10/17 11:30 11:45 12:00 12:00 Temp 98.0 98.0 Pulse 92 92 92 Resp 24 B/P (MAP) 93/59 (70) 105/60 (75) 115/71 (86) Pulse Ox 97 98 99 O2 Delivery BiPAP/CPAP BiPAP/CPAP BiPAP/CPAP Nasal Cannula O2 Flow Rate 3.0 05/10/17 05/10/17 05/10/17 05/10/17 12:15 12:30 12:45 13:00 Pulse 96 96 94 96 Resp 25 B/P (MAP) 121/66 (84) 125/75 (92) 119/73 (88) 113/59 (77) Pulse Ox 97 98 98 95 O2 Delivery BiPAP/CPAP BiPAP/CPAP BiPAP/CPAP BiPAP/CPAP 05/10/17 05/10/17 05/10/1717 13:30 14:00 14:10 14:30 Temp 98.2 98.2 Pulse 92 96 98 96 Resp 24 28 B/P (MAP) 114/62 (79) 117/76 (90) 117/71 118/68 (85) Pulse Ox 100 96 96 O2 Delivery BiPAP/CPAP Nasal Cannula Nasal Cannula O2 Flow Rate 3.0 3.0 05/10/17 05/10/17 05/10/17 05/10/17 15:00 15:30 16:00 16:00 Temp 98.0 98.0 Pulse 94 90 94 Resp 28 B/P (MAP) 106/63 (77) 106/60 (75) 132/72 (92) Pulse Ox 96 98 94 O2 Delivery Nasal Cannula Nasal Cannula Nasal Cannula Nasal Cannula O2 Flow Rate 3.0 3.0 3.0 3.0 05/10/17 05/10/17 05/10/17 05/10/17 16:15 16:16 16:30 17:00 Pulse 92 96 94 Resp 30 31 30 B/P (MAP) 126/75 (92) 103/74 (84) 120/63 (82) Pulse Ox 92 93 92 O2 Delivery Nasal Cannula Nasal Cannula Nasal Cannula Nasal Cannula O2 Flow Rate 3.0 3.0 3.0 3.0 05/10/17 05/10/17 05/10/17 05/10/17 17:17 17:30 18:00 19:00 Pulse 91 92 89 88 Resp 25 B/P (MAP) 109/59 117/66 (83) 112/65 (81) 105/62 (76) Pulse Ox 93 97 97 O2 Delivery Nasal Cannula Nasal Cannula Nasal Cannula O2 Flow Rate 3.0 3.0 3.0 05/10/17 05/10/17 05/10/17 05/10/17 19:33 20:00 20:00 21:00 Temp 98.0 98.0 Pulse 90 96 Resp 30 28 B/P (MAP) 120/68 (85) 112/67 (82) Pulse Ox 94 95 90 O2 Delivery Nasal Cannula Nasal Cannula Nasal Cannula Nasal Cannula O2 Flow Rate 3.0 3.0 3.0 3.0 05/10/17 05/10/17 05/11/17 05/11/17 22:00 23:00 00:00 00:01 Pulse 110 110 118 Resp 25 25 30 B/P (MAP) 90/57 (68) 109/71 (84) 104/69 (81) Pulse Ox 95 95 97 O2 Delivery Nasal Cannula Nasal Cannula Nasal Cannula Nasal Cannula O2 Flow Rate 3.0 3.0 3.0 3.0 05/11/17 05/11/17 05/11/17 05/11/17 01:00 02:03 03:00 04:00 Temp 98.0 98.0 Pulse 108 109 105 89 Resp 24 25 27 28 B/P (MAP) 102/63 (76) 95/65 (75) 105/68 (80) 106/69 (81) Pulse Ox 96 96 95 96 O2 Delivery Nasal Cannula Nasal Cannula Nasal Cannula Nasal Cannula O2 Flow Rate 3.0 3.0 3.0 3.0 05/11/17 05/11/17 05/11/17 05/11/17 04:00 05:00 06:00 07:32 Pulse 95 94 Resp 29 24 B/P (MAP) 127/72 (90) 118/71 (87) Pulse Ox 97 95 95 O2 Delivery Nasal Cannula Nasal Cannula Nasal Cannula Nasal Cannula O2 Flow Rate 3.0 3.0 3.0 4.0 JAQUELIN BIRMINGHAM MD May 11, 2017 09:02
--- NOTE | 2017-05-11 09:06 | PDOC ---
PULMONARY PROGRESS NOTES Subjective PT OFF BIPAP UNDERGOING TRANSFUSION DOING BETTER LESS SOA Vitals Vital Signs Date Time Temp Pulse Resp B/P (MAP) Pulse Ox O2 Delivery O2 Flow Rate FiO2 05/11/17 07:32 95 Nasal Cannula 4.0 05/11/17 06:00 94 24 118/71 (87) 05/11/17 04:00 98.0 98.0 ROS: No Nausea, No Chest Pain, No Abdominal Pain, No Increase Cough General: No acute distress Lungs: Crackles, Other Cardiovascular: S1, S2 Abdomen: Soft, Non-tender Neuro Exam: Alert Extremities: Other (1+edema) Skin: Warm Labs Laboratory Tests Test 05/09/17 12:23 05/09/17 17:27 05/09/17 21:47 05/10/17 04:40 Glucose (Fingerstick) 168 mg/dL (70-99) 229 mg/dL (70-99) 243 mg/dL (70-99) White Blood Count 9.3 x10^3/uL (4.0-11.0) Red Blood Count 2.05 x10^6/uL (3.50-5.40) Hemoglobin 6.1 g/dL (12.0-15.5) Hematocrit 18.2 % (36.0-47.0) Mean Corpuscular Volume 89 fL (79-100) Mean Corpuscular Hemoglobin 30 pg (25-35) Mean Corpuscular Hemoglobin Concent 33 g/dL (31-37) Red Cell Distribution Width 19.0 % (11.5-14.5) Platelet Count 251 x10^3/uL (140-400) Neutrophils (%) (Auto) 70 % (31-73) Lymphocytes (%) (Auto) 20 % (24-48) Monocytes (%) (Auto) 10 % (0-9) Eosinophils (%) (Auto) 0 % (0-3) Basophils (%) (Auto) 1 % (0-3) Neutrophils # (Auto) 6.6 x10^3uL (1.8-7.7) Lymphocytes # (Auto) 1.8 x10^3/uL (1.0-4.8) Monocytes # (Auto) 0.9 x10^3/uL (0.0-1.1) Eosinophils # (Auto) 0.0 x10^3/uL (0.0-0.7) Basophils # (Auto) 0.0 x10^3/uL (0.0-0.2) Sodium Level 138 mmol/L (136-145) Potassium Level 5.0 mmol/L (3.5-5.1) Chloride Level 99 mmol/L (98-107) Carbon Dioxide Level 32 mmol/L (21-32) Anion Gap 7 (6-14) Blood Urea Nitrogen 30 mg/dL (7-20) Creatinine 1.6 mg/dL (0.6-1.0) Estimated GFR (Cockcroft-Gault) 31.1 Glucose Level 207 mg/dL (70-99) Calcium Level 8.3 mg/dL (8.5-10.1) Test 05/10/17 08:14 05/10/17 12:28 05/10/17 13:50 05/10/17 17:32 Glucose (Fingerstick) 214 mg/dL (70-99) 206 mg/dL (70-99) 234 mg/dL (70-99) White Blood Count 11.5 x10^3/uL (4.0-11.0) Red Blood Count 2.74 x10^6/uL (3.50-5.40) Hemoglobin 8.0 g/dL (12.0-15.5) Hematocrit 24.4 % (36.0-47.0) Mean Corpuscular Volume 89 fL (79-100) Mean Corpuscular Hemoglobin 29 pg (25-35) Mean Corpuscular Hemoglobin Concent 33 g/dL (31-37) Red Cell Distribution Width 18.1 % (11.5-14.5) Platelet Count 296 x10^3/uL (140-400) Neutrophils (%) (Auto) 80 % (31-73) Lymphocytes (%) (Auto) 13 % (24-48) Monocytes (%) (Auto) 7 % (0-9) Eosinophils (%) (Auto) 0 % (0-3) Basophils (%) (Auto) 0 % (0-3) Neutrophils # (Auto) 9.2 x10^3uL (1.8-7.7) Lymphocytes # (Auto) 1.5 x10^3/uL (1.0-4.8) Monocytes # (Auto) 0.7 x10^3/uL (0.0-1.1) Eosinophils # (Auto) 0.0 x10^3/uL (0.0-0.7) Basophils # (Auto) 0.0 x10^3/uL (0.0-0.2) Sodium Level 137 mmol/L (136-145) Potassium Level 4.7 mmol/L (3.5-5.1) Chloride Level 99 mmol/L (98-107) Carbon Dioxide Level 29 mmol/L (21-32) Anion Gap 9 (6-14) Blood Urea Nitrogen 33 mg/dL (7-20) Creatinine 1.6 mg/dL (0.6-1.0) Estimated GFR (Cockcroft-Gault) 31.1 Glucose Level 256 mg/dL (70-99) Calcium Level 8.0 mg/dL (8.5-10.1) Test 05/11/17 05:06 White Blood Count 12.0 x10^3/uL (4.0-11.0) Red Blood Count 3.26 x10^6/uL (3.50-5.40) Hemoglobin 9.3 g/dL (12.0-15.5) Hematocrit 27.9 % (36.0-47.0) Mean Corpuscular Volume 86 fL (79-100) Mean Corpuscular Hemoglobin 29 pg (25-35) Mean Corpuscular Hemoglobin Concent 34 g/dL (31-37) Red Cell Distribution Width 17.5 % (11.5-14.5) Platelet Count 280 x10^3/uL (140-400) Neutrophils (%) (Auto) 78 % (31-73) Lymphocytes (%) (Auto) 15 % (24-48) Monocytes (%) (Auto) 7 % (0-9) Eosinophils (%) (Auto) 0 % (0-3) Basophils (%) (Auto) 0 % (0-3) Neutrophils # (Auto) 9.4 x10^3uL (1.8-7.7) Lymphocytes # (Auto) 1.8 x10^3/uL (1.0-4.8) Monocytes # (Auto) 0.8 x10^3/uL (0.0-1.1) Eosinophils # (Auto) 0.0 x10^3/uL (0.0-0.7) Basophils # (Auto) 0.0 x10^3/uL (0.0-0.2) Sodium Level 137 mmol/L (136-145) Potassium Level 3.9 mmol/L (3.5-5.1) Chloride Level 100 mmol/L (98-107) Carbon Dioxide Level 29 mmol/L (21-32) Anion Gap 8 (6-14) Blood Urea Nitrogen 34 mg/dL (7-20) Creatinine 1.4 mg/dL (0.6-1.0) Estimated GFR (Cockcroft-Gault) 36.3 BUN/Creatinine Ratio 24 (6-20) Glucose Level 195 mg/dL (70-99) Calcium Level 8.1 mg/dL (8.5-10.1) Magnesium Level 2.1 mg/dL (1.8-2.4) Total Bilirubin 0.7 mg/dL (0.2-1.0) Aspartate Amino Transf (AST/SGOT) 116 U/L (15-37) Alanine Aminotransferase (ALT/SGPT) 139 U/L (14-59) Alkaline Phosphatase 73 U/L (46-116) Total Protein 7.0 g/dL (6.4-8.2) Albumin 2.6 g/dL (3.4-5.0) Albumin/Globulin Ratio 0.6 (1.0-1.7) Amylase Level 42 U/L (25-115) Lipase 163 U/L (73-393) Laboratory Tests Test 05/10/17 12:28 05/10/17 13:50 05/10/17 17:32 05/11/17 05:06 Glucose (Fingerstick) 206 mg/dL (70-99) 234 mg/dL (70-99) White Blood Count 11.5 x10^3/uL (4.0-11.0) 12.0 x10^3/uL (4.0-11.0) Red Blood Count 2.74 x10^6/uL (3.50-5.40) 3.26 x10^6/uL (3.50-5.40) Hemoglobin 8.0 g/dL (12.0-15.5) 9.3 g/dL (12.0-15.5) Hematocrit 24.4 % (36.0-47.0) 27.9 % (36.0-47.0) Mean Corpuscular Volume 89 fL (79-100) 86 fL (79-100) Mean Corpuscular Hemoglobin 29 pg (25-35) 29 pg (25-35) Mean Corpuscular Hemoglobin Concent 33 g/dL (31-37) 34 g/dL (31-37) Red Cell Distribution Width 18.1 % (11.5-14.5) 17.5 % (11.5-14.5) Platelet Count 296 x10^3/uL (140-400) 280 x10^3/uL (140-400) Neutrophils (%) (Auto) 80 % (31-73) 78 % (31-73) Lymphocytes (%) (Auto) 13 % (24-48) 15 % (24-48) Monocytes (%) (Auto) 7 % (0-9) 7 % (0-9) Eosinophils (%) (Auto) 0 % (0-3) 0 % (0-3) Basophils (%) (Auto) 0 % (0-3) 0 % (0-3) Neutrophils # (Auto) 9.2 x10^3uL (1.8-7.7) 9.4 x10^3uL (1.8-7.7) Lymphocytes # (Auto) 1.5 x10^3/uL (1.0-4.8) 1.8 x10^3/uL (1.0-4.8) Monocytes # (Auto) 0.7 x10^3/uL (0.0-1.1) 0.8 x10^3/uL (0.0-1.1) Eosinophils # (Auto) 0.0 x10^3/uL (0.0-0.7) 0.0 x10^3/uL (0.0-0.7) Basophils # (Auto) 0.0 x10^3/uL (0.0-0.2) 0.0 x10^3/uL (0.0-0.2) Sodium Level 137 mmol/L (136-145) 137 mmol/L (136-145) Potassium Level 4.7 mmol/L (3.5-5.1) 3.9 mmol/L (3.5-5.1) Chloride Level 99 mmol/L (98-107) 100 mmol/L (98-107) Carbon Dioxide Level 29 mmol/L (21-32) 29 mmol/L (21-32) Anion Gap 9 (6-14) 8 (6-14) Blood Urea Nitrogen 33 mg/dL (7-20) 34 mg/dL (7-20) Creatinine 1.6 mg/dL (0.6-1.0) 1.4 mg/dL (0.6-1.0) Estimated GFR (Cockcroft-Gault) 31.1 36.3 Glucose Level 256 mg/dL (70-99) 195 mg/dL (70-99) Calcium Level 8.0 mg/dL (8.5-10.1) 8.1 mg/dL (8.5-10.1) BUN/Creatinine Ratio 24 (6-20) Magnesium Level 2.1 mg/dL (1.8-2.4) Total Bilirubin 0.7 mg/dL (0.2-1.0) Aspartate Amino Transf (AST/SGOT) 116 U/L (15-37) Alanine Aminotransferase (ALT/SGPT) 139 U/L (14-59) Alkaline Phosphatase 73 U/L (46-116) Total Protein 7.0 g/dL (6.4-8.2) Albumin 2.6 g/dL (3.4-5.0) Albumin/Globulin Ratio 0.6 (1.0-1.7) Amylase Level 42 U/L (25-115) Lipase 163 U/L (73-393) Medications Active Scripts Medications Dose Route/Sig Max Daily Dose Days Date Category Meropenem 500 Mg Vial 500 Mg IV Q8HRS 05/05/17 Reported Humalog (Insulin Lispro) 100 Unit/1 Ml Cartridge 100 Unit SQ TIDACHC 05/05/17 Reported Metoclopramide Hcl 10 Mg/2 Ml Disp.syrin 10 Mg IV TID 05/05/17 Reported Furosemide 40 Mg Tablet 1 Tab PO DAILY 05/05/17 Reported Eliquis (Apixaban) 5 Mg Tablet 5 Mg PO BID 05/01/17 Reported Lisinopril 10 Mg Tablet 1 Tab PO DAILY 05/01/17 Reported Ondansetron Hcl 4 Mg/2 Ml Syr (Ondansetron Hcl/Pf) 4 Mg/2 Ml Disp.syrin 4 Mg IJ Q6HRS PRN 04/14/17 Reported Pantoprazole Sodium 40 Mg Tablet.dr 1 Tab PO DAILY 04/14/17 Reported Sucralfate 1 Gm Tablet 1 Tab PO BID 04/14/17 Reported Simethicone 80 Mg Tab.chew 80 Mg PO TID 04/14/17 Reported Duoneb 0.5-3(2.5) Mg/3 Ml (Albuterol/Ipratropium) 3 Ml Ampul.neb 3 Ml NEB BID 04/14/17 Reported Escitalopram Oxalate 10 Mg Tablet 1 Tab PO DAILY 04/14/17 Reported Alprazolam 0.25 Mg Tablet 1 Tab PO HS 04/14/17 Reported Melatonin 3 Mg Tablet 3 Mg PO QHS 04/14/17 Reported Levothyroxine Sodium 75 Mcg Tablet 1 Tab PO DAILY 04/14/17 Reported Amiodarone Hcl 200 Mg Tablet 1 Tab PO BID 04/14/17 Reported Comments REVIEWED CXR IMPROVING Impression . 1. 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 2. Abnormal chest x-ray consistent with congestive heart failure. 3. Possible mild chronic obstructive pulmonary disease. 4. Bilateral pleural effusions secondary to congestive heart failure. 5. Severe protein-calorie malnutrition. 6. Recent perforated peptic ulcer with laparoscopic repair of the peptic ulcer and Mahad patch placement. 7. Critical illness myopathy. 8. Hypothyroidism. 9. Hyperlipidemia. 10. Recent non-ST myocardial infarction. 11. CAD 12. Acute blood loss anemia Procedure(s) performed: 1. Left heart catheterization, selective coronary angiography 2. Successful complex PCI/stents placement to the right coronary artery and also the left anterior descending artery 3. Successful stent graft placement to the left main coronary artery 4. Assistance with Cardiac Output using Impella Ventricular Assist pump, continuous 217 Minutes of Moderate Sedation Plan . TRANSFUSE PRN PICC DIURESE PRN BIPAP INCREASE NUTRITION SHADY MARIE MD May 11, 2017 09:06
[2017-05-11] MEDS: IV NORMAL SALINE 1000ML BAG 1,000 ML IV SCH (10:13)
--- NOTE | 2017-05-11 10:27 | PDOC2 ---
GI CONSULT Reason For Consult: Transaminitis, nausea HPI: HPI: 81 y/o female admitted 05/05 w/ CHF, planned DC to [facility] this afternoon. Has been followed by cardiology and pulmonology, also hematology re: elevated anti-Xa level off heparin. GI asked to see re: transaminitis (AST 116, ALT 139). History from chart, RN, pt. Not eating much, no appetite and occasional nausea. Has h/o GERD and PUD s/p lap repair/Mahad patch. CT A/P last month showed unremarkable liver, gallbladder, and spleen. Denies abd pain. BM charted on 05/07. Believes had colonoscopy in the past. No bleeding, has transfused 1 unit pRBCs, Hgb currently 9.3 (h/o ACD). Meds include PPI, Carafate, amiodarone, ASA, Plavix, Reglan, Zofran. PMH: PMH: A Fib, CAD/NSTEMI, CHF, HLD, pneumonia, pleural effusions w/ h/o thoracentesis, GERD, PUD s/p repair/Mahad patch, ACD, diverticulosis, sepsis, CKD, UTI, hypothyroidism FH: Family History: No pertinent hx Social History: Smoke: No ALCOHOL: none Drugs: None ROS: GEN: Denies fevers, chills, sweats HEENT: Denies blurred vision, sore throat CV: Denies chest pain RESP: +SOA GI: Per HPI : Denies hematuria, dysuria ENDO: Denies weight changes NEURO: Denies confusion, dizziness MSK: +weakness SKIN: Denies jaundice, pruritus Vitals: Vitals: Vital Signs Date Time Temp Pulse Resp B/P (MAP) Pulse Ox O2 Delivery O2 Flow Rate FiO2 05/11/17 07:32 95 Nasal Cannula 4.0 05/11/17 06:00 94 24 118/71 (87) 05/11/17 04:00 98.0 98.0 Labs: Labs: Laboratory Tests Test 05/10/17 12:28 05/10/17 13:50 05/10/17 17:32 05/11/17 05:06 Glucose (Fingerstick) 206 mg/dL (70-99) 234 mg/dL (70-99) White Blood Count 11.5 x10^3/uL (4.0-11.0) 12.0 x10^3/uL (4.0-11.0) Red Blood Count 2.74 x10^6/uL (3.50-5.40) 3.26 x10^6/uL (3.50-5.40) Hemoglobin 8.0 g/dL (12.0-15.5) 9.3 g/dL (12.0-15.5) Hematocrit 24.4 % (36.0-47.0) 27.9 % (36.0-47.0) Mean Corpuscular Volume 89 fL (79-100) 86 fL (79-100) Mean Corpuscular Hemoglobin 29 pg (25-35) 29 pg (25-35) Mean Corpuscular Hemoglobin Concent 33 g/dL (31-37) 34 g/dL (31-37) Red Cell Distribution Width 18.1 % (11.5-14.5) 17.5 % (11.5-14.5) Platelet Count 296 x10^3/uL (140-400) 280 x10^3/uL (140-400) Neutrophils (%) (Auto) 80 % (31-73) 78 % (31-73) Lymphocytes (%) (Auto) 13 % (24-48) 15 % (24-48) Monocytes (%) (Auto) 7 % (0-9) 7 % (0-9) Eosinophils (%) (Auto) 0 % (0-3) 0 % (0-3) Basophils (%) (Auto) 0 % (0-3) 0 % (0-3) Neutrophils # (Auto) 9.2 x10^3uL (1.8-7.7) 9.4 x10^3uL (1.8-7.7) Lymphocytes # (Auto) 1.5 x10^3/uL (1.0-4.8) 1.8 x10^3/uL (1.0-4.8) Monocytes # (Auto) 0.7 x10^3/uL (0.0-1.1) 0.8 x10^3/uL (0.0-1.1) Eosinophils # (Auto) 0.0 x10^3/uL (0.0-0.7) 0.0 x10^3/uL (0.0-0.7) Basophils # (Auto) 0.0 x10^3/uL (0.0-0.2) 0.0 x10^3/uL (0.0-0.2) Sodium Level 137 mmol/L (136-145) 137 mmol/L (136-145) Potassium Level 4.7 mmol/L (3.5-5.1) 3.9 mmol/L (3.5-5.1) Chloride Level 99 mmol/L (98-107) 100 mmol/L (98-107) Carbon Dioxide Level 29 mmol/L (21-32) 29 mmol/L (21-32) Anion Gap 9 (6-14) 8 (6-14) Blood Urea Nitrogen 33 mg/dL (7-20) 34 mg/dL (7-20) Creatinine 1.6 mg/dL (0.6-1.0) 1.4 mg/dL (0.6-1.0) Estimated GFR (Cockcroft-Gault) 31.1 36.3 Glucose Level 256 mg/dL (70-99) 195 mg/dL (70-99) Calcium Level 8.0 mg/dL (8.5-10.1) 8.1 mg/dL (8.5-10.1) BUN/Creatinine Ratio 24 (6-20) Magnesium Level 2.1 mg/dL (1.8-2.4) Total Bilirubin 0.7 mg/dL (0.2-1.0) Aspartate Amino Transf (AST/SGOT) 116 U/L (15-37) Alanine Aminotransferase (ALT/SGPT) 139 U/L (14-59) Alkaline Phosphatase 73 U/L (46-116) Total Protein 7.0 g/dL (6.4-8.2) Albumin 2.6 g/dL (3.4-5.0) Albumin/Globulin Ratio 0.6 (1.0-1.7) Amylase Level 42 U/L (25-115) Lipase 163 U/L (73-393) Allergies: Coded Allergies: Penicillins (Verified Allergy, Severe, Anaphylaxis, 04/30/17) MERREM OK metronidazole (Verified Allergy, Intermediate, 04/30/17) sulfamethoxazole (Verified Allergy, Intermediate, 04/30/17) trimethoprim (Verified Allergy, Intermediate, 04/30/17) adhesive tape (Verified Adverse Reaction, Severe, skin tears, 04/14/17) pravastatin (Verified Adverse Reaction, Intermediate, severe muscle cramps , 04/14/17) hydrocodone (Verified Adverse Reaction, Mild, nausea, 04/14/17) oxycodone (Verified Adverse Reaction, Mild, nausea, 04/14/17) tramadol (Verified Adverse Reaction, Mild, nausea, 04/14/17) Medications: Please see EMR. Imaging: Imaging: CXR 05/10/17 IMPRESSION: Ongoing congestive heart failure with slight interval improvement in the pulmonary edema. CITRUS PEELER Bedside Swallow Eval Bedside swallow eval completed earlier this date. Pt limited trials of puree but willingly took multiple trials of honey thick via straw. Pt was recently transferred from [facility] on a dysphagia II diet w/thick liquids via straw per staff and family. Pt c/o nausea at time of this eval which limited po trials. Pt had dysphagia II tray w/honey thick liquids which she had refused at time of assessment. IMPRESSIONS: Pt w/laryngeal dysfunction characterized by breathy, low intensity phonation, weak volitional cough c/w same and reduced hyolaryngeal excursion per palp. No overt s/s w/trials of honey thick liquids, however, given laryngeal dysfunction, pt is at risk of SILENT aspiration. Nausea limited eval this date. DW pt's dtr Myra who verbalized family and pt did not want dobhoff tube and that they wanted pt to con't po if at all possible. ABEL ANNE w/Dr Hebert re: current assessment findings and range of recs from NPO d/t concern for silent aspiration to con't modified po diet. RECOMMENDATIONS: Per d/w Halle: 1. con't po diet of full (honey thick) liquid diet, precautions as posted. 2. Dietitian to advise re:increasing caloric intake within constraints of modified diet 3. CITRUS PEELER to f/u on rec'd diet and advance, if indicated. CT A/P 03/2017 An NG tube extends into the body of the stomach. There is a surgical drain extending into the anterior aspect of the left upper quadrant. There are moderate sized bilateral pleural effusions. There is moderate underlying atelectasis/infiltrate in both lung bases. The unopacified liver is unremarkable. No dense gallstones are seen. There is a small elongated calcific density at the osorio hepatis level, probably representing a vascular calcification. A biliary tract calcification is much less likely. No pancreatic abnormality is seen. The spleen is of normal size. The unopacified kidneys show no abnormality. There is moderate calcific plaquing of the abdominal aorta and its branches without evidence of aneurysm. No abdominal adenopathy is seen. Artifacts arising from bilateral hip prostheses degrade image quality in the lower pelvis. A catheter is present in the collapsed urinary bladder. Colonic diverticula are present, most numerous in the sigmoid and descending colon. No paracolonic inflammatory process is seen. A portion of the appendix is visualized and it is unremarkable. The bowel loops are not dilated. No free air or significant free fluid is identified in the abdomen or pelvis. No abnormal focal abdominal fluid collection is seen to suggest abscess. IMPRESSION: 1. Moderate sized bilateral pleural effusions with moderate underlying bibasilar atelectasis and/or pneumonitis. 2. Tube placements as described above. 3. Colonic diverticulosis. 4. No CT evidence of intra-abdominal abscess. PE: GEN: ill HEENT: Atraumatic, PERRL LUNGS: nasal cannula, decreased HEART: tachycardic ABD: NABS, S/ND/NT EXTREMITY: BLE w/ compression stocking SKIN: No rashes, no jaundice NEURO/PSYCH: A & O 3 A/P: A/P: CHF, resp failure, ACD, CKD H/o PUD s/p lap repair/Mahad patch -on PPI Transaminitis Anorexia, nausea -- Planned DC to [facility] today. Continue PPI. Nausea/elevated LFTs likely related to illness, drugs, CHF. Will review need for additional workup w/ Dr. Dean. JEREMIAH BREWSTER May 11, 2017 10:27
--- NOTE | 2017-05-11 11:22 | PDOC ---
Renal-Progress Notes Subjective Notes Notes SITTING UP History of Present Illness Hx of present illness BETTER Vitals Vitals Vital Signs Date Time Temp Pulse Resp B/P (MAP) Pulse Ox O2 Delivery O2 Flow Rate FiO2 05/11/17 07:32 95 Nasal Cannula 4.0 05/11/17 06:00 94 24 118/71 (87) 05/11/17 04:00 98.0 98.0 Weight Weight [ ] Labs Labs Laboratory Tests Test 05/10/17 12:28 05/10/17 13:50 05/10/17 17:32 05/11/17 05:06 Glucose (Fingerstick) 206 mg/dL (70-99) 234 mg/dL (70-99) White Blood Count 11.5 x10^3/uL (4.0-11.0) 12.0 x10^3/uL (4.0-11.0) Red Blood Count 2.74 x10^6/uL (3.50-5.40) 3.26 x10^6/uL (3.50-5.40) Hemoglobin 8.0 g/dL (12.0-15.5) 9.3 g/dL (12.0-15.5) Hematocrit 24.4 % (36.0-47.0) 27.9 % (36.0-47.0) Mean Corpuscular Volume 89 fL (79-100) 86 fL (79-100) Mean Corpuscular Hemoglobin 29 pg (25-35) 29 pg (25-35) Mean Corpuscular Hemoglobin Concent 33 g/dL (31-37) 34 g/dL (31-37) Red Cell Distribution Width 18.1 % (11.5-14.5) 17.5 % (11.5-14.5) Platelet Count 296 x10^3/uL (140-400) 280 x10^3/uL (140-400) Neutrophils (%) (Auto) 80 % (31-73) 78 % (31-73) Lymphocytes (%) (Auto) 13 % (24-48) 15 % (24-48) Monocytes (%) (Auto) 7 % (0-9) 7 % (0-9) Eosinophils (%) (Auto) 0 % (0-3) 0 % (0-3) Basophils (%) (Auto) 0 % (0-3) 0 % (0-3) Neutrophils # (Auto) 9.2 x10^3uL (1.8-7.7) 9.4 x10^3uL (1.8-7.7) Lymphocytes # (Auto) 1.5 x10^3/uL (1.0-4.8) 1.8 x10^3/uL (1.0-4.8) Monocytes # (Auto) 0.7 x10^3/uL (0.0-1.1) 0.8 x10^3/uL (0.0-1.1) Eosinophils # (Auto) 0.0 x10^3/uL (0.0-0.7) 0.0 x10^3/uL (0.0-0.7) Basophils # (Auto) 0.0 x10^3/uL (0.0-0.2) 0.0 x10^3/uL (0.0-0.2) Sodium Level 137 mmol/L (136-145) 137 mmol/L (136-145) Potassium Level 4.7 mmol/L (3.5-5.1) 3.9 mmol/L (3.5-5.1) Chloride Level 99 mmol/L (98-107) 100 mmol/L (98-107) Carbon Dioxide Level 29 mmol/L (21-32) 29 mmol/L (21-32) Anion Gap 9 (6-14) 8 (6-14) Blood Urea Nitrogen 33 mg/dL (7-20) 34 mg/dL (7-20) Creatinine 1.6 mg/dL (0.6-1.0) 1.4 mg/dL (0.6-1.0) Estimated GFR (Cockcroft-Gault) 31.1 36.3 Glucose Level 256 mg/dL (70-99) 195 mg/dL (70-99) Calcium Level 8.0 mg/dL (8.5-10.1) 8.1 mg/dL (8.5-10.1) BUN/Creatinine Ratio 24 (6-20) Magnesium Level 2.1 mg/dL (1.8-2.4) Total Bilirubin 0.7 mg/dL (0.2-1.0) Aspartate Amino Transf (AST/SGOT) 116 U/L (15-37) Alanine Aminotransferase (ALT/SGPT) 139 U/L (14-59) Alkaline Phosphatase 73 U/L (46-116) Total Protein 7.0 g/dL (6.4-8.2) Albumin 2.6 g/dL (3.4-5.0) Albumin/Globulin Ratio 0.6 (1.0-1.7) Amylase Level 42 U/L (25-115) Lipase 163 U/L (73-393) Review of Systems Constitutional: yes: weakness, alert, oriented Ears/Nose/Throat: Yes: no symptom reported Pulmonary: Yes dyspnea Cardiovascular: Yes no symptom reported Gastrointestional: Yes: no symptom reported Musculoskeletal: Yes: no symptom reported Endocrine: Yes: no symptom reported Physical Exam General Appearance: no apparent distress Skin: warm Respiratory: decreased breath sounds Heart: S1S2 Abdomen: soft, bowel sounds present Extremities: edema Neurology: alert, oriented, follow commands Assessment Assessment IMP CHF PL EFFUSION JUAN-BETTER WITH CR OF 1.4 JUAN DUE TO CAN DECONDITIONING PLAN IV LASIX ONCE STOP IVF'S CONT METOLAZONE WEAN GTT TO SELECT LATER TODAY VANE WHITT MD May 11, 2017 11:22
[2017-05-11] MEDS ORDERED: INSULIN ASPART 300 UNITS/3 ML INSULN.PEN SQ SCH (11:30)
[2017-05-11] MEDS ORDERED: ALBUMIN HUMAN 25% 100 ML IV ONE (12:15)
[2017-05-11] MEDS ORDERED: DIGOXIN IV 500 MCG/2 ML AMPUL. IV ONE ×2 (12:15→14:00)
[2017-05-11] MEDS ORDERED: DIGOXIN 250 MCG TABLET. PO ONE (12:30)
[2017-05-11] MEDS ORDERED: METOPROLOL TART IMMED RELEASE 25 MG TABLET. PO ONE (12:45)
--- NOTE | 2017-05-11 12:45 | PDOC ---
PILAR MANCIA MASTER BARBER 05/11/17 1245: CARDIO Progress Notes Date and Time Date of Service 05/11/2017 Time of Evaluation 1200 Subjective Subjective: No Chest Pain, No Palpitations, Other (sitting up in chair still feels slightly SOA) Vitals Vitals Vital Signs Date Time Temp Pulse Resp B/P (MAP) Pulse Ox O2 Delivery O2 Flow Rate FiO2 05/11/17 11:27 98 Nasal Cannula 4.0 05/11/17 06:00 94 24 118/71 (87) 05/11/17 04:00 98.0 98.0 Weight Weight [ ] Laboratory Labs Laboratory Tests Test 05/10/17 13:50 05/10/17 17:32 05/11/17 05:06 White Blood Count 11.5 x10^3/uL (4.0-11.0) 12.0 x10^3/uL (4.0-11.0) Red Blood Count 2.74 x10^6/uL (3.50-5.40) 3.26 x10^6/uL (3.50-5.40) Hemoglobin 8.0 g/dL (12.0-15.5) 9.3 g/dL (12.0-15.5) Hematocrit 24.4 % (36.0-47.0) 27.9 % (36.0-47.0) Mean Corpuscular Volume 89 fL (79-100) 86 fL (79-100) Mean Corpuscular Hemoglobin 29 pg (25-35) 29 pg (25-35) Mean Corpuscular Hemoglobin Concent 33 g/dL (31-37) 34 g/dL (31-37) Red Cell Distribution Width 18.1 % (11.5-14.5) 17.5 % (11.5-14.5) Platelet Count 296 x10^3/uL (140-400) 280 x10^3/uL (140-400) Neutrophils (%) (Auto) 80 % (31-73) 78 % (31-73) Lymphocytes (%) (Auto) 13 % (24-48) 15 % (24-48) Monocytes (%) (Auto) 7 % (0-9) 7 % (0-9) Eosinophils (%) (Auto) 0 % (0-3) 0 % (0-3) Basophils (%) (Auto) 0 % (0-3) 0 % (0-3) Neutrophils # (Auto) 9.2 x10^3uL (1.8-7.7) 9.4 x10^3uL (1.8-7.7) Lymphocytes # (Auto) 1.5 x10^3/uL (1.0-4.8) 1.8 x10^3/uL (1.0-4.8) Monocytes # (Auto) 0.7 x10^3/uL (0.0-1.1) 0.8 x10^3/uL (0.0-1.1) Eosinophils # (Auto) 0.0 x10^3/uL (0.0-0.7) 0.0 x10^3/uL (0.0-0.7) Basophils # (Auto) 0.0 x10^3/uL (0.0-0.2) 0.0 x10^3/uL (0.0-0.2) Sodium Level 137 mmol/L (136-145) 137 mmol/L (136-145) Potassium Level 4.7 mmol/L (3.5-5.1) 3.9 mmol/L (3.5-5.1) Chloride Level 99 mmol/L (98-107) 100 mmol/L (98-107) Carbon Dioxide Level 29 mmol/L (21-32) 29 mmol/L (21-32) Anion Gap 9 (6-14) 8 (6-14) Blood Urea Nitrogen 33 mg/dL (7-20) 34 mg/dL (7-20) Creatinine 1.6 mg/dL (0.6-1.0) 1.4 mg/dL (0.6-1.0) Estimated GFR (Cockcroft-Gault) 31.1 36.3 Glucose Level 256 mg/dL (70-99) 195 mg/dL (70-99) Calcium Level 8.0 mg/dL (8.5-10.1) 8.1 mg/dL (8.5-10.1) Glucose (Fingerstick) 234 mg/dL (70-99) BUN/Creatinine Ratio 24 (6-20) Magnesium Level 2.1 mg/dL (1.8-2.4) Total Bilirubin 0.7 mg/dL (0.2-1.0) Aspartate Amino Transf (AST/SGOT) 116 U/L (15-37) Alanine Aminotransferase (ALT/SGPT) 139 U/L (14-59) Alkaline Phosphatase 73 U/L (46-116) Total Protein 7.0 g/dL (6.4-8.2) Albumin 2.6 g/dL (3.4-5.0) Albumin/Globulin Ratio 0.6 (1.0-1.7) Amylase Level 42 U/L (25-115) Lipase 163 U/L (73-393) Review of Systems Constitutional: yes: weakness, alert, oriented Ears/Nose/Throat: Yes: no symptom reported Pulmonary: Yes dyspnea Cardiovascular: Yes no symptom reported Gastrointestional: Yes: no symptom reported Musculoskeletal: Yes: no symptom reported Endocrine: Yes: no symptom reported Physical Exam HEENT: Neck Supple W Full Motion Chest: Symmetric LUNGS: Other (diffuse crackles; tachypnea) Heart: S1S2, irregularly irregular (AFIB RVR) Abdomen: Soft N/T Extremities: No Edema, No Calf Tenderness Neurology: alert, oriented, follow commands Assessment Assessment 1. Acute on chronic systolic heart failure 2. Acute non-STEMI with CAD/3VD: S/P complex PCI/BMS to LAD/RCA with Impella support. Stable. 3. Anemia: post PRBC transfusion 4. Recent perforated gastric ulcer with laparoscopic repair 5. Cardiomyopathy: EF 35-40%. NYHA 2-3 6. PAFIB: presently AFIB RVR contributing to SOA. 7. CKD2 Recommendations 1. Ideally would place on NOAC but with notable PUD/anemia will maintain ASA for stroke prevention Future preference would be to eventually place pt on plavix and eliquis once GI reevaluates pt as an outpt and okays it. 2. Digoxin IV once PICC line placed 3. Restart low dose dobutamine once IV access is obtained. Lasix to commence with zaroxylyn use and will provide with x1 albumin. 4. Follow nephrology recommendation 5. Continue with amiodarone. Plavix/ASA 6. Lipids decent despite not having statin, notable for myalgia with statins unable to place presently 7. ACEi or ARB once BP is consistently adequate. 8. PCXR today MARY KAY CALDERON MD 05/11/17 1635: CARDIO Progress Notes Assessment Assessment Patient seen and examined. Agree with SEWING TRIMMER's assessment and plan. Diuresed better with Lasix plus albumin CAD status stable Transfer to select specialty today PILAR MANCIA APRN May 11, 2017 12:45 MARY KAY CALDERON MD May 11, 2017 16:35
[2017-05-11] MEDS: METOCLOPRAMIDE HCL 10 MG/2 ML VIAL. IV SCH ×2 (14:00→14:27)
[2017-05-11] MEDS: AMIODARONE HCL 200 MG TABLET. PO SCH (14:18)
[2017-05-11] MEDS: CLOPIDOGREL BISULFATE 75 MG TABLET PO SCH (14:18)
[2017-05-11] MEDS: ASPIRIN ENTERIC COATED 81 MG TABLET.DR. PO SCH (14:18)
[2017-05-11] MEDS: PANTOPRAZOLE 40 MG TABLET.DR. PO SCH (14:18)
[2017-05-11] MEDS: SUCRALFATE 1 GM TABLET. PO SCH (14:19)
[2017-05-11] MEDS: CITALOPRAM 20 MG TABLET. PO SCH (14:19)
--- NOTE | 2017-05-11 14:41 | RAD ---
Indication difficulty breathing. A single view of the chest was obtained and is compared to a study one day earlier. Changes of congestive heart failure persist and appear similar to minimally improved. Bilateral pleural effusions are noted. A right PICC line is noted with its tip at the SVC right atrial junction. IMPRESSION: Stable to slightly improved changes of congestive heart failure. Bilateral pleural effusions.
[2017-05-11] MEDS: ONDANSETRON PF 4 MG/2 ML VIAL. IV PRN (15:16)
== END 2017-05-11 15:45 | DRG 216 ==
LOC: 2 SOUTH 12:29 → 1 WEST ICU 14:37
PROVIDERS: ADMIT Internal Medicine; ATTEND Internal Medicine
PROC: 02723GZ Dilation of Coronary Artery, Three Arteries with Four or More Intraluminal Devices, Percutaneous Approach (ICD-10-PCS; principal; 2017-05-08)
PROC: 5A0221D Assistance with Cardiac Output using Impeller Pump, Continuous (ICD-10-PCS; 2017-05-08)
PROC: B2111ZZ Fluoroscopy of Multiple Coronary Arteries using Low Osmolar Contrast (ICD-10-PCS; 2017-05-08)
PROC: 5A09357 Assistance with Respiratory Ventilation, Less than 24 Consecutive Hours, Continuous Positive Airway Pressure (ICD-10-PCS; 2017-05-10)
PROC: 02HV33Z Insertion of Infusion Device into Superior Vena Cava, Percutaneous Approach (ICD-10-PCS; 2017-05-10)
PROC: 30233N1 Transfusion of Nonautologous Red Blood Cells into Peripheral Vein, Percutaneous Approach (ICD-10-PCS; 2017-05-10)
PROC: B548ZZA Ultrasonography of Superior Vena Cava, Guidance (ICD-10-PCS; 2017-05-10)
DX: I21.4 Non-ST elevation (NSTEMI) myocardial infarction (principal); N17.0 Acute kidney failure with tubular necrosis; J96.21 Acute and chronic respiratory failure with hypoxia; E43 Unspecified severe protein-calorie malnutrition; G72.81 Critical illness myopathy; I47.2 Ventricular tachycardia; I50.43 Acute on chronic combined systolic (congestive) and diastolic (congestive) heart failure; D68.9 Coagulation defect, unspecified; I31.3 Pericardial effusion (noninflammatory); D62 Acute posthemorrhagic anemia; I13.0 Hypertensive heart and chronic kidney disease with heart failure and stage 1 through stage 4 chronic kidney disease, or unspecified chronic kidney disease; E11.22 Type 2 diabetes mellitus with diabetic chronic kidney disease; E11.40 Type 2 diabetes mellitus with diabetic neuropathy, unspecified; E86.1 Hypovolemia; Z87.440 Personal history of urinary (tract) infections; E03.9 Hypothyroidism, unspecified; Z68.30 Body mass index [BMI] 30.0-30.9, adult; E78.5 Hyperlipidemia, unspecified; E87.6 Hypokalemia; F32.9 Major depressive disorder, single episode, unspecified; H91.90 Unspecified hearing loss, unspecified ear; I25.119 Atherosclerotic heart disease of native coronary artery with unspecified angina pectoris; I25.2 Old myocardial infarction; I25.5 Ischemic cardiomyopathy; I48.91 Unspecified atrial fibrillation; Z87.01 Personal history of pneumonia (recurrent); K21.9 Gastro-esophageal reflux disease without esophagitis; K57.30 Diverticulosis of large intestine without perforation or abscess without bleeding; M19.90 Unspecified osteoarthritis, unspecified site; N18.2 Chronic kidney disease, stage 2 (mild); R13.10 Dysphagia, unspecified; K02.9 Dental caries, unspecified; R79.89 Other specified abnormal findings of blood chemistry; I95.9 Hypotension, unspecified; R74.0 Nonspecific elevation of levels of transaminase and lactic acid dehydrogenase [LDH]; Z87.11 Personal history of peptic ulcer disease; Z87.891 Personal history of nicotine dependence; Z95.5 Presence of coronary angioplasty implant and graft; Z88.6 Allergy status to analgesic agent; Z88.1 Allergy status to other antibiotic agents; Z88.0 Allergy status to penicillin; Z88.8 Allergy status to other drugs, medicaments and biological substances; Z91.048 Other nonmedicinal substance allergy status; H40.003 Preglaucoma, unspecified, bilateral
CPT/HCPCS: 33990; 36415; 36569; 36600; 71010; 80048; 80053; 80061; 82150; 82553; 82805; 82962; 83690; 83735; 83880; 84484; 85025; 85384; 85520; 85610; 85670; 85730; 86850; 86900; 86901; 86920; 87641; 92928; 92943; 93308; 94250; 94640; 94660; 94760; 99152; 99153; C1725; C1769; C1771; C1876; C1877; C1887; C1892; G0269; J0583; J1160; J1250; J1265; J1644; J1815; J1940; J2185; J2250; J2405; J2765; J3010; J3430; J3490; J7030; J7060; J7620; P9016; P9046; Q9967; 92610; J2001